=== PATIENT | male | born 1955 | race Caucasian/White ===

== ENCOUNTER 2021-01-29 09:34 | Inpatient (IN) ==
--- NOTE | 2021-01-29 09:51 | Emergency Department Note ---
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 The patient went for his usual visit when he was noted to have third-degree heart block. He does have a history of heart block in the past. He does not have a pacemaker. The patient states he has had no weakness. He denies having any changes in his medications but does take a very large dose of beta-blockers daily. He states has been compliant with his usual medications. He denies having any fever or cough. He has had no recent traveling. He has not had any recent tick bites. He denies having any dizziness upon standing or weakness. The patient states that he has not recently been seen by his primary care physic sundar. ROS: See above HPI for pertinent positives & negatives. A total of 10 systems reviewed and were otherwise negative. PAST MEDICAL HISTORY: See Below PAST SURGICAL HISTORY: See Below FAMILY HISTORY: See Below SOCIAL HISTORY: See Below HOME MEDICATIONS: See Below ALLERGIES: See Below VITALS: See Below PHYSICAL EXAMINATION: GENERAL: Patient is awake alert in no acute distress patient is resting comfortably and showing no signs of anxiety EYES: The conjunctivae are clear. The pupils are round and reactive. EARS, NOSE, MOUTH AND THROAT: The nose is without any evidence of any deformity. Mucous membranes are moist. Tongue is midline. NECK: The neck is nontender and supple. RESPIRATORY: Normal respiratory effort is noted there is no evidence of wheezing rhonchi or rales CARDIOVASCULAR: Bradycardic and regular heart sounds were noted to auscultation. There is no definite murmur noted. GASTROINTESTINAL: The abdomen is soft. Abdomen is nontender. MUSCULOSKELETAL/EXTREMITIES: There is no evidence of gross deformity full range of motion is noted in the hips and shoulders. SKIN: Skin is warm and dry. Trace pedal edema was noted bilaterally. NEUROLOGIC: Patient is awake alert and oriented x3. MEDICAL DECISION MAKING: The patient is a 65-year-old male who presented to the emergency department for an evaluation of abnormal EKG. The patient was found to have a third-degree heart block on EKG. the patient was evaluated by cardiology in the emergency department. It is felt the patient is on a rather large dose of beta-nanci. His blood pressure is not low in the emergency department. He is bradycardic. At this time we will hold the patient's beta-nanci. He will then be evaluated further but after discussion with cardiology it is felt the patient is likely going to be a candidate for pacemaker placement. The patient has a history of cardiomyopathy. He may be a candidate for a defibrillator as well. The patient was agreeable to this plan. I discussed his case with the on-call [facility] hospitalist. Triage Nursing notes reviewed. Prior medical records reviewed Vital Signs: reviewed and remarkable for bradycardia and hypertension. Differential diagnosis: Premature contractions, electrolyte abnormality, cardiac dysrhythmia, thyroid dysfunction, pulmonary embolism, infection, gastrointestinal, as well as other pathologies. ER treatment provided: See below Diagnostics interpreted by me: ECG: EKG was obtained in the emergency department. My interpretation is third-d egree heart block at 47 bpm. No PVCs were noted. Lateral ST depressions were noted. This was compared to a tracing from November 292017. There was a first-degree AV block noted previously but the third-degree heart block is new compared to the earlier tracing. Cardiac Monitoring: An order was placed for continuous cardiac monitoring. The monitor shows a rate of 48 bpm with third-degree heart block. Laboratory studies: As stated above and show below. Imaging studies: See below Consultation(s): I discussed this case with Dr. Betancur who is on-call for [facility] cardiology. He has evaluated the patient in the emergency department. I discussed this case with Rhiannon who is on-call for the [facility] hospitalist group. Past Med/Surg History Medical History Congestive heart failure Hypertension Osteoarthritis Type 2 diabetes mellitus Social History Smoking Status: Former smoker Preferred Language: Mauritanian Feels Safe at Home: Yes Allergies Allergies Allergy/AdvReac Type Severity Reaction Status Date / Time cefuroxime Allergy Unknown FEVER, Verified 01/29/21 11:00 DIARHEA CREOCODE Allergy Unknown RED, Uncoded 01/29/21 11:00 [facility] Home Medications Medication Instructions Recorded Confirmed aspirin 81 mg tablet,delayed 81 mg PO DAILY 01/29/21 01/29/21 release coQ10 (ubiquinol) 200 mg capsule 200 mg PO DAILY 01/29/21 01/29/21 dorzolamide 2 % eye drops (Trusopt) 1 drp OPR BID 01/29/21 01/29/21 eplerenone 25 mg tablet (Inspra) 12.5 mg PO QAM 01/29/21 01/29/21 furosemide 80 mg tablet (Lasix) 40 mg PO QAM 01/29/21 01/29/21 levothyroxine 75 mcg tablet 75 mcg PO DAILYBB 01/29/21 01/29/21 (Synthroid) lisinopril 40 mg tablet (Zestril) 40 mg PO QAM 01/29/21 01/29/21 metoprolol tartrate 100 mg tablet See Rx Instructions .ROUTE .COMPLEX 01/29/21 01/29/21 (Lopressor) Results & Data (ED) Vital Signs Vital Signs - 24 hr 01/29/21 09:36 01/29/21 10:04 01/29/21 10:05 Temperature 36.4 C L Temperature Source Temporal Artery Scan Pulse Rate 48 L 52 L Pulse Rate [Right Finger] 50 L Pulse Rhythm Regular Pulse Rhythm [Right Finger] Pulse Strength Normal Respiratory Rate 20 20 16 Respiratory Effort / Characteristics Non-Labored Spontaneous Respiratory Depth Normal Respiratory Pattern Regular Blood Pressure [Right Arm] 171/93 H Blood Pressure Mean [Right Arm] 119 Pulse Oximetry 95 98 97 Oxygen Delivery Method Room Air Room Air Room Air Sepsis Recent Fever Within 48 Hours No Sepsis New/Unexplained Change in Mental Status No Sepsis Action Taken by Nursing No Action Required 01/29/21 10:30 01/29/21 11:35 01/29/21 12:34 Temperature Temperature Source Pulse Rate Pulse Rate [Right Finger] 68 52 L 48 L Pulse Rhythm Pulse Rhythm [Right Finger] Regular Pulse Strength Respiratory Rate 16 14 14 Respiratory Effort / Characteristics Non-Labored Respiratory Depth Normal Normal Normal Respiratory Pattern Blood Pressure [Right Arm] 170/97 H 176/99 H 131/103 H Blood Pressure Mean [Right Arm] 121 124 112 Pulse Oximetry 97 94 95 Oxygen Delivery Method Room Air Room Air Room Air Sepsis Recent Fever Within 48 Hours Sepsis New/Unexplained Change in Mental Status Sepsis Action Taken by Group Home Medications Current Medication List: was personally reviewed by me Laboratory Data Attestation: I reviewed the patient's lab results. Result diagrams: 01/29/21 09:53 01/29/21 09:53 Lab Results 01/29/21 01/29/21 01/29/21 Range/Units 09:53 09:53 09:53 WBC 9.63 (4.8-10.8) K/uL RBC 4.39 L (4.7-6.1) M/uL Hgb 13.7 L (14.0-18.0) g/dL Hct 41.2 L (42-52) % MCV 93.8 (80-100) fL MCH 31.2 (25-34) pg MCHC 33.3 (32-36) g/dL RDW Std Deviation 43.6 (36.4-46.3) fL RDW Coeff of Mariam 12.7 (11.5-14.5) % Plt Count 192 (130-400) K/uL MPV 11.7 H (7.4-10.4) fL Immature Gran % (Auto) 0.1 % Neut % (Auto) 69.4 % Lymph % (Auto) 17.5 % Morrow % (Auto) 10.0 % Eos % (Auto) 2.7 % Baso % (Auto) 0.3 % Neut # (Auto) 6.68 H (1.4-6.5) K/uL Lymph # (Auto) 1.69 (1.2-3.4) K/uL Morrow # (Auto) 0.96 H (0.11-0.59) K/uL Eos # (Auto) 0.26 (0-0.5) K/uL Baso # (Auto) 0.03 (0-0.2) K/uL Immature Gran # (Auto) 0.01 (0.00-0.02) K/uL PT 10.4 (9.0-12.0) Seconds INR 1.0 (0.9-1.1) APTT 28.8 (21.0-31.0) Seconds PTT Ratio 1.1 Sodium 139 (136-145) mmol/L Potassium 3.1 L (3.5-5.1) mmol/L Chloride 100 (98-107) mmol/L Carbon Dioxide 30 (21-32) mmol/L Anion Gap 9.0 (3-11) BUN 9 (7-18) mg/dl Creatinine 1.05 (0.6-1.4) mg/dl Est Cr Clr Drug Dosing 94.7 ml/min Est GFR ( Amer) 87.1 ml/min Est GFR (Non-Af Amer) 75.2 ml/min BUN/Creatinine Ratio 9.0 L (10-20) Glucose 184 H (70-99) mg/dl Calcium 10.0 (8.5-10.1) mg/dl Magnesium 2.1 (1.8-2.4) mg/dl Total Bilirubin 0.5 (0.2-1) mg/dl AST 13 L (15-37) U/L ALT 22 (12-78) U/L Alkaline Phosphatase 71 (45-117) U/L Troponin I 0.528 H* (0-0.045) ng/ml Total Protein 8.3 H (6.4-8.2) gm/dl Albumin 3.8 (3.4-5.0) gm/dl Globulin 4.5 H (2.5-4.0) gm/dl Albumin/Globulin Ratio 0.8 L (0.9-2) TSH 6.630 H (0.300-4.500) uIu/ml Free T4 1.15 (0.8-1.6) ng/dl COVID-19 Eval Order SARS-CoV-2 (PCR) (Negative) 01/29/21 01/29/21 Range/Units 10:54 10:54 WBC (4.8-10.8) K/uL RBC (4.7-6.1) M/uL Hgb (14.0-18.0) g/dL Hct (42-52) % MCV (80-100) fL MCH (25-34) pg MCHC (32-36) g/dL RDW Std Deviation (36.4-46.3) fL RDW Coeff of Mariam (11.5-14.5) % Plt Count (130-400) K/uL MPV (7.4-10.4) fL Immature Gran % (Auto) % Neut % (Auto) % Lymph % (Auto) % Morrow % (Auto) % Eos % (Auto) % Baso % (Auto) % Neut # (Auto) (1.4-6.5) K/uL Lymph # (Auto) (1.2-3.4) K/uL Morrow # (Auto) (0.11-0.59) K/uL Eos # (Auto) (0-0.5) K/uL Baso # (Auto) (0-0.2) K/uL Immature Gran # (Auto) (0.00-0.02) K/uL PT (9.0-12.0) Seconds INR (0.9-1.1) APTT (21.0-31.0) Seconds PTT Ratio Sodium (136-145) mmol/L Potassium (3.5-5.1) mmol/L Chloride (98-107) mmol/L Carbon Dioxide (21-32) mmol/L Anion Gap (3-11) BUN (7-18) mg/dl Creatinine (0.6-1.4) mg/dl Est Cr Clr Drug Dosing ml/min Est GFR ( Amer) ml/min Est GFR (Non-Af Amer) ml/min BUN/Creatinine Ratio (10-20) Glucose (70-99) mg/dl Calcium (8.5-10.1) mg/dl Magnesium (1.8-2.4) mg/dl Total Bilirubin (0.2-1) mg/dl AST (15-37) U/L ALT (12-78) U/L Alkaline Phosphatase (45-117) U/L Troponin I (0-0.045) ng/ml Total Protein (6.4-8.2) gm/dl Albumin (3.4-5.0) gm/dl Globulin (2.5-4.0) gm/dl Albumin/Globulin Ratio (0.9-2) TSH (0.300-4.500) uIu/ml Free T4 (0.8-1.6) ng/dl COVID-19 Eval Order Covid19 at [facility] SARS-CoV-2 (PCR) POSITIVE A* (Negative) Administered Medications Discontinued Medications Potassium Chloride (Potassium Chloride Crtab 20 Meq Tabcr) 40 meq PO NOW STA Stop: 01/29/21 11:37 Last Admin: 01/29/21 12:32 Dose: 40 meq Documented by: [id number] Imaging Data Radiologist's Impression: Chest X-Ray 01/29/21 09:45 XR chest 1V portable CLINICAL HISTORY: weakness TECHNIQUE: Single frontal radiograph of the chest was obtained. Comparison: Comparison is made to chest one view 03/05/2015 FINDINGS: No lines and tubes are seen. Cardiomegaly is noted. Lungs are underinflated but clear. No evidence of pleural effusion or pneumothorax. IMPRESSION: No acute chest disease. ACT 112: Negative or not required by law. Electronically signed by: Ramesh Schwartz M.D. 01/29/2021 10:25 AM Discharge Plan Visit Data Chief Complaint: Cardiac Assessment Stated Complaint: ABNORMAL EKG ED Provider: Tyrel Vega Discharge Problem: Third degree heart block, Ischemic cardiomyopathy, Hypertension, COVID-19 Patient Disposition: Being Evaluated by Hospitalist Forms Stand Alone Forms: [facility] Prescriptions Prescriptions: No Action aspirin [Aspir-81] 81 mg Tablet,Delayed Release (Dr/Ec) 81 mg PO DAILY RF: 0 dorzolamide [Trusopt] 2 % drops 1 drp OPR BID RF: 0 metoprolol tartrate [Lopressor] 100 mg tablet See Rx Instructions .ROUTE .COMPLEX RF: 0 levothyroxine [Synthroid] 75 mcg tablet 75 mcg PO DAILYBB RF: 0 furosemide [Lasix] 80 mg tablet 40 mg PO QAM RF: 0 lisinopril [Zestril] 40 mg tablet 40 mg PO QAM RF: 0 eplerenone [Inspra] 25 mg tablet 12.5 mg PO QAM RF: 0 coQ10 (ubiquinol) 200 mg Capsule 200 mg PO DAILY RF: 0 Referrals Referrals: PCP,NO [Physician] -
[2021-01-29 10:13] LABS: Basophils # (auto) 0.03 K/uL (0-0.2); Basophils % (auto) 0.3 %; Eosinophils # (auto) 0.26 K/uL (0-0.5); Eosinophils % (auto) 2.7 %; Hematocrit (blood only) 41.2 % (42-52); Hemoglobin 13.7 g/dL (14.0-18.0); Immature Granulocytes # (auto) 0.01 K/uL (0.00-0.02); Immature Granulocytes % (auto) 0.1 %; Lymphocytes # (auto) 1.69 K/uL (1.2-3.4); Lymphocytes % (auto) 17.5 %; Mean Corpuscular Hemoglobin 31.2 pg (25-34); Mean Corpuscular Hgb Conc 33.3 g/dL (32-36); Mean Corpuscular Volume 93.8 fL (80-100); Mean Platelet Volume 11.7 fL (7.4-10.4); Monocytes # (auto) 0.96 K/uL (0.11-0.59); Neutrophils # (auto) 6.68 K/uL (1.4-6.5); Neutrophils % (auto) 69.4 %; Platelet Count 192 K/uL (130-400); RDW Coefficient of Variation 12.7 % (11.5-14.5); RDW Standard Deviation 43.6 fL (36.4-46.3); Red Blood Count 4.39 M/uL (4.7-6.1); White Blood Count 9.63 K/uL (4.8-10.8)
--- NOTE | 2021-01-29 10:26 | XRay Report ---
XR chest 1V portable CLINICAL HISTORY: weakness TECHNIQUE: Single frontal radiograph of the chest was obtained. Comparison: Comparison is made to chest one view 03/05/2015 FINDINGS: No lines and tubes are seen. Cardiomegaly is noted. Lungs are underinflated but clear. No evidence of pleural effusion or pneumothorax. IMPRESSION: No acute chest disease. ACT 112: Negative or not required by law. Electronically signed by: Ramesh Schwartz M.D. 01/29/2021 10:25 AM
[2021-01-29 10:28] LABS: Partial Thromboplastin Ratio 1.1; Partial Thromboplastin Time 28.8 Seconds (21.0-31.0); Prothrombin Time 10.4 Seconds (9.0-12.0)
[2021-01-29 10:33] LABS: Albumin Level 3.8 gm/dl (3.4-5.0); Creatinine Clr Calc Pharmacy 94.7 ml/min; Est GFR (African American) 87.1 ml/min; Est GFR (Non-African American) 75.2 ml/min; Magnesium 2.1 mg/dl (1.8-2.4); Potassium 3.1 mmol/L (3.5-5.1)
[2021-01-29 10:46] LABS: Albumin Globulin Ratio 0.8 (0.9-2); Bilirubin,Total 0.5 mg/dl (0.2-1); Globulin 4.5 gm/dl (2.5-4.0); Thyroid Stimulating Hormone 6.63 uIu/ml (0.300-4.500); Total Protein 8.3 gm/dl (6.4-8.2); Troponin I 0.528 ng/ml (0-0.045)
[2021-01-29 10:59] LABS: T4 Free Thyroxine 1.15 ng/dl (0.8-1.6)
--- NOTE | 2021-01-29 11:20 | History & Physical Report ---
Date of Service January 29, 2021 Assessment & Plan (1) Third degree heart block: Plan: -Admit to PCU -Consult cardiology, discussed with Dr. Ventura -Check 2D echo, last echo was done in May 2020 showing EF preserved after ischemic cardiomyopathy where his EF was less than 20% prior to that timeframe -Hold beta-blockade, last dose was this morning per cardiology - keep NPO for possible placemaker placement, if no pacemaker then will allow diet -May continue Lasix 40 mg daily, lisinopril 40 mg daily, eplerenone 12.5 mg daily (2) Ischemic cardiomyopathy: Plan: - nonischemic cardiomyopathy with an LVEF now improved to 55-59% in May 2020 - Continue medications as above - Cardiology on board- appreciate (3) DM II (diabetes mellitus, type II), controlled: Plan: -Last A1c was 7.0 1 year ago, recheck with a.m. labs, patient is not on any oral medications or insulin, does not check his glucose regularly -Diet and exercise was encouraged at bedside (4) HLD (hyperlipidemia): Plan: - Not on statin therapy, check lipid panel with am labs, can continue coQ10 DVT ppx: - teds, ambulatory, heparin subq CODE: Full code Dispo: From home, likely to remain in the hospital x 1-2 days (5) Non-ischemic myocardial injury (non-traumatic): (6) COVID-19: History of Present Illness Chief Complaint: heart block Primary Care Provider: Real Mendoza MD This is a 65-year-old male with PMHx of nonischemic cardiomyopathy with an LVEF now improved to 55-59% in May 2020, HTN, moderate to severe aortic stenosis, DM type II, CHARBEL, GERD, and has had COVID-19 twice, who was seen in the etl application developer office by Dr. Betancur earlier this morning for routine follow-up for intermittent complete heart block found on cardio mobile. Patient was supposed to have a sleep study scheduled for 12/15 however patient no-show to the appointment due to scheduling error. In October the patient noted that he had a low heart rate in the mid 40s for 3 days. His metoprolol was reduced for short period of time and his heart rates improved to the mid 70s. His metoprolol dose currently is 150 daily, but does not take his medication consistently - ie. one morning will take 100 mg, in the afternoon takes 50 mg then the next day will take 75 in the morning and 75 in the evening. He is taking his Lasix 40 mg d aily as scheduled as well as lisinopril and eplerenone. He has been taking aspirin for the past 2 days however is fairly noncompliant with this in general. He also has variability in the vitamins that he takes at home, adjusting them on a daily basis. Patient denies any smoking or drinking, quit drinking whenever he developed issues with his heart. 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 Overall the patient feels generally himself, well, without acute complaints. He was referred to the ER for bradycardia with heart rates in the 40s. Cardiology has concerns for third-degree heart block and needs for pacemaker placement. Allergies Allergy/AdvReac Type Severity Reaction Status Date / Time cefuroxime Allergy Unknown FEVER, Verified 01/29/21 11:00 DIARHEA CREOCODE Allergy Unknown RED, Uncoded 01/29/21 11:00 [facility] Home Medications Medication Instructions Recorded Confirmed Type aspirin 81 mg tablet,delayed 81 mg PO DAILY 01/29/21 01/29/21 History release coQ10 (ubiquinol) 200 mg capsule 200 mg PO DAILY 01/29/21 01/29/21 History dorzolamide 2 % eye drops (Trusopt) 1 drp OPR BID 01/29/21 01/29/21 History eplerenone 25 mg tablet (Inspra) 12.5 mg PO QAM 01/29/21 01/29/21 History furosemide 80 mg tablet (Lasix) 40 mg PO QAM 01/29/21 01/29/21 History levothyroxine 75 mcg tablet 75 mcg PO DAILYBB 01/29/21 01/29/21 History (Synthroid) lisinopril 40 mg tablet (Zestril) 40 mg PO QAM 01/29/21 01/29/21 History metoprolol tartrate 100 mg tablet See Rx Instructions .ROUTE .COMPLEX 01/29/21 01/29/21 History (Lopressor) Past Med/Surg History Medical History Congestive heart failure Hypertension Osteoarthritis Type 2 diabetes mellitus Surgical History Eye disorder S/p posterior Sub-tenons Triesence, right Family History Father Prostate cancer Bladder cancer Mother Diabetes Heart disease Thyroid condition Sister Thyroid condition Social History Smoking Status: Former smoker Hx Alcohol Use: No Hx Substance Use: No Preferred Language: Icelandic Communication Ability: Effective Mental Health Case Manager Required: No Beliefs That Will Affect Care: None Current Living Situation: Family Current Living Situation Comment: lives with sister Other Information That Helps Us Care for You: No Feels Safe at Home: Yes Safety Concerns: Feels Safe At This Time Assistive Devices: Glasses Review of Systems Review of Systems: Constitutional: No fever, sweats or chills Eyes: No diplopia, no worsening or blurred vision ENT: normal hearing, no trouble swallowing Respiratory: No cough, sputum, dyspnea at rest or on exertion Cardiovascular: No chest pain, tightness or palpitations, no lightheadedness or dizziness Abdomen: No pain, nausea, vomiting, diarrhea or constipation Musculoskeletal: No joint pain, calf pain, swelling Neurologic: No weakness, numbness/tingling, or balance problems Psychiatric: No anxiety or depression Skin: No rash or itch Physical Exam Physical Exam: General: awake, alert, no apparent distress, obese with BMI of 36.8 Head: Normocephalic, atraumatic ENT: PERRL, EOMI, right eye amblyopia, no pharyngeal exudate, mucous membranes moist Chest: Clear to auscultation, on room air, no adventitious breath sounds Cardiac: Bradycardic with HR in low 50s at bedside, no murmur, no JVD, normal peripheral pulses, good capillary refill Abdominal: NABS x 4 quadrants, soft, nondistended, nontender to palpation, no rebound or guarding Extremities: Normal inspection, + chronic venous stasis changes, no peripheral edema or erythema, calfs nontender to palpation Psych: Normal mood and affect Neuro: AAO x 3, strength intact bilaterally and rated 5/5, no motor deficits, speech is clear, no peripheral sensory deficits Results & Data Results & Data ([facility]) Vital Signs (Past 12 Hours) Vital Signs Temp Pulse Pulse Resp BP Pulse Ox 01/29/21 10:30 68 16 170/97 H 97 01/29/21 10:05 50 L 16 171/93 H 97 01/29/21 10:04 52 L 20 98 01/29/21 09:36 36.4 C L 48 L 20 95 Diagnostic Findings Chest X-Ray 01/29/21 09:45 XR chest 1V portable CLINICAL HISTORY: weakness TECHNIQUE: Single frontal radiograph of the chest was obtained. Comparison: Comparison is made to chest one view 03/05/2015 FINDINGS: No lines and tubes are seen. Cardiomegaly is noted. Lungs are underinflated but clear. No evidence of pleural effusion or pneumothorax. IMPRESSION: No acute chest disease. ACT 112: Negative or not required by law. Electronically signed by: Ramesh Schwartz M.D. 01/29/2021 10:25 AM ECG Rhythm: sinus bradycardia Additional Comments: 29-JAN-2021 09:45:15 [facility]-EDSTAT ROUTINE RETRIEVAL Sinus rhythm with 2nd degree A-V block (Mobitz I) with 2:1 A-V conduction Left anterior fascicular block Cannot rule out Inferior infarct (masked by fascicular block?) , age undetermined Abnormal ECG When compared with ECG of 29-NOV-2017 22:44, Sinus rhythm is now with 2nd degree A-V block (Mobitz I) Vent. rate has decreased BY [address] now depressed in Lateral leads Nonspecific T wave abnormality now evident in Lateral leads 25mm/s 10mm/mV 150Hz 9.0.9 12SL 241 TANIA: 11 Referred by: SAGE FRAUSTO Unconfirmed Vent. rate 47 BPM [place] interval * ms QRS duration 106 ms QT/QTc 468/414 ms Code Status & VTE Plan Code Status Full code - discussed with the patient at bedside VTE Prophylaxis Plan VTE Prophylaxis will be ordered: Yes Supervising Physician Co-Signing Physician Notes I have seen and examined the patient and have discussed the case with the provider above. I agree with the assessment and plan as stated. 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 He presents today with concerns of heart block seen on EKG in the cardiology clinic, where he was sent from this morning. He looks and feels well clinically, and when he is resting on my evaluation his HR is in the 50s with sinus rhythm. He then sat up and his heart rate augmented into the low 80s without any symptoms. He denies chest pain, shortness of breath or fatigue that is unusual. He reports chronic joint pain in several joints which causes him insomnia. He takes occasional [place] or plain acetaminophen and avoids NSAIDs per his report. He started taking elderberry gummies within the past 3 months. Physical exam is unremarkable and as above with the exception of a 3/6 CRISTIN is present across precordium. He is euvolemic on exam. He is hypertensive with bilateral blood pressures as follows: R arm 162/87, L arm 164/115. SBP was in the 130s this morning on outpatient chart review. Cont to monitor blood pressure trend overnight. EKG reveals second degree heart block, Mobitz Type I. Trop slightly elevated in setting of covid infection. ACS less likely without symptoms. However, agree with trending troponin overnight. Cont to monitor on telemetry off beta nanci. Appreciate cardiology following. At this time patient doesn't qualify for any covid-19 related therapies. Narayan, DO
[2021-01-29] MEDS ORDERED: POTASSIUM CHLORIDE CRTAB 20 MEQ TABCR PO STA (11:36)
--- NOTE | 2021-01-29 12:15 | Cardiology Consultation ---
Date of Consultation January 29, 2021 Assessment & Plan (1) Third degree heart block: 1. Asymptomatic third-degree AV block 2. Longstanding history of AV jayshree nanci use due to history of tachycardia induced cardiomyopathy 3. Acute hypokalemia 4. SARS-CoV-2 positive with recent cough and rhinorrhea 5. Moderate to borderline severe aortic stenosis Comment: The patient's cardiac history dates back to 2014 when he presented for a preoperative EKG prior to eye surgery with findings of a narrow complex tachycardia in the 120s. Per review of those tracings, they were interpreted as being an accelerated junctional rhythm versus sinus tachycardia at that time. Ejection fraction was less than 20% with findings of severe aortic stenosis or pseudosevere aortic stenosis at that time. He was treated with medications, and had a nonischemic pharmacologic nuclear stress test as part of an ischemic work- up at that time. Per review of prior notes, in 2014 his medication regimen included metoprolol 100 mg twice daily, diltiazem 180 mg daily, and digoxin 125 mg daily. Over time his ejection fraction has been observed to of normalized. His AV jayshree blockers have been titrated down, with most recent regimen of metoprolol tartrate 100 mg in the morning and 50 mg in the evening. This morning he took 75 mg. He notes recent travel having returned to the area from a trip to [place] recently. He notes cough and rhinorrhea, and his SARS-CoV-2 screen here in the emergency room is positive. He is very limited in terms of his physical activity due to arthritis/orthopedic limitations. He however does not have any symptoms related to his bradycardia, with no lightheadedness, dizziness, and his blood pressure is actually been normal to hypertensive. Plan: Admit for telemetry monitoring. I am not certain what to think of the mild troponin elevation in the setting of a positive SARS-CoV-2 screen, though he has subtle ST depression on his EKG tracings today, and he has no symptoms suggestive angina, and is hemodynamically stable. There is no indication for temporary pacemaker support as he is normotensive. We will observe the patient off of AV jayshree blockers. It does appear that he has needed less medication over time. Potassium replacement has been ordered. I discussed his case with Dr. Waterman who had seen him in outpatient EP consult in August. At present, will observe him off of AV node blockers, with conside ration of implantation of permanent pacemaker depending upon his course. Transthoracic echocardiogram will be performed for reassessment of LV function and aortic valve stenosis. History of Present Illness History of Present Illness Yovani La is a 65 year old male seen in cardiology consultation in the ED ,room A12B, per the request of Dr Vega for the evaluation of bradycardia. The patient presented to the outpatient cardiology clinic at [facility] for routine follow-up with no acute concerns. He denies any gross change in his activity tolerance, denies lightheadedness, dizziness, syncope or near syncope. He does note that he perhaps has been feeling off for 3 weeks with having had a coughing illness, but no fevers or chills. An EKG was performed as an outpatient today 01/29/2021 at 905 which revealed findings of third-degree AV block, with AV disassociation, and ventricular rate of 43 bpm. The QRS is relatively narrow at 94 ms. Poor R wave progression is noted. Mild diffuse ST segment depression also on a tracing. The patient was referred to the emergency room for further evaluation, with findings that are relatively unchanged. The patient has no symptoms suggestive angina. Blood pressure recorded in the office had been 138/80, and his most recent blood pressure having been recorded here in the emergency room was 176/99. Cardiac Problem List: Longstanding history of conduction system disease, with history of nonischemic cardiomyopathy dating back to 2014, LVEF less than 20%, at that time felt to be tachycardia induced with subsequent normalization and is therefore an high dose metoprolol Nonischemic Lexiscan nuclear stress test 03/23/2015 Has a history of left anterior fascicular block and on a Cardionet monitor performed Jul, 2020 he was found to have an average heart rate of 77 bpm, with episodes of 2-1 AV block versus intermittent complete heart block noted. Transthoracic echocardiogram performed 06/23/2020 revealed moderate concentric left ventricular hypertrophy, normal LVEF 55 to 59%, moderate aortic valve calcification, moderate to borderline aortic valve stenosis, peak CW velocity 3.7 m/s, mean aortic valve gradient 32 mmHg. Nonischemic Lexiscan nuclear stress test 03/23/2015 Allergies Allergy/AdvReac Type Severity Reaction Status Date / Time cefuroxime Allergy Unknown FEVER, Verified 01/29/21 11:00 DIARHEA CREOCODE Allergy Unknown RED, Uncoded 01/29/21 11:00 RAISED WELTS Home Medications Medication Instructions Recorded Confirmed Type aspirin 81 mg tablet,delayed 81 mg PO DAILY 01/29/21 01/29/21 History release coQ10 (ubiquinol) 200 mg capsule 200 mg PO DAILY 01/29/21 01/29/21 History dorzolamide 2 % eye drops (Trusopt) 1 drp OPR BID 01/29/21 01/29/21 History eplerenone 25 mg tablet (Inspra) 12.5 mg PO QAM 01/29/21 01/29/21 History furosemide 80 mg tablet (Lasix) 40 mg PO QAM 01/29/21 01/29/21 History levothyroxine 75 mcg tablet 75 mcg PO DAILYBB 01/29/21 01/29/21 History (Synthroid) lisinopril 40 mg tablet (Zestril) 40 mg PO QAM 01/29/21 01/29/21 History metoprolol tartrate 100 mg tablet See Rx Instructions .ROUTE .COMPLEX 01/29/21 01/29/21 History (Lopressor) Patient History Medical History Congestive heart failure Hypertension Osteoarthritis Type 2 diabetes mellitus Social History Smoking Status: Former smoker Preferred Language: Fijian Feels Safe at Home: Yes Review of Systems Review of Systems: All systems reviewed & are unremarkable except as noted in HPI & below Physical Exam Constitutional: WD/WN, vitals as above Respiratory: normal respiratory effort, lungs clear to auscultation Cardiovascular: Rate/Rhythm: + bradycardic Heart Sounds: + murmur (2/6 SM ) Gastrointestinal (Abdomen): normal bowel sounds, soft, nontender, no hepatosplenomegaly Neurologic: PERRL, EOMI, accommodation nl, no face palsy, no dysarthria Results & Data ([facility]) Vital Signs (Past 12 Hours) Vital Signs Temp Pulse Pulse Resp BP Pulse Ox 01/29/21 11:35 52 L 14 176/99 H 94 01/29/21 10:30 68 16 170/97 H 97 01/29/21 10:05 50 L 16 171/93 H 97 01/29/21 10:04 52 L 20 98 01/29/21 09:36 36.4 C L 48 L 20 95 Laboratory Results Cardiac Enzymes 01/29/21 Range/Units 09:53 AST 13 L (15-37) U/L Troponin I 0.528 H* (0-0.045) ng/ml Coagulation 01/29/21 Range/Units 09:53 PT 10.4 (9.0-12.0) Seconds APTT 28.8 (21.0-31.0) Seconds CBC 01/29/21 Range/Units 09:53 WBC 9.63 (4.8-10.8) K/uL RBC 4.39 L (4.7-6.1) M/uL Hgb 13.7 L (14.0-18.0) g/dL Hct 41.2 L (42-52) % Plt Count 192 (130-400) K/uL Neut # (Auto) 6.68 H (1.4-6.5) K/uL Lymph # (Auto) 1.69 (1.2-3.4) K/uL [place] # (Auto) 0.96 H (0.11-0.59) K/uL Eos # (Auto) 0.26 (0-0.5) K/uL Baso # (Auto) 0.03 (0-0.2) K/uL Comprehensive Metabolic Panel 01/29/21 Range/Units 09:53 Sodium 139 (136-145) mmol/L Potassium 3.1 L (3.5-5.1) mmol/L Chloride 100 (98-107) mmol/L Carbon Dioxide 30 (21-32) mmol/L BUN 9 (7-18) mg/dl Creatinine 1.05 (0.6-1.4) mg/dl Glucose 184 H (70-99) mg/dl Calcium 10.0 (8.5-10.1) mg/dl AST 13 L (15-37) U/L ALT 22 (12-78) U/L Alkaline Phosphatase 71 (45-117) U/L Total Protein 8.3 H (6.4-8.2) gm/dl Albumin 3.8 (3.4-5.0) gm/dl Intake and Output 01/28/21 01/29/21 01/29/21 22:59 06:59 14:59 Other: Weight 119.6 kg Weight Measurement Method Chair Scale Patient Weight 01/30/21 06:59 Weight 119.6 kg Diagnostic Findings Potassium 3.1 Troponin I 0.528
[2021-01-29] MEDS: POTASSIUM CHLORIDE CRTAB 20 MEQ TABCR PO ONE ×2 (15:52→15:57)
[2021-01-29] MEDS ORDERED: POTASSIUM CHLORIDE 20 MEQ/15 ML UDC PO ONE ×2 (16:00→16:15)
[2021-01-29] MEDS ORDERED: ONDANSETRON INJ 2 MG/ML 2 ML VIAL IV PRN (17:32)
[2021-01-29] MEDS ORDERED: ACETAMINOPHEN 325 MG TAB PO PRN (17:32)
[2021-01-29] MEDS: HEPARIN SOD 5,000 UNIT/0.5 ML VIAL SQ SCH (19:40)
[2021-01-29] MEDS: DORZOLAMIDE HCL 2% OPH SOLN 10 ML BTL OPR SCH (20:02)
[2021-01-30] MEDS: LEVOTHYROXINE SODIUM 75 MCG TABLET PO SCH (06:06)
[2021-01-30 06:22] LABS: Hematocrit (blood only) 44.6 % (42-52); Mean Corpuscular Hemoglobin 31.1 pg (25-34); Mean Corpuscular Volume 92.5 fL (80-100); Platelet Count 203 K/uL (130-400); RDW Coefficient of Variation 12.9 % (11.5-14.5); RDW Standard Deviation 43.6 fL (36.4-46.3); Red Blood Count 4.82 M/uL (4.7-6.1)
[2021-01-30 06:25] LABS: Mean Corpuscular Hgb Conc 33.6 g/dL (32-36)
--- NOTE | 2021-01-30 06:40 | Electrocardiogram Report ---
Test Reason : Blood Pressure : / mmHG Vent. Rate : 047 BPM Atrial Rate : 078 BPM P-R Int : 000 ms QRS Dur : 106 ms QT Int : 468 ms P-R-T Axes : 035 -50 -87 degrees QTc Int : 414 ms Sinus rhythm with complete heart block Left anterior fascicular block Nonspecific ST and T wave abnormality Abnormal ECG When compared with ECG of 29-NOV-2017 22:44, Sinus rhythm is now with complete heart block Vent. rate has decreased BY [address] now depressed in Anterolateral leads Nonspecific T wave abnormality now evident in Anterolateral leads Confirmed by Rio King ([id number]) on 01/30/2021 6:40:41 AM Referred By: SAGE FRAUSTO Confirmed By:Rio King
[2021-01-30 07:14] LABS: Albumin Globulin Ratio 0.8 (0.9-2); Albumin Level 3.1 gm/dl (3.4-5.0); BUN Creatinine Ratio 12.7 (10-20); Bilirubin,Total 0.7 mg/dl (0.2-1); Calcium 8.9 mg/dl (8.5-10.1); Est GFR (Non-African American) 92.3 ml/min; Total Protein 7.1 gm/dl (6.4-8.2)
[2021-01-30 08:11] LABS: Estimated Average Glucose 171 mg/dl; Hemoglobin A1C 7.6 % (4.5-5.6)
[2021-01-30 08:22] LABS: Potassium 3.4 mmol/L (3.5-5.1)
[2021-01-30 08:27] LABS: Magnesium 2.2 mg/dl (1.8-2.4)
[2021-01-30] MEDS: FUROSEMIDE 40 MG TAB PO SCH (08:57)
[2021-01-30] MEDS: lisinopril 40 MG TAB PO SCH (08:58)
[2021-01-30] MEDS: HEPARIN SOD 5,000 UNIT/0.5 ML VIAL SQ SCH (08:59)
[2021-01-30] MEDS ORDERED: NON-FORMULARY MEDICATION (Coq10 (Ubiquinol) 200 mg Capsule) PO SCH (09:00)
[2021-01-30] MEDS: DORZOLAMIDE HCL 2% OPH SOLN 10 ML BTL OPR SCH ×2 (09:08→21:16)
[2021-01-30] MEDS: ASPIRIN 81 MG ECTAB PO SCH (09:10)
[2021-01-30] MEDS: EPLERENONE 25 MG PO SCH (09:22)
[2021-01-30] MEDS ORDERED: POTASSIUM CHLORIDE CRTAB 20 MEQ TABCR PO ONE (11:15)
[2021-01-30] MEDS ORDERED: Nursing to Pharmacy Communication SCH (12:00)
--- NOTE | 2021-01-30 12:02 | Cardiology Progress Note ---
Date of Service January 30, 2021 Assessment & Plan (1) Third degree heart block: (2) Paroxysmal atrial fibrillation: (3) Mobitz type 1 second degree AV block: (4) Aortic stenosis: Plan: Add IV heparin weight-based protocol due to paroxysmal atrial fibrillation. Continue to observe patient off all AV jayshree blocking agents. I will discuss case further with electrophysiology to consider timing of pacemaker implantation. Admission and Anticipated Discharge Date Admission Date: January 29, 2021 Subjective Patient seen and examined at bedside. Feeling well from a cardiovascular perspective. Denies palpitations or lightheadedness. No chest pain or unusual shortness of breath. No loss of taste or smell. Reports rhinorrhea and sneez ing. Overnight telemetry reveals paroxysmal atrial fibrillation with heart rate ranging from 70-80 bpm. No rapid ventricular response. Occasional episodes of sinus bradycardia as well as second-degree AV block Mobitz type I recorded. Blood pressure is stable. Review of Systems Review of Systems: All systems reviewed & are unremarkable except as noted in Subjective Physical Exam Constitutional: well nourished and + obese; no acute distress Respiratory: normal respiratory effort; no respiratory distress and no retractions Auscultation: no crackles, no rales, no rhonchi and no wheezes Cardiovascular: Rate/Rhythm: regular rate and regular rhythm Heart Sounds: normal S1, normal S2 and + murmur (2/6 systolic ejection murmur) Vessels: no JVD and no carotid bruit Gastrointestinal (Abdomen): Inspection/Auscultation: abdomen normal to inspection and normal bowel sounds; abdomen not distended Neurologic: CN's II-XI intact bilaterally and moves all extremities; no focal motor deficits Motor/Sensory: no tremor Psychiatric: A+Ox3, euthymic affect Results & Data ([facility]) Vital Signs (Past 12 Hours) Vital Signs Temp Pulse Pulse Resp BP BP Pulse Ox 01/30/21 11:46 36.8 C 85 18 138/90 92 01/30/21 10:54 62 98 01/30/21 10:23 53 L 95 01/30/21 08:00 36.7 C 72 18 140/90 01/30/21 04:16 43 L 01/30/21 03:00 36.9 C 51 L 14 140/96 140/96 93 Pulse Ox 01/30/21 11:46 01/30/21 10:54 01/30/21 10:23 01/30/21 08:00 95 01/30/21 04:16 01/30/21 03:00
[2021-01-30] MEDS ORDERED: POTASSIUM CHLORIDE 20 MEQ/15 ML UDC PO ONE (12:15)
[2021-01-30] MEDS ORDERED: Heparin IV Adult Wt-Based Standard WITH Bolus Protocol IV SCH (14:10)
[2021-01-30] MEDS ORDERED: HEPARIN SOD (PORCINE) 1000 UNIT/ML IV ONE (14:18)
[2021-01-30] MEDS ORDERED: HEPARIN IV BOLUS 7,000 UNITS in SYRINGE 0 ML IV ONE (14:30)
[2021-01-30] MEDS: HEPARIN SODIUM/DEXTROSE 25,000 UNITS/500 ML BAG IV SCH (15:01)
[2021-01-30] MEDS ORDERED: GLUCOSE 40% GEL 15 GM TUBE PO PRN (15:57)
[2021-01-30] MEDS ORDERED: CARBOHYDRATES FOR HYPOGLYCEMIA PO PRN (15:57)
[2021-01-30] MEDS ORDERED: GLUCOSE 10 TABS/TUBE PO PRN (15:57)
[2021-01-30] MEDS ORDERED: GLUCAGON FOR INJ 1 MG VIAL SQ PRN (15:57)
[2021-01-30] MEDS ORDERED: DEXTROSE 50% 50 ML SYRINGE IV PRN (15:57)
--- NOTE | 2021-01-30 16:03 | Hospitalist Progress Note ---
Date of Service January 30, 2021 Assessment & Plan (1) Third degree heart block: Plan: Third-degree heart block Paroxysmal atrial fibrillation H/O arctic stenosis ECHO: EF 65 to 70%. Mild concentric LVH. Aortic valve is trileaflet. Borderline severe aortic valve stenosis. Mild TR. Started on IV heparin Avoid AV jayshree blocking agents Appreciate cardiology input Plan for possible pacemaker implantation (2) Ischemic cardiomyopathy: Plan: Echo as above Continue home diuretics Monitor volume status (3) DM II (diabetes mellitus, type II), controlled: Plan: -Last A1c was 7.6 Patient is not on any oral medications or insulin, does not check his glucose regularly Insulin sliding scale while hospitalized (4) HLD (hyperlipidemia): Plan: continue coQ10 COVID 19 Infection H/O Covid twice before this hospitalization in late winter and earlier this year as per patient. Unvaccinated. CXR:No acute chest disease. Saturating well on room air DVT Px: IV heparin CODE STATUS: Full code (5) Non-ischemic myocardial injury (non-traumatic): (6) COVID-19: Admission and Anticipated Discharge Date Admission Date: January 29, 2021 Subjective Patient is seen and examined at bedside States feeling well today Denies any chest pain, dyspnea, palpitations, dizziness Reports rhinorrhea Bradycardic on monitor Saturating well on room air Review of Systems Review of Systems: All systems reviewed & are unremarkable except as noted in Subjective Physical Exam Physical Exam: Physical Exam: Vitals signs as noted above General Appearance:Obese, no apparent distress Head: normocephalic, Atraumatic Eyes: normal inspection, EOMI Neck: supple, Trachea midline Respiratory/Chest: Normal breath sounds, CTA Cardiovascular: S1, S2, + murmur, +Bradycardia Abdomen/GI:Soft, Non tender, Bowel sounds present Extremities/Musculoskeletal:normal inspection, no edema Neurologic/Psych:AAOX3, grossly no focal neurological deficits Skin: normal color, warm Results & Data Results & Data ([facility]) Vital Signs (Past 12 Hours) Vital Signs Temp Pulse Pulse Resp BP BP Pulse Ox 01/30/21 13:51 53 L 92 01/30/21 11:46 36.8 C 85 18 138/90 92 01/30/21 10:54 62 98 01/30/21 10:23 53 L 95 01/30/21 08:00 36.7 C 72 18 140/90 01/30/21 04:16 43 L Pulse Ox 01/30/21 13:51 01/30/21 11:46 01/30/21 10:54 01/30/21 10:23 01/30/21 08:00 95 01/30/21 04:16 Laboratory Results Short CBC 01/30/21 Range/Units 05:16 WBC 9.10 (4.8-10.8) K/uL Hgb 15.0 (14.0-18.0) g/dL Hct 44.6 (42-52) % Plt Count 203 (130-400) K/uL BMP 01/30/21 01/30/21 05:16 07:40 Sodium 139 Potassium 3.4 L Chloride 102 Carbon Dioxide 30 BUN 11 Creatinine 0.86 Glucose 135 H Calcium 8.9 Cardiac Enzymes 01/29/21 01/29/21 Range/Units 17:59 23:04 Troponin I 0.508 H* 0.420 H* (0-0.045) ng/ml Liver Function 01/30/21 01/30/21 Range/Units 05:16 07:40 Total Bilirubin 0.7 (0.2-1) mg/dl AST 15 (15-37) U/L ALT 21 (12-78) U/L Alkaline Phosphatase 58 (45-117) U/L Albumin 3.1 L (3.4-5.0) gm/dl
[2021-01-30] MEDS: INSULIN ASPART 100 UNITS/ML 3 ML PEN SC SCH ×2 (17:54→21:08)
[2021-01-30 21:22] LABS: Partial Thromboplastin Time 79.1 Seconds (21.0-31.0)
[2021-01-31 02:55] LABS: Hematocrit (blood only) 45.1 % (42-52); Hemoglobin 14.9 g/dL (14.0-18.0); Mean Corpuscular Hemoglobin 31.1 pg (25-34); Mean Corpuscular Volume 94.2 fL (80-100); Mean Platelet Volume 11.8 fL (7.4-10.4); Platelet Count 190 K/uL (130-400); RDW Coefficient of Variation 12.8 % (11.5-14.5); RDW Standard Deviation 44.3 fL (36.4-46.3); Red Blood Count 4.79 M/uL (4.7-6.1); White Blood Count 9.12 K/uL (4.8-10.8)
[2021-01-31 03:15] LABS: BUN Creatinine Ratio 13.7 (10-20); Calcium 9.1 mg/dl (8.5-10.1); Creatinine Clr Calc Pharmacy 113.4 ml/min; Est GFR (Non-African American) 91.4 ml/min; Magnesium 2.3 mg/dl (1.8-2.4); Potassium 3.5 mmol/L (3.5-5.1)
[2021-01-31 03:18] LABS: Partial Thromboplastin Ratio 2.6
[2021-01-31 03:25] LABS: Partial Thromboplastin Time 65.2 Seconds (21.0-31.0)
[2021-01-31 03:26] LABS: Thyroid Stimulating Hormone 3.73 uIu/ml (0.300-4.500)
[2021-01-31] MEDS: HEPARIN SODIUM/DEXTROSE 25,000 UNITS/500 ML BAG IV SCH ×2 (04:17→18:54)
[2021-01-31] MEDS: LEVOTHYROXINE SODIUM 75 MCG TABLET PO SCH (05:46)
[2021-01-31] MEDS ORDERED: POTASSIUM CHLORIDE 20 MEQ/15 ML UDC PO ONE (08:15)
[2021-01-31] MEDS: ASPIRIN 81 MG ECTAB PO SCH (08:47)
[2021-01-31] MEDS: EPLERENONE 25 MG PO SCH (08:48)
[2021-01-31] MEDS: DORZOLAMIDE HCL 2% OPH SOLN 10 ML BTL OPR SCH ×2 (08:48→20:24)
[2021-01-31] MEDS: FUROSEMIDE 40 MG TAB PO SCH (08:49)
[2021-01-31] MEDS: lisinopril 40 MG TAB PO SCH (08:50)
[2021-01-31] MEDS: INSULIN ASPART 100 UNITS/ML 3 ML PEN SC SCH ×4 (08:51→20:24)
--- NOTE | 2021-01-31 11:25 | Electrocardiogram Report ---
Test Reason : Blood Pressure : / mmHG Vent. Rate : 078 BPM Atrial Rate : 096 BPM P-R Int : 000 ms QRS Dur : 104 ms QT Int : 452 ms P-R-T Axes : 059 -56 064 degrees QTc Int : 515 ms Sinus rhythm with 2nd degree A-V block (Mobitz I) Left anterior fascicular block Prolonged QT Abnormal ECG When compared with ECG of 30-JAN-2021 12:09, No significant change Confirmed by Tyrel Griffiths ([id number]) on 01/31/2021 11:25:35 AM Referred By: Bridger Mars Confirmed By:Tyrel Griffiths
--- NOTE | 2021-01-31 11:45 | Cardiology Progress Note ---
Date of Service January 31, 2021 Assessment & Plan (1) Third degree heart block: (2) Paroxysmal atrial fibrillation: (3) Mobitz type 1 second degree AV block: (4) Mobitz type 2 second degree atrioventricular block: (5) Aortic stenosis: Plan: I had a long discussion with patient regarding atrial fibrillation and intermittent third-degree AV block. Indication for pacemaker implantation discussed. He remains asymptomatic. Blood pressure is adequate. AV jayshree blocking agents remain on hold. Case discussed with electrophysiology. Pacemaker implantation during current hospitalization versus discharge with procedure in approximately 7-10 days to be determined as clinical course progresses. Continue to observe telemetry overnight. Will discuss final plans for pacemaker implantation with patient and wallpaperer helper in a.m., 02/02/2021. Admission and Anticipated Discharge Date Admission Date: January 29, 2021 Subjective Patient seen and examined the bedside. Feeling well from a cardiovascular perspective. Denies chest discomfort, lightheadedness, or dizziness. No palpitations, focal weakness, slurred speech, or paresthesias. Tolerating diet and medications. No signs/symptoms of GI/ blood loss. Voices concern regarding blood thinners and history of hemorrhoidal bleeding. Offers no other concerns/complaints at this time. Review of Systems Review of Systems: All systems reviewed & are unremarkable except as noted in Subjective Physical Exam Constitutional: well nourished and + obese; no acute distress Respiratory: normal respiratory effort; no respiratory distress and no retractions Auscultation: no crackles, no rales, no rhonchi and no wheezes Cardiovascular: Rate/Rhythm: regular rate and regular rhythm Heart Sounds: normal S1, normal S2 and + murmur (2/6 systolic ejection murmur) Vessels: no JVD and no carotid bruit Gastrointestinal (Abdomen): Inspection/Auscultation: abdomen normal to inspection and normal bowel sounds; abdomen not distended Neurologic: CN's II-XI intact bilaterally and moves all extremities; no focal motor deficits Motor/Sensory: no tremor Psychiatric: A+Ox3, euthymic affect Results & Data ([facility]) Vital Signs (Past 12 Hours) Vital Signs Temp Pulse Pulse Resp BP Pulse Ox 01/31/21 11:06 36.9 C 58 L 18 131/86 95 01/31/21 10:07 45 L 01/31/21 07:39 36.9 C 35 L 16 162/84 H 95 01/31/21 04:12 36.8 C 49 L 14 130/82 92 01/31/21 01:16 EST 77
--- NOTE | 2021-01-31 16:20 | Hospitalist Progress Note ---
Date of Service January 31, 2021 Assessment & Plan (1) Third degree heart block: Plan: Third-degree heart block Paroxysmal atrial fibrillation H/O arctic stenosis ECHO: EF 65 to 70%. Mild concentric LVH. Aortic valve is trileaflet. Borderline severe aortic valve stenosis. Mild TR. Avoid AV jayshree blocking agents Appreciate cardiology input Plan for pacemaker implantation as outpatient Continue IV heparin Plan to transition to [facility] tomorrow Follow-up with cardiology upon discharge (2) Ischemic cardiomyopathy: Plan: Echo as above Continue home diuretics Monitor volume status (3) DM II (diabetes mellitus, type II), controlled: Plan: -Last A1c was 7.6 Patient is not on any oral medications or insulin, does not check his glucose regularly Insulin sliding scale while hospitalized (4) HLD (hyperlipidemia): Plan: continue coQ10 COVID 19 Infection H/O Covid twice before this hospitalization in late winter and earlier this year as per patient. Unvaccinated. CXR:No acute chest disease. Saturating well on room air DVT Px: IV heparin CODE STATUS: Full code (5) Non-ischemic myocardial injury (non-traumatic): (6) COVID-19: Admission and Anticipated Discharge Date Admission Date: January 29, 2021 Subjective Patient is seen and examined at bedside No complaints today Denies any chest pain, dyspnea, palpitations, dizziness Saturating well on room air Review of Systems Review of Systems: All systems reviewed & are unremarkable except as noted in Subjective Physical Exam Physical Exam: Physical Exam: Vitals signs as noted above General Appearance:Obese, no apparent distress Head: normocephalic, Atraumatic Eyes: normal inspection, EOMI Neck: supple, Trachea midline Respiratory/Chest: Normal breath sounds, CTA Cardiovascular: S1, S2, + murmur, +Bradycardia Abdomen/GI:Soft, Non tender, Bowel sounds present Extremities/Musculoskeletal:normal inspection, no edema Neurologic/Psych:AAOX3, grossly no focal neurological deficits Skin: normal color, warm Results & Data Results & Data ([facility]) Vital Signs (Past 12 Hours) Vital Signs Temp Pulse Pulse Resp BP Pulse Ox 01/31/21 14:52 36.9 C 55 L 18 137/81 93 01/31/21 11:06 36.9 C 58 L 18 131/86 95 01/31/21 10:07 45 L 01/31/21 07:39 36.9 C 35 L 16 162/84 H 95 Laboratory Results Short CBC 01/31/21 Range/Units 02:36 WBC 9.12 (4.8-10.8) K/uL Hgb 14.9 (14.0-18.0) g/dL Hct 45.1 (42-52) % Plt Count 190 (130-400) K/uL BMP 01/31/21 02:36 Sodium 139 Potassium 3.5 Chloride 103 Carbon Dioxide 31 BUN 12 Creatinine 0.88 Glucose 148 H Calcium 9.1
[2021-02-01] MEDS: LEVOTHYROXINE SODIUM 75 MCG TABLET PO SCH (06:13)
[2021-02-01 07:04] LABS: Hematocrit (blood only) 45.3 % (42-52); Hemoglobin 15.3 g/dL (14.0-18.0); Mean Corpuscular Hgb Conc 33.8 g/dL (32-36); Mean Corpuscular Volume 91.9 fL (80-100); Mean Platelet Volume 11.8 fL (7.4-10.4); Platelet Count 200 K/uL (130-400); Red Blood Count 4.93 M/uL (4.7-6.1); White Blood Count 7.81 K/uL (4.8-10.8)
[2021-02-01 07:27] LABS: Partial Thromboplastin Ratio 2.2; Partial Thromboplastin Time 58.6 Seconds (21.0-31.0)
[2021-02-01 07:39] LABS: BUN Creatinine Ratio 14.4 (10-20); Calcium 9.4 mg/dl (8.5-10.1); Creatinine Clr Calc Pharmacy 103.8 ml/min; Est GFR (African American) 97.1 ml/min; Est GFR (Non-African American) 83.8 ml/min; Magnesium 2.4 mg/dl (1.8-2.4); Potassium 3.5 mmol/L (3.5-5.1)
[2021-02-01] MEDS: INSULIN ASPART 100 UNITS/ML 3 ML PEN SC SCH ×4 (09:10→22:39)
[2021-02-01] MEDS: ASPIRIN 81 MG ECTAB PO SCH (09:10)
[2021-02-01] MEDS: EPLERENONE 25 MG PO SCH (09:11)
[2021-02-01] MEDS: FUROSEMIDE 40 MG TAB PO SCH (09:11)
[2021-02-01] MEDS: DORZOLAMIDE HCL 2% OPH SOLN 10 ML BTL OPR SCH ×2 (09:13→19:32)
[2021-02-01] MEDS: lisinopril 40 MG TAB PO SCH (10:44)
[2021-02-01] MEDS: HEPARIN SODIUM/DEXTROSE 25,000 UNITS/500 ML BAG IV SCH (10:55)
--- NOTE | 2021-02-01 11:49 | Cardiology Progress Note ---
Date of Service February 01, 2021 Assessment & Plan (1) Third degree heart block: (2) Paroxysmal atrial fibrillation: (3) Mobitz type 1 second degree AV block: (4) Mobitz type 2 second degree atrioventricular block: (5) Aortic stenosis: Plan: Indication for pacemaker implantation discussed. Reviewed options with patient, including discharge today with pacemaker implantation in the next 7-14 days versus remaining hospitalized for pacemaker implantation on 02/03/2021. After a long discussion, patient prefers to stay in hospital for pacemaker implantation. Case discussed with electrophysiology. Procedure scheduled for 02/03/2021. Continue intravenous heparin with plans to discontinue 3 hours prior to implant. Transition to Eliquis post pacemaker implantation. Admission and Anticipated Discharge Date Admission Date: January 29, 2021 Subjective Patient seen and examined the bedside. Feeling well from a cardiovascular perspective. No fever or chills overnight. Denies chest pain, lightheadedness, dizziness, or palpitations. Telemetry reveals periods of second-degree AV block Mobitz type II, complete heart block, as well as brief salvos of paroxysmal atrial fibrillation with controlled ventricular response. Review of Systems Review of Systems: All systems reviewed & are unremarkable except as noted in Subjective Physical Exam Constitutional: well nourished and + obese; no acute distress Respiratory: normal respiratory effort; no respiratory distress and no retractions Auscultation: no crackles, no rales, no rhonchi and no wheezes Cardiovascular: Rate/Rhythm: regular rate and regular rhythm Heart Sounds: normal S1, normal S2 and + murmur (2/6 systolic ejection murmur) Vessels: no JVD and no carotid bruit Gastrointestinal (Abdomen): Inspection/Auscultation: abdomen normal to inspection and normal bowel sounds; abdomen not distended Neurologic: CN's II-XI intact bilaterally and moves all extremities; no focal motor deficits Motor/Sensory: no tremor Psychiatric: A+Ox3, euthymic affect Results & Data ([facility]) Vital Signs (Past 12 Hours) Vital Signs Temp Pulse Pulse Resp BP BP Pulse Ox 02/01/21 07:39 36.6 C 55 L 18 151/83 H 98 02/01/21 02:46 36.6 C 60 18 125/70 95 01/31/21 23:56 43 L
--- NOTE | 2021-02-01 16:05 | Hospitalist Progress Note ---
Date of Service February 01, 2021 Assessment & Plan (1) Third degree heart block: Plan: Third-degree heart block Paroxysmal atrial fibrillation H/O arctic stenosis ECHO: EF 65 to 70%. Mild concentric LVH. Aortic valve is trileaflet. Borderline severe aortic valve stenosis. Mild TR. Avoid AV jayshree blocking agents Appreciate cardiology input Plan for pacemaker implantation on Monday On IV heparin Plan to transition to Eliquis upon pacemaker Implantation (2) Ischemic cardiomyopathy: Plan: Echo as above Continue home diuretics Monitor volume status (3) DM II (diabetes mellitus, type II), controlled: Plan: -Last A1c was 7.6 Patient is not on any oral medications or insulin, does not check his glucose regularly Insulin sliding scale while hospitalized (4) HLD (hyperlipidemia): Plan: continue coQ10 COVID 19 Infection H/O Covid twice before this hospitalization in late winter and earlier this year as per patient. Unvaccinated. CXR:No acute chest disease. Saturating well on room air DVT Px: Teds IV heparin CODE STATUS: Full code (5) Non-ischemic myocardial injury (non-traumatic): (6) COVID-19: Admission and Anticipated Discharge Date Admission Date: January 29, 2021 Subjective Patient is seen and examined at bedside States feeling well No bleeding issues while on IV heparin Denies any chest pain, dyspnea, palpitations, dizziness Review of Systems Review of Systems: All systems reviewed & are unremarkable except as noted in Subjective Physical Exam Physical Exam: Physical Exam: Vitals signs as noted above General Appearance:Obese, no apparent distress Head: normocephalic, Atraumatic Eyes: normal inspection, EOMI Neck: supple, Trachea midline Respiratory/Chest: Normal breath sounds, CTA Cardiovascular: S1, S2, + murmur Abdomen/GI:Soft, Non tender, Bowel sounds present Extremities/Musculoskeletal:normal inspection, no edema Neurologic/Psych:AAOX3, grossly no focal neurological deficits Skin: normal color, warm Results & Data Results & Data ([facility]) Vital Signs (Past 12 Hours) Vital Signs Temp Pulse Resp BP Pulse Ox 02/01/21 15:25 36.9 C 62 18 122/73 96 02/01/21 11:00 36.9 C 53 L 20 139/79 96 02/01/21 07:39 36.6 C 55 L 18 151/83 H 98 Laboratory Results Short CBC 11/08/21 Range/Units 06:26 WBC 7.81 (4.8-10.8) K/uL Hgb 15.3 (14.0-18.0) g/dL Hct 45.3 (42-52) % Plt Count 200 (130-400) K/uL [place] 02/01/21 06:26 Sodium 138 Potassium 3.5 Chloride 102 Carbon Dioxide 28 BUN 14 Creatinine 0.96 Glucose 142 H Calcium 9.4
[2021-02-02] MEDS: HEPARIN SODIUM/DEXTROSE 25,000 UNITS/500 ML BAG IV SCH ×2 (04:24→20:37)
[2021-02-02] MEDS: LEVOTHYROXINE SODIUM 75 MCG TABLET PO SCH (05:58)
[2021-02-02 08:28] LABS: Partial Thromboplastin Ratio 2.1
[2021-02-02 08:30] LABS: Partial Thromboplastin Time 55.4 Seconds (21.0-31.0)
[2021-02-02 08:34] LABS: BUN Creatinine Ratio 16.1 (10-20); Calcium 9.9 mg/dl (8.5-10.1); Creatinine Clr Calc Pharmacy 110.8 ml/min; Est GFR (Non-African American) 90.6 ml/min; Potassium 3.5 mmol/L (3.5-5.1)
[2021-02-02] MEDS: FUROSEMIDE 40 MG TAB PO SCH (08:36)
[2021-02-02] MEDS: ASPIRIN 81 MG ECTAB PO SCH (08:36)
[2021-02-02] MEDS: DORZOLAMIDE HCL 2% OPH SOLN 10 ML BTL OPR SCH ×2 (08:36→20:58)
[2021-02-02] MEDS: lisinopril 40 MG TAB PO SCH (08:36)
[2021-02-02] MEDS: EPLERENONE 25 MG PO SCH (08:37)
[2021-02-02] MEDS: INSULIN ASPART 100 UNITS/ML 3 ML PEN SC SCH ×4 (09:33→21:57)
[2021-02-02] MEDS ORDERED: FAMOTIDINE 10 MG TABLET PO PRN (10:30)
[2021-02-02] MEDS: FAMOTIDINE 20 MG TAB PO SCH (12:24)
--- NOTE | 2021-02-02 13:17 | Cardiology Progress Note ---
Date of Service February 02, 2021 Assessment & Plan (1) Third degree heart block: (2) Paroxysmal atrial fibrillation: (3) Mobitz type 1 second degree AV block: (4) Mobitz type 2 second degree atrioventricular block: (5) Aortic stenosis: Plan: Pacemaker implantation scheduled tomorrow 02/03/2021. Intravenous heparin will be discontinued at midnight per direction of electrophysiology. Nothing by mouth except medications after midnight ordered. Risk versus benefit of procedure discussed. Patient agreeable to proceed. Initiate oral anticoagulation with Eliquis post pacemaker implantation. Admission and Anticipated Discharge Date Admission Date: January 29, 2021 Subjective Patient seen and examined the bedside. Feeling well. No fever or chills. Denies chest pain or shortness of breath. No lightheadedness, dizziness, syncope, or near syncope. Telemetry reveals short salvos of paroxysmal atrial fibrillation, third-degree AV block with heart rate in the upper 30s as well as second-degree AV block Mobitz type II. Review of Systems Review of Systems: All systems reviewed & are unremarkable except as noted in Subjective Physical Exam Constitutional: well nourished and + obese; no acute distress Respiratory: normal respiratory effort; no respiratory distress and no retractions Auscultation: no crackles, no rales, no rhonchi and no wheezes Cardiovascular: Rate/Rhythm: regular rate and regular rhythm Heart Sounds: normal S1, normal S2 and + murmur (2/6 systolic ejection murmur) Vessels: no JVD and no carotid bruit Gastrointestinal (Abdomen): Inspection/Auscultation: abdomen normal to inspection and normal bowel sounds; abdomen not distended Neurologic: CN's II-XI intact bilaterally and moves all extremities; no focal motor deficits Motor/Sensory: no tremor Psychiatric: A+Ox3, euthymic affect Results & Data ([facility]) Vital Signs (Past 12 Hours) Vital Signs Temp Pulse Pulse Resp BP Pulse Ox Pulse Ox 02/02/21 11:57 36.8 C 42 L 18 131/68 98 02/02/21 08:34 37.2 C 49 L 18 164/80 H 97 02/02/21 08:00 56 L 93 02/02/21 03:44 36.5 C 40 L 16 138/76 98 02/02/21 02:10 98
--- NOTE | 2021-02-02 15:13 | Hospitalist Progress Note ---
Date of Service February 02, 2021 Assessment & Plan (1) Third degree heart block: Plan: Third-degree heart block Paroxysmal atrial fibrillation H/O arctic stenosis ECHO: EF 65 to 70%. Mild concentric LVH. Aortic valve is trileaflet. Borderline severe aortic valve stenosis. Mild TR. Avoid AV jayshree blocking agents Appreciate cardiology input On IV heparin Plan to transition to Eliquis upon pacemaker Implantation Plan for pacemaker implantation tomorrow NPO after midnight (2) Ischemic cardiomyopathy: Plan: Echo as above Continue home diuretics Monitor volume status (3) DM II (diabetes mellitus, type II), controlled: Plan: -Last A1c was 7.6 Patient is not on any oral medications or insulin, does not check his glucose regularly Insulin sliding scale while hospitalized (4) HLD (hyperlipidemia): Plan: continue coQ10 COVID 19 Infection H/O Covid twice before this hospitalization in late winter and earlier this year as per patient. Unvaccinated. CXR:No acute chest disease. Saturating well on room air DVT Px: Teds IV heparin CODE STATUS: Full code (5) Non-ischemic myocardial injury (non-traumatic): (6) COVID-19: Admission and Anticipated Discharge Date Admission Date: January 29, 2021 Subjective Patient is seen and examined at bedside States having heartburn earlier today Otherwise feels well Denies any chest pain, dyspnea, palpitations, dizziness On IV heparin Plan for pacemaker placement tomorrow Review of Systems Review of Systems: All systems reviewed & are unremarkable except as noted in Subjective Physical Exam Physical Exam: Physical Exam: Vitals signs as noted above General Appearance:Obese, no apparent distress Head: normocephalic, Atraumatic Eyes: normal inspection, EOMI Neck: supple, Trachea midline Respiratory/Chest: Normal breath sounds, CTA Cardiovascular: S1, S2, + murmur Abdomen/GI:Soft, Non tender, Bowel sounds present Extremities/Musculoskeletal:normal inspection, no edema Neurologic/Psych:AAOX3, grossly no focal neurological deficits Skin: normal color, warm Results & Data Results & Data ([facility]) Vital Signs (Past 12 Hours) Vital Signs Temp Pulse Pulse Resp BP Pulse Ox Pulse Ox 02/02/21 11:57 36.8 C 42 L 18 131/68 98 02/02/21 08:34 37.2 C 49 L 18 164/80 H 97 02/02/21 08:00 56 L 93 02/02/21 03:44 36.5 C 40 L 16 138/76 98 Laboratory Results [facility] 02/02/21 06:56 Sodium 136 Potassium 3.5 Chloride 102 Carbon Dioxide 25 BUN 15 Creatinine 0.90 Glucose 139 H Calcium 9.9
[2021-02-02] MEDS ORDERED: HOLD ORDER SCH (23:59)
[2021-02-03] MEDS: LEVOTHYROXINE SODIUM 75 MCG TABLET PO SCH (05:48)
[2021-02-03 06:26] LABS: Hematocrit (blood only) 45.7 % (42-52); Hemoglobin 15.5 g/dL (14.0-18.0); Mean Corpuscular Hemoglobin 31.6 pg (25-34); Mean Corpuscular Hgb Conc 33.9 g/dL (32-36); Mean Corpuscular Volume 93.1 fL (80-100); Mean Platelet Volume 11.7 fL (7.4-10.4); Platelet Count 190 K/uL (130-400); RDW Coefficient of Variation 13.2 % (11.5-14.5); RDW Standard Deviation 44.7 fL (36.4-46.3); Red Blood Count 4.91 M/uL (4.7-6.1); White Blood Count 7.77 K/uL (4.8-10.8)
[2021-02-03 06:34] LABS: Partial Thromboplastin Time 26.4 Seconds (21.0-31.0)
[2021-02-03] MEDS: INSULIN ASPART 100 UNITS/ML 3 ML PEN SC SCH ×4 (08:29→19:57)
[2021-02-03] MEDS: EPLERENONE 25 MG PO SCH (08:52)
[2021-02-03] MEDS: DORZOLAMIDE HCL 2% OPH SOLN 10 ML BTL OPR SCH ×2 (08:52→20:45)
[2021-02-03] MEDS: lisinopril 40 MG TAB PO SCH (08:53)
[2021-02-03] MEDS: FUROSEMIDE 40 MG TAB PO SCH (08:53)
[2021-02-03] MEDS: FAMOTIDINE 20 MG TAB PO SCH (10:17)
[2021-02-03] MEDS ORDERED: BUPIVACAINE 0.25% 30 ML VIAL ONE (14:10)
[2021-02-03] MEDS ORDERED: VANCOMYCIN HCL 1000MG/20ML VIAL ONE (14:10)
[2021-02-03] MEDS ORDERED: WATER, STERILE FOR INJ 10 ML VIAL ONE (14:10)
[2021-02-03] MEDS ORDERED: LIDOCAINE 1% LOCAL 20 ML VIAL ONE (14:10)
--- NOTE | 2021-02-03 14:46 | History & Physical Bridge Note ---
Date of Service February 03, 2021 History & Physical Bridge Note I have examined the patient, reviewed the History & Physical and in the interval since the performance of the History & Physical I have noted the following changes of clinical significance: Pt has intermittent CHB and now pAF; despite being asymptomatic and COVID positive it was recommended he have a pacemaker prior to discharge. Discussed the procedure and potential risk and consents signed; pt expressed an understanding.
--- NOTE | 2021-02-03 14:47 | Pre Anesthesia Assessment ---
Date of Service February 03, 2021 Pre Sedation Assessment Vital Signs Temp Pulse Pulse Resp BP BP Pulse Ox 02/03/21 11:14 36.9 C 47 L 18 154/74 H 94 02/03/21 08:00 02/03/21 07:50 36.8 C 61 20 145/80 H 100 02/03/21 03:37 36.6 C 38 L 18 119/72 95 02/03/21 00:00 02/02/21 22:53 36.8 C 40 L 18 138/72 95 02/02/21 22:19 41 L 02/02/21 19:09 36.8 C 40 L 18 124/76 97 02/02/21 16:05 37.0 C 64 19 150/85 H 99 02/02/21 16:00 56 L Pulse Ox 02/03/21 11:14 02/03/21 08:00 96 02/03/21 07:50 02/03/21 03:37 02/03/21 00:00 96 02/02/21 22:53 02/02/21 22:19 02/02/21 19:09 02/02/21 16:05 02/02/21 16:00 95 Cardiovascular + bradycardic Respiratory normal respiratory effort, lungs clear to auscultation Pre-Sedation Airway Assessment Smoking Status: Former smoker ASA: ASA3 NPO Status Date of Last Intake of Fluids: 02/02/21 Date of Last Intake of Solid Food: 02/02/21 Procedure Planning Contraindications for Sedation: none Current Medications Reviewed: Yes Notes The planned sedation has been discussed with the patient. Informed Consent was obtained. I have identified the patient, determined the appropriateness of sedation and have assessed the patient immediately prior to the procedure. All medicine(s) and interventions are by my order.
[2021-02-03] MEDS ORDERED: ONDANSETRON INJ 2 MG/ML 2 ML VIAL ONE (14:59)
[2021-02-03] MEDS ORDERED: fentaNYL citrate 100 MCG/2 ML VIAL ONE ×2 (15:00→15:32)
[2021-02-03] MEDS ORDERED: MIDAZOLAM HCL 5 MG/ML 1 ML VIAL ONE (15:00)
[2021-02-03] MEDS ORDERED: CLINDAMYCIN PHOS 300 MG/2 ML VIAL ONE (15:03)
--- NOTE | 2021-02-03 15:12 | Cardiology Progress Note ---
Date of Service February 03, 2021 Assessment & Plan (1) Third degree heart block: (2) Paroxysmal atrial fibrillation: (3) Mobitz type 1 second degree AV block: (4) Mobitz type 2 second degree atrioventricular block: (5) Aortic stenosis: Plan: Pacemaker implantation today. Briefly discuss post procedural activity restrictions. Intravenous heparin on hold. Initiate oral anticoagulation with Eliquis post operatively per discretion of devulcanizer charger. Add low-dose beta-nanci in a.m. Admission and Anticipated Discharge Date Admission Date: January 29, 2021 Subjective Patient seen and examined the bedside. Feeling well from a cardiovascular perspective. Telemetry reveals second-degree AV block Mobitz type II and brief episodes of paroxysmal atrial fibrillation. He remains asymptomatic. IV heparin on hold. Has questions regarding post procedural activity restrictions. Review of Systems Review of Systems: All systems reviewed & are unremarkable except as noted in Subjective Physical Exam Constitutional: well nourished and + obese; no acute distress Respiratory: normal respiratory effort; no respiratory distress and no retractions Auscultation: no crackles, no rales, no rhonchi and no wheezes Cardiovascular: Rate/Rhythm: regular rate and regular rhythm Heart Sounds: normal S1, normal S2 and + murmur (2/6 systolic ejection murmur) Vessels: no JVD and no carotid bruit Gastrointestinal (Abdomen): Inspection/Auscultation: abdomen normal to inspection and normal bowel sounds; abdomen not distended Neurologic: CN's II-XI intact bilaterally and moves all extremities; no focal motor deficits Motor/Sensory: no tremor Psychiatric: A+Ox3, euthymic affect Results & Data ([facility]) Vital Signs (Past 12 Hours) Vital Signs Temp Pulse Resp BP BP Pulse Ox Pulse Ox 02/03/21 11:14 36.9 C 47 L 18 154/74 H 94 02/03/21 08:00 96 02/03/21 07:50 36.8 C 61 20 145/80 H 100 02/03/21 03:37 36.6 C 38 L 18 119/72 95
--- NOTE | 2021-02-03 16:31 | Post Anesthesia Assessment ---
Date of Service February 03, 2021 Post Sedation Assessment Vital Signs Temp Pulse Pulse Resp BP BP Pulse Ox 02/03/21 16:00 02/03/21 15:24 45 L 02/03/21 11:14 36.9 C 47 L 18 154/74 H 94 02/03/21 08:00 02/03/21 07:50 36.8 C 61 20 145/80 H 100 02/03/21 03:37 36.6 C 38 L 18 119/72 95 02/03/21 00:00 02/02/21 22:53 36.8 C 40 L 18 138/72 95 02/02/21 22:19 41 L 02/02/21 19:09 36.8 C 40 L 18 124/76 97 Pulse Ox 02/03/21 16:00 96 02/03/21 15:24 02/03/21 11:14 02/03/21 08:00 96 02/03/21 07:50 02/03/21 03:37 02/03/21 00:00 96 02/02/21 22:53 02/02/21 22:19 02/02/21 19:09 Recovery Score Activity: Moves 4 extremities Respiration: Deep Breath/Cough Circulation: +/-20% PreAnes Value Consciousness: Fully Awake Oxygen Saturation: > 92% On Room Air Discharge Sedation Level of Care: Fast Track Phase II Post Sedation Plan On clinical assessment, the patient appears to have tolerated the sedation without complications. Patient is recovering as anticipated. Patient will continue to be monitored by nursing and may be discharged when sedation discharge criteria are met per below protocol. Upon Completions of procedure up to 15 minutes continue every 5 minute vital signs and the P.A.R. score; then discharge to a Phase I or Fast Track to Phase II per the following guidelines: * Discharge Patient to appropriate Phase II area if PAR is 8 or greater or return to pre- procedure baseline. The post - procedure orders will be as directed. * If PAR score is less than 8 or not return to pre-procedure baseline then patient will follow Phase I monitoring till PAR is reached for Phase II. The Phase I may be done in procedure room or may call to secure a Phase I area. * If naloxone or flumazenil are used for reversal, hold in Phase I for continued monitoring from when last reversal dose was given for a minimum of 60 minutes or longer pending the nurse and/or physician discretion of patient condition before discharge to Phase II. Please call the Sedation Physician to re-evaluate and complete post-note for discharge to Phase II area. Do NOT discharge from procedure sedation or Phase 1 until post- sedation evaluation note is complete by procedure /sedation MD Sedation Discharge Instructions to be given to the patient at discharge to home.
--- NOTE | 2021-02-03 16:31 | Operative Report ---
Post Operative Report Pre & Post Diagnosis CHB Operation Date: 02/03/21 13:30 <No data on this case meets the specified criteria> I identified the patient and participated in the time-out.: Yes Procedure Operation Date: 02/03/21 13:30 Actual Procedures p Pacer with A/V Leads (Dual) - Taisha Waterman DO Surgeon Taisha Waterman, DO Supervisor Tan Room none Estimated Blood Loss 25 Findings Consistent with Post-Op Diagnosis none Specimens none Description of Procedure see official report I attest to the content of the Intraoperative Record and any orders documented therein. Any exceptions are noted below.
[2021-02-03] MEDS: ASPIRIN 81 MG ECTAB PO SCH (17:08)
--- NOTE | 2021-02-03 19:23 | XRay Report ---
XR chest 1V portable CLINICAL HISTORY: s/p ppm COMPARISON STUDY: Chest radiograph January 29, 2021. FINDINGS: Patient is rotated. There is no pneumothorax following placement of a left subclavian pacer . Lead position is suboptimally assessed given the lack of lateral projection. Cardiomegaly is noted. There is no evidence for pulmonary edema. Elevation of the right hemidiaphragm is unchanged. IMPRESSION: No pneumothorax following placement of a left subclavian pacer. ACT 112: Negative or not required by law. Electronically signed by: Nils Pate M.D. 02/03/2021 7:21 PM
[2021-02-03] MEDS: HEPARIN SODIUM/DEXTROSE 25,000 UNITS/500 ML BAG IV SCH ×3 (19:52→19:54)
--- NOTE | 2021-02-03 20:09 | Hospitalist Progress Note ---
Date of Service February 03, 2021 Assessment & Plan (1) Third degree heart block: Plan: Third-degree heart block Paroxysmal atrial fibrillation H/O arctic stenosis ECHO: EF 65 to 70%. Mild concentric LVH. Aortic valve is trileaflet. Borderline severe aortic valve stenosis. Mild TR. Avoid AV jayshree blocking agents Appreciate cardiology input On IV heparin Plan to transition to Eliquis upon pacemaker Implantation Pacemaker placed this evening, no post-op PTX on CXR. Doing well. Pain meds as needed. Beta nanci per cardiology. (2) Ischemic cardiomyopathy: Plan: Echo as above Continue home diuretics Monitor volume status-currently euvolemic. (3) DM II (diabetes mellitus, type II), controlled: Plan: -Last A1c was 7.6 Patient is not on any oral medications or insulin, does not check his glucose regularly Insulin sliding scale while hospitalized --current glucose is at goal (4) COVID-19: Plan: COVID 19 Infection H/O Covid twice before this hospitalization in late winter and earlier this year as per patient. Unvaccinated. CXR:No acute chest disease. Saturating well on room air Not qualifying for any treatments currently (5) DVT prophylaxis: Plan: Heparin drip on hold [place]-procedurally, restart DVT proph tomorrow if not being discharged to home Full Code Dispo-discharge to home in am after clearance by cardiology Apryl Busch DO [facility] Hospitalist Admission and Anticipated Discharge Date Admission Date: January 29, 2021 Subjective 65 yo M presented with 3rd degree heart block. He was taken off his beta bloker and waited through the weekend until today when he could undergo pacemaker placement. He is reports some soreness to his L anterior chest wall but otherwise denies any issues with breathing, chest pain, abdominal pain, etc. He was able to eat dinner post-operatively without issue. When he stands up or exerts himself he has tachycardia with a heart rate into the 120s. Cardiology is to restart betablockade soon. Review of Systems Review of Systems: All systems were reviewed and negative except as indicated in subjective above. Physical Exam Physical Exam: CONSTITUTIONAL: WNWD, vitals as above, generally well- appearing, NAD EYES: normal conjunctivae, no scleral icterus ENT: external ear and nose normal, MMM NECK: trachea midline RESPIRATORY: clear to auscultation bilaterally, no crackles, rales or wheezes, normal respiratory effort CARDIOVASCULAR: regular rate and rhythm, S1 and 2 heard without murmurs, gallops or rubs, no JVD, no peripheral edema CHEST: inspection of chest revealed dressing ABDOMEN: normal bowel sounds, soft, nontender, no hepatomegaly, no guarding MUSCULOSKELETAL: strength 5/5 throughout, head is normocephalic and atraumatic SKIN: warm and dry NEUROLOGIC: CN 2-12 grossly intact, no sensory deficit, normal cognition, normal speech, no tremor PSYCHIATRIC: alert cooperative and oriented to person, place and time. Results & Data Results & Data ([facility]) Vital Signs (Past 12 Hours) Vital Signs Temp Pulse Pulse Resp BP BP Pulse Ox 02/03/21 19:10 36.9 C 93 H 18 107/82 96 02/03/21 17:07 89 17 125/98 95 02/03/21 16:47 36.5 C 93 H 17 146/88 H 93 02/03/21 16:00 02/03/21 15:24 45 L 02/03/21 11:14 36.9 C 47 L 18 154/74 H 94 Pulse Ox 02/03/21 19:10 02/03/21 17:07 02/03/21 16:47 02/03/21 16:00 96 02/03/21 15:24 02/03/21 11:14 Laboratory Results Short CBC 02/03/21 Range/Units 06:12 WBC 7.77 (4.8-10.8) K/uL Hgb 15.5 (14.0-18.0) g/dL Hct 45.7 (42-52) % Plt Count 190 (130-400) K/uL Diagnostic Findings Chest X-Ray 02/03/21 18:00 XR chest 1V portable CLINICAL HISTORY: s/p ppm COMPARISON STUDY: Chest radiograph January 29, 2021. FINDINGS: Patient is rotated. There is no pneumothorax following placement of a left subclavian pacer. Lead position is suboptimally assessed given the lack of lateral projection. Cardiomegaly is noted. There is no evidence for pulmonary edema. Elevation of the right hemidiaphragm is unchanged. IMPRESSION: No pneumothorax following placement of a left subclavian pacer. ACT 112: Negative or not required by law. Electronically signed by: Nils Pate M.D. 02/03/2021 7:21 PM Medications Administered Current Inpatient Medications Acetaminophen (Acetaminophen 325 Mg Tab) 650 mg PO Q4H PRN PRN Reason: Moderate Pain Stop: 02/28/21 17:31 Aspirin (Aspirin 81 Mg Ectab) 81 mg PO DAILY [facility] Stop: 03/01/21 08:59 Last Admin: 02/03/21 17:08 Dose: 81 mg Documented by: Dextrose (Dextrose 50% 50 Ml Syringe) 25 - 50 ml IV UD PRN; Protocol PRN Reason: Hypoglycemia Protocol Stop: 03/01/21 15:56 Dorzolamide HCl (Dorzolamide Hcl 2% Oph Soln 10 Ml Btl) 1 drops OPR BID [facility] Stop: 02/28/21 20:59 Last Admin: 02/03/21 08:52 Dose: 1 drops Documented by: Eplerenone (Eplerenone 25 Mg) 0.5 ea PO DAILY [facility] Stop: 03/01/21 08:59 Last Admin: 02/03/21 08:52 Dose: 0.5 ea Documented by: Famotidine (Famotidine 20 Mg Tab) 20 mg PO QAM [facility] Stop: 03/05/21 08:59 Last Admin: 02/03/21 10:17 Dose: 20 mg Documented by: Famotidine (Famotidine 10 Mg Tablet) 10 mg PO BID PRN PRN Reason: Heartburn Stop: 03/04/21 10:29 Furosemide (Furosemide 40 Mg Tab) 40 mg PO QAM [facility] Stop: 03/01/21 08:59 Last Admin: 02/03/21 08:53 Dose: 40 mg Documented by: Glucagon (Glucagon For Inj 1 Mg Vial) 1 mg SQ UD PRN; Protocol PRN Reason: Hypoglycemia Protocol Stop: 03/01/21 15:56 Glucose (Glucose 10 Tabs/Tube) 4 - 8 tabs PO UD PRN; Protocol PRN Reason: Hypoglycemia Protocol Stop: 03/01/21 15:56 Glucose (Glucose 40% Gel 15 Gm Tube) 15 - 30 gm PO UD PRN; Protocol PRN Reason: Hypoglycemia Protocol Stop: 03/01/21 15:56 Heparin Sodium/Dextrose (Heparin Sodium/Dextrose) 25,000 units in 500 mls @ 0 mls/hr IV .Q0M CHANG; Protocol Stop: 03/01/21 14:29 Last Admin: 02/03/21 19:54 Dose: Not Given Documented by: Insulin Aspart (Insulin Aspart 100 Units/Ml 3 Ml Pen) 0 units SC ACHS [facility] Stop: 03/01/21 16:29 Last Admin: 02/03/21 19:57 Dose: Not Given Documented by: Levothyroxine Sodium (Levothyroxine Sodium 75 Mcg Tablet) 75 mcg PO DAILYBB [facility] Stop: 03/01/21 06:29 Last Admin: 02/03/21 05:48 Dose: 75 mcg Documented by: Lisinopril ([facility] 40 Mg Tab) [facility] Stop: 03/01/21 08:59 Last Admin: 02/03/21 08:53 Dose: 40 mg Documented by: Miscellaneous (Carbohydrates For Hypoglycemia ) 15 - 30 gm PO UD PRN PRN Reason: Hypoglycemia Protocol Stop: 03/01/21 15:56 Ondansetron HCl (Ondansetron Inj 2 Mg/Ml 2 Ml Vial) 4 mg IV Q4H PRN PRN Reason: Nausea And Vomiting Stop: 02/28/21 17:31 Oxycodone HCl (Oxycodone Hcl Ir 5 Mg Tab (Immediate Release)) 5 mg PO Q6H PRN PRN Reason: Pain Stop: 02/17/21 20:01
[2021-02-03] MEDS: oxyCODONE HCL IR 5 MG TAB (IMMEDIATE RELEASE) PO PRN (20:44)
[2021-02-03] MEDS ORDERED: POTASSIUM CHLORIDE 20 MEQ/15 ML UDC PO STA (22:33)
[2021-02-04 06:02] LABS: Hematocrit (blood only) 46.4 % (42-52); Hemoglobin 15.9 g/dL (14.0-18.0); Mean Corpuscular Hemoglobin 32.3 pg (25-34); Mean Corpuscular Hgb Conc 34.3 g/dL (32-36); Mean Corpuscular Volume 94.1 fL (80-100); Mean Platelet Volume 11.6 fL (7.4-10.4); Platelet Count 172 K/uL (130-400); RDW Coefficient of Variation 13.4 % (11.5-14.5); Red Blood Count 4.93 M/uL (4.7-6.1); White Blood Count 9.29 K/uL (4.8-10.8)
[2021-02-04] MEDS: oxyCODONE HCL IR 5 MG TAB (IMMEDIATE RELEASE) PO PRN (06:06)
[2021-02-04] MEDS: LEVOTHYROXINE SODIUM 75 MCG TABLET PO SCH (06:07)
[2021-02-04 06:36] LABS: Calcium 9.3 mg/dl (8.5-10.1); Creatinine Clr Calc Pharmacy 78.2 ml/min; Est GFR (African American) 69.2 ml/min; Est GFR (Non-African American) 59.7 ml/min; Magnesium 2.4 mg/dl (1.8-2.4); Potassium 3.9 mmol/L (3.5-5.1)
[2021-02-04] MEDS: INSULIN ASPART 100 UNITS/ML 3 ML PEN SC SCH ×2 (08:34→12:16)
[2021-02-04] MEDS: ASPIRIN 81 MG ECTAB PO SCH (08:38)
[2021-02-04] MEDS: DORZOLAMIDE HCL 2% OPH SOLN 10 ML BTL OPR SCH (08:39)
[2021-02-04] MEDS: FUROSEMIDE 40 MG TAB PO SCH (08:40)
[2021-02-04] MEDS: EPLERENONE 25 MG PO SCH (08:40)
[2021-02-04] MEDS: lisinopril 40 MG TAB PO SCH (08:40)
[2021-02-04] MEDS: FAMOTIDINE 20 MG TAB PO SCH (08:43)
[2021-02-04] MEDS ORDERED: METOPROLOL SUCC 25MG EXT REL TAB PO SCH (12:00)
[2021-02-04] MEDS ORDERED: APIXABAN 5 MG TABLET PO SCH (12:30)
--- NOTE | 2021-02-04 12:37 | Cardiology Progress Note ---
Date of Service February 04, 2021 Assessment & Plan (1) Third degree heart block: (2) Mobitz type 2 second degree atrioventricular block: (3) Paroxysmal atrial fibrillation: (4) Pacemaker: (5) Aortic stenosis: Plan: Pacemaker implanted 02/04/2021 without complication. Add low-dose beta-nanci and initiate oral anticoagulation with Eliquis today. Activity restrictions reviewed. Outpatient cardiology follow-up with wound check in 1 week. Patient may be discharged from a cardiovascular perspective. Outpatient cardiology follow-up scheduled 03/09/2021. Admission and Anticipated Discharge Date Admission Date: January 29, 2021 Subjective 65-year-old patient seen and examined at the bedside. Pacemaker implanted 02/03/2021 without complication. Feeling well today. Telemetry reveals sinus rhythm with a ventricular paced rhythm in the left bundle pattern. Review of Systems Review of Systems: All systems reviewed & are unremarkable except as noted in Subjective Physical Exam Constitutional: well nourished and + obese; no acute distress Respiratory: normal respiratory effort; no respiratory distress and no retractions Auscultation: no crackles, no rales, no rhonchi and no wheezes Cardiovascular: Rate/Rhythm: regular rate and regular rhythm Heart Sounds: normal S1, normal S2 and + murmur (2/6 systolic ejection murmur) Vessels: no JVD and no carotid bruit Gastrointestinal (Abdomen): Inspection/Auscultation: abdomen normal to inspection and normal bowel sounds; abdomen not distended Neurologic: CN's II-XI intact bilaterally and moves all extremities; no focal motor deficits Motor/Sensory: no tremor Psychiatric: A+Ox3, euthymic affect Results & Data ([facility]) Vital Signs (Past 12 Hours) Vital Signs Temp Pulse Resp BP Pulse Ox Pulse Ox 02/04/21 11:20 36.8 C 67 18 143/90 H 97 02/04/21 08:00 96 02/04/21 07:04 36.3 C L 67 18 131/85 95 02/04/21 03:13 36.5 C 80 18 141/87 H 96
--- NOTE | 2021-02-04 12:54 | Discharge Summary ---
Date of Service February 04, 2021 Admission HPI Per Admitting Provider This is a 65-year-old male with PMHx of nonischemic cardiomyopathy with an LVEF now improved to 55-59% in May 2020, HTN, moderate to severe aortic stenosis, DM type II, CHARBEL, GERD, and has had COVID-19 twice, who was seen in the chemical research engineer office by Dr. Betancur earlier this morning for routine follow-up for intermittent complete heart block found on cardio mobile. Patient was supposed to have a sleep study scheduled for 12/15 however patient no-show to the appointment due to scheduling error. In October the patient noted that he had a low heart rate in the mid 40s for 3 days. His metoprolol was reduced for short period of time and his heart rates improved to the mid 70s. His metoprolol dose currently is 150 daily, but does not take his medication consistently - ie. one morning will take 100 mg, in the afternoon takes 50 mg then the next day will take 75 in the morning and 75 in the evening. He is taking his Lasix 40 mg daily as scheduled as well as lisinopril and eplerenone. He has been taking aspirin for the past 2 days however is fairly noncompliant with this in general. He also has variability in the vitamins that he takes at home, adjusting them on a daily basis. Patient denies any smoking or drinking, quit drinking whenever he developed issues with his heart. 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 Overall the patient feels generally himself, well, without acute complaints. He was referred to the ER for bradycardia with heart rates in the 40s. Cardiology has concerns for third-degree heart block and needs for pacemaker placement. Admission Exam Per Admitting Provider General: awake, alert, no apparent distress, obese with BMI of 36.8 Head: Normocephalic, atraumatic ENT: PERRL, EOMI, right eye amblyopia, no pharyngeal exudate, mucous membranes moist Chest: Clear to auscultation, on room air, no adventitious breath sounds Cardiac: Bradycardic with HR in low 50s at bedside, no murmur, no JVD, normal peripheral pulses, good capillary refill Abdominal: NABS x 4 quadrants, soft, nondistended, nontender to palpation, no rebound or guarding Extremities: Normal inspection, + chronic venous stasis changes, no peripheral edema or erythema, calfs nontender to palpation Psych: Normal mood and affect Neuro: AAO x 3, strength intact bilaterally and rated 5/5, no motor deficits, speech is clear, no peripheral sensory deficits Principal Diagnosis Third degree heart block PAF Ischemic cardiomyopathy COVID-19 Discharge Exam CONSTITUTIONAL: WNWD, vitals as above, generally well-appearing, NAD EYES: normal conjunctivae, no scleral icterus ENT: external ear and nose normal, MMM NECK: trachea midline RESPIRATORY: clear to auscultation bilaterally, no crackles, rales or wheezes, normal respiratory effort CARDIOVASCULAR: regular rate and rhythm, S1 and 2 heard without murmurs, gallops or rubs, no JVD, no peripheral edema CHEST: inspection of chest revealed dressing ABDOMEN: normal bowel sounds, soft, nontender, no hepatomegaly, no guarding MUSCULOSKELETAL: strength 5/5 throughout, head is normocephalic and atraumatic SKIN: warm and dry NEUROLOGIC: CN 2-12 grossly intact, no sensory deficit, normal cognition, normal speech, no tremor PSYCHIATRIC: alert cooperative and oriented to person, place and time. Discharge Data Allergies Allergy/AdvReac Type Severity Reaction Status Date / Time cefuroxime Allergy Intermediate FEVER, Verified 01/30/21 14:19 DIARHEA cider vinegar Allergy Verified 02/02/21 16:27 ketchup Allergy Verified 02/02/21 16:27 mayonnaise Allergy Verified 02/02/21 16:27 mustard Allergy Verified 02/02/21 16:27 Consultations 01/29/21 10:16 Consult Cardiology Stat 01/29/21 10:36 ED Decision to Admit Stat 01/29/21 17:32 Consult Cardiology Routine Procedures Performed Operation Date: 02/03/21 13:30 Actual Procedures p Pacer with A/V Leads (Dual) - Taisha Waterman DO Ordered Studies Laboratory Results WBC 9.29 K/uL (4.8-10.8) 02/04/21 05:39 RBC 4.93 M/uL (4.7-6.1) 02/04/21 05:39 Hgb 15.9 g/dL (14.0-18.0) 02/04/21 05:39 Hct 46.4 % (42-52) 02/04/21 05:39 MCV 94.1 fL (80-100) 02/04/21 05:39 MCH 32.3 pg (25-34) 02/04/21 05:39 MCHC 34.3 g/dL (32-36) 02/04/21 05:39 RDW Std Deviation 46.0 fL (36.4-46.3) 02/04/21 05:39 RDW Coeff of Mariam 13.4 % (11.5-14.5) 02/04/21 05:39 Plt Count 172 K/uL (130-400) 02/04/21 05:39 MPV 11.6 fL (7.4-10.4) H 02/04/21 05:39 Immature Gran % (Auto) 0.1 % 01/29/21 09:53 Neut % (Auto) 69.4 % 01/29/21 09:53 Lymph % (Auto) 17.5 % 01/29/21 09:53 [place] % (Auto) 10.0 % 01/29/21 09:53 Eos % (Auto) 2.7 % 01/29/21 09:53 Baso % (Auto) 0.3 % 01/29/21 09:53 Neut # (Auto) 6.68 K/uL (1.4-6.5) H 01/29/21 09:53 Lymph # (Auto) 1.69 K/uL (1.2-3.4) 01/29/21 09:53 [place] # (Auto) 0.96 K/uL (0.11-0.59) H 01/29/21 09:53 Eos # (Auto) 0.26 K/uL (0-0.5) 01/29/21 09:53 Baso # (Auto) 0.03 K/uL (0-0.2) 01/29/21 09:53 Immature Gran # (Auto) 0.01 K/uL (0.00-0.02) 01/29/21 09:53 PT 10.4 Seconds (9.0-12.0) 01/29/21 09:53 INR 1.0 (0.9-1.1) 01/29/21 09:53 APTT 26.4 Seconds (21.0-31.0) 02/03/21 06:12 PTT Ratio 1.0 02/03/21 06:12 Sodium 136 mmol/L (136-145) 02/04/21 05:39 Potassium 3.9 mmol/L (3.5-5.1) D 02/04/21 05:39 Chloride 102 mmol/L (98-107) 02/04/21 05:39 Carbon Dioxide 28 mmol/L (21-32) 02/04/21 05:39 Anion Gap 6.0 (3-11) 02/04/21 05:39 BUN 20 mg/dl (7-18) H 02/04/21 05:39 Creatinine 1.27 mg/dl (0.6-1.4) D 02/04/21 05:39 Est Cr Clr Drug Dosing 78.2 ml/min 02/04/21 05:39 Est GFR ( Amer) 69.2 ml/min 02/04/21 05:39 Est GFR (Non-Af Amer) 59.7 ml/min 02/04/21 05:39 BUN/Creatinine Ratio 16.0 (10-20) 02/04/21 05:39 Glucose 136 mg/dl (70-99) H 02/04/21 05:39 POC Glucose 136 mg/dl (70-99) H 02/04/21 11:54 Estimat Average Glucose 171 mg/dl 01/30/21 05:16 Hemoglobin A1c 7.6 % (4.5-5.6) H 01/30/21 05:16 Calcium 9.3 mg/dl (8.5-10.1) 02/04/21 05:39 Magnesium 2.4 mg/dl (1.8-2.4) 02/04/21 05:39 Total Bilirubin 0.7 mg/dl (0.2-1) 01/30/21 05:16 AST 15 U/L (15-37) 01/30/21 07:40 ALT 21 U/L (12-78) 01/30/21 05:16 Alkaline Phosphatase 58 U/L (45-117) 01/30/21 05:16 Troponin I 0.420 ng/ml (0-0.045) H* 01/29/21 23:04 Total Protein 7.1 gm/dl (6.4-8.2) 01/30/21 05:16 Albumin 3.1 gm/dl (3.4-5.0) L 01/30/21 05:16 Globulin 4.0 gm/dl (2.5-4.0) 01/30/21 05:16 Albumin/Globulin Ratio 0.8 (0.9-2) L 01/30/21 05:16 Triglycerides 172 mg/dl (0-150) H 01/30/21 05:16 Cholesterol 149 mg/dl (0-200) 01/30/21 05:16 LDL Cholesterol, Calc 78 mg/dl 01/30/21 05:16 VLDL Cholesterol, Calc 34 mg/dl 01/30/21 05:16 HDL Cholesterol 37 mg/dl 01/30/21 05:16 Cholesterol/HDL Ratio 4 01/30/21 05:16 TSH 3.730 uIu/ml (0.300-4.500) 01/31/21 02:36 Free T4 1.15 ng/dl (0.8-1.6) 01/29/21 09:53 COVID-19 Eval Order Covid19 at [facility] 01/29/21 10:54 SARS-CoV-2 (PCR) POSITIVE (Negative) A* 01/29/21 10:54 Impressions Chest X-Ray 02/03/21 18:00 XR chest 1V portable CLINICAL HISTORY: s/p ppm COMPARISON STUDY: Chest radiograph January 29, 2021. FINDINGS: Patient is rotated. There is no pneumothorax following placement of a left subclavian pacer. Lead position is suboptimally assessed given the lack of lateral projection. Cardiomegaly is noted. There is no evidence for pulmonary edema. Elevation of the right hemidiaphragm is unchanged. IMPRESSION: No pneumothorax following placement of a left subclavian pacer. ACT 112: Negative or not required by law. Electronically signed by: Nils Pate M.D. 02/03/2021 7:21 PM Hospital Course (1) Third degree heart block: Third-degree heart block Paroxysmal atrial fibrillation H/O aortic stenosis ECHO: EF 65 to 70%. Mild concentric LVH. Aortic valve is trileaflet. Borderline severe aortic valve stenosis. Mild TR. Pacemaker placed 02/03, no post-op PTX on CXR. Doing well. Pain meds as needed. Beta nanci restarted. Eliquis started. (2) Paroxysmal atrial fibrillation: PAF rhythm noted on telemetry dfuring his stay. IV heparin was initiated and he was transitioned to Eliquis at discharge. (3) Ischemic cardiomyopathy: Remained euvolemic throughout his stay (4) DM II (diabetes mellitus, type II), controlled: -Last A1c was 7.6 Patient is not on any oral medications or insulin, does not check his glucose regularly Insulin sliding scale while hospitalized --current glucose is at goal Follow-up with PCP to discuss a regimen. (5) COVID-19: COVID 19 Infection H/O Covid twice before this hospitalization in late winter and earlier this year as per patient. Unvaccinated. CXR:No acute chest disease. Saturating well on room air Not qualifying for any treatments currently At time of discharge he was mentating and ambulating at baseline and tolerating PO. He was sent home in stable condition with close PCP followup recommended. Total Time Total Time Spent Total Time Spent (In Minutes): 60 Discharge Plan Discharge Items Patient Disposition: Home - Self-Care Reason For Visit: 3RD DEGREE HEART BLOCK Discharge Diagnosis: Third degree heart block PAF Ischemic cardiomyopathy COVID-19 Condition on Discharge: Good Activity: As commented below Activity Comment: do not lift the left elbow over the left shoulder for 1 month Lifting: No more than 10 pounds Lifting Comment: do not lift more than 10 pounds with the left arm for 2 weeks Bathing: Keep incision dry Bathing Comment: keep dressing on & dry until wound check; no shower Sexual Activity: After two weeks Non-emergency contact: Primary Care Provider and Nanosystems Engineer Call non-emergency contact if: you have any medication questions, your symptoms worsen, your pain is not controlled, your pain is worsening, your pain is unusual for you, your pain is concerning for you, you have a fever and your temperature is above 101 Follow-up/Referrals: Real Mendoza MD [Primary Care Provider] - 02/11/21 9:40 am (Date & Time 02/11/2021 9:40 AM Provider Bridger Cavanaugh MD [facility] ) Diet: Carb Consistent or DM2 and Heart Healthy Addtl Attending Provider Instructions: Please take all medications as instructed on discharge list below. A close follow-up in one week with your PCP is recommended to ensure you are feeling well after discharge. Your creatinine level was slightly elevated from your baseline of 0.9-1 at time of discharge. It was 1.27 on the discharge morning blood work. Please follow- up with your primary care physician regarding rechecking this within one week. Please continue to observe home isolation while re-infected with COVID-19 until you are 10 days post symptom onset, or if without symptoms, 10 days after you tested positive (01/29). It was a pleasure taking care of you! Please call if you have any questions or problems. You can reach a [facility] hospitalist on duty at [facility] 24 hours a day by calling [phone]. Take care of yourself. Apryl Busch, DO [facility] Hospital[facility] Addtl Cardroom Drawing Runner Provider Instructions: Device and wound check 1 week at [facility] cardiology no shower sponge bath only until then keeping the dressing dry Pending Studies at Discharge: No Stand-Alone Forms: My [facility] Medications and DC Order Prescriptions: New Eliquis 5 mg Tablet 5 mg PO BID Qty: 60 RF: 0 metoprolol tartrate 25 mg tablet 12.5 mg PO BID Qty: 30 RF: 1 Continued aspirin 81 mg Tablet,Delayed Release (Dr/Ec) 81 mg PO DAILY RF: 0 dorzolamide [Trusopt] 2 % drops 1 drp OPR BID RF: 0 levothyroxine [Synthroid] 75 mcg tablet 75 mcg PO DAILYBB RF: 0 furosemide [Lasix] 80 mg tablet 40 mg PO QAM RF: 0 lisinopril [Zestril] 40 mg tablet 40 mg PO QAM RF: 0 eplerenone [Inspra] 25 mg tablet 12.5 mg PO QAM RF: 0 coQ10 (ubiquinol) 200 mg Capsule 200 mg PO DAILY RF: 0 Discontinued metoprolol tartrate [Lopressor] 100 mg tablet See Rx Instructions .ROUTE .COMPLEX RF: 0 Discharge Orders: Discharge Order (Routine); Ordered 02/04/21 Ordered By: Apryl Huggins/Other Patient Handouts: A1C, Managing Type 2 Diabetes, Understanding Third-Degree Heart Block Admission Data Admit Date/Time: 01/29/21 11:14 Attending Provider: Apryl Busch Admit Provider: Apryl Busch Primary Care Provider: Real Mendoza Other Providers: Edis Betancur ; Jaskaran Zambrano Other Interventions: Discharge Summary Assessment (RN) Last Done: 02/04/21 14:52
--- NOTE | 2021-02-04 19:45 | Electrocardiogram Report ---
Test Reason : Blood Pressure : / mmHG Vent. Rate : 089 BPM Atrial Rate : 089 BPM P-R Int : 202 ms QRS Dur : 162 ms QT Int : 440 ms P-R-T Axes : 042 -66 012 degrees QTc Int : 535 ms Atrial-sensed ventricular-paced rhythm Abnormal ECG When compared with ECG of 31-JAN-2021 10:30, Ventricular pacing is now present Confirmed by Rio King ([id number]) on 02/04/2021 7:45:18 PM Referred By: Bridger Mars Confirmed By:Rio King
--- NOTE | 2021-02-04 23:16 | Electrocardiogram Report ---
Test Reason : Blood Pressure : / mmHG Vent. Rate : 067 BPM Atrial Rate : 067 BPM P-R Int : 206 ms QRS Dur : 156 ms QT Int : 472 ms P-R-T Axes : 044 117 -23 degrees QTc Int : 498 ms Atrial-sensed ventricular-paced rhythm with occasional AV pacing Abnormal ECG When compared with ECG of 03-FEB-2021 20:06, Vent. rate has decreased BY 22 BPM Confirmed by Rio King ([id number]) on 02/04/2021 11:16:15 PM Referred By: Bridger Mars Confirmed By:Rio King
--- NOTE | 2021-02-09 18:08 | Operative Report (OR) ---
DATE OF PROCEDURE: 02/03/2021 PREOPERATIVE DIAGNOSIS: Complete heart block. POSTOPERATIVE DIAGNOSIS: Complete heart block. PROCEDURE: Dual-chamber rate responsive permanent pacemaker under fluoroscopic guidance along with p eripheral venogram. SURGEON: Taisha Waterman DO. WAITER/WAITRESS COUNTER: None. ANESTHESIA: Monitored conscious sedation administered under my supervision by Margarita Griffin. Start ti me 1515, end time 1630. Total of 5 mg of Versed and 175 mcg of fentanyl. INTRAVENOUS FLUIDS: 100 mL. ANTIBIOTICS: 600 mg of clindamycin. CONTRAST: 30 mL. BLOOD LOSS: 20 mL. URINE OUTPUT: Not applicable. SPECIMENS: None. FINDINGS: See below. DRAINS: None. INDICATIONS: This is a 65-year-old gentleman with past medical history for vvaiipsd-pn-mwyhvr aortic stenosis, nonischemic cardiomyopathy, 20% was his EF back in 02/2015, thought to be due to tachycard ia-induced, it did improve in 05/2020 to 55%, labile hypertension, obstructive sleep apnea, gastroeso phageal reflux disease, left anterior fascicular block, type 1 Mobitz AV block, hypothyroidism, histo ry of C. diff, osteoarthritis, diabetes. He was sent in directly from the office to the hospital sec ondary to being in complete heart block. He did have a history of intermittent complete heart block, was not very symptomatic, so a pacemaker was delayed. However, he was admitted for complete heart b lock, although not terribly symptomatic, but then was also found to be COVID positive, although not t erribly symptomatic. However, during also his hospital stay, he had episodes of paroxysmal atrial fi brillation and flutter, so he was started on anticoagulation. He was recommended a pacemaker prior t o hospital discharge given the complete heart block along with paroxysmal atrial flutter. CONSENT: Consent was obtained prior to the patient going into electrophysiology lab. The patient wa s informed of the risks, benefits, and alternatives to the procedure. Risks include, but not limited to, sudden cardiac , cardiac arrhythmias, cerebrovascular accident, myocardial infarction, inju ry to the blood vessels, chamber of the heart, lungs, bleeding and infection. The patient understood these risks and agreed to proceed with the procedure as planned. Informed consent was obtained. DESCRIPTION OF PROCEDURE: The patient was brought into electrophysiology lab in a fasting state. He was connected to continuous cardiac monitoring. A time-out was performed to ensure patient identity and procedure correctly. He was prepped and draped over the left infraclavicular space in normal de santiago rgical standard fashion. Monitored conscious sedation was given throughout the procedure for patient 's comfort level. [place] precautions were maintained throughout the procedure. 10 mL of 1% lidocaine-bupivacaine mixture were given in the left deltopectoral groove. An incision w as made in the left deltopectoral groove. Blunt dissection was performed down to the pectoralis musc le. Then, a pacemaker pocket was created using blunt dissection over the pectoralis muscle within th e pectoralis fascia, then a peripheral venogram was performed to identify the axillary vein. Venous axillary access was obtained through a needlestick without any problems. A 7-Uzbek sheath was inser chito over the guidewire without any resistance. The dilator was removed and a second guidewire was i nserted through the sheath to allow for retained venous access. Sheath was removed, flushed, reinser chito over the dilator, then reinserted one of the guidewires. The guidewire and dilator removed. Then, the right atrial lead was temporarily placed in the right ventricular apex to have backup pacin g while we were positioning the left bundle lead. This was placed under fluoroscopic guidance. Then , a second 7-Uzbek sheath was inserted over the retained guidewire, the guidewire and dilator remove d. Then, the His C315 sheath was advanced over a Glidewire into the right ventricle. The Glidewire and dilator removed. Then, the left bundle pacing lead was advanced through the sheath and intracard iac electrogram His bundle recordings was attempted. The patient was in complete heart block, so I n ever found a great His; however, I kind of had an idea where the His was based on my R, A to V ratios . I then put the camera in MARIANO 30 and kind of marked where this area was and came down about 2 cm f rom that in a line that would extend out to the apex to kind of start figuring out where the best pos ition of my left bundle lead could be. I came on pacing and looked to see how my pacing pattern in V1 looked, looking for the W pattern. A f ew times, I had something decent, then I went in to AFGHAN 30 to start giving clockwise screws to screw the lead into the septum, a few times the lead was just not advancing, so I had to reposition it a fe w times. Ultimately, I found a spot that was still decent with a pacing complex morphology and the l ead was advancing nicely. I gave contrast through the sheath to see how I was well into the septum a nd the pacing complex looked decent with somewhat of an R prime in V1. I then slit the sheath under fluoroscopic guidance. I then kept the 7-Uzbek sheath around the left bundle while I repositioned t he right atrial lead that was back up pacing the right ventricle into the right atrium. The right atrial lead that was for backup pacing the right ventricle screw was retracted and then the lead was positioned in the right atrial appendage under fluoroscopic guidance. There was adequate p acing and sensing thresholds and no diaphragmatic stimulation with high output pacing. The 7-Uzbek sheath around the right atrial lead was peeled away and the lead was fixated to pectoralis muscle usi ng 0 silk suture. The second 7-Uzbek sheath around the left bundle lead was peeled away and the lead was fixated to pe ctoralis muscle using 0 silk suture. Then, the pocket was flushed with copious amounts of vancomycin and saline wash and inspected for hemostasis. The pulse generator was attached to the leads making sure the pins were in appropriate position, passed set screws, and set screws were all tightened. Pu lse generator was then placed in the antibiotic pouch followed then by being placed in the pocket, ma mansoor sure the leads were lying flat beneath the device. The incision was closed in a 3-layer fashion with 2-0 Vicryl interrupted suture followed by 3-0 Vicryl interrupted suture, followed by 4-0 Monocr yl running stitch and Dermabond was applied followed by Telfa and Tegaderm dressing. EQUIPMENT: 1. The pulse generator is a [employer] [place] XT DR ANNALISA Solitario [id number], serial number [id number]. 2. TYRX pouch, reference [id number], lot number [id number]. 3. Right atrial lead, Medtronic 5076-52 cm, serial number [id number]. 4. Left bundle lead, Medtronic 3830-69 cm, serial number [id number]. INTRAOPERATIVE TESTIN. Right atrial lead, P waves 2 millivolts, impedance 788 ohms, threshold 0.5 volts at 0.4 milliseco nds. 2. Left bundle lead, R waves 5.2 millivolts, impedance 913 ohms, threshold 1.1 volt at 0.4 milliseco nds. FINAL MEASUREMENTS THROUGH THE DEVICE. 1. Right atrial lead, P waves 1.6 millivolts, impedance 665 ohms, threshold 0.75 volts at 0.4 millis econds. 2. Left bundle lead, R waves 6.1 millivolts, impedance 817 ohms, threshold 0.75 volts at 0.4 millise conds. FINAL PARAMETERS: MVP-R 60/130, right atrial amplitude 3.5 volts, pulse width 0.4 milliseconds, sens itivity 0.3 millivolts. Left bundle lead amplitude 3 volts, pulse width 0.4 milliseconds, sensitivit y 1.2 millivolts. IMPRESSION: Successful dual chamber rate responsive permanent pacemaker under fluoroscopic guidance along with peripheral venogram secondary to complete heart block. PLAN: Monitor the patient post-procedure. A 12-lead ECG, chest x-ray and you can restart his Eliqui s as well as any AV jayshree blockers. He is not to lift the left elbow or left shoulder for 1 month. He cannot lift more than 10 pounds with the left arm for 2 weeks. He is to keep the dressing on and dry until his wound check next week. Job ID: [id number]
== END 2021-02-04 15:36 | disposition home or self-care (01) | DRG 242 ==
LOC: ED 09:34 → SUATTDRO 11:14 → EDINP 11:14 → 2E 16:09
DX: I50.9 Heart failure, unspecified; I25.5 Ischemic cardiomyopathy; Z80.0 Family history of malignant neoplasm of digestive organs; E11.9 Type 2 diabetes mellitus without complications; Z87.891 Personal history of nicotine dependence; M19.90 Unspecified osteoarthritis, unspecified site; Z83.3 Family history of diabetes mellitus; Z80.52 Family history of malignant neoplasm of bladder; U07.1 COVID-19; Z79.82 Long term (current) use of aspirin; E78.5 Hyperlipidemia, unspecified; K21.9 Gastro-esophageal reflux disease without esophagitis; I44.2 Atrioventricular block, complete; Z88.8 Allergy status to other drugs, medicaments and biological substances; Z88.1 Allergy status to other antibiotic agents; I11.0 Hypertensive heart disease with heart failure; I48.0 Paroxysmal atrial fibrillation; E87.6 Hypokalemia; F10.20 Alcohol dependence, uncomplicated; I35.0 Nonrheumatic aortic (valve) stenosis; G47.33 Obstructive sleep apnea (adult) (pediatric)

== ENCOUNTER 2022-04-28 18:08 | Inpatient (IN) ==
--- NOTE | 2022-04-28 18:24 | ED Triage Note ---
Date of Service April 28, 2022 History of Present Illness This patient was briefly evaluated while in triage. An abbreviated physical exam was performed. This patient is a 66-year-old Male with RUQ abd pain. It started 5 hours ago. . Physical Exam GENERAL: 66 year old male. In no acute distress. SKIN: No lesions or rashes. HEART: Regular rate and rhythm. LUNGS: Clear to auscultation. ABDOMEN: Bowel sounds normoactive. No guarding or rigidity. RUQ abd ttp noted. NEURO: Alert and oriented. No deficits. MUSCULOSKELETAL: No deformities to inspection of the extremities. PSYCH: Patient is pleasant and answers all questions appropriately. Initial orders for labs and / or imaging were placed and patient was placed in the waiting area until a bed is available. Please see further documentation for the full ED course.
[2022-04-28 18:56] LABS: Basophils # (auto) 0.04 K/uL (0-0.2); Basophils % (auto) 0.3 %; Eosinophils # (auto) 0.11 K/uL (0-0.50); Eosinophils % (auto) 0.9 %; Hematocrit (blood only) 47.8 % (42.0-52.0); Hemoglobin 16.2 g/dl (14.0-18.0); Immature Granulocytes # (auto) 0.04 K/uL (0.01-0.20); Immature Granulocytes % (auto) 0.3 %; Lymphocytes # (auto) 1.41 K/uL (1.2-3.4); Lymphocytes % (auto) 11.2 %; Mean Corpuscular Hemoglobin 32.1 pg (25.0-34.0); Mean Corpuscular Hgb Conc 33.9 g/dL (32.0-36.0); Mean Corpuscular Volume 94.8 fL (80.0-100.0); Mean Platelet Volume 11.2 fL (9.4-12.4); Monocytes # (auto) 0.77 K/uL (0.11-0.59); Monocytes % (auto) 6.1 %; Neutrophils # (auto) 10.18 K/uL (1.40-6.50); Neutrophils % (auto) 81.2 %; Platelet Count 223 K/uL (130-400); RDW Coefficient of Variation 12.2 % (11.5-14.5); RDW Standard Deviation 42.1 fL (36.4-46.3); Red Blood Count 5.04 M/uL (4.70-6.10); White Blood Count 12.55 K/ul (4.8-10.8)
[2022-04-28 19:06] LABS: Partial Thromboplastin Ratio 1.1; Partial Thromboplastin Time 30.5 Seconds (21.0-31.0); Prothrombin Time 10.8 Seconds (9.0-12.0)
[2022-04-28 19:23] LABS: Albumin Globulin Ratio 1.2 (0.9-2); Albumin Level 4.6 gm/dl (3.4-5.0); BUN Creatinine Ratio 14.2 (10-20); Bilirubin,Total 0.8 mg/dl (0.2-1.0); Calcium 10.2 mg/dl (8.5-10.1); Creatinine Clr Calc Pharmacy 80.1 ml/min; Est GFR (African American) 79.2 ml/min; Est GFR (Non-African American) 68.3 ml/min; Globulin 3.7 gm/dl (2.5-4.0); Potassium 3.6 mmol/L (3.5-5.1); Total Protein 8.3 gm/dl (6.0-8.3)
[2022-04-28 19:27] LABS: Appearance Urine Clear (Clear); Bacteria Urine Automated Negative (Negative); Bilirubin Urine Negative (Negative); Blood Urine Negative (Negative); Color Urine Dark Yellow; Glucose Urine UA Negative (Negative); Ketones Urine Trace (Negative); Leukocyte Esterase Urine Negative (Negative); Nitrite Urine Negative (Negative); Protein Urine 1+ (Negative); RBC Urine Automated 0-4 /hpf (0-4); Specific Gravity Urine 1.022 (1.000-1.030); Urobilinogen Urine Negative (Negative)
[2022-04-28 19:28] LABS: Troponin I High Sensitivity 22.5 pg/ml (0-20)
[2022-04-28] MEDS ORDERED: ONDANSETRON INJ 2 MG/ML 2 ML VIAL IV STA (19:54)
--- NOTE | 2022-04-28 19:59 | Emergency Department Note ---
Impression & Plan Abdominal wall pain in right upper quadrant, Gallstones ED Provider Note NAME: SANTOS ZAMUDIO AGE: 66 SEX: M : 1955 ARRIVES VIA: Walk-In INFORMANT: Patient, ED PROVIDER(S): Tyrel Vega DO CHIEF COMPLAINT: Abdominal pain HPI: The patient is a 66-year-old male who presented to the emergency department for an evaluation of abdominal pain. The patient describes right upper quadrant abdominal pain. He states his symptoms began early this morning. The symptoms of been constant. They are waxing and waning and sometimes. He notices nausea but no vomiting. The patient himself has a history of gallbladder pathology but because he has such a bad heart they are doing no intervention or surgical procedure on his gallbladder at this time. He is noticed no vomiting. He denies having any black or bloody bowel moods. He is not seen his family doctor for the symptoms. He has been compliant with his other outpatient medications otherwise. He denies having any chest pain but notices burning across the upper abdomen. ROS: See above HPI for pertinent positives & negatives. A total of 10 systems reviewed and were otherwise negative. PAST MEDICAL HISTORY: See Below PAST SURGICAL HISTORY: See Below FAMILY HISTORY: See Below SOCIAL HISTORY: See Below HOME MEDICATIONS: See Below ALLERGIES: See Below VITALS: See Below PHYSICAL EXAMINATION: GENERAL: Patient is awake alert in no acute distress patient is resting comfortably and showing no signs of anxiety EYES: The conjunctivae are clear. The pupils are round and reactive. EARS, NOSE, MOUTH AND THROAT: The nose is without any evidence of any deformity. Mucous membranes are moist. Tongue is midline. NECK: The neck is nontender and supple. RESPIRATORY: Normal respiratory effort is noted there is no evidence of wheezing rhonchi or rales CARDIOVASCULAR: Regular rate and rhythm noted there no murmurs rubs or gallops normal S1 normal S2. GASTROINTESTINAL: Abdomen was distended. There is right upper quadrant tenderness to palpation which is moderate. MUSCULOSKELETAL/EXTREMITIES: There is no evidence of gross deformity full range of motion is noted in the hips and shoulders. SKIN: Skin was warm and dry. Pedal edema was noted bilaterally. NEUROLOGIC: Patient is awake alert and oriented x3 MEDICAL DECISION MAKING: The patient is a 66-year-old male who presented to the emergency department for an evaluation of abdominal pain. The patient was complaining of right upper quadrant abdominal pain. He has a history of gallstones. He is also had inflammation of his gallbladder secondary to gallstones. He is not a good surgical candidate because of his underlying medical history. For this reason he has not been scheduled for surgery. The patient was treated with IV fluids and IV pain medication. He was reevaluated multiple times. He was also treated with IV antibiotics for presumed gallbladder pathology. I discussed the patient's condition with him. [facility] also [facility] have agreed to evaluate the patient in the emergen cy department for further management and disposition. Given the patient's LFTs as well as his elevated white blood cell count I do feel he may end up requiring some sort of surgical evaluation. If his condition improves I do feel that conservative treatment of this would be beneficial given the patient's comorbidities. Triage Nursing notes reviewed. Prior medical records reviewed Vital Signs: reviewed and remarkable for elevated blood pressure. Differential diagnosis: Etiologies such as appendicitis, diverticulitis, obstruction, inflammatory bowel disease, renal colic, PUD, biliary pathology, pancreatitis, mesenteric ischemia, aortic pathology, infections, genitourinary, UTI, perforated viscus, as well as others were entertained. ER treatment provided: See below Diagnostics interpreted by me: ECG: EKG was obtained in the emergency department. My interpretation is atrial sensed pacemaker at 81 bpm. Some [place] beats were noted. Left bundle branch block pattern was favored. This was compared to a tracing from February 04, 2021. No changes were noted Cardiac Monitoring: An order was placed for continuous cardiac monitoring. The monitor shows a rate of 69 bpm with pacemaker rhythm. Laboratory studies: As stated above and show below. Imaging studies: See below. Radiographic imaging was reviewed by myself Consultation(s): I discussed this case with Dr. Tolentino who [facility]. Past Med/Surg History Medical History Congestive heart failure COVID-19 Hypertension Ischemic cardiomyopathy Osteoarthritis Third degree heart block Type 2 diabetes mellitus Surgical History Eye disorder S/p posterior Sub-tenons Triesence, right Family History Father Prostate cancer Bladder cancer Mother Diabetes Heart disease Thyroid condition Sister Thyroid condition Social History Smoking Status: Never smoker Hx Alcohol Use: No Hx Substance Use: No Preferred Language: Cymro Communication Ability: Effective Acoustic Engineer Required: No Beliefs That Will Affect Care: None marital status: Single Current Living Situation: Family Current Living Situation Comment: lives with sister Feels Safe at Home: Yes Assistive Devices: None Allergies Allergies Allergy/AdvReac Type Severity Reaction Status Date / Time cefuroxime Allergy Intermediate FEVER, Verified 01/30/21 14:19 DIARHEA cider vinegar Allergy Verified 02/02/21 16:27 ketchup Allergy Verified 02/02/21 16:27 mayonnaise Allergy Verified 02/02/21 16:27 mustard Allergy Verified 02/02/21 16:27 Home Meds Home Medications Medication Instructions Recorded Confirmed dorzolamide 2 % eye drops (Trusopt) 1 drp OPR BID 01/29/21 04/28/22 eplerenone 25 mg tablet (Inspra) 12.5 mg PO QAM 01/29/21 04/28/22 furosemide 80 mg tablet (Lasix) 40 mg PO QAM 01/29/21 04/28/22 lisinopril 40 mg tablet (Zestril) 40 mg PO QAM 01/29/21 04/28/22 levothyroxine 88 mcg tablet 88 mcg PO DAILYBB 04/28/22 04/28/22 magnesium 250 mg tablet 250 mg PO QAM 04/28/22 04/28/22 metoprolol tartrate 50 mg tablet 50 mg PO AMHS 04/28/22 04/28/22 pediatric multivitamin no.49 1 tab PO QAM 04/28/22 04/28/22 (Flintstones Gummies chewable tablet) vitamin B complex 1 cap PO DAILY 04/28/22 04/28/22 Previous Rx's Medication Instructions Recorded apixaban 5 mg tablet (Eliquis) 5 mg PO BID #60 tabs 02/04/21 Results & Data (ED) Vital Signs Vital Signs - 24 hr 04/28/22 18:21 04/28/22 19:50 04/28/22 19:56 Pulse Rate 81 71 Pulse Rate [Apical] 81 Pulse Rate from SpO2 Sensor 70 Pulse Rhythm Regular Pulse Rhythm [Apical] Regular Pulse Strength Normal Pulse Strength [Apical] Normal Respiratory Rate 20 20 18 Respiratory Effort / Characteristics Non-Labored Spontaneous Non-Labored Spontaneous Respiratory Depth Normal Normal Respiratory Pattern Regular Blood Pressure 169/98 H Blood Pressure [Right Arm] 180/123 H Blood Pressure Mean 121 Blood Pressure Mean [Right Arm] 142 Blood Pressure Position Sitting Pulse Oximetry 96 94 96 Oxygen Delivery Method Room Air Room Air Sepsis Recent Fever Within 48 Hours No Sepsis New/Unexplained Change in Mental Status No Sepsis Action Taken by Nursing No Action Required 04/28/22 20:00 04/28/22 20:00 04/28/22 20:30 Pulse Rate 70 67 Pulse Rate [Apical] Pulse Rate from SpO2 Sensor 70 65 Pulse Rhythm Pulse Rhythm [Apical] Pulse Strength Pulse Strength [Apical] Respiratory Rate 18 17 Respiratory Effort / Characteristics Respiratory Depth Respiratory Pattern Blood Pressure 183/118 H Blood Pressure [Right Arm] Blood Pressure Mean 139 Blood Pressure Mean [Right Arm] Blood Pressure Position Pulse Oximetry 95 94 Oxygen Delivery Method Sepsis Recent Fever Within 48 Hours Sepsis New/Unexplained Change in Mental Status Sepsis Action Taken by Nursing 04/28/22 20:31 04/28/22 20:31 04/28/22 23:00 Pulse Rate 72 69 Pulse Rate [Apical] Pulse Rate from SpO2 Sensor 65 69 Pulse Rhythm Pulse Rhythm [Apical] Pulse Strength Pulse Strength [Apical] Respiratory Rate 12 13 Respiratory Effort / Characteristics Respiratory Depth Respiratory Pattern Blood Pressure 161/110 H 141/88 H Blood Pressure [Right Arm] Blood Pressure Mean 127 105 Blood Pressure Mean [Right Arm] Blood Pressure Position Pulse Oximetry 95 95 Oxygen Delivery Method Room Air Sepsis Recent Fever Within 48 Hours Sepsis New/Unexplained Change in Mental Status Sepsis Action Taken by [facility] Medications Current Medication List: was personally reviewed by me Laboratory Data Attestation: I reviewed the patient's lab results. 04/28/22 18:44 04/28/22 18:44 Lab Results 04/28/22 04/28/22 04/28/22 Range/Units 18:44 18:44 18:44 WBC 12.55 H (4.8-10.8) K/ul RBC 5.04 (4.70-6.10) M/uL Hgb 16.2 (14.0-18.0) g/dl Hct 47.8 (42.0-52.0) % MCV 94.8 (80.0-100.0) fL MCH 32.1 (25.0-34.0) pg MCHC 33.9 (32.0-36.0) g/dL RDW Std Deviation 42.1 (36.4-46.3) fL RDW Coeff of Mariam 12.2 (11.5-14.5) % Plt Count 223 (130-400) K/uL MPV 11.2 (9.4-12.4) fL Immature Gran % (Auto) 0.3 % Neut % (Auto) 81.2 % Lymph % (Auto) 11.2 % [place] % (Auto) 6.1 % Eos % (Auto) 0.9 % Baso % (Auto) 0.3 % Neut # (Auto) 10.18 H (1.40-6.50) K/uL Lymph # (Auto) 1.41 (1.2-3.4) K/uL [place] # (Auto) 0.77 H (0.11-0.59) K/uL Eos # (Auto) 0.11 (0-0.50) K/uL Baso # (Auto) 0.04 (0-0.2) K/uL Immature Gran # (Auto) 0.04 (0.01-0.20) K/uL PT 10.8 (9.0-12.0) Seconds INR 1.0 (0.9-1.1) APTT 30.5 (21.0-31.0) Seconds PTT Ratio 1.1 Sodium 137 (136-145) mmol/L Potassium 3.6 (3.5-5.1) mmol/L Chloride 101 (98-107) mmol/L Carbon Dioxide 29 (21-32) mmol/L Anion Gap 7 (3-11) BUN 16 (6-23) mg/dl Creatinine 1.13 (0.6-1.4) mg/dl Est Cr Clr Drug Dosing 80.1 ml/min Est GFR ( Amer) 79.2 ml/min Est GFR (Non-Af Amer) 68.3 ml/min BUN/Creatinine Ratio 14.2 (10-20) Glucose 213 H (70-99(Fasting)) mg/dl Calcium 10.2 H (8.5-10.1) mg/dl Magnesium 2.0 (1.7-2.4) mg/dl Total Bilirubin 0.8 (0.2-1.0) mg/dl AST 83 H (13-39) U/L ALT 110 H (7-52) U/L Alkaline Phosphatase 108 H (34-104) U/L Troponin I High Sens 22.5 H (0-20) pg/ml Total Protein 8.3 (6.0-8.3) gm/dl Albumin 4.6 (3.4-5.0) gm/dl Globulin 3.7 (2.5-4.0) gm/dl Albumin/Globulin Ratio 1.2 (0.9-2) Lipase 27 (11-82) U/L Urine Color Urine Appearance (Clear) Urine pH (4.5-7.5) Ur Specific [place] (1.000-1.030) Urine Protein (Negative) Urine Glucose (UA) (Negative) Urine Ketones (Negative) Urine Blood (Negative) Urine Nitrite (Negative) Urine Bilirubin (Negative) Urine Urobilinogen (Negative) Ur Leukocyte Esterase (Negative) Urine WBC (Auto) (0-5) /hpf Urine RBC (Auto) (0-4) /hpf U Hyaline Cast (Auto) (0-5) /lpf U Epithel Cells (Auto) (0-5) /lpf Urine Bacteria (Auto) (Negative) 04/28/22 Range/Units Unknown WBC (4.8-10.8) K/ul RBC (4.70-6.10) M/uL Hgb (14.0-18.0) g/dl Hct (42.0-52.0) % MCV (80.0-100.0) fL MCH (25.0-34.0) pg MCHC (32.0-36.0) g/dL RDW Std Deviation (36.4-46.3) fL RDW Coeff of Mariam (11.5-14.5) % Plt Count (130-400) K/uL MPV (9.4-12.4) fL Immature Gran % (Auto) % Neut % (Auto) % Lymph % (Auto) % [place] % (Auto) % Eos % (Auto) % Baso % (Auto) % Neut # (Auto) (1.40-6.50) K/uL Lymph # (Auto) (1.2-3.4) K/uL [place] # (Auto) (0.11-0.59) K/uL Eos # (Auto) (0-0.50) K/uL Baso # (Auto) (0-0.2) K/uL Immature Gran # (Auto) (0.01-0.20) K/uL PT (9.0-12.0) Seconds INR (0.9-1.1) APTT (21.0-31.0) Seconds PTT Ratio Sodium (136-145) mmol/L Potassium (3.5-5.1) mmol/L Chloride (98-107) mmol/L Carbon Dioxide (21-32) mmol/L Anion Gap (3-11) BUN (6-23) mg/dl Creatinine (0.6-1.4) mg/dl Est Cr Clr Drug Dosing ml/min Est GFR ( Amer) ml/min Est GFR (Non-Af Amer) ml/min BUN/Creatinine Ratio (10-20) Glucose (70-99(Fasting)) mg/dl Calcium (8.5-10.1) mg/dl Magnesium (1.7-2.4) mg/dl Total Bilirubin (0.2-1.0) mg/dl AST (13-39) U/L ALT (7-52) U/L Alkaline Phosphatase (34-104) U/L Troponin I High Sens (0-20) pg/ml Total Protein (6.0-8.3) gm/dl Albumin (3.4-5.0) gm/dl Globulin (2.5-4.0) gm/dl Albumin/Globulin Ratio (0.9-2) Lipase (11-82) U/L Urine Color Dark Yellow Urine Appearance Clear (Clear) Urine pH 5.0 (4.5-7.5) Ur Specific [place] 1.022 (1.000-1.030) Urine Protein 1+ H (Negative) Urine Glucose (UA) Negative (Negative) Urine Ketones Trace H (Negative) Urine Blood Negative (Negative) Urine Nitrite Negative (Negative) Urine Bilirubin Negative (Negative) Urine Urobilinogen Negative (Negative) Ur Leukocyte Esterase Negative (Negative) Urine WBC (Auto) 1-5 (0-5) /hpf Urine RBC (Auto) 0-4 (0-4) /hpf U Hyaline Cast (Auto) 1-5 (0-5) /lpf U Epithel Cells (Auto) 5-10 H (0-5) /lpf Urine Bacteria (Auto) Negative (Negative) Administered Medications Hydromorphone HCl (Hydromorphone Inj 0.5 Mg/0.5 Ml Syr) 0.5 mg IV Q15M PRN PRN Reason: Pain Stop: 05/12/22 19:53 Last Admin: 04/28/22 23:14 Dose: 0.5 mg Documented By: Admin: 04/28/22 20:53 Dose: 0.5 mg Documented By: Admin: 04/28/22 20:01 Dose: 0.5 mg Documented By: RDD Discontinued Medications Piperacillin Sod/Tazobactam Sod (Zosyn) 4.5 gm in 120 mls @ 240 mls/hr IV NOW ONE Stop: 04/28/22 21:15 Last Infusion: 04/28/22 21:40 Dose: 0 mls/hr Documented By: Admin: 04/28/22 20:53 Dose: 240 mls/hr Documented By: KOKOD Ondansetron HCl (Ondansetron Inj 2 Mg/Ml 2 Ml Vial) 4 mg IV NOW STA Stop: 04/28/22 19:55 Last Admin: 04/28/22 20:02 Dose: 4 mg Documented By: KOKOD Imaging Data Radiologist's Impression: Chest X-Ray 04/28/22 18:25 XR chest 1V portable HISTORY: 66 years-old Male RUQ abd ttp noted. Acute chest pain COMPARISON: Chest radiograph 02/03/2021 TECHNIQUE: AP view the chest FINDINGS: Left subclavian pacer. Megaly. No pneumothorax, pleural effusion, airspace consolidation or overt pulmonary edema. Mild right hemidiaphragmatic elevation. Degenerative changes of the shoulders and spine. Suggested hiatal hernia. IMPRESSION: No acute process. ACT 112: Negative or not required by law. The above report was generated using voice recognition software. It may contain grammatical, syntax or spelling errors. Electronically signed by: Jaxon Bill M.D. 04/28/2022 8:30 PM Patient: SANTOS ZAMUDIO (Male) : 59 Status: ER Date: 04/28/22 22:06 Room #: History: Abd pain, nausea Slices: 55 Priors: Tech: Madison Barber @ [id number] Exams: US GALLBLADDER Contrast: Accession Numbers: [id number] Referring Physician: REFERRED SELF Preliminary Findings Only See Final Report For Complete Findings US GALLBLADDER: Cholelithiasis without evidence of acute cholecystitis. No gallbladder wall thickening. No pericholecystic fluid. Sonographic Soares sign cannot be evaluated on this exam as the patient was given pain medications prior to the study. Mild intrahepatic biliary ductal dilatation Portal vein is normal in appearance with normal directionality of flow. Radiologist: Ronald Sanders MD Study ready at 22:11 and initial results transmitted at 22:25 Discharge Plan Visit Data Chief Complaint: GI Assessment Stated Complaint: GALL BLADDER ATTACK,COLD CALMY, ED Provider: Tyrel Vega Discharge Problem: Abdominal wall pain in right upper quadrant, Gallstones Patient Disposition: Being Evaluated by Hospitalist Forms Stand Alone Forms: [facility] Prescriptions Prescriptions: No Action dorzolamide [Trusopt] 2 % drops 1 drp OPR BID furosemide [Lasix] 80 mg tablet 40 mg PO QAM lisinopril [Zestril] 40 mg tablet 40 mg PO QAM eplerenone [Inspra] 25 mg tablet 12.5 mg PO QAM Eliquis 5 mg Tablet 5 mg PO BID Qty: 60 0RF levothyroxine 88 mcg Tablet 88 mcg PO DAILYBB metoprolol tartrate 50 mg Tablet 50 mg PO AMHS magnesium 250 mg Tablet 250 mg PO QAM vitamin B complex [B Complex] Capsule 1 cap PO DAILY Flintstones Gummies Tablet,Chewable 1 tab PO QAM Referrals Referrals: Real Mendoza MD [Primary Care Provider] -
[2022-04-28] MEDS: HYDROmorphone INJ 0.5 MG/0.5 ML SYR IV PRN ×3 (20:01→23:14)
--- NOTE | 2022-04-28 20:31 | XRay Report ---
XR chest 1V portable HISTORY: 66 years-old Male RUQ abd ttp noted. Acute chest pain COMPARISON: Chest radiograph 02/03/2021 TECHNIQUE: AP view the chest FINDINGS: Left subclavian pacer. Megaly. No pneumothorax, pleural effusion, airspace consolidation or overt pul monary edema. Mild right hemidiaphragmatic elevation. Degenerative changes of the shoulders and spine . Suggested hiatal hernia. IMPRESSION: No acute process. ACT 112: Negative or not required by law. The above report was generated using voice recognition software. It may contain grammatical, syntax o r spelling errors. Electronically signed by: Jaxon Bill M.D. 04/28/2022 8:30 PM
[2022-04-28] MEDS ORDERED: PIPERACILLIN/TAZOBACTAM 4.5 GM/120 ML BAG IV ONE (20:46)
[2022-04-28] MEDS ORDERED: METOPROLOL TARTRATE 50 MG TAB PO STA (23:59)
[2022-04-29] MEDS: HYDROmorphone INJ 0.5 MG/0.5 ML SYR IV PRN ×4 (01:03→21:34)
[2022-04-29] MEDS ORDERED: ACETAMINOPHEN 325 MG TAB PO PRN (02:11)
[2022-04-29] MEDS ORDERED: CARBOHYDRATES FOR HYPOGLYCEMIA PO PRN (02:11)
[2022-04-29] MEDS ORDERED: GLUCOSE 40% GEL 15 GM TUBE PO PRN (02:11)
[2022-04-29] MEDS ORDERED: GLUCAGON FOR INJ 1 MG VIAL SQ PRN (02:11)
[2022-04-29] MEDS ORDERED: DEXTROSE 50% 50 ML SYRINGE IV PRN (02:11)
[2022-04-29] MEDS ORDERED: ONDANSETRON INJ 2 MG/ML 2 ML VIAL IV PRN (02:11)
[2022-04-29] MEDS ORDERED: NITROGLYCERIN SL 0.4 MG/TAB TAB SL PRN (02:11)
[2022-04-29] MEDS ORDERED: GLUCOSE 10 TAB/TUBE PO PRN (02:11)
[2022-04-29] MEDS: SODIUM CHLORIDE 0.9% 1000ML 1,000 ML IV SCH ×2 (03:34→21:13)
[2022-04-29] MEDS: INSULIN ASPART PER UNIT SC SCH ×4 (03:35→18:51)
[2022-04-29] MEDS: PIPERACILLIN/TAZOBACTAM 3.375 GM in DEXTROSE 5% 100 ML IV SCH ×3 (04:24→21:31)
[2022-04-29 06:10] LABS: Basophils # (auto) 0.04 K/uL (0-0.2); Basophils % (auto) 0.3 %; Eosinophils # (auto) 0.03 K/uL (0-0.50); Eosinophils % (auto) 0.2 %; Hemoglobin 15.8 g/dl (14.0-18.0); Immature Granulocytes # (auto) 0.05 K/uL (0.01-0.20); Immature Granulocytes % (auto) 0.4 %; Lymphocytes # (auto) 1.12 K/uL (1.2-3.4); Lymphocytes % (auto) 8.2 %; Mean Corpuscular Hemoglobin 32.4 pg (25.0-34.0); Mean Corpuscular Hgb Conc 34.3 g/dL (32.0-36.0); Mean Corpuscular Volume 94.3 fL (80.0-100.0); Mean Platelet Volume 11.4 fL (9.4-12.4); Monocytes # (auto) 1.32 K/uL (0.11-0.59); Monocytes % (auto) 9.6 %; Neutrophils # (auto) 11.16 K/uL (1.40-6.50); Neutrophils % (auto) 81.3 %; Platelet Count 201 K/uL (130-400); RDW Coefficient of Variation 12.2 % (11.5-14.5); RDW Standard Deviation 42.7 fL (36.4-46.3); Red Blood Count 4.88 M/uL (4.70-6.10); White Blood Count 13.72 K/ul (4.8-10.8)
[2022-04-29 06:22] LABS: BUN Creatinine Ratio 12.8 (10-20); Bilirubin Direct 0.5 mg/dl (0-0.2); Bilirubin,Total 1.4 mg/dl (0.2-1.0); Calcium 9.3 mg/dl (8.5-10.1); Creatinine Clr Calc Pharmacy 96.2 ml/min; Est GFR (African American) 98.9 ml/min; Est GFR (Non-African American) 85.3 ml/min; Total Protein 7.2 gm/dl (6.0-8.3)
[2022-04-29] MEDS ORDERED: LEVOTHYROXINE SODIUM 88 MCG TABLET PO SCH (06:30)
--- NOTE | 2022-04-29 07:47 | Ultrasound Report ---
ABDOMINAL ULTRASOUND, RIGHT UPPER QUADRANT HISTORY: RUQ PAIN. COMPARISON: Abdomen and pelvis CT 11/29/2017. Abdominal ultrasound 11/30/2017. FINDINGS: Pancreas: The visualized pancreas demonstrates a normal echotexture. Liver: The liver is echogenic consistent with fatty change. Gallbladder: The gallbladder remains distended and contains a few small stones and sludge. No gallbla dder wall thickening or pericholecystic fluid identified. The patient's pain medication inhibits eval uation for a Saores's sign. CBD: Upper limits of normal measuring 6.6 mm. Right kidney: No hydronephrosis. IMPRESSION: 1. The gallbladder remains distended and contains a few small stones and sludge. No definite gallblad mark wall thickening. This is not significantly changed compared to the 2018 examination. 2. Hepatic steatosis. ACT 112: Negative or not required by law. Electronically signed by: Angel Bates M.D. 04/29/2022 7:45 AM
--- NOTE | 2022-04-29 07:52 | History and Physical Report ---
DATE OF ADMISSION: 04/28/2022. CHIEF COMPLAINT: Abdominal pain. HISTORY OF PRESENT ILLNESS: This is a 66-year-old male with past medical history significant for type 2 diabetes, currently not on medications, history of hypothyroidism, history of complete atrioventricular block, status post pacemaker, history of paroxysmal atrial fibrillation, hypertension, severe aortic valve stenosis, history of cardiomyopathy with EF of less than 20%, suspected tachycardia induced, currently resolved. Echocardiogram done in February 2022 EF 55-59%, history of COVID twice, history of sleep apnea, GERD, presents with abdominal pain. The patient states pain started after eating his lunch, and right sided abdominal pain. No radiation 6-8/10 in severity, associated with dry heaving. Denies any fever or chills. Because of dry heaving, has some chest soreness that is resolved with pain medication in the ER. Denies any shortness of breath, no cough, no headache, no blurred visions, no earache, currently no sore throat. Normal bowel and bladder movements. Currently, resting comfortably, hemodynamically stable. Still has some abdominal pain. Says he can ambulate 100 yards.Says he has cut back on cheese slices from 40 per week to 20per week. ALLERGIES: TO CEFTIN, CIDER VINEGAR, KETCHUP, [place]ISE, MUSTARD. PAST MEDICAL HISTORY: As mentioned above. PAST SURGICAL HISTORY: Injection of eye drug, status post pacemaker. MEDICATIONS: Patient is on Eliquis 5 mg p.o. b.i.d., Trusopt one drop ophthalmic b.i.d., eplerenone 12.5 mg p.o. a.m., Lasix 40 mg p.o. a.m., levothyroxine 88 mcg p.o. daily, lisinopril 40 mg p.o. daily, magnesium oxide 250 mg p.o. a.m., metoprolol tartrate 50 mg p.o. b.i.d., multivitamin 1 tablet daily, B complex 1 capsule p.o. daily. FAMILY HISTORY: Significant for father had bladder and pancreatic cancer, hypertension; mother has diabetes, eye problems, heart disorder, history of thyroid disorder. SOCIAL HISTORY: Single, former smoker. No alcohol use. No drug use. REVIEW OF SYSTEMS: As per HPI. Rest of the review of systems is negative. PHYSICAL EXAMINATION: GENERAL: The patient is obese, not in acute distress. VITAL SIGNS: Temperature afebrile, pulse 86, respiratory rate 25, blood pressure 170/99, oxygen 96% on room air. HEENT: Pupils equal, round and reactive to light. Oral mucosa moist. NECK: No JVD or neck masses. CARDIOVASCULAR: S1 and S2 heard. Regular rate and rhythm. No murmur, no gallop. RESPIRATORY SYSTEM: Normal AP diameter. No accessory muscle use. No wheezing, no crackles. ABDOMEN: Soft, bowel sounds present. Mild tenderness in right upper quadrant. No guarding, no rigidity, no distention. CENTRAL NERVOUS SYSTEM: Cranial nerves II-XII grossly intact, nonfocal. EXTREMITIES: No edema, no erythema. LABORATORY DATA: WBC 12.5, hemoglobin 16.2, hematocrit 47.8, platelets 223. PT 10.8, INR 1, APTT 30.5. Sodium 137, potassium 3.6, chloride 101, bicarb 29, BUN 16, creatinine 1.1, serum glucose 213, calcium 10.2, magnesium 2, total bilirubin 0.8, AST 83, ALT 110, alkaline phosphatase 108. Troponin I high sensitivity 22.5, platelets 27. Urinalysis negative. Gallbladder ultrasound shows gallstones, no acute cholecystitis on the preliminary report. IMAGING DATA: Chest x-ray, no acute process. EKG: Atrioventricular paced rhythm at a rate of 81. ASSESSMENT AND PLAN: This 66-year-old male presents with abdominal pain. 1. Abdominal pain ,gallbladder disease, with gallstones. Mild elevation of LFTs. We will keep him n.p.o., gentle fluids. IV Zosyn, Follow the repeat labs, consult GI in the a.m. for further recommendations. 2. Mild elevation of troponin, mostly demand ischemia. We will follow the serial enzymes. If any concern, consult Cardiology. 3. History of idiopathic cardiomyopathy, with ejection fraction less than 20%, but currently resolved. 4. Diastolic congestive heart failure with severe aortic stenosis. Currently, continue his home medication of eplerenone, Lasix, lisinopril, metoprolol. The patient is getting gentle fluids, monitor for any volume overload. 5. Type 2 diabetes, not on any medications. We will follow the blood sugars, follow HbA1c levels. Currently n.p.o.ISS. 6. Hypertension. Continue his metoprolol, lisinopril, eplerenone and Lasix. Monitor the blood pressure. 7. History of paroxysmal atrial fibrillation, rate controlled with metoprolol, patient is on Eliquis. We will continue Eliquis for now, if there is an plan for procedure we will hold Eliquis. 8. Hypothyroidism, on Synthyroid. 9. Hx of intermittent complete heart block s/p pace maker 10. Deep venous thrombosis prophylaxis. The patient is on Eliquis. DISPOSITION: Closely monitor in the med tele. PT/OT prior to discharge. Social service to help with discharge planning. Job ID: [id number]
[2022-04-29] MEDS: DORZOLAMIDE HCL 2% OPH SOLN 10 ML BTL OPR SCH ×2 (08:10→21:34)
[2022-04-29] MEDS: APIXABAN 5 MG TABLET PO SCH ×2 (08:11→21:33)
[2022-04-29] MEDS: METOPROLOL TARTRATE 50 MG TAB PO SCH ×2 (08:11→21:33)
[2022-04-29 08:30] LABS: Estimated Average Glucose 163 mg/dl; Hemoglobin A1C 7.3 % (4.5-5.6)
--- NOTE | 2022-04-29 08:58 | Hospitalist Progress Note ---
Date of Service April 29, 2022 Assessment & Plan (1) Choledocholithiasis: (2) Abdominal wall pain in right upper quadrant: (3) Gallstones: (4) Pacemaker: Plan This 66-year-old male presents with abdominal pain, RUQ, elevated LFTs 1. Abdominal pain - gallbladder disease, with gallstones. elevated LFTs -> further elevation this AM US gallbladder 1. The gallbladder remains distended and contains a few small stones and sludge. No definite gallbladder wall thickening. This is not significantly changed compared to the 2018 examination. 2. Hepatic steatosis. Pt was started on gentle IVF and IV antibiotics - zosyn NPO GI consulted GI ordered CT abdomen to further evaluate CT abdomen w/ contrast 1. Mild biliary ductal dilatation due to a 9 mm density within the distal common bile duct. A common bile duct calculus is favored. A mass could appear similar although is considered less likely. This could be correlated with ERCP. 2. Gallstones within the gallbladder. Mild gallbladder distention with trace adjacent stranding. If indicated, a hepatobiliary scan could be obtained to evaluate for acute cholecystitis. 3. No CT evidence for acute pancreatitis. 4. Extensive aortic valvular calcification. As there is a stone in distal common bile duct w/ cbd dilation, elev. LFTs, elev. WBC, pain in RUQ, concern for cholangitis, and need for ERCP. GI recommends transfer to tertiary center given pt's cardiac history. [facility] in [place] contacted, patient accepted to their care. 2. Mild elevation of troponin, mostly demand ischemia. We will follow the serial enzymes. If any concern, consult Cardiology. 3. History of idiopathic cardiomyopathy, with ejection fraction less than 20%, but currently resolved. 4. Diastolic congestive heart failure with severe aortic stenosis. Currently, continue his home medication of eplerenone, Lasix, lisinopril, metoprolol. The patient is getting gentle fluids, monitor for any volume overload. 5. Type 2 diabetes, not on any medications. We will follow the blood sugars, current HbA1c levels 7.3% Currently n.p.o.ISS. 6. Hypertension. Continued w/ his metoprolol, lisinopril, eplerenone and Lasix. Now BP on lower side - would hold lasix, lisinopril, cont. w/ beta nanci 7. History of paroxysmal atrial fibrillation, rate controlled with metoprolol, patient is on Eliquis. Continued Eliquis on admission, hold prior to any planne d procedure. 8. Hypothyroidism, on Synthyroid. 9. Hx of intermittent complete heart block s/p pace maker DVT prophylaxis. The patient is on Eliquis, plan to hold for planned procedure. DISPOSITION: Closely monitor in the med tele.Plan to transfer to tertiary care center - [facility]. Admission and Anticipated Discharge Date Admission Date: April 28, 2022 Subjective Pt seen in follow up of RUQ pain, elevated LFTs, hx of , [employer] Laying in bed, in NAD Reports pain is better controlled now No chest pain, palpitations, or shortness of breath No fever, chills Seen by GI and CT abdomen w/ contrast obtained Review of Systems Review of Systems: All systems reviewed & are unremarkable except as noted in Subjective Physical Exam Physical Exam: GENERAL:obese M, not in acute distress. HEENT: NC/AT. EOMI. Pupils equal, round and reactive to light. Oral mucosa moist. NECK: No JVD or neck masses. CARDIOVASCULAR: S1 and S2 heard. Regular rate and rhythm. No murmur, no gallop. RESPIRATORY: Normal AP diameter. No accessory muscle use. No wheezing, no crackles. ABDOMEN: Soft, bowel sounds present. Mild tenderness in right upper quadrant. No guarding, no rigidity, no distention. NEURO:awake , alert, oriented, answering questions appropriately. Moves extremities. EXTREMITIES: No edema, no erythema. Results & Data Results & Data ([facility]) Vital Signs (Past 12 Hours) Vital Signs Pulse Resp BP Pulse Ox Pulse Ox O2 Del Method O2 Del Method 04/29/22 08:00 72 18 120/70 94 Room Air 04/29/22 04:36 86 17 120/73 96 04/29/22 04:00 68 19 129/81 92 04/29/22 03:30 73 18 142/95 H 92 04/29/22 03:00 73 6 L 133/93 93 04/29/22 02:30 86 10 L 132/90 92 04/29/22 02:00 81 11 L 114/55 L 93 04/29/22 01:30 66 13 117/68 90 04/29/22 02:11 92 Room Air 04/29/22 01:00 77 15 143/86 H 95 04/29/22 00:30 61 13 119/67 90 02/03/23 00:30 119/67 04/29/22 00:09 88 26 H 119/77 92 04/28/22 23:30 86 25 H 170/99 H 96 04/28/22 23:00 69 13 141/88 H 95 Room Air Laboratory Results 04/29/22 04/29/22 04/29/22 Range/Units Unknown 08:23 05:29 WBC (4.8-10.8) K/ul RBC (4.70-6.10) M/uL Hgb (14.0-18.0) g/dl Hct (42.0-52.0) % MCV (80.0-100.0) fL MCH (25.0-34.0) pg MCHC (32.0-36.0) g/dL RDW Std Deviation (36.4-46.3) fL RDW Coeff of Mariam (11.5-14.5) % Plt Count (130-400) K/uL MPV (9.4-12.4) fL Immature Gran % (Auto) % Neut % (Auto) % Lymph % (Auto) % Metcalfe % (Auto) % Eos % (Auto) % Baso % (Auto) % Neut # (Auto) (1.40-6.50) K/uL Lymph # (Auto) (1.2-3.4) K/uL Metcalfe # (Auto) (0.11-0.59) K/uL Eos # (Auto) (0-0.50) K/uL Baso # (Auto) (0-0.2) K/uL Immature Gran # (Auto) (0.01-0.20) K/uL PT (9.0-12.0) Seconds INR (0.9-1.1) APTT (21.0-31.0) Seconds PTT Ratio Sodium (136-145) mmol/L Potassium (3.5-5.1) mmol/L Chloride (98-107) mmol/L Carbon Dioxide (21-32) mmol/L Anion Gap (3-11) BUN (6-23) mg/dl Creatinine (0.6-1.4) mg/dl Est Cr Clr Drug Dosing ml/min Est GFR ( Amer) ml/min Est GFR (Non-Af Amer) ml/min BUN/Creatinine Ratio (10-20) Glucose (70-99(Fasting)) mg/dl POC Glucose 138 H (70-99) mg/dl Estimat Average Glucose 163 mg/dl Hemoglobin A1c 7.3 H (4.5-5.6) % Calcium (8.5-10.1) mg/dl Magnesium (1.7-2.4) mg/dl Total Bilirubin (0.2-1.0) mg/dl Direct Bilirubin (0-0.2) mg/dl AST (13-39) U/L ALT (7-52) U/L Alkaline Phosphatase (34-104) U/L Troponin I High Sens (0-20) pg/ml Total Protein (6.0-8.3) gm/dl Albumin (3.4-5.0) gm/dl Globulin (2.5-4.0) gm/dl Albumin/Globulin Ratio (0.9-2) Lipase (11-82) U/L Urine Color Urine Appearance (Clear) Urine pH (4.5-7.5) Ur Specific Isle (1.000-1.030) Urine Protein (Negative) Urine Glucose (UA) (Negative) Urine Ketones (Negative) Urine Blood (Negative) Urine Nitrite (Negative) Urine Bilirubin (Negative) Urine Urobilinogen (Negative) Ur Leukocyte Esterase (Negative) Urine WBC (Auto) (0-5) /hpf Urine RBC (Auto) (0-4) /hpf U Hyaline Cast (Auto) (0-5) /lpf U Epithel Cells (Auto) (0-5) /lpf Urine Bacteria (Auto) (Negative) SARS-CoV-2, RNA, NAAT NEGATIVE (NEGATIVE) 04/29/22 04/29/22 04/29/22 Range/Units 05:29 05:29 03:30 WBC 13.72 H (4.8-10.8) K/ul RBC 4.88 (4.70-6.10) M/uL Hgb 15.8 (14.0-18.0) g/dl Hct 46.0 (42.0-52.0) % MCV 94.3 (80.0-100.0) fL MCH 32.4 (25.0-34.0) pg MCHC 34.3 (32.0-36.0) g/dL RDW Std Deviation 42.7 (36.4-46.3) fL RDW Coeff of Mariam 12.2 (11.5-14.5) % Plt Count 201 (130-400) K/uL MPV 11.4 (9.4-12.4) fL Immature Gran % (Auto) 0.4 % Neut % (Auto) 81.3 % Lymph % (Auto) 8.2 % Metcalfe % (Auto) 9.6 % Eos % (Auto) 0.2 % Baso % (Auto) 0.3 % Neut # (Auto) 11.16 H (1.40-6.50) K/uL Lymph # (Auto) 1.12 L (1.2-3.4) K/uL Metcalfe # (Auto) 1.32 H (0.11-0.59) K/uL Eos # (Auto) 0.03 (0-0.50) K/uL Baso # (Auto) 0.04 (0-0.2) K/uL Immature Gran # (Auto) 0.05 (0.01-0.20) K/uL PT (9.0-12.0) Seconds INR (0.9-1.1) APTT (21.0-31.0) Seconds PTT Ratio Sodium 137 (136-145) mmol/L Potassium 4.0 (3.5-5.1) mmol/L Chloride 103 (98-107) mmol/L Carbon Dioxide 28 (21-32) mmol/L Anion Gap 6 (3-11) BUN 12 (6-23) mg/dl Creatinine 0.94 (0.6-1.4) mg/dl Est Cr Clr Drug Dosing 96.2 ml/min Est GFR ( Amer) 98.9 ml/min Est GFR (Non-Af Amer) 85.3 ml/min BUN/Creatinine Ratio 12.8 (10-20) Glucose 161 H (70-99(Fasting)) mg/dl POC Glucose 118 H (70-99) mg/dl Estimat Average Glucose mg/dl Hemoglobin A1c (4.5-5.6) % Calcium 9.3 (8.5-10.1) mg/dl Magnesium 2.0 (1.7-2.4) mg/dl Total Bilirubin 1.4 H D (0.2-1.0) mg/dl Direct Bilirubin 0.5 H (0-0.2) mg/dl AST 151 H (13-39) U/L ALT 154 H (7-52) U/L Alkaline Phosphatase 101 (34-104) U/L Troponin I High Sens (0-20) pg/ml Total Protein 7.2 (6.0-8.3) gm/dl Albumin 4.0 (3.4-5.0) gm/dl Globulin (2.5-4.0) gm/dl Albumin/Globulin Ratio (0.9-2) Lipase (11-82) U/L Urine Color Urine Appearance (Clear) Urine pH (4.5-7.5) Ur Specific Isle (1.000-1.030) Urine Protein (Negative) Urine Glucose (UA) (Negative) Urine Ketones (Negative) Urine Blood (Negative) Urine Nitrite (Negative) Urine Bilirubin (Negative) Urine Urobilinogen (Negative) Ur Leukocyte Esterase (Negative) Urine WBC (Auto) (0-5) /hpf Urine RBC (Auto) (0-4) /hpf U Hyaline Cast (Auto) (0-5) /lpf U Epithel Cells (Auto) (0-5) /lpf Urine Bacteria (Auto) (Negative) SARS-CoV-2, RNA, NAAT (NEGATIVE) 04/28/22 04/28/22 04/28/22 Range/Units Unknown 18:44 18:44 WBC (4.8-10.8) K/ul RBC (4.70-6.10) M/uL Hgb (14.0-18.0) g/dl Hct (42.0-52.0) % MCV (80.0-100.0) fL MCH (25.0-34.0) pg MCHC (32.0-36.0) g/dL RDW Std Deviation (36.4-46.3) fL RDW Coeff of Mariam (11.5-14.5) % Plt Count (130-400) K/uL MPV (9.4-12.4) fL Immature Gran % (Auto) % Neut % (Auto) % Lymph % (Auto) % Metcalfe % (Auto) % Eos % (Auto) % Baso % (Auto) % Neut # (Auto) (1.40-6.50) K/uL Lymph # (Auto) (1.2-3.4) K/uL Metcalfe # (Auto) (0.11-0.59) K/uL Eos # (Auto) (0-0.50) K/uL Baso # (Auto) (0-0.2) K/uL Immature Gran # (Auto) (0.01-0.20) K/uL PT 10.8 (9.0-12.0) Seconds INR 1.0 (0.9-1.1) APTT 30.5 (21.0-31.0) Seconds PTT Ratio 1.1 Sodium 137 (136-145) mmol/L Potassium 3.6 (3.5-5.1) mmol/L Chloride 101 (98-107) mmol/L Carbon Dioxide 29 (21-32) mmol/L Anion Gap 7 (3-11) BUN 16 (6-23) mg/dl Creatinine 1.13 (0.6-1.4) mg/dl Est Cr Clr Drug Dosing 80.1 ml/min Est GFR ( Amer) 79.2 ml/min Est GFR (Non-Af Amer) 68.3 ml/min BUN/Creatinine Ratio 14.2 (10-20) Glucose 213 H (70-99(Fasting)) mg/dl POC Glucose (70-99) mg/dl Estimat Average Glucose mg/dl Hemoglobin A1c (4.5-5.6) % Calcium 10.2 H (8.5-10.1) mg/dl Magnesium 2.0 (1.7-2.4) mg/dl Total Bilirubin 0.8 (0.2-1.0) mg/dl Direct Bilirubin (0-0.2) mg/dl AST 83 H (13-39) U/L ALT 110 H (7-52) U/L Alkaline Phosphatase 108 H (34-104) U/L Troponin I High Sens 22.5 H (0-20) pg/ml Total Protein 8.3 (6.0-8.3) gm/dl Albumin 4.6 (3.4-5.0) gm/dl Globulin 3.7 (2.5-4.0) gm/dl Albumin/Globulin Ratio 1.2 (0.9-2) Lipase 27 (11-82) U/L Urine Color Dark Yellow Urine Appearance Clear (Clear) Urine pH 5.0 (4.5-7.5) Ur Specific Isle 1.022 (1.000-1.030) Urine Protein 1+ H (Negative) Urine Glucose (UA) Negative (Negative) Urine Ketones Trace H (Negative) Urine Blood Negative (Negative) Urine Nitrite Negative (Negative) Urine Bilirubin Negative (Negative) Urine Urobilinogen Negative (Negative) Ur Leukocyte Esterase Negative (Negative) Urine WBC (Auto) 1-5 (0-5) /hpf Urine RBC (Auto) 0-4 (0-4) /hpf U Hyaline Cast (Auto) 1-5 (0-5) /lpf U Epithel Cells (Auto) 5-10 H (0-5) /lpf Urine Bacteria (Auto) Negative (Negative) SARS-CoV-2, RNA, NAAT (NEGATIVE) 04/28/22 Range/Units 18:44 WBC 12.55 H (4.8-10.8) K/ul RBC 5.04 (4.70-6.10) M/uL Hgb 16.2 (14.0-18.0) g/dl Hct 47.8 (42.0-52.0) % MCV 94.8 (80.0-100.0) fL MCH 32.1 (25.0-34.0) pg MCHC 33.9 (32.0-36.0) g/dL RDW Std Deviation 42.1 (36.4-46.3) fL RDW Coeff of Mariam 12.2 (11.5-14.5) % Plt Count 223 (130-400) K/uL MPV 11.2 (9.4-12.4) fL Immature Gran % (Auto) 0.3 % Neut % (Auto) 81.2 % Lymph % (Auto) 11.2 % Metcalfe % (Auto) 6.1 % Eos % (Auto) 0.9 % Baso % (Auto) 0.3 % Neut # (Auto) 10.18 H (1.40-6.50) K/uL Lymph # (Auto) 1.41 (1.2-3.4) K/uL Metcalfe # (Auto) 0.77 H (0.11-0.59) K/uL Eos # (Auto) 0.11 (0-0.50) K/uL Baso # (Auto) 0.04 (0-0.2) K/uL Immature Gran # (Auto) 0.04 (0.01-0.20) K/uL PT (9.0-12.0) Seconds INR (0.9-1.1) APTT (21.0-31.0) Seconds PTT Ratio Sodium (136-145) mmol/L Potassium (3.5-5.1) mmol/L Chloride (98-107) mmol/L Carbon Dioxide (21-32) mmol/L Anion Gap (3-11) BUN (6-23) mg/dl Creatinine (0.6-1.4) mg/dl Est Cr Clr Drug Dosing ml/min Est GFR ( Amer) ml/min Est GFR (Non-Af Amer) ml/min BUN/Creatinine Ratio (10-20) Glucose (70-99(Fasting)) mg/dl POC Glucose (70-99) mg/dl Estimat Average Glucose mg/dl Hemoglobin A1c (4.5-5.6) % Calcium (8.5-10.1) mg/dl Magnesium (1.7-2.4) mg/dl Total Bilirubin (0.2-1.0) mg/dl Direct Bilirubin (0-0.2) mg/dl AST (13-39) U/L ALT (7-52) U/L Alkaline Phosphatase (34-104) U/L Troponin I High Sens (0-20) pg/ml Total Protein (6.0-8.3) gm/dl Albumin (3.4-5.0) gm/dl Globulin (2.5-4.0) gm/dl Albumin/Globulin Ratio (0.9-2) Lipase (11-82) U/L Urine Color Urine Appearance (Clear) Urine pH (4.5-7.5) Ur Specific Isle (1.000-1.030) Urine Protein (Negative) Urine Glucose (UA) (Negative) Urine Ketones (Negative) Urine Blood (Negative) Urine Nitrite (Negative) Urine Bilirubin (Negative) Urine Urobilinogen (Negative) Ur Leukocyte Esterase (Negative) Urine WBC (Auto) (0-5) /hpf Urine RBC (Auto) (0-4) /hpf U Hyaline Cast (Auto) (0-5) /lpf U Epithel Cells (Auto) (0-5) /lpf Urine Bacteria (Auto) (Negative) SARS-CoV-2, RNA, NAAT (NEGATIVE) Medications Administered Current Inpatient Medications Acetaminophen (Acetaminophen 325 Mg Tab) 650 mg PO Q4H PRN PRN Reason: Pain or Fever Stop: 05/29/22 02:10 Apixaban (Apixaban 5 Mg Tablet) 5 mg PO BID CHANG Stop: 05/29/22 08:59 Last Admin: 04/29/22 08:11 Dose: 5 mg Dextrose (Dextrose 50% 50 Ml Syringe) 25 - 50 ml IV UD PRN; Protocol PRN Reason: Hypoglycemia Protocol Stop: 05/29/22 02:10 Dorzolamide HCl (Dorzolamide Hcl 2% Oph Soln 10 Ml Btl) 1 drops OPR BID CHANG Stop: 05/29/22 08:59 Last Admin: 04/29/22 08:10 Dose: 1 drops Furosemide (Furosemide 40 Mg Tab) 40 mg PO QAM CHANG Stop: 05/29/22 08:59 Last Admin: 04/29/22 08:11 Dose: 40 mg Glucagon (Glucagon For Inj 1 Mg Vial) 1 mg SQ UD PRN; Protocol PRN Reason: Hypoglycemia Protocol Stop: 05/29/22 02:10 Glucose (Glucose 40% Gel 15 Gm Tube) 15 - 30 gm PO UD PRN; Protocol PRN Reason: Hypoglycemia Protocol Stop: 05/29/22 02:10 Glucose (Glucose 10 Tab/Tube) 4 - 8 tab PO UD PRN; Protocol PRN Reason: Hypoglycemia Treatment Stop: 05/29/22 02:10 Hydromorphone HCl (Hydromorphone Inj 0.5 Mg/0.5 Ml Syr) 0.5 mg IV Q3H PRN PRN Reason: Pain Stop: 05/13/22 02:10 Last Admin: 04/29/22 08:25 Dose: 0.5 mg Sodium Chloride (Nss 1000ml) 1,000 mls @ 75 mls/hr IV .[id number] [facility] Stop: 05/29/22 02:10 Last Admin: 04/29/22 03:34 Dose: 75 mls/hr Piperacillin Sod/Tazobactam (Sod 3.375 gm/ Dextrose) 115 mls @ 28.75 mls/hr IV Q8H CHANG; Protocol Stop: 05/09/22 03:59 Last Infusion: 04/29/22 08:15 Dose: Infused Insulin Aspart (Insulin Aspart Per Unit) 0 units SC Q6 [facility] Stop: 05/29/22 03:14 Last Admin: 04/29/22 06:39 Dose: Not Given Levothyroxine Sodium (Levothyroxine Sodium 88 Mcg Tablet) 88 mcg PO DAILYBB [facility] Stop: 05/29/22 06:29 Last Admin: 04/29/22 06:37 Dose: 88 mcg Lisinopril (Lisinopril 40 Mg Tab) 40 mg PO QAM [facility] Stop: 05/29/22 08:59 Last Admin: 04/29/22 08:11 Dose: 40 mg Magnesium Oxide (Magnesium Oxide 400 Mg Tab) 400 mg PO QAM [facility] Stop: 05/29/22 08:59 Last Admin: 04/29/22 08:11 Dose: 400 mg Metoprolol Tartrate (Metoprolol Tartrate 50 Mg Tab) 50 mg PO AMHS [facility] Stop: 05/29/22 08:59 Last Admin: 04/29/22 08:11 Dose: 50 mg Miscellaneous (Eplerenone [Inspra] 25 Mg - Order Awaiting Action) 1 each N/A QS [facility] Stop: 05/29/22 07:59 Miscellaneous (Carbohydrates For Hypoglycemia ) 15 - 30 gm PO UD PRN PRN Reason: Hypoglycemia Protocol Stop: 05/29/22 02:10 Multivitamins/Folic Acid/Vitamin C (Multivitamin Chewable Tab) 1 [facility] [place] Stop: 05/29/22 08:59 Last Admin: 04/29/22 08:11 Dose: 1 tab Nitroglycerin (Nitroglycerin Sl 0.4 Mg/Tab Tab) 0.4 mg SL UD PRN PRN Reason: Chest Pain Stop: 05/29/22 02:10 Ondansetron HCl (Ondansetron Inj 2 Mg/Ml 2 Ml Vial) 4 mg IV Q6H PRN PRN Reason: Nausea Stop: 05/29/22 02:10 Vitamin B Complex (Vitamin B Complex Tab) 1 tab PO DAILY [facility] Stop: 05/29/22 08:59 Last Admin: 04/29/22 08:11 Dose: 1 tab
[2022-04-29] MEDS ORDERED: MAGNESIUM OXIDE 400 MG TAB PO SCH (09:00)
[2022-04-29] MEDS ORDERED: VITAMIN B COMPLEX TAB PO SCH (09:00)
[2022-04-29] MEDS ORDERED: lisinopril 40 MG TAB PO SCH (09:00)
[2022-04-29] MEDS ORDERED: FUROSEMIDE 40 MG TAB PO SCH (09:00)
[2022-04-29] MEDS ORDERED: MULTIVITAMIN CHEWABLE TAB PO SCH (09:00)
--- NOTE | 2022-04-29 09:21 | Gastrointestinal Consultation ---
Date of Consultation April 29, 2022 Assessment & Plan (1) Gallstones: Stones/sludge, dilated GB, biliary colic and elevated LFTs suggest that he has choledocholithiasis (though not seen on US) or has recently passed stones/sludge. Plan 1. CTAP to further image the bile ducts. MRCP would be more helpful, but precluded by cardiac pacer. 2. Consider surgical referral. 3. Of note, pt is very reluctant to undergo any procedures of surgeries. 4. Diet/further recommendations dependent on CT results. Supervising Physician Co-Signing Physician Notes Patient with chronic abd pain, significant heart history including chf and pacer, admitted with slight worsening of her abdominal pain. PE- abd soft, nt nd Wbc elevated, tb 1.4, ast/alt elevation Slightly dilated cbd 6.6 mm Can't get an mrcp due to pacer, ct a/p pending. At the current time he is stating he has chronic abd pain and it's improved and doesn't want much done. On abx with improving pain, if ct a/p showing cbd dilation and if he agrees to a procedure, he stated he may want it done at a tertiary center given his heart history. History of Present Illness Reason for Consultation: abdominal pain, gallstones Requesting Physician: Dr. Tolentino Attending Physician: Gilmer Hancock MD History of Present Illness Mr. La is a 66 yr old male pt of Dr. Mendoza w a hx of A-fib on Eliquis, CHF (on diuretics), A-V block (ICD in place), Severe , Idiopathic Cardiomyopathy (prior EF 15%, most recent echo in Feb 2022 w 55% EF). He presented to the ED yesterday for post prandial RUQ pain. On arrival, LFTs were elevated w further elevation this morning: T Bili 0.8- >1.4, AST 83->151, ALT 101->154, Alk Phos 110->154. Lipase was normal. LFTs were normal in the OP setting in February. Also, on arrival, RUQ US w a few small stones and sludge, fatty liver. On US, the CBD is at the upper limits of normal at 6.6mm. The pt tells me that his first gallbladder episode was in 2017 at that time US here w similar findings. He has had several mild episodes since then. Yesterday, after eating lunch, he had more severe pain in the RUQ and his sisters insisted that he come to the ED for eval. He denies any yellow eyes, yellow skin, dark urine, fever or chills. The pain medicine that he received here has nearly resolved his RUQ pain. He is awake, alert, oriented. He tells me that because of his heart issues, he would prefer to avoid all surgeries and procedures unless absolutely necessary. Allergies Allergy/AdvReac Type Severity Reaction Status Date / Time cefuroxime Allergy Intermediate FEVER, Verified 01/30/21 14:19 DIARHEA cider vinegar Allergy Verified 02/02/21 16:27 ketchup Allergy Verified 02/02/21 16:27 mayonnaise Allergy Verified 02/02/21 16:27 mustard Allergy Verified 02/02/21 16:27 Home Medications Medication Instructions Recorded Confirmed Type dorzolamide 2 % eye drops (Trusopt) 1 drp OPR BID 01/29/21 04/28/22 History eplerenone 25 mg tablet (Inspra) 12.5 mg PO QAM 01/29/21 04/28/22 History furosemide 80 mg tablet (Lasix) 40 mg PO QAM 01/29/21 04/28/22 History lisinopril 40 mg tablet (Zestril) 40 mg PO QAM 01/29/21 04/28/22 History apixaban 5 mg tablet (Eliquis) 5 mg PO BID #60 tabs 02/04/21 04/28/22 Rx levothyroxine 88 mcg tablet 88 mcg PO DAILYBB 04/28/22 04/28/22 History magnesium 250 mg tablet 250 mg PO QAM 04/28/22 04/28/22 History metoprolol tartrate 50 mg tablet 50 mg PO AMHS 04/28/22 04/28/22 History pediatric multivitamin no.49 1 tab PO QAM 04/28/22 04/28/22 History (Flintstones Gummies chewable tablet) vitamin B complex 1 cap PO DAILY 04/28/22 04/28/22 History Patient History Medical History Congestive heart failure COVID-19 Hypertension Ischemic cardiomyopathy Osteoarthritis Third degree heart block Type 2 diabetes mellitus Surgical History Eye disorder S/p posterior Sub-tenons Triesence, right Family History Father Prostate cancer Bladder cancer Mother Diabetes Heart disease Thyroid condition Sister Thyroid condition Social History Smoking Status: Never smoker Second Hand Exposure: No; Do You Dip or Chew Tobacco: No; Tobacco Cessation Education Requested by Patient: No Hx Alcohol Use: Yes Hx Substance Use: No Preferred Language: Faroese Communication Ability: Effective Drupal Architect Required: No Beliefs That Will Affect Care: None marital status: Single Current Living Situation: Family Current Living Situation Comment: lives with sister Other Information That Helps Us Care for You: No Feels Safe at Home: Yes Safety Concerns: Feels Safe At This Time Assistive Devices: None Review of Systems Review of Systems: ROS: Gen: Denies weakness, fevers, weight loss Eyes: No eye redness, or pain, no recent vision changes Resp: No SOB, no cough Cardio: No palpitations/irregular beats, no chest pain GI: As per HPI, otherwise (-). : Denies pain on urination Skin: No jaundice, itching. + chronic mild darkening of the skin of both lower legs. Ext: no edema. M/S: + chronic arthritis joint pain, mostly knees but no new/worsening joint pain and no red/swollen joints. Physical Exam Constitutional: WD/WN, vitals as above Eyes: PERRL, conjunctivae normal, anicteric sclerae ENMT: external ear and nose normal, oropharynx normal Neck: trachea midline, no thyromegaly Respiratory: normal respiratory effort, lungs clear to auscultation Cardiovascular: Rate/Rhythm: regular rate and regular rhythm Heart Sounds: + murmur (3/6 systolic murmur) Gastrointestinal (Abdomen): Inspection/Auscultation: abdomen normal to inspection and normal bowel sounds; abdomen not distended Percussion/Palpation: + abdomen tender (minimal RUQ tenderness on deep palpation) and abdomen soft Skin: no rashes, warm and dry Neurologic: PERRL, EOMI, accommodation nl, no face palsy, no dysarthria Psychiatric: A+Ox3, euthymic affect Lymphatic: no cervical or axillary lymphadenopathy Results & Data ([facility]) Vital Signs (Past 12 Hours) Vital Signs Pulse Resp BP Pulse Ox Pulse Ox O2 Del Method O2 Del Method 04/29/22 08:00 72 18 120/70 94 Room Air 04/29/22 04:36 86 17 120/73 96 04/29/22 04:00 68 19 129/81 92 04/29/22 03:30 73 18 142/95 H 92 04/29/22 03:00 73 6 L 133/93 93 04/29/22 02:30 86 10 L 132/90 92 04/29/22 02:00 81 11 L 114/55 L 93 04/29/22 01:30 66 13 117/68 90 04/29/22 02:11 92 Room Air 04/29/22 01:00 77 15 143/86 H 95 04/29/22 00:30 61 13 119/67 90 04/29/22 00:30 119/67 04/29/22 00:09 88 26 H 119/77 92 04/28/22 23:30 86 25 H 170/99 H 96 04/28/22 23:00 69 13 141/88 H 95 Room Air Laboratory Results WBC 13, Hb 15, Hct 46, Plts 201, Na 137, K 4.0, Cl 103, CO2 28, BUN 12, Cr 0.94, GLUCOSE 138 Diagnostic Findings US 05/26/22 1. The gallbladder remains distended and contains a few small stones and sludge. No definite gallbladder wall thickening. This is not significantly changed compared to the 2018 examination. 2. Hepatic steatosis.
[2022-04-29] MEDS ORDERED: OPTIRAY 350 100ml IV ONE (09:36)
--- NOTE | 2022-04-29 11:28 | Electrocardiogram Report ---
Test Reason : Blood Pressure : / mmHG Vent. Rate : 081 BPM Atrial Rate : 081 BPM P-R Int : 198 ms QRS Dur : 160 ms QT Int : 466 ms P-R-T Axes : 027 -52 051 degrees QTc Int : 541 ms Atrial-sensed ventricular-paced rhythm with occasional , and consecutive Premature ventricular comple xes Abnormal ECG When compared with ECG of 04-FEB-2021 06:01, Premature ventricular complexes are now Present Vent. rate has increased BY 14 BPM Confirmed by Tyrel Griffiths ([id number]) on 04/29/2022 11:28:17 AM Referred By: REFERRED SELF Confirmed By:Tyrel Griffiths
--- NOTE | 2022-04-29 13:38 | CT Scan Report ---
CT OF THE ABDOMEN WITH CONTRAST CLINICAL HISTORY: dilated bile ducts, unable to undergo MRI/MRCP COMPARISON STUDY: CT of the abdomen November 29, 2017 and right upper quadrant ultrasound April. TECHNIQUE: Following IV administration of 77 mL of Optiray, axial images of the abdomen and pelvis we re obtained from the lung bases to the proximal femurs. Images were reviewed in the axial, sagittal, and coronal planes. IV contrast was administered without complication. Automated exposure control wa s utilized for the study. A dose lowering technique was utilized adhering to the principles of ALARA . Oral contrast was administered. CT DOSE: 811.50 mGy.cm FINDINGS: Elevation of the right hemidiaphragm is incidentally noted. Pacer leads are noted. There is extensive aortic valvular calcification. No pneumatosis, free air or portal venous gas within the ab domen is present. There are no hepatic lesions. Liver morphology is normal. Mild intra and extra hepa tic biliary ductal dilatation is present. There is a 9 mm density within the distal common bile duct and axial image 215 of 316. Small similar appearing densities within the gallbladder noted. The gallb ladder is mildly distended. There is minimal stranding adjacent to the gallbladder and within the por ta hepatis. Enhancement of the gallbladder wall is slightly prominent. There is no evidence for acute pancreatitis. No pancreatic ductal dilatation is present. Parenchymal calcifications within the panc reas are present. Spleen, adrenal glands are unremarkable. Multiple low-attenuation bilateral renal l esions are noted. These are too small to characterize but probably reflect cysts. A 3 mm right renal calculus is present. Major vasculature of the abdomen is patent. The caliber and wall thickness of vi sualized small and large bowel are normal. The appendix is normal. IMPRESSION: 1. Mild biliary ductal dilatation due to a 9 mm density within the distal common bile duct. A common bile duct calculus is favored. A mass could appear similar although is considered less likely. This c ould be correlated with ERCP. 2. Gallstones within the gallbladder. Mild gallbladder distention with trace adjacent stranding. If i ndicated, a hepatobiliary scan could be obtained to evaluate for acute cholecystitis. 3. No CT evidence for acute pancreatitis. 4. Extensive aortic valvular calcification. ACT 112: Negative or not required by law. Electronically signed by: Nisl Pate M.D. 04/29/2022 1:36 PM
--- NOTE | 2022-04-29 13:50 | Surgery Consultation ---
Date of Consultation April 29, 2022 Assessment & Plan (1) Choledocholithiasis: This is a 66yM with a PMH of CHF, pacemaker status, on eliquis, severe aortic stenosis, who presented to the [facility] ED on 04/28/22 with complaints of right upper quadrant abdominal pain starting yesterday. In the ER a RUQ US was obtained that revealed a distended gallbladder with stones and sludge, without wall thickening, with unchanged findings from [address] a/p was obtained thereafter revealing mild biliary ductal dilation with a 9mm density in the CBD concerning for choledocholithiasis. Along with cholelithiasis with mild gallbladder distention. Today labs show WBC 13, Tb: 1.4, AST 151, ALT: 154. On exam abdomen is soft, non distended, with mild discomfort elicited in the RUQ. Agree with GI input given concern for choledocholithiasis who recommended transfer to tertiary center given cardiac history. We agree with this plan and they can decide on cholecystectomy after ERCP at that time. Will likely need to hold eliquis if okay with medicine given anticipated upcoming procedures. (2) Gallstones: Supervising Physician Co-Signing Physician Notes I personally saw and evaluated the patient with Madison Ahn PA-C and agree with the assessment and plan. 66-year-old male with severe aortic stenosis, cholelithiasis, choledocholithiasis on Eliquis His CT and ultrasound images were personally reviewed by myself, he does have a common bile duct stone elevated LFTs consistent with choledocholithiasis GI was already consulted on the patient is recommended an ERCP, however there is no one here at [facility] this weekend that can perform this Due to this would recommend transferring the patient somewhere where ERCP can be performed History of Present Illness Attending Physician: Gilmer Hancock MD History of Present Illness This is a 66yM with a PMH of CHF, pacemaker status, on eliquis, severe aortic stenosis, who presented to the [facility] ED on 04/28/22 with complaints of abdominal pain. Patient states his pain is located in the RUQ and started up around noon time yesterday, rating his pain a 7-8/10 at its worst. He did eat a waffle breakfast sandwich with velasquez/egg/cheese that morning for breakfast. Pain was associated with nausea and dry heaves and has been persistent. Due to symptoms he presented to the ER for further evaluation. A RUQ US was obtained that revealed a distended gallbladder with stones and sludge, without wall thickening, with unchanged findings from [address] a/p was obtained revealing mild biliary ductal dilation with a 9mm density in the CBD concerning for choledocholithiasis, along with cholelithiasis with mild gallbladder distention. Patient reports feeling cold and hot, but no true fevers. No prior abdominal surgical history. Follows with [facility] cardiology closely and likely will need valve replacement in the future. Last took eliquis this AM. Pain is currently much better now than it was yesterday. He had a similar episode to this in 2018 and has had some more milder flare ups that did not require coming to the hospital. Otherwise no issues with eating fatty/greasy foods of recent. Allergies Allergy/AdvReac Type Severity Reaction Status Date / Time cefuroxime Allergy Intermediate FEVER, Verified 01/30/21 14:19 DIARHEA cider vinegar Allergy Verified 02/02/21 16:27 ketchup Allergy Verified 02/02/21 16:27 mayonnaise Allergy Verified 02/02/21 16:27 mustard Allergy Verified 02/02/21 16:27 Home Medications Medication Instructions Recorded Confirmed Type dorzolamide 2 % eye drops (Trusopt) 1 drp OPR BID 01/29/21 04/28/22 History eplerenone 25 mg tablet (Inspra) 12.5 mg PO QAM 01/29/21 04/28/22 History furosemide 80 mg tablet (Lasix) 40 mg PO QAM 01/29/21 04/28/22 History lisinopril 40 mg tablet (Zestril) 40 mg PO QAM 01/29/21 04/28/22 History apixaban 5 mg tablet (Eliquis) 5 mg PO BID #60 tabs 02/04/21 04/28/22 Rx levothyroxine 88 mcg tablet 88 mcg PO DAILYBB 04/28/22 04/28/22 History magnesium 250 mg tablet 250 mg PO QAM 04/28/22 04/28/22 History metoprolol tartrate 50 mg tablet 50 mg PO AMHS 04/28/22 04/28/22 History pediatric multivitamin no.49 1 tab PO QAM 04/28/22 04/28/22 History (Flintstones Gummies chewable tablet) vitamin B complex 1 cap PO DAILY 04/28/22 04/28/22 History Patient History Medical History Congestive heart failure COVID-19 Hypertension Ischemic cardiomyopathy Osteoarthritis Third degree heart block Type 2 diabetes mellitus Surgical History Eye disorder S/p posterior Sub-tenons Triesence, right Family History Father Prostate cancer Bladder cancer Mother Diabetes Heart disease Thyroid condition Sister Thyroid condition Social History Smoking Status: Never smoker Second Hand Exposure: No; Do You Dip or Chew Tobacco: No; Tobacco Cessation Education Requested by Patient: No Hx Alcohol Use: Yes Hx Substance Use: No Preferred Language: Iranian Communication Ability: Effective Tool Builder Required: No Beliefs That Will Affect Care: None marital status: Single Current Living Situation: Family Current Living Situation Comment: lives with sister Other Information That Helps Us Care for You: No Feels Safe at Home: Yes Safety Concerns: Feels Safe At This Time Assistive Devices: None Review of Systems Constitutional: no fever and no chills Respiratory: no dyspnea Cardiovascular: no chest pain Gastrointestinal: + abdominal pain (RUQ) and + nausea; no vomiting Physical Exam Physical Exam: awake/alert, no distress Respiratory: normal respiratory effort Cardiovascular: Rate/Rhythm: regular rate Gastrointestinal (Abdomen): Inspection/Auscultation: abdomen not distended Percussion/Palpation: + abdomen tender (mild discomfort in the RUQ) and abdomen soft Results & Data ([facility]) Vital Signs (Past 12 Hours) Vital Signs Pulse Resp BP Pulse Ox Pulse Ox O2 Del Method O2 Del Method 04/29/22 12:30 79 18 108/68 92 04/29/22 08:00 72 18 120/70 94 Room Air 04/29/22 04:36 86 17 120/73 96 04/29/22 04:00 68 19 129/81 92 04/29/22 03:30 73 18 142/95 H 92 04/29/22 03:00 73 6 L 133/93 93 04/29/22 02:30 86 10 L 132/90 92 04/29/22 02:00 81 11 L 114/55 L 93 04/29/22 02:11 92 Room Air Diagnostic Findings ABDOMINAL ULTRASOUND, RIGHT UPPER QUADRANT HISTORY: RUQ PAIN. COMPARISON: Abdomen and pelvis CT 11/29/2017. Abdominal ultrasound 11/30/2017. FINDINGS: Pancreas: The visualized pancreas demonstrates a normal echotexture. Liver: The liver is echogenic consistent with fatty change. Gallbladder: The gallbladder remains distended and contains a few small stones and sludge. No gallbladder wall thickening or pericholecystic fluid identified. The patient's pain medication inhibits evaluation for a Soares's sign. CBD: Upper limits of normal measuring 6.6 mm. Right kidney: No hydronephrosis. IMPRESSION: 1. The gallbladder remains distended and contains a few small stones and sludge. No definite gallbladder wall thickening. This is not significantly changed compared to the 2018 examination. 2. Hepatic steatosis. ACT 112: Negative or not required by law. Electronically signed by: Angel Bates M.D. 04/29/2022 7:[address] OF THE ABDOMEN WITH CONTRAST CLINICAL HISTORY: dilated bile ducts, unable to undergo MRI/MRCP COMPARISON STUDY: CT of the abdomen November 29, 2017 and right upper quadrant ultrasound April 28, 2022. TECHNIQUE: Following IV administration of 77 mL of Optiray, axial images of the abdomen and pelvis were obtained from the lung bases to the proximal femurs. Images were reviewed in the axial, sagittal, and coronal planes. IV contrast was administered without complication. Automated exposure control was utilized for the study. A dose lowering technique was utilized adhering to the principles of ALARA. Oral contrast was administered. CT DOSE: 811.50 mGy.cm FINDINGS: Elevation of the right hemidiaphragm is incidentally noted. Pacer leads are noted. There is extensive aortic valvular calcification. No pneumatosis, free air or portal venous gas within the abdomen is present. There are no hepatic lesions. Liver morphology is normal. Mild intra and extra hepatic biliary ductal dilatation is present. There is a 9 mm density within the distal common bile duct and axial image 215 of 316. Small similar appearing densities within the gallbladder noted. The gallbladder is mildly distended. There is minimal stranding adjacent to the gallbladder and within the vladimir hepatis. Enhancement of the gallbladder wall is slightly prominent. There is no evidence for acute pancreatitis. No pancreatic ductal dilatation is present. Parenchymal calcifications within the pancreas are present. Spleen, adrenal glands are unremarkable. Multiple low-attenuation bilateral renal lesions are noted. These are too small to characterize but probably reflect cysts. A 3 mm right renal calculus is present. Major vasculature of the abdomen is patent. The caliber and wall thickness of visualized small and large bowel are normal. The appendix is normal. IMPRESSION: 1. Mild biliary ductal dilatation due to a 9 mm density within the distal common bile duct. A common bile duct calculus is favored. A mass could appear similar although is considered less likely. This could be correlated with ERCP. 2. Gallstones within the gallbladder. Mild gallbladder distention with trace adjacent stranding. If indicated, a hepatobiliary scan could be obtained to evaluate for acute cholecystitis. 3. No CT evidence for acute pancreatitis. 4. Extensive aortic valvular calcification. ACT 112: Negative or not required by law. Electronically signed by: Nils Pate M.D. 04/29/2022 1:36 PM PG Care Time/CCT Total # of Minutes Spent Total Time Spent with Patient: Total time spent is greater than 50% in coordination of care (as documented) at patient's floor/unit and/or counseling patient: Coding Level of Care Code INP/OBS CONSULT LVL 3, 45 MIN Diagnoses Choledocholithiasis K80.50 Gallstones K80.20
[2022-04-30] MEDS: INSULIN ASPART PER UNIT SC SCH (00:18)
--- NOTE | 2022-04-30 09:11 | Discharge Summary ---
Date of Service April 30, 2022 Admission HPI Per Admitting Provider This is a 66-year-old male with past medical history significant for type 2 diabetes, currently not on medications, history of hypothyroidism, history of complete atrioventricular block, status post pacemaker, history of paroxysmal atrial fibrillation, hypertension, severe aortic valve stenosis, history of cardiomyopathy with EF of less than 20%, suspected tachycardia induced, currently resolved. Echocardiogram done in February 2022 EF 55-59%, history of COVID twice, history of sleep apnea, GERD, presents with abdominal pain. The patient states pain started after eating his lunch, and right sided abdominal pain. No radiation 6-8/10 in severity, associated with dry heaving. Denies any fever or chills. Because of dry heaving, has some chest soreness that is resolved with pain medication in the ER. Denies any shortness of breath, no cough, no headache, no blurred visions, no earache, currently no sore throat. Normal bowel and bladder movements. Currently, resting comfortably, hemodynamically stable. Still has some abdominal pain. Says he can ambulate 100 yards.Says he has cut back on cheese slices from 40 per week to 20per week. Admission Exam Per Admitting Provider GENERAL: The patient is obese, not in acute distress. VITAL SIGNS: Temperature afebrile, pulse 86, respiratory rate 25, blood pressure 170/99, oxygen 96% on room air. HEENT: Pupils equal, round and reactive to light. Oral mucosa moist. NECK: No JVD or neck masses. CARDIOVASCULAR: S1 and S2 heard. Regular rate and rhythm. No murmur, no gallop. RESPIRATORY SYSTEM: Normal AP diameter. No accessory muscle use. No wheezing, no crackles. ABDOMEN: Soft, bowel sounds present. Mild tenderness in right upper quadrant. No guarding, no rigidity, no distention. CENTRAL NERVOUS SYSTEM: Cranial nerves II-XII grossly intact, nonfocal. EXTREMITIES: No edema, no erythema. Principal Diagnosis Choledocholithiasis, possible cholangitis Right upper quadrant pain History of severe aortic stenosis, cardiomyopathy, complete block status post pacemaker Discharge Exam GENERAL:obese M, not in acute distress. HEENT: NC/AT. EOMI. Pupils equal, round and reactive to light. Oral mucosa moist. NECK: No JVD or neck masses. CARDIOVASCULAR: S1 and S2 heard. Regular rate and rhythm. No murmur, no gallop. RESPIRATORY: Normal AP diameter. No accessory muscle use. No wheezing, no crackles. ABDOMEN: Soft, bowel sounds present. Mild tenderness in right upper quadrant. No guarding, no rigidity, no distention. NEURO:awake , alert, oriented, answering questions appropriately. Moves extremities. EXTREMITIES: No edema, no erythema. Discharge Data Allergies Allergy/AdvReac Type Severity Reaction Status Date / Time cefuroxime Allergy Intermediate FEVER, Verified 01/30/21 14:19 DIARHEA cider vinegar Allergy Verified 02/02/21 16:27 ketchup Allergy Verified 02/02/21 16:27 mayonnaise Allergy Verified 02/02/21 16:27 mustard Allergy Verified 02/02/21 16:27 Consultations 04/28/22 22:43 ED Decision to Admit Stat 04/29/22 05:00 Consult Gastroenterology Routine 04/29/22 11:58 Consult General Surgery Routine Ordered Studies 04/28/22 18:25 US gallbladder Urgent FINDINGS: Pancreas: The visualized pancreas demonstrates a normal echotexture. Liver: The liver is echogenic consistent with fatty change. Gallbladder: The gallbladder remains distended and contains a few small stones and sludge. No gallbladder wall thickening or pericholecystic fluid identified. The patient's pain medication inhibits evaluation for a Soares's sign. CBD: Upper limits of normal measuring 6.6 mm. Right kidney: No hydronephrosis. IMPRESSION: 1. The gallbladder remains distended and contains a few small stones and sludge. No definite gallbladder wall thickening. This is not significantly changed compared to the 2018 examination. 2. Hepatic steatosis. 04/29/22 08:35 CT abdomen oral and IV con Routine FINDINGS: Elevation of the right hemidiaphragm is incidentally noted. Pacer leads are noted. There is extensive aortic valvular calcification. No pneumatosis, free air or portal venous gas within the abdomen is present. There are no hepatic lesions. Liver morphology is normal. Mild intra and extra hepatic biliary ductal dilatation is present. There is a 9 mm density within the distal common bile duct and axial image 215 of 316. Small similar appearing densities within the gallbladder noted. The gallbladder is mildly distended. There is minimal stranding adjacent to the gallbladder and within the vladimir hepatis. Enhancement of the gallbladder wall is slightly prominent. There is no evidence for acute pancreatitis. No pancreatic ductal dilatation is present. Parenchymal calcifications within the pancreas are present. Spleen, adrenal glands are unremarkable. Multiple low-attenuation bilateral renal lesions are noted. These are too small to characterize but probably reflect cysts. A 3 mm right renal calculus is present. Major vasculature of the abdomen is patent. The caliber and wall thickness of visualized small and large bowel are normal. The appendix is normal. IMPRESSION: 1. Mild biliary ductal dilatation due to a 9 mm density within the distal common bile duct. A common bile duct calculus is favored. A mass could appear similar although is considered less likely. This could be correlated with ERCP. 2. Gallstones within the gallbladder. Mild gallbladder distention with trace adjacent stranding. If indicated, a hepatobiliary scan could be obtained to evaluate for acute cholecystitis. 3. No CT evidence for acute pancreatitis. 4. Extensive aortic valvular calcification. Hospital Course (1) Choledocholithiasis: (2) Abdominal wall pain in right upper quadrant: (3) Gallstones: (4) Pacemaker: Plan This is a 66-year-old male presents with abdominal pain, RUQ, elevated LFTs 1. Abdominal pain - gallbladder disease, with gallstones. elevated LFTs -> further elevation this AM US gallbladder 1. The gallbladder remains distended and contains a few small stones and sludge. No definite gallbladder wall thickening. This is not significantly changed compared to the 2018 examination. 2. Hepatic steatosis. Pt was started on gentle IVF and IV antibiotics - zosyn NPO GI consulted GI ordered CT abdomen to further evaluate CT abdomen w/ contrast 1. Mild biliary ductal dilatation due to a 9 mm density within the distal common bile duct. A common bile duct calculus is favored. A mass could appear similar although is considered less likely. This could be correlated with ERCP. 2. Gallstones within the gallbladder. Mild gallbladder distention with trace adjacent stranding. If indicated, a hepatobiliary scan could be obtained to evaluate for acute cholecystitis. 3. No CT evidence for acute pancreatitis. 4. Extensive aortic valvular calcification. As there is a stone in distal common bile duct w/ cbd dilation, elev. LFTs, elev. WBC, pain in RUQ, concern for cholangitis, and need for ERCP. GI recommends transfer to tertiary center given pt's cardiac history. [facility] in [place] contacted, patient accepted to their care. 2. Mild elevation of troponin, mostly demand ischemia. We will follow the serial enzymes. If any concern, consult Cardiology. 3. History of idiopathic cardiomyopathy, with ejection fraction less than 20%, but currently resolved. 4. Diastolic congestive heart failure with severe aortic stenosis. Currently, continue his home medication of eplerenone, Lasix, lisinopril, metoprolol. The patient is getting gentle fluids, monitor for any volume overload. 5. Type 2 diabetes, not on any medications. We will follow the blood sugars, current HbA1c levels 7.3% Currently n.p.o.ISS. 6. Hypertension. Continued w/ his metoprolol, lisinopril, eplerenone and Lasix. Now BP on lower side - would hold lasix, lisinopril, cont. w/ beta nanci 7. History of paroxysmal atrial fibrillation, rate controlled with metoprolol, patient is on Eliquis. Continued Eliquis on admission, hold prior to any planned procedure. 8. Hypothyroidism, on Synthyroid. 9. Hx of intermittent complete heart block s/p pace maker DISPOSITION: Closely monitor in the med tele.Plan to transfer to tertiary care center - [facility]. Total Time Total Time Spent Total Time Spent (In Minutes): 40 Discharge Plan Discharge Items Patient Disposition: Transfer Acute Care Hospital Reason For Visit: ABDOMINAL PAIN Discharge Diagnosis: Choledocholithiasis, possible cholangitis Right upper quadrant pain History of severe aortic stenosis, cardiomyopathy, complete block status post pacemaker Activity: Per Instructions section Non-emergency contact: Hospitalist and Business Services Sales Agent Call non-emergency contact if: you have any medication questions and your symptoms worsen Follow-up/Referrals: Real Mendoza MD [Primary Care Provider] - Diet: Nothing by Mouth and Other - See Diet Comment Diet Comment: Okay to take medications, have sips of water Addtl Attending Provider Instructions: Patient presented with right upper quadrant abdominal pain, elevated LFTs, elevated white blood cell count. Ultrasound found gallstones. CT abdomen with contrast showed stone in distal common bile duct, and cbd dilation. Gastroenterology was consulted and given choledocholithiasis, possible chol angitis, recommend ERCP, and transfer to tertiary center given patient's complex cardiac history. [facility] in [place] contacted, and patient accepted there for further evaluation and care. Pending Studies at Discharge: Yes Studies:: blood cultures Stand-Alone Forms: My [facility] Skilled Items Patient informed of condition?: Yes DNR: No Discharge Level of Care: Other Communicable Disease: No Discharge Prognosis: Other Lines: Peripheral IV Urinary Catheter: No Medications and DC Order Prescriptions: No Action dorzolamide [Trusopt] 2 % drops 1 drp OPR BID furosemide [Lasix] 80 mg tablet 40 mg PO QAM lisinopril [Zestril] 40 mg tablet 40 mg PO QAM eplerenone [Inspra] 25 mg tablet 12.5 mg PO QAM Eliquis 5 mg Tablet 5 mg PO BID Qty: 60 0RF levothyroxine 88 mcg Tablet 88 mcg PO DAILYBB metoprolol tartrate 50 mg Tablet 50 mg PO AMHS magnesium 250 mg Tablet 250 mg PO QAM vitamin B complex [B Complex] Capsule 1 cap PO DAILY Flintstones Gummies Tablet,Chewable 1 tab PO QAM Krames/Other Patient Handouts: Managing Type 2 Diabetes Admission Data Admit Date/Time: 04/28/22 23:51 Attending Provider: Gilmer Hancock Admit Provider: Hernando Tolentino Primary Care Provider: Real Mendoza Other Providers: Hernando Tolentino ; Loren Sanches ; Tomasz Guzman ; Anupama Kan ; Ewelina Olea ; Meena Perkins ; Belinda Graff ; Danelle Brookssim ; Harvey Wen ; Devyn Porter ; Mook Gupta ; Hola Malloy ; Linda Bocanegra ; Lidia Nguyen ; Cassandra Santana ; Esetla Ram ; Ana Barry ; Melchor Rojas ; Benjy Schuster ; Janette Bullock ; Marleni Barnhart Jr ; Isa Henley
== END 2022-04-29 19:30 | disposition short-term general hospital (02) | DRG 445 ==
LOC: ED 18:08 → EDINP 23:51 → UNDODISIN 04-29 17:30 → EDINP 04-30 02:12

== ENCOUNTER 2022-05-16 00:57 | Inpatient (IN) ==
[2022-05-16] MEDS ORDERED: PIPERACILLIN/TAZOBACTAM 4.5 GM/120 ML BAG IV ONE (01:18)
--- NOTE | 2022-05-16 01:23 | Emergency Department Note ---
History of Present Illness General Chief complaint: Abdominal Pain Stated complaint: GALLBLADDER PAIN,VOMITING-S/P SURGERY Time Seen by Provider: 05/16/22 01:14 History of Present Illness This 66-year-old male presents to the ER with for evaluation of nausea, vomiting, chills, low blood pressure diaphoresis today who had a biliary stent and stone removal last week at [facility]. Patient states he feels weak. Blood pressure is low at triage. He is mildly tacky. Temperature will not read. Patient denies chest pain, jaundice, numbness, tingling, localized weakness. Nurse was asked to do a rectal temperature. Home Medications Medication Instructions Recorded Confirmed Type dorzolamide 2 % eye drops (Trusopt) 1 drp OPR BID 01/29/21 04/28/22 History eplerenone 25 mg tablet (Inspra) 12.5 mg PO QAM 01/29/21 04/28/22 History furosemide 80 mg tablet (Lasix) 40 mg PO QAM 01/29/21 04/28/22 History lisinopril 40 mg tablet (Zestril) 40 mg PO QAM 01/29/21 04/28/22 History apixaban 5 mg tablet (Eliquis) 5 mg PO BID #60 tabs 02/04/21 04/28/22 Rx levothyroxine 88 mcg tablet 88 mcg PO DAILYBB 04/28/22 04/28/22 History magnesium 250 mg tablet 250 mg PO QAM 04/28/22 04/28/22 History metoprolol tartrate 50 mg tablet 50 mg PO AMHS 04/28/22 04/28/22 History pediatric multivitamin no.49 1 tab PO QAM 04/28/22 04/28/22 History (Flintstones Gummies chewable tablet) vitamin B complex 1 cap PO DAILY 04/28/22 04/28/22 History Allergies Allergy/AdvReac Type Severity Reaction Status Date / Time cefuroxime Allergy Intermediate FEVER, Verified 01/30/21 14:19 DIARHEA cider vinegar Allergy Verified 02/02/21 16:27 ketchup Allergy Verified 02/02/21 16:27 mayonnaise Allergy Verified 02/02/21 16:27 mustard Allergy Verified 02/02/21 16:27 Past Med/Surg History Medical History Congestive heart failure COVID-19 Hypertension Ischemic cardiomyopathy Osteoarthritis Third degree heart block Type 2 diabetes mellitus Surgical History Eye disorder S/p posterior Sub-tenons Triesence, right Family History Father Prostate cancer Bladder cancer Mother Diabetes Heart disease Thyroid condition Sister Thyroid condition Social History Smoking Status: Never smoker Second Hand Exposure: No; Hx Alcohol Use: Yes Hx Substance Use: No Preferred Language: Malay 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 Beliefs That Will Affect Care: None marital status: Single Current Living Situation: Family Current Living Situation Comment: lives with sister Feels Safe at Home: Yes Assistive Devices: None Review of Systems A total of 10 systems reviewed and were otherwise negative Physical Exam Vital Signs Vital Signs - 24 hr 05/16/22 01:06 05/16/22 01:21 05/16/22 01:33 Temperature 37.3 C Temperature Source Rectal Pulse Rate 97 H 82 Pulse Rate [Left Finger] Respiratory Rate 20 Respiratory Effort / Characteristics Non-Labored Respiratory Depth Normal Blood Pressure 90/65 L Blood Pressure [Left Arm] Blood Pressure Mean 73 Blood Pressure Mean [Left Arm] Blood Pressure Position [Left Arm] Pulse Oximetry 98 Oxygen Delivery Method Room Air Sepsis Recent Fever Within 48 Hours No Sepsis New/Unexplained Change in Mental Status No Sepsis Action Taken by Nursing No Action Required 05/16/22 04:44 05/16/22 05:30 Temperature 37.3 C Temperature Source Oral Pulse Rate 81 Pulse Rate [Left Finger] 85 Respiratory Rate 22 Respiratory Effort / Characteristics Respiratory Depth Blood Pressure Blood Pressure [Left Arm] 110/76 Blood Pressure Mean Blood Pressure Mean [Left Arm] 87 Blood Pressure Position [Left Arm] Lying Pulse Oximetry 98 Oxygen Delivery Method Room Air Sepsis Recent Fever Within 48 Hours Sepsis New/Unexplained Change in Mental Status Sepsis Action Taken by Nursing VITALS: Vitals are noted on the nurse's note and reviewed by myself. Vital signs hypotensive. GENERAL: White male pale diaphoretic, SKIN: The skin was without rashes, erythema, edema, or bruising. There is no tenting of the skin. Capillary reflex less than 2 seconds. HEAD: Normocephalic atraumatic. EARS: External auditory canals clear, EYES: Pupils equal round and reactive to light and accommodation. Conjunctivae without injection, sclerae without icterus. Extraocular movements intact. NOSE: Patent, turbinates without inflammation or discharge. MOUTH: Mucous membranes moist. Pharynx without erythema or exudate. Uvula midline. Airway patent. Tongue does not deviate. NECK: Supple without nuchal rigidity. No lymphadenopathy. No thyromegaly. Cervical spine is nontender. No JVD. HEART: Regular rate and rhythm LUNGS: Clear to auscultation bilaterally without wheezes, rales or rhonchi. No retractions or accessory muscle use. ABDOMEN: Positive bowel sounds x 4. Normal tympanic percussion. Soft, tender right upper quadrant, without masses or organomegaly. No guarding or rebound tenderness. No CVA tenderness MUSCULOSKELETAL: No muscle atrophy, erythema, or edema noted. NEURO: Patient was alert and oriented to person place and time. Normal sensation to light and sharp touch. No focal neurological deficits. Course Administered Medications Discontinued Medications Piperacillin Sod/Tazobactam Sod (Zosyn) 4.5 gm in 120 mls @ 240 mls/hr IV NOW ONE Stop: 05/16/22 01:47 Last Infusion: 05/16/22 04:50 Dose: 0 mls/hr Documented By: Admin: 05/16/22 04:18 Dose: 240 mls/hr Documented By: ROSEANNE Sodium Chloride (Nss 1000ml) 1,000 mls @ 999 mls/hr IV .Q1H1M CHANG Stop: 05/16/22 02:30 Last Infusion: 05/16/22 05:43 Dose: 0 mls/hr Documented By: Admin: 05/16/22 04:17 Dose: 999 mls/hr Documented By: Medical Decision Making Medical Records Attestation: I reviewed the patient's medical records. Home Medications Current Medication List: was personally reviewed by me Laboratory Data Attestation: I reviewed the patient's lab results. 05/16/22 01:40 05/16/22 01:40 Lab Results 05/16/22 05/16/22 05/16/22 Range/Units 01:32 01:40 01:40 WBC 26.32 H (4.8-10.8) K/ul RBC 3.52 L (4.70-6.10) M/uL Hgb 11.2 L (14.0-18.0) g/dl POC Hgb (14.0-18.0) g/dl Hct 33.5 L (42.0-52.0) % POC Hct (42-52) % MCV 95.2 (80.0-100.0) fL MCH 31.8 (25.0-34.0) pg MCHC 33.4 (32.0-36.0) g/dL RDW Std Deviation 42.2 (36.4-46.3) fL RDW Coeff of Mariam 12.2 (11.5-14.5) % Plt Count 382 (130-400) K/uL MPV 11.3 (9.4-12.4) fL Immature Gran % (Auto) 0.7 % Neut % (Auto) 86.1 % Lymph % (Auto) 8.1 % [place] % (Auto) 4.2 % Eos % (Auto) 0.5 % Baso % (Auto) 0.4 % Neut # (Auto) 22.67 H (1.40-6.50) K/uL Lymph # (Auto) 2.13 (1.2-3.4) K/uL [place] # (Auto) 1.10 H (0.11-0.59) K/uL Eos # (Auto) 0.14 (0-0.50) K/uL Baso # (Auto) 0.10 (0-0.2) K/uL Immature Gran # (Auto) 0.18 (0.01-0.20) K/uL POC Sodium (135-144) mmol/L Sodium 136 (136-145) mmol/L POC Potassium (3.3-5.0) mmol/L Potassium 3.8 (3.5-5.1) mmol/L POC Chloride (101-112) mmol/L Chloride 102 (98-107) mmol/L Carbon Dioxide 25 (21-32) mmol/L POC Total CO2 (24-31) mmol/L Anion Gap 9 (3-11) POC Anion Gap (16-25) mmol/L POC BUN (7-18) mg/dl BUN 26 H (6-23) mg/dl Creatinine 1.50 H (0.6-1.4) mg/dl POC Creatinine (0.6-1.3) mg/dl Est Cr Clr Drug Dosing 53.0 ml/min Est GFR ( Amer) 56.2 ml/min Est GFR (Non-Af Amer) 48.5 ml/min BUN/Creatinine Ratio 17.3 (10-20) Glucose 218 H (70-99(Fasting)) mg/dl POC Glucose (other) (70-99) mg/dl Lactate (0.4-2.0) mmol/L Calcium 9.0 (8.5-10.1) mg/dl POC Ioniz Calcium Kaitlyn (1.12-1.32) mmol/l Magnesium 2.2 (1.7-2.4) mg/dl Total Bilirubin 0.9 (0.2-1.0) mg/dl Direct Bilirubin 0.5 H (0-0.2) mg/dl AST 47 H (13-39) U/L ALT 24 (7-52) U/L Alkaline Phosphatase 155 H (34-104) U/L Troponin I High Sens 18.9 (0-20) pg/ml Total Protein 7.3 (6.0-8.3) gm/dl Albumin 3.5 (3.4-5.0) gm/dl Procalcitonin (0-0.5) ng/ml SARS-CoV-2 (PCR) NEGATIVE (Negative) Influenza Type A (PCR) Negative (Neg) Influenza Type B (PCR) Negative (Neg) RSV (RT-PCR) Negative (Neg) 05/16/22 05/16/22 05/16/22 Range/Units 01:40 01:40 01:44 WBC (4.8-10.8) K/ul RBC (4.70-6.10) M/uL Hgb (14.0-18.0) g/dl POC Hgb 11.6 L (14.0-18.0) g/dl Hct (42.0-52.0) % POC Hct 34 L (42-52) % MCV (80.0-100.0) fL MCH (25.0-34.0) pg MCHC (32.0-36.0) g/dL RDW Std Deviation (36.4-46.3) fL RDW Coeff of Mariam (11.5-14.5) % Plt Count (130-400) K/uL MPV (9.4-12.4) fL Immature Gran % (Auto) % Neut % (Auto) % Lymph % (Auto) % [place] % (Auto) % Eos % (Auto) % Baso % (Auto) % Neut # (Auto) (1.40-6.50) K/uL Lymph # (Auto) (1.2-3.4) K/uL [place] # (Auto) (0.11-0.59) K/uL Eos # (Auto) (0-0.50) K/uL Baso # (Auto) (0-0.2) K/uL Immature Gran # (Auto) (0.01-0.20) K/uL POC Sodium 138 (135-144) mmol/L Sodium (136-145) mmol/L POC Potassium 3.8 (3.3-5.0) mmol/L Potassium (3.5-5.1) mmol/L POC Chloride 101 (101-112) mmol/L Chloride (98-107) mmol/L Carbon Dioxide (21-32) mmol/L POC Total CO2 27 (24-31) mmol/L Anion Gap (3-11) POC Anion Gap 15.0 L (16-25) mmol/L POC BUN 24 H (7-18) mg/dl BUN (6-23) mg/dl Creatinine (0.6-1.4) mg/dl POC Creatinine 1.5 H (0.6-1.3) mg/dl Est Cr Clr Drug Dosing ml/min Est GFR ( Amer) ml/min Est GFR (Non-Af Amer) ml/min BUN/Creatinine Ratio (10-20) Glucose (70-99(Fasting)) mg/dl POC Glucose (other) 219 H (70-99) mg/dl Lactate 2.1 H* (0.4-2.0) mmol/L Calcium (8.5-10.1) mg/dl POC Ioniz Calcium Kaitlyn 1.14 (1.12-1.32) mmol/l Magnesium (1.7-2.4) mg/dl Total Bilirubin (0.2-1.0) mg/dl Direct Bilirubin (0-0.2) mg/dl AST (13-39) U/L ALT (7-52) U/L Alkaline Phosphatase (34-104) U/L Troponin I High Sens (0-20) pg/ml Total Protein (6.0-8.3) gm/dl Albumin (3.4-5.0) gm/dl Procalcitonin 1.17 H (0-0.5) ng/ml SARS-CoV-2 (PCR) (Negative) Influenza Type A (PCR) (Neg) Influenza Type B (PCR) (Neg) RSV (RT-PCR) (Neg) 05/16/22 Range/Units 04:35 WBC (4.8-10.8) K/ul RBC (4.70-6.10) M/uL Hgb (14.0-18.0) g/dl POC Hgb (14.0-18.0) g/dl Hct (42.0-52.0) % POC Hct (42-52) % MCV (80.0-100.0) fL MCH (25.0-34.0) pg MCHC (32.0-36.0) g/dL RDW Std Deviation (36.4-46.3) fL RDW Coeff of Mariam (11.5-14.5) % Plt Count (130-400) K/uL MPV (9.4-12.4) fL Immature Gran % (Auto) % Neut % (Auto) % Lymph % (Auto) % [place] % (Auto) % Eos % (Auto) % Baso % (Auto) % Neut # (Auto) (1.40-6.50) K/uL Lymph # (Auto) (1.2-3.4) K/uL [place] # (Auto) (0.11-0.59) K/uL Eos # (Auto) (0-0.50) K/uL Baso # (Auto) (0-0.2) K/uL Immature Gran # (Auto) (0.01-0.20) K/uL POC Sodium (135-144) mmol/L Sodium (136-145) mmol/L POC Potassium (3.3-5.0) mmol/L Potassium (3.5-5.1) mmol/L POC Chloride (101-112) mmol/L Chloride (98-107) mmol/L Carbon Dioxide (21-32) mmol/L POC Total CO2 (24-31) mmol/L Anion Gap (3-11) POC Anion Gap (16-25) mmol/L POC BUN (7-18) mg/dl BUN (6-23) mg/dl Creatinine (0.6-1.4) mg/dl POC Creatinine (0.6-1.3) mg/dl Est Cr Clr Drug Dosing ml/min Est GFR ( Amer) ml/min Est GFR (Non-Af Amer) ml/min BUN/Creatinine Ratio (10-20) Glucose (70-99(Fasting)) mg/dl POC Glucose (other) (70-99) mg/dl Lactate 1.6 (0.4-2.0) mmol/L Calcium (8.5-10.1) mg/dl POC Ioniz Calcium Kaitlyn (1.12-1.32) mmol/l Magnesium (1.7-2.4) mg/dl Total Bilirubin (0.2-1.0) mg/dl Direct Bilirubin (0-0.2) mg/dl AST (13-39) U/L ALT (7-52) U/L Alkaline Phosphatase (34-104) U/L Troponin I High Sens (0-20) pg/ml Total Protein (6.0-8.3) gm/dl Albumin (3.4-5.0) gm/dl Procalcitonin (0-0.5) ng/ml SARS-CoV-2 (PCR) (Negative) Influenza Type A (PCR) (Neg) Influenza Type B (PCR) (Neg) RSV (RT-PCR) (Neg) Imaging Data Attestation: I personally reviewed and interpreted this imaging study as follows: MDM Narrative Prior records/ancillary studies reviewed and summarized above. Nursing notes reviewed. Additional history obtained from family. The patient's history was concerning for nausea, vomiting, chills, diaphoresis after recent stent placement for biliary stone obstruction. Differential diagnosis: Etiologies such as postsurgical complication, metabolic, infection, hypo/hyperglycemia, electrolyte abnormalities, cardiac sources, intracerebral event, toxicologic, neurologic, as well as others were entertained. Physical examination: As above. ER treatment provided: IV Lock An order was placed for continuous cardiac monitoring. The monitor shows a rate of 60-1 50 with a sinus rhythm per my interpretation. IV fluids, Zosyn, Zofran I asked senior case manager to pull her records from [facility] to review patient's record I reviewed the patient's records from [facility]. On reassessment the patient felt better. Diagnostics interpretation by me: EKG ordered for upper abdominal pain ECG: Paced rhythm with no Sgarbossa. Rate of 88. Impression paced rhythm interpreted by myself The labs Independently Interpreted by myself revealed leukocytosis, elevated procalcitonin and lactic Blood cultures ordered Diagnostics: Chest x-ray with no acute consolidation, pneumothorax or free air per my independent interpretation CT ABDOMEN & PELVIS with Contrast INDICATION: PAIN IN ABD, RECENT BILIARY STENTS PLACED TECHNIQUE: CT acquisition of the abdomen and pelvis. Axial, sagittal and coronal reformatted images are available. Contrast: 85 mL Optiray 350 intravenous contrast. Total DLP: 890.38 mGy-cm. COMPARISON: CT abdomen, 04/29/2022. FINDINGS: Conductive leads in the right heart. Overall heart size is within normal limits. No pericardial effusion. Lung bases have no consolidation or pleural effusion. Symmetric bilateral gynecomastia. No focal hepatic mass. Pneumobilia. Gallbladder is present. There is air and sludge/hemorrhage within the gallbladder lumen. There is a stent within the gallbladder itself, new from comparison. There is a stent in the common bile duct, new from comparison. Spleen is normal. Pancreas is normal. Adrenal glands are normal. Multiple round renal hypodensities, unchanged from comparison. No hydronephrosis or renal stone. Bladder is partially distended without focal wall thickening. Pelvic phleboliths. No free fluid in the pelvis. Appendix is normal. Remainder of the hollow viscera are within normal limits. No abdominal or pelvic lymphadenopathy. No abdominal wall defect. No free intraperitoneal air. Aorta has normal course and caliber. Scattered areas of calcific atherosclerosis. No acute osseous abnormality. Degenerative changes of the spine and hips. IMPRESSION: Interval placement of stent within the gallbladder and common bile duct. Associated pneumobilia. Radiologist: Issa Olsen MD Study ready at 04:02 and initial results transmitted at 05:37 Consultation: A consultation was placed with the hospitalist. The case was discussed and diagnostics were reviewed. The patient was evaluated in the ER for further treatment. Exam and history seem consistent with nausea and vomiting and abdominal discomfort who recently had a biliary stent placed. Patient was hypotensive. Labs and diagnostics were independently interpreted by myself. He had a leukocytosis that was improving from [facility]. Infection markers were slightly elevated. Radiology read the CAT scan. Patient was started on antibiotics and medicated as above. Medicine is consulted. He will be admitted. By the evaluation outlined above emergent etiologies such as electrolyte abnormalities, cardiac sources, intracerebral event, toxologic, neurologic, abnormalities blood glucose, metabolic, as well as others were deemed relatively unlikely. The pt informed about the findings as listed above. All questions were answered and pleased with the treatment. The chart was completed utilizing Lin[employer] Speech voice recognition software. Grammatical errors, random word insertions, pronoun errors, and incomplete sentences are an occassional consequence of this system due to software limitations, ambient noise, and hardware issues. Any formal questions or concerns about the content, text, or information contained within the body of this dictation should be directly addressed to the physician undertaker assistant for clarification. Impression & Plan Nausea & vomiting, Abdominal pain, acute, Leukocytosis, Acute hypotension Discharge Plan Visit Data Chief Complaint: Abdominal Pain Stated Complaint: GALLBLADDER PAIN,VOMITING-S/P SURGERY ED Provider: Dave Alexandra ED Midlevel Provider: Leny Doyle Discharge Problem: Nausea & vomiting, Abdominal pain, acute, Leukocytosis, Acute hypotension Patient Disposition: Admitted As Inpatient Condition: Good Forms Stand Alone Forms: My vChatter Prescriptions Prescriptions: No Action dorzolamide [Trusopt] 2 % drops 1 drp OPR BID furosemide [Lasix] 80 mg tablet 40 mg PO QAM lisinopril [Zestril] 40 mg tablet 40 mg PO QAM eplerenone [Inspra] 25 mg tablet 12.5 mg PO QAM Eliquis 5 mg Tablet 5 mg PO BID Qty: 60 0RF levothyroxine 88 mcg Tablet 88 mcg PO DAILYBB metoprolol tartrate 50 mg Tablet 50 mg PO AMHS magnesium 250 mg Tablet 250 mg PO QAM vitamin B complex [B Complex] Capsule 1 cap PO DAILY Flintstones Gummies Tablet,Chewable 1 tab PO QAM Referrals Referrals: Real Mendoza MD [Primary Care Provider] - Nausea & vomiting Qualifiers: Vomiting type: unspecified Qualified Code(s): R11.2 - Nausea with vomiting, unspecified
[2022-05-16] MEDS ORDERED: SODIUM CHLORIDE 0.9% 1000ML 1,000 ML IV SCH (01:30)
[2022-05-16 01:56] LABS: iSTAT Creatinine 1.5 mg/dl (0.6-1.3); iSTAT Hemoglobin 11.6 g/dl (14.0-18.0); iSTAT Ionized Calcium 1.14 mmol/l (1.12-1.32); iSTAT Potassium 3.8 mmol/L (3.3-5.0)
[2022-05-16 03:34] LABS: Influenza A virus by PCR Negative (Neg); Influenza B virus by PCR Negative (Neg); RSV by PCR Negative (Neg); SARS CoV2 RNA(COVID-19) Ceph NEGATIVE (Negative)
[2022-05-16 03:34] LABS: Basophils % (auto) 0.4 %; Eosinophils # (auto) 0.14 K/uL (0-0.50); Eosinophils % (auto) 0.5 %; Hematocrit (blood only) 33.5 % (42.0-52.0); Hemoglobin 11.2 g/dl (14.0-18.0); Immature Granulocytes # (auto) 0.18 K/uL (0.01-0.20); Immature Granulocytes % (auto) 0.7 %; Lymphocytes # (auto) 2.13 K/uL (1.2-3.4); Lymphocytes % (auto) 8.1 %; Mean Corpuscular Hemoglobin 31.8 pg (25.0-34.0); Mean Corpuscular Hgb Conc 33.4 g/dL (32.0-36.0); Mean Corpuscular Volume 95.2 fL (80.0-100.0); Mean Platelet Volume 11.3 fL (9.4-12.4); Monocytes % (auto) 4.2 %; Neutrophils # (auto) 22.67 K/uL (1.40-6.50); Neutrophils % (auto) 86.1 %; Platelet Count 382 K/uL (130-400); RDW Coefficient of Variation 12.2 % (11.5-14.5); RDW Standard Deviation 42.2 fL (36.4-46.3); Red Blood Count 3.52 M/uL (4.70-6.10); White Blood Count 26.32 K/ul (4.8-10.8)
[2022-05-16 03:35] LABS: Albumin Level 3.5 gm/dl (3.4-5.0); BUN Creatinine Ratio 17.3 (10-20); Bilirubin Direct 0.5 mg/dl (0-0.2); Bilirubin,Total 0.9 mg/dl (0.2-1.0); Est GFR (African American) 56.2 ml/min; Est GFR (Non-African American) 48.5 ml/min; Magnesium 2.2 mg/dl (1.7-2.4); Potassium 3.8 mmol/L (3.5-5.1); Total Protein 7.3 gm/dl (6.0-8.3); Troponin I High Sensitivity 18.9 pg/ml (0-20)
[2022-05-16 06:48] LABS: Appearance Urine Clear (Clear); Bacteria Urine Automated Negative (Negative); Bilirubin Urine Negative (Negative); Blood Urine Negative (Negative); Color Urine Yellow; Glucose Urine UA Negative (Negative); Ketones Urine Negative (Negative); Leukocyte Esterase Urine Negative (Negative); Nitrite Urine Negative (Negative); Protein Urine Trace (Negative); RBC Urine Automated 0-4 /hpf (0-4); Specific Gravity Urine > 1.045 (1.000-1.030); Urobilinogen Urine Negative (Negative)
--- NOTE | 2022-05-16 07:55 | History and Physical Report ---
DATE OF ADMISSION: 05/16/2022 CHIEF COMPLAINT: Nausea, vomiting, and abdominal pain. HISTORY OF PRESENT ILLNESS: This is a 66-year-old male with past medical history significant for type 2 diabetes, seems to be currently on Jardiance; history of hypothyroidism, history of complete atrioventricular block, status post pacemaker; history of paroxysmal atrial fibrillation, hypertension, history of severe aortic valve stenosis, history of cardiomyopathy with EF of less than 20%, suspect tachycardia induced, currently resolved, echo done in February of 2022 showed EF of 55% to 59%; history of COVID twice, history of sleep apnea, and GERD, presents with abdominal pain. The patient also has a history of C. diff colitis. The patient presents with abdominal pain, nausea, and vomiting. The patient was recently in the hospital on 04/29/2022, admitted with abdominal pain, and found to have choledocholithiasis. Because of his complex history, he was transferred to [facility] where he underwent ERCP twice, bile stone was removed, and metal stent was placed. per surgery recommendations Second ERCP was done again and AXIOS stent was placed and was discharged on 05/04/2022 with Augmentin. The patient says second of discharge he had a lot of nausea, vomiting, and a temperature spike. After a few hours , the temperature spike resolved and ididnot had temperature spike again. Since then, he says eating only liquid diet, and he was told that he developed fever, nausea, or vomiting, to go to the ER. Last night, he again had severe abdominal pain and had nausea and was vomiting and that is the reason he came here. Currently, pain is resolved and nausea has improved. BP was soft when he came in but improved now.In the ER, he said he had some liquid stool, which was red in color, but he states he was eating popsicles, so he is not sure whether it is blood or from the popsicle. His hemoglobin is 11.2.Hemodynamically stable, and currently afebrile. Denies any headache. No dizziness. No blurred visions. No earache. No runny nose. No sore throat. No cough. Appetite is okay. No chest pain. No shortness of breath. Normal bladder movements. Resting comfortably and hemodynamically stable. No swelling in the legs. ALLERGIES: CEFUROXIME, VINEGAR CIDER, KETCHUP, [place], AND [facility]. PAST MEDICAL HISTORY: As mentioned above. PAST SURGICAL HISTORY: EGD with endoscopic ultrasound, ERCP with CBD stone removal and metal stent placed and ERCP again with access stent placement, and injection of the eye drug. MEDICATIONS: Currently, the patient is on Jardiance 10 mg p.o. daily, Eliquis 5 mg p.o. b.i.d., Trusopt 1 drop ophthalmic b.i.d., eplerenone 12.5 mg p.o. a.m., Lasix 40 mg p.o. a.m., levothyroxine 88 mcg p.o. daily, lisinopril 40 mg p.o. a.m., magnesium 250 mg p.o. daily, metoprolol tartrate 25 mg p.o. b.i.d., B complex 1 capsule daily, Meeker gummies 1 tablet p.o. a.m. FAMILY HISTORY: Significant for father had bladder and pancreatic cancer and hypertension. Mother has diabetes, eye problems, heart disorder, and history of thyroid disorders. SOCIAL HISTORY: Former smoker. No alcohol use. Currently, no drug use. REVIEW OF SYSTEMS: As per HPI. Rest of review of systems is negative. PHYSICAL EXAMINATION: GENERAL: The patient is of moderate build, not in acute distress. VITAL SIGNS: Temperature 37.3, pulse 88, respiratory rate 18, blood pressure 120/86, and oxygen saturation 98% on room air. HEENT: Pupils equal, round, and reactive to light. Oral mucosa moist. NECK: No JVD. No neck masses. CARDIOVASCULAR: S1 and S2 heard, regular. Ejection systolic murmur heard. Regular rate and rhythm. RESPIRATORY SYSTEM: Normal AP diameter. No accessory muscle use. No wheezing. No crackles. ABDOMEN: Soft. Bowel sounds present. Nontender. No distention. CENTRAL NERVOUS SYSTEM: Alert and oriented. Speech is clear. No facial droop. Obeys simple commands. EXTREMITIES: No edema. No erythema. LABORATORY DATA: WBC 26, hemoglobin 11.2, hematocrit 33.5, and platelets 382. Sodium 136, potassium 3.8, chloride 102, CO2 of 25, BUN 26, creatinine 1.5, serum glucose 218, lactate was 2.1 when he came in and repeat is 201.6; calcium 9, and magnesium 2.2. Total bilirubin 0.9, direct bilirubin 0.5, AST 47, ALT 424, and alkaline phosphatase 155. Troponin I high sensitivity 18.9. Procalcitonin 1.17. Urinalysis negative. SARS-CoV-2 PCR negative. Influenza A and B PCR negative. RSV PCR negative. IMAGING DATA: Chest x-ray: No acute findings. CT abdomen and pelvis preliminary report shows biliary stent in place . EKG: Atrial sensed ventricular paced rhythm at a rate of 88. ASSESSMENT AND PLAN: This 66-year-old male presents with nausea, vomiting, and abdominal pain. 1. Nausea, vomiting, and abdominal pain. The patient recently had choledocholithiasis and was transferred to [facility], status post ERCP and stone removal and metal stent placed and as per surgery recommendations repeat ERCP with AXIOS stent presensts with nausea, vomiting, and abdominal pain, which improved now. When he came, his blood pressure was on the lower side, currently blood pressure improved. His white count is elevated and also procalcitonin is elevated. We will follow the final report of CAT scan. We will empirically place him on IV Zosyn, n.p.o., gentle fluids, pain control, and consult GI.Will also do c diff studies. 2. History of idiopathic cardiomyopathy with ejection fraction of less than 20%, but currently resolved. 3. History of chronic diastolic congestive heart failure with severe aortic stenosis. Holding eplerenone, Lasix, lisinopril, for Silvano. On metoprolol, which we will continued with holding parameters. Getting gentle fluids. Monitor for volume overload. 4. History of diabetes, we will place on insulin sliding scale and follow the blood sugars. 5. Hypertension. Continue his medications of metoprolol with hold parameters. Holding lisinopril, and diuretics for silvano and hypotensions. We will monitor the blood pressure. 6. History of paroxysmal atrial fibrillation, rate controlled with metoprolol. The patient is on Eliquis, which we will hold for a questionable gastrointestinal bleed and also for possible procedures. 7. Questionable gastrointestinal bleed. Follow stool for Hemoccult. We will follow hemoglobin and hematocrit.Blood consent obtained. Eliquis held. 8. SILVANO Cr 1.5. Holding lisinopril and diuretics. On gentle fluids. Will follow labs. 9. History of complete heart block, status post pacemaker. 10 History of hypothyroidism, on Synthroid. 11. Deep venous thrombosis prophylaxis, placed on sequential compression devices for now. DISPOSITION: Closely monitor in the med tele. PT/OT prior to discharge. Social service to help with discharge planning. Level 1 full code. Job ID: [id number] [facility]
--- NOTE | 2022-05-16 08:45 | CT Scan Report ---
CT abd pelvis IV con only CLINICAL HISTORY: n/v, pain, recent biliary stent for stone TECHNIQUE: Helical axial images of the abdomen and pelvis were obtained and displayed. Automated dose lowering techniques and/or adjustment according to patient size were utilized for this exam. This e xam was performed with intravenous contrast. CT DOSE: 890.38 mGy.cm COMPARISON: Comparison is made to CT abdomen pelvis 04/29/2022 FINDINGS: Lower chest: Aortic valvular calcifications and gynecomastia are seen. Liver: Unremarkable. No focal lesions are seen. Gallbladder and biliary tree: There is interval placement of a gallbladder drain into the duodenum. T he gallbladder wall is thickened with heterogeneous contents including some air noted. Pericholecysti c stranding is seen. A biliary stent is seen, new from prior exam, with pneumobilia. Pancreas: Unremarkable, no focal lesions. Spleen: Unremarkable. Adrenals: Unremarkable. Kidneys and ureters: Bilateral renal cysts are seen. Additional hypodensities are seen compatible wit h cysts. Bladder: Diffuse homogeneous wall thickening is seen. Reproductive organs: Unremarkable. Bowel: The appendix is normal. A small hiatal hernia is seen. Lymph nodes Retroperitoneal: Subcentimeter lymph nodes are noted. Pelvic: Unremarkable. Mesenteric: Unremarkable. Peritoneum: Normal. Vessels: Atherosclerotic calcifications are seen. Abdominal wall: Unremarkable. Bones: Degenerative changes in the visualized spine. IMPRESSION: Interval gallbladder stent placement. The gallbladder wall is thickened and heterogeneous. A common b ile duct stent is seen with expected pneumobilia. ACT 112: Negative or not required by law. Electronically signed by: Ramesh Schwartz M.D. 05/16/2022 8:44 AM
--- NOTE | 2022-05-16 10:20 | XRay Report ---
XR chest 1V portable CLINICAL HISTORY: Sepsis TECHNIQUE: Single frontal radiograph of the chest was obtained. Comparison: Comparison is made to chest radiograph April 28, 2022 FINDINGS: Dual lead pacemaker is seen. The cardiomediastinal silhouette is normal. The lungs are clear. No evid ence of pleural effusion or pneumothorax. IMPRESSION: No acute chest disease. ACT 112: Negative or not required by law. Electronically signed by: Ramesh Schwartz M.D. 05/16/2022 10:18 AM
[2022-05-16] MEDS ORDERED: ACETAMINOPHEN 325 MG TAB PO PRN (10:34)
[2022-05-16] MEDS ORDERED: ONDANSETRON INJ 2 MG/ML 2 ML VIAL IV PRN (10:34)
[2022-05-16] MEDS ORDERED: GLUCAGON FOR INJ 1 MG VIAL SQ PRN (10:34)
[2022-05-16] MEDS ORDERED: DEXTROSE 50% 50 ML SYRINGE IV PRN (10:34)
[2022-05-16] MEDS ORDERED: GLUCOSE 40% GEL 15 GM TUBE PO PRN (10:34)
[2022-05-16] MEDS ORDERED: NITROGLYCERIN SL 0.4 MG/TAB TAB SL PRN (10:34)
[2022-05-16] MEDS ORDERED: CARBOHYDRATES FOR HYPOGLYCEMIA PO PRN (10:34)
[2022-05-16] MEDS ORDERED: GLUCOSE 10 TAB/TUBE PO PRN (10:34)
--- NOTE | 2022-05-16 11:07 | Gastrointestinal Consultation ---
Date of Consultation May 16, 2022 Assessment & Plan (1) Abdominal pain, acute: (2) Nausea & vomiting: Pt is a 66 yo male seen for abd pain, n/v, subjective fever, one episode of rectal bleeding.He has hx of cholelithiasis, choledocholithiasis s/p ERCP w biliary stent placement and Axios stent for gallbladder drainage done at [facility] [place] on 05/01 and 05/03/22. He's not a good surgical candidate due to his cardiac comorbidities. Was just discharged from [facility] [place] last . + leukocytosis but improved from 3 days prior. LFTs not significantly elevated. CT abd/pelvis showed biliary stent and Axios drain in place, patent. - Obtain blood cx - Will extend antibx course (only had Augmentin x 3 days after his biliary procedures) - Monitor LFTs - Monitor for further gross GI bleeding symptoms Supervising Physician Co-Signing Physician Notes Attending attestation I have seen, examined this patient, and agree with the findings and above by our mid-level provider RYLEY Miranda, with the following additions: - N/V with concern of infectious etiology - One episode of BRBR similar to patient when had hemorrhoidal bleeding - Just had upper scopes, no signs of acute ongoing bleeding - BID IV PPI given severe esophagitis on recent EGD last week - Supportive care - Check C-diff as had history - Will follow History of Present Illness Reason for Consultation: Abd pain, n/v. Requesting Physician: Dr. Hernando Tolentino Attending Physician: Dr. Harvey Wen History of Present Illness Pt is a 66 yo male w PMHx as noted below who presented with ED w c/o abd pain, n/v. He has hx of cholelithiasis, choledocholithiasis s/p ERCP w biliary stent placement and Axios stent for gallbladder drainage done at [facility] [place] on 05/01 and 05/03/22. He's not a good surgical candidate due to his cardiac comorbidities. Was just discharged from [facility] [place] last . He reports second day of DC, he was having fever, and n/v symptoms. Then yesterday he had RUQ abd pain and n/v x 1 episode after trying to eat small piece of chicken. He also had one episode of red liquid stool but unsure if it's hemorrhoidal vs. red colored stool from eating red popcicle. Of note, he had 2 days of Augment after his DC and had completed these. On evaluation, he's afebrile and hemodynamically stable. WBC 26, compared to 30, 3 days prior. H/H (normal Hgb) prior. Cr up to 1.5. LFTs: 0.9, AST 47, ALT 24, Alk phos 155. He's seen laying in bed, AAOx3, reports he's had no recurrence of abd pain, n/v, nor any more BMs since he came to ED. Allergies Allergy/AdvReac Type Severity Reaction Status Date / Time cefuroxime Allergy Intermediate FEVER, Verified 01/30/21 14:19 DIARHEA cider vinegar Allergy Verified 02/02/21 16:27 ketchup Allergy Verified 02/02/21 16:27 mayonnaise Allergy Verified 02/02/21 16:27 mustard Allergy Verified 02/02/21 16:27 Home Medications Medication Instructions Recorded Confirmed Type dorzolamide 2 % eye drops (Trusopt) 1 drp OPR BID 01/29/21 04/28/22 History eplerenone 25 mg tablet (Inspra) 12.5 mg PO QAM 01/29/21 04/28/22 History furosemide 80 mg tablet (Lasix) 40 mg PO QAM 01/29/21 04/28/22 History lisinopril 40 mg tablet (Zestril) 40 mg PO QAM 01/29/21 04/28/22 History apixaban 5 mg tablet (Eliquis) 5 mg PO BID #60 tabs 02/04/21 04/28/22 Rx levothyroxine 88 mcg tablet 88 mcg PO DAILYBB 04/28/22 04/28/22 History magnesium 250 mg tablet 250 mg PO QAM 04/28/22 04/28/22 History metoprolol tartrate 50 mg tablet 50 mg PO AMHS 04/28/22 04/28/22 History pediatric multivitamin no.49 1 tab PO QAM 04/28/22 04/28/22 History (Flintstones Gummies chewable tablet) vitamin B complex 1 cap PO DAILY 04/28/22 04/28/22 History empagliflozin 10 mg tablet 10 mg PO DAILY 05/16/22 05/16/22 History (Jardiance) Patient History Medical History Congestive heart failure COVID-19 Hypertension Ischemic cardiomyopathy Osteoarthritis Third degree heart block Type 2 diabetes mellitus Surgical History Eye disorder S/p posterior Sub-tenons Triesence, right Family History Father Prostate cancer Bladder cancer Mother Diabetes Heart disease Thyroid condition Sister Thyroid condition Social History Smoking Status: Never smoker Second Hand Exposure: No; Hx Alcohol Use: Yes Hx Substance Use: No Preferred Language: Welsh Communication Ability: Effective 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 Beliefs That Will Affect Care: None marital status: Single Current Living Situation: Family Current Living Situation Comment: lives with sister Feels Safe at Home: Yes Assistive Devices: None Review of Systems Review of Systems: All systems reviewed & are unremarkable except as noted in HPI & below Physical Exam Constitutional: WD/WN, vitals as above well groomed, cooperative and comfortable Eyes: PERRL, conjunctivae normal, anicteric sclerae ENMT: external ear and nose normal, oropharynx normal Respiratory: normal respiratory effort, lungs clear to auscultation Cardiovascular: RRR, no murmur, no edema Gastrointestinal (Abdomen): normal bowel sounds, soft, nontender, no hepat osplenomegaly Skin: no rashes, warm and dry no jaundice Psychiatric: A+Ox3, euthymic affect Lymphatic: no lymphedema Results & Data ([facility]) Vital Signs (Past 12 Hours) Vital Signs Temp Pulse Pulse Resp BP BP Pulse Ox 05/16/22 09:30 78 16 134/72 97 05/16/22 08:32 76 05/16/22 07:30 81 21 95 05/16/22 07:30 138/92 05/16/22 07:00 86 19 96 05/16/22 07:43 97 05/16/22 06:37 88 18 120/86 98 05/16/22 05:30 81 05/16/22 04:44 37.3 C 85 22 110/76 98 05/16/22 01:33 82 05/16/22 01:21 37.3 C 05/16/22 01:06 97 H 20 90/65 L 98 O2 Del Method 05/16/22 09:30 05/16/22 08:32 05/16/22 07:30 05/16/22 07:30 05/16/22 07:00 05/16/22 07:43 Room Air 05/16/22 06:37 Room Air 05/16/22 05:30 05/16/22 04:44 Room Air 05/16/22 01:33 05/16/22 01:21 05/16/22 01:06 Room Air (2) Nausea & vomiting Vomiting type: unspecified Qualified Code(s): R11.2 - Nausea with vomiting, unspecified
--- NOTE | 2022-05-16 11:21 | Electrocardiogram Report ---
Test Reason : Blood Pressure : / mmHG Vent. Rate : 088 BPM Atrial Rate : 088 BPM P-R Int : 202 ms QRS Dur : 158 ms QT Int : 434 ms P-R-T Axes : 013 -83 020 degrees QTc Int : 525 ms Atrial-sensed ventricular-paced rhythm Abnormal ECG When compared with ECG of 28-APR-2022 18:41, Premature ventricular complexes are no longer Present Vent. rate has increased BY 7 BPM Confirmed by Issa Mullen ([id number]) on 05/16/2022 11:21:32 AM Referred By: REFERRED SELF Confirmed By:Aren Mullen
[2022-05-16 11:23] LABS: Hematocrit (blood only) 29.7 % (42.0-52.0); Hemoglobin 10.1 g/dl (14.0-18.0)
[2022-05-16] MEDS: SODIUM CHLORIDE 0.9% 1000ML 1,000 ML IV SCH (11:26)
[2022-05-16] MEDS: PIPERACILLIN/TAZOBACTAM 3.375 GM in DEXTROSE 5% 100 ML IV SCH ×2 (11:27→18:18)
[2022-05-16] MEDS: DORZOLAMIDE HCL 2% OPH SOLN 10 ML BTL OPR SCH ×2 (11:29→20:17)
[2022-05-16] MEDS: VITAMIN B COMPLEX TAB PO SCH (11:30)
[2022-05-16] MEDS: METOPROLOL TARTRATE 50 MG TAB PO SCH ×2 (11:30→20:18)
[2022-05-16] MEDS: MULTIVITAMIN CHEWABLE TAB PO SCH (11:30)
[2022-05-16] MEDS: MAGNESIUM OXIDE 400 MG TAB PO SCH (11:30)
[2022-05-16] MEDS ORDERED: PANTOprazole 40 MG in SYRINGE 0 ML IV SCH (12:15)
[2022-05-16] MEDS: INSULIN ASPART PER UNIT SC SCH ×3 (13:12→20:16)
[2022-05-16] MEDS: PANTOprazole 40 MG TAB PO SCH (13:12)
[2022-05-16 15:51] LABS: Cdiff Toxin B Gene (2yr or >) Positive Cdiff Gene (Neg)
[2022-05-16] MEDS: PANTOprazole 40 MG in SYRINGE 0 ML IV SCH ×2 (16:04→20:28)
[2022-05-16 16:17] LABS: Adenovirus F 40/41 PCR Not Detected (NotDetected); Astrovirus PCR Not Detected (NotDetected); Campylobacter PCR Not Detected (NotDetected); Cryptosporidium PCR Not Detected (NotDetected); Cyclospora cayetanensis PCR Not Detected (NotDetected); Entamoeba histolytica PCR Not Detected (NotDetected); Enteroaggregative E.coli(EAEC) Not Detected (NotDetected); Enteropathogenic E.coli (EPEC) Not Detected (NotDetected); Enterotoxigenic E.coli (ETEC) Not Detected (NotDetected); Giardia lamblia PCR Not Detected (NotDetected); Norovirus GI/GII PCR Not Detected (NotDetected); Plesiomonas shigelloides PCR Not Detected (NotDetected); Rotavirus A PCR Not Detected (NotDetected); Salmonella PCR Not Detected (NotDetected); Sapovirus PCR Not Detected (NotDetected); Shiga-like Toxin E.coli (STEC) Not Detected (NotDetected); Shigella/Enteroinvasive E.coli Not Detected (NotDetected); Vibrio cholerae PCR Not Detected (NotDetected); Vibrio species PCR Not Detected (NotDetected); Yersinia enterocolitica PCR Not Detected (NotDetected)
[2022-05-16 16:35] LABS: Hematocrit (blood only) 28.7 % (42.0-52.0); Hemoglobin 9.7 g/dl (14.0-18.0)
[2022-05-16 16:42] LABS: Cdiff Antigen Positive; Cdiff Toxin A+B Positive Cdiff Toxin (Negative)
[2022-05-16] MEDS ORDERED: oxyCODONE HCL IR 5 MG TAB (IMMEDIATE RELEASE) PO PRN (17:17)
[2022-05-16] MEDS: RASPBERRY SYRUP 5 ML UDP PO SCH (18:17)
[2022-05-16] MEDS: VANCOMYCIN HCL 250 MG/5 ML SOLN PO SCH (18:17)
[2022-05-16] MEDS ORDERED: MoRPHine SULFATE 4 MG/ML 1 ML CARP\\VIAL IV PRN (19:47)
[2022-05-16 22:59] LABS: Hemoglobin 9.8 g/dl (14.0-18.0)
[2022-05-17] MEDS: VANCOMYCIN HCL 250 MG/5 ML SOLN PO SCH ×4 (00:12→18:12)
[2022-05-17] MEDS: RASPBERRY SYRUP 5 ML UDP PO SCH ×4 (00:13→18:12)
[2022-05-17] MEDS: PIPERACILLIN/TAZOBACTAM 3.375 GM in DEXTROSE 5% 100 ML IV SCH ×2 (03:37→12:38)
[2022-05-17 06:11] LABS: Basophils # (auto) 0.05 K/uL (0-0.2); Basophils % (auto) 0.3 %; Eosinophils # (auto) 0.03 K/uL (0-0.50); Eosinophils % (auto) 0.2 %; Hematocrit (blood only) 26.2 % (42.0-52.0); Hemoglobin 8.7 g/dl (14.0-18.0); Immature Granulocytes # (auto) 0.07 K/uL (0.01-0.20); Immature Granulocytes % (auto) 0.5 %; Lymphocytes # (auto) 1.46 K/uL (1.2-3.4); Lymphocytes % (auto) 9.7 %; Mean Corpuscular Hgb Conc 33.2 g/dL (32.0-36.0); Mean Corpuscular Volume 96.3 fL (80.0-100.0); Mean Platelet Volume 11.9 fL (9.4-12.4); Monocytes # (auto) 1.22 K/uL (0.11-0.59); Monocytes % (auto) 8.1 %; Neutrophils % (auto) 81.2 %; Platelet Count 292 K/uL (130-400); RDW Coefficient of Variation 12.4 % (11.5-14.5); RDW Standard Deviation 42.9 fL (36.4-46.3); Red Blood Count 2.72 M/uL (4.70-6.10); White Blood Count 15.03 K/ul (4.8-10.8)
[2022-05-17] MEDS: LEVOTHYROXINE SODIUM 88 MCG TABLET PO SCH (06:23)
[2022-05-17 06:53] LABS: BUN Creatinine Ratio 16.8 (10-20); Calcium 8.4 mg/dl (8.5-10.1); Creatinine Clr Calc Pharmacy 77.9 ml/min; Est GFR (African American) 74.4 ml/min; Est GFR (Non-African American) 64.2 ml/min; Magnesium 2.2 mg/dl (1.7-2.4); Phosphorus 3.1 mg/dl (2.5-4.9); Potassium 4.9 mmol/L (3.5-5.1)
[2022-05-17 07:28] LABS: Estimated Average Glucose 157 mg/dl; Hemoglobin A1C 7.1 % (4.5-5.6)
[2022-05-17] MEDS: DORZOLAMIDE HCL 2% OPH SOLN 10 ML BTL OPR SCH ×2 (08:17→20:48)
[2022-05-17] MEDS: MULTIVITAMIN CHEWABLE TAB PO SCH (08:18)
[2022-05-17] MEDS: VITAMIN B COMPLEX TAB PO SCH (08:18)
[2022-05-17] MEDS: MAGNESIUM OXIDE 400 MG TAB PO SCH (08:18)
[2022-05-17] MEDS: PANTOprazole 40 MG in SYRINGE 0 ML IV SCH ×2 (08:18→20:48)
[2022-05-17] MEDS: METOPROLOL TARTRATE 50 MG TAB PO SCH ×2 (08:18→20:49)
--- NOTE | 2022-05-17 09:15 | Hospitalist Progress Note ---
Date of Service May 17, 2022 Assessment & Plan (1) Abdominal pain, acute: (2) Nausea & vomiting: (3) Leukocytosis: Plan: This 66 yo male presents with nausea, vomiting, and abdominal pain. 1. Nausea, vomiting, and abdominal pain. The patient recently had choledocholithiasis and was transferred to [place], status post ERCP and stone removal and metal stent placed and as per surgery recommendations repeat ERCP with AXIOS stent presensts with nausea, vomiting, and abdominal pain In ER blood pressure was on the lower side, currently blood pressure improved. His WBC 26 L is elevated and also procalcitonin is elevated (1.17) CT abd. pelvis FINDINGS: Gallbladder and biliary tree: There is interval placement of a gallbladder drain into the duodenum. The gallbladder wall is thickened with heterogeneous contents including some air noted. Pericholecystic stranding is seen. A biliary stent is seen, new from prior exam, with pneumobilia. Bowel: The appendix is normal. A small hiatal hernia is seen. IMPRESSION: Interval gallbladder stent placement. The gallbladder wall is thickened and heterogeneous. A common bile duct stent is seen with expected pneumobilia. Empirically started pt on IV Zosyn, gentle fluids, pain control Blood cultx - pending GI consulted Stool studies - positive for c. diff, PO vanco started per GI - ok to DC zosyn and continue w/ PO vanco monotherapy Pt is having some blood in the stool c/w c. diff colitis Monitor H&H 2. 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 3. chronic diastolic congestive heart failure with severe aortic stenosis. Holding eplerenone, Lasix, lisinopril, for Dee. On metoprolol, which we will continued with holding parameters. Getting gentle fluids. Monitor for volume overload. 4. diabetes, insulin sliding scale and follow the blood sugars. 5. Hypertension. Continue his medications of metoprolol with hold parameters. Holding lisinopril, and diuretics for dee and hypotensions. We will monitor the blood pressure. 6. Paroxysmal atrial fibrillation, rate controlled with metoprolol. The patient is on Eliquis, which we will hold for gastrointestinal bleed and also for possible procedures. 7. Gastrointestinal bleed. As above, secondary to c. diff colitis We will follow hemoglobin and hematocrit. Blood consent obtained. Eliquis held. 8. DEE Cr 1.19. Holding lisinopril and diuretics. On gentle fluids. Will follow labs. 9. History of complete heart block, status post pacemaker. 10 Hypothyroidism, on Synthroid. DVT prophylaxis: SCDs for now DISPOSITION:med tele. PT/OT prior to discharge. CODE: full code. Admission and Anticipated Discharge Date Admission Date: May 16, 2022 Subjective Patient seen in follow-up of abdominal pain, nausea vomiting Patient was recently transferred to [facility] for choledocholithiasis, underwent ERCP and stent placement Has hx of c. diff and now stool studies positive for c. diff This morning lying in bed, in no acute distress, reports feeling better Abdominal pain much improved today, however there was some blood in the stool noted Denies fevers chills chest pain shortness of breath GI consulted as well and following Review of Systems Review of Systems: All systems reviewed & are unremarkable except as noted in Subjective Physical Exam Physical Exam: GENERAL: The patient is of moderate build, not in acute distress. HEENT: NC/AT. EOMI. Pupils equal, round, and reactive to light. Oral mucosa moist. NECK: No JVD. No neck masses. CARDIOVASCULAR: S1 and S2 heard, regular. Ejection systolic murmur heard. Regular rate and rhythm. RESPIRATORY:: Normal AP diameter. No accessory muscle use. No wheezing. No crackles. ABDOMEN: Soft. Bowel sounds present. Nontender to palpation (improved from previous exam). No distention. NEURO: Alert and oriented. Speech is clear. No facial droop. Obeys simple commands. EXTREMITIES: No edema. No erythema. Results & Data Results & Data ([facility]) Vital Signs (Past 12 Hours) Vital Signs Temp Pulse Pulse Resp BP Pulse Ox O2 Del Method 05/17/22 07:03 37.2 C 88 18 118/78 98 Nasal Cannula 05/17/22 02:46 37.1 C 83 18 101/69 97 Nasal Cannula 05/17/22 01:09 109 H 05/17/22 00:40 Room Air, Nasal Cannula 05/16/22 22:42 37.4 C 95 H 20 127/81 98 Nasal Cannula O2 Flow Rate 05/17/22 07:03 2 05/17/22 02:46 2 05/17/22 01:09 05/17/22 00:40 2 05/16/22 22:42 2 Laboratory Results 05/17/22 05/17/22 05/17/22 Range/Units 07:27 05:35 05:35 WBC (4.8-10.8) K/ul RBC (4.70-6.10) M/uL Hgb (14.0-18.0) g/dl Hct (42.0-52.0) % MCV (80.0-100.0) fL MCH (25.0-34.0) pg MCHC (32.0-36.0) g/dL RDW Std Deviation (36.4-46.3) fL RDW Coeff of Mariam (11.5-14.5) % Plt Count (130-400) K/uL MPV (9.4-12.4) fL Immature Gran % (Auto) % Neut % (Auto) % Lymph % (Auto) % [place] % (Auto) % Eos % (Auto) % Baso % (Auto) % Neut # (Auto) (1.40-6.50) K/uL Lymph # (Auto) (1.2-3.4) K/uL [place] # (Auto) (0.11-0.59) K/uL Eos # (Auto) (0-0.50) K/uL Baso # (Auto) (0-0.2) K/uL Immature Gran # (Auto) (0.01-0.20) K/uL Sodium 138 (136-145) mmol/L Potassium 4.9 D (3.5-5.1) mmol/L Chloride 108 H (98-107) mmol/L Carbon Dioxide 28 (21-32) mmol/L Anion Gap 2 L (3-11) BUN 20 (6-23) mg/dl Creatinine 1.19 D (0.6-1.4) mg/dl Est Cr Clr Drug Dosing 77.9 ml/min Est GFR ( Amer) 74.4 ml/min Est GFR (Non-Af Amer) 64.2 ml/min BUN/Creatinine Ratio 16.8 (10-20) Glucose 157 H (70-99(Fasting)) mg/dl POC Glucose 169 H (70-99) mg/dl Estimat Average Glucose 157 mg/dl Hemoglobin A1c 7.1 H (4.5-5.6) % Calcium 8.4 L (8.5-10.1) mg/dl Phosphorus 3.1 (2.5-4.9) mg/dl Magnesium 2.2 (1.7-2.4) mg/dl Stl C. cayetanensis PCR (NotDetected) Stool Rotavirus A PCR (NotDetected) Stl Adenov F PCR (NotDetected) Stool Astrovirus (PCR) (NotDetected) Stool Campylobacter PCR (NotDetected) Stl C. diff Tox B Gene (Neg) Stl C.difficile Tox A&B (Negative) Stool Cryptosporidium PCR (NotDetected) Stl E.coli Shiga Tox PCR (NotDetected) Stl Enterotoxigenic E PCR (NotDetected) Stool EPEC (PCR) (NotDetected) Stool EAEC (PCR) (NotDetected) Stl E. histolytica PCR (NotDetected) Stool Giardia Lamblia PCR (NotDetected) Stool Salmonella PCR (NotDetected) Stool Sapovirus (PCR) (NotDetected) Stl P. shigelloides PCR (NotDetected) Stl Shigella/EIEC PCR (NotDetected) St Y.enterocolitica PCR (NotDetected) Stool Vibrio (PCR) (NotDetected) Stl Vibrio cholerae PCR (NotDetected) Stl Norovirus GI/GII PCR (NotDetected) 05/17/22 05/16/22 05/16/22 Range/Units 05:35 22:40 20:05 WBC 15.03 H (4.8-10.8) K/ul RBC 2.72 L (4.70-6.10) M/uL Hgb 8.7 L 9.8 L (14.0-18.0) g/dl Hct 26.2 L 30.0 L (42.0-52.0) % MCV 96.3 (80.0-100.0) fL MCH 32.0 (25.0-34.0) pg MCHC 33.2 (32.0-36.0) g/dL RDW Std Deviation 42.9 (36.4-46.3) fL RDW Coeff of Mariam 12.4 (11.5-14.5) % Plt Count 292 (130-400) K/uL MPV 11.9 (9.4-12.4) fL Immature Gran % (Auto) 0.5 % Neut % (Auto) 81.2 % Lymph % (Auto) 9.7 % [place] % (Auto) 8.1 % Eos % (Auto) 0.2 % Baso % (Auto) 0.3 % Neut # (Auto) 12.20 H (1.40-6.50) K/uL Lymph # (Auto) 1.46 (1.2-3.4) K/uL [place] # (Auto) 1.22 H (0.11-0.59) K/uL Eos # (Auto) 0.03 (0-0.50) K/uL Baso # (Auto) 0.05 (0-0.2) K/uL Immature Gran # (Auto) 0.07 (0.01-0.20) K/uL Sodium (136-145) mmol/L Potassium (3.5-5.1) mmol/L Chloride (98-107) mmol/L Carbon Dioxide (21-32) mmol/L Anion Gap (3-11) BUN (6-23) mg/dl Creatinine (0.6-1.4) mg/dl Est Cr Clr Drug Dosing ml/min Est GFR ( Amer) ml/min Est GFR (Non-Af Amer) ml/min BUN/Creatinine Ratio (10-20) Glucose (70-99(Fasting)) mg/dl POC Glucose 159 H (70-99) mg/dl Estimat Average Glucose mg/dl Hemoglobin A1c (4.5-5.6) % Calcium (8.5-10.1) mg/dl Phosphorus (2.5-4.9) mg/dl Magnesium (1.7-2.4) mg/dl Stl C. cayetanensis PCR (NotDetected) Stool Rotavirus A PCR (NotDetected) Stl Adenov F 40/41 PCR (NotDetected) Stool Astrovirus (PCR) (NotDetected) Stool Campylobacter PCR (NotDetected) Stl C. diff Tox B Gene (Neg) Stl C.difficile Tox A&B (Negative) Stool Cryptosporidium PCR (NotDetected) Stl E.coli Shiga Tox PCR (NotDetected) Stl Enterotoxigenic E PCR (NotDetected) Stool EPEC (PCR) (NotDetected) Stool EAEC (PCR) (NotDetected) Stl E. histolytica PCR (NotDetected) Stool Giardia Lamblia PCR (NotDetected) Stool Salmonella PCR (NotDetected) Stool Sapovirus (PCR) (NotDetected) Stl P. shigelloides PCR (NotDetected) Stl Shigella/EIEC PCR (NotDetected) St Y.enterocolitica PCR (NotDetected) Stool Vibrio (PCR) (NotDetected) Stl Vibrio cholerae PCR (NotDetected) Stl Norovirus GI/GII PCR (NotDetected) 05/16/22 05/16/22 05/16/22 Range/Units 16:41 16:08 14:30 WBC (4.8-10.8) K/ul RBC (4.70-6.10) M/uL Hgb 9.7 L (14.0-18.0) g/dl Hct 28.7 L (42.0-52.0) % MCV (80.0-100.0) fL MCH (25.0-34.0) pg MCHC (32.0-36.0) g/dL RDW Std Deviation (36.4-46.3) fL RDW Coeff of Mariam (11.5-14.5) % Plt Count (130-400) K/uL MPV (9.4-12.4) fL Immature Gran % (Auto) % Neut % (Auto) % Lymph % (Auto) % [place] % (Auto) % Eos % (Auto) % Baso % (Auto) % Neut # (Auto) (1.40-6.50) K/uL Lymph # (Auto) (1.2-3.4) K/uL [place] # (Auto) (0.11-0.59) K/uL Eos # (Auto) (0-0.50) K/uL Baso # (Auto) (0-0.2) K/uL Immature Gran # (Auto) (0.01-0.20) K/uL Sodium (136-145) mmol/L Potassium (3.5-5.1) mmol/L Chloride (98-107) mmol/L Carbon Dioxide (21-32) mmol/L Anion Gap (3-11) BUN (6-23) mg/dl Creatinine (0.6-1.4) mg/dl Est Cr Clr Drug Dosing ml/min Est GFR ( Amer) ml/min Est GFR (Non-Af Amer) ml/min BUN/Creatinine Ratio (10-20) Glucose (70-99(Fasting)) mg/dl POC Glucose 138 H (70-99) mg/dl Estimat Average Glucose mg/dl Hemoglobin A1c (4.5-5.6) % Calcium (8.5-10.1) mg/dl Phosphorus (2.5-4.9) mg/dl Magnesium (1.7-2.4) mg/dl Stl C. cayetanensis PCR Not Detected (NotDetected) Stool Rotavirus A PCR Not Detected (NotDetected) Stl Adenov F 40/41 PCR Not Detected (NotDetected) Stool Astrovirus (PCR) Not Detected (NotDetected) Stool Campylobacter PCR Not Detected (NotDetected) Stl C. diff Tox B Gene (Neg) Stl C.difficile Tox A&B (Negative) Stool Cryptosporidium PCR Not Detected (NotDetected) Stl E.coli Shiga Tox PCR Not Detected (NotDetected) Stl Enterotoxigenic E PCR Not Detected (NotDetected) Stool EPEC (PCR) Not Detected (NotDetected) Stool EAEC (PCR) Not Detected (NotDetected) Stl E. histolytica PCR Not Detected (NotDetected) Stool Giardia Lamblia PCR Not Detected (NotDetected) Stool Salmonella PCR Not Detected (NotDetected) Stool Sapovirus (PCR) Not Detected (NotDetected) Stl P. shigelloides PCR Not Detected (NotDetected) Stl Shigella/EIEC PCR Not Detected (NotDetected) St Y.enterocolitica PCR Not Detected (NotDetected) Stool Vibrio (PCR) Not Detected (NotDetected) Stl Vibrio cholerae PCR Not Detected (NotDetected) Stl Norovirus GI/GII PCR Not Detected (NotDetected) 05/16/22 05/16/22 Range/Units 14:30 10:45 WBC (4.8-10.8) K/ul RBC (4.70-6.10) M/uL Hgb 10.1 L (14.0-18.0) g/dl Hct 29.7 L (42.0-52.0) % MCV (80.0-100.0) fL MCH (25.0-34.0) pg MCHC (32.0-36.0) g/dL RDW Std Deviation (36.4-46.3) fL RDW Coeff of Amriam (11.5-14.5) % Plt Count (130-400) K/uL MPV (9.4-12.4) fL Immature Gran % (Auto) % Neut % (Auto) % Lymph % (Auto) % [place] % (Auto) % Eos % (Auto) % Baso % (Auto) % Neut # (Auto) (1.40-6.50) K/uL Lymph # (Auto) (1.2-3.4) K/uL [place] # (Auto) (0.11-0.59) K/uL Eos # (Auto) (0-0.50) K/uL Baso # (Auto) (0-0.2) K/uL Immature Gran # (Auto) (0.01-0.20) K/uL Sodium (136-145) mmol/L Potassium (3.5-5.1) mmol/L Chloride (98-107) mmol/L Carbon Dioxide (21-32) mmol/L Anion Gap (3-11) BUN (6-23) mg/dl Creatinine (0.6-1.4) mg/dl Est Cr Clr Drug Dosing ml/min Est GFR ( Amer) ml/min Est GFR (Non-Af Amer) ml/min BUN/Creatinine Ratio (10-20) Glucose (70-99(Fasting)) mg/dl POC Glucose (70-99) mg/dl Estimat Average Glucose mg/dl Hemoglobin A1c (4.5-5.6) % Calcium (8.5-10.1) mg/dl Phosphorus (2.5-4.9) mg/dl Magnesium (1.7-2.4) mg/dl Stl C. cayetanensis PCR (NotDetected) Stool Rotavirus A PCR (NotDetected) Stl Adenov F 40/41 PCR (NotDetected) Stool Astrovirus (PCR) (NotDetected) Stool Campylobacter PCR (NotDetected) Stl C. diff Tox B Gene Positive Cdiff Gene H (Neg) Stl C.difficile Tox A&B Positive Cdiff Toxin A* (Negative) Stool Cryptosporidium PCR (NotDetected) Stl E.coli Shiga Tox PCR (NotDetected) Stl Enterotoxigenic E PCR (NotDetected) Stool EPEC (PCR) (NotDetected) Stool EAEC (PCR) (NotDetected) Stl E. histolytica PCR (NotDetected) Stool Giardia Lamblia PCR (NotDetected) Stool Salmonella PCR (NotDetected) Stool Sapovirus (PCR) (NotDetected) Stl P. shigelloides PCR (NotDetected) Stl Shigella/EIEC PCR (NotDetected) St Y.enterocolitica PCR (NotDetected) Stool Vibrio (PCR) (NotDetected) Stl Vibrio cholerae PCR (NotDetected) Stl Norovirus GI/GII PCR (NotDetected) Medications Administered Current Inpatient Medications Acetaminophen (Acetaminophen 325 Mg Tab) 650 mg PO Q4H PRN PRN Reason: Pain or Fever Stop: 06/15/22 10:33 Dextrose (Dextrose 50% 50 Ml Syringe) 25 - 50 ml IV UD PRN; Protocol PRN Reason: Hypoglycemia Protocol Stop: 06/15/22 10:33 Dorzolamide HCl (Dorzolamide Hcl 2% Oph Soln 10 Ml Btl) 1 drops OPR BID CHANG Stop: 06/15/22 10:33 Last Admin: 05/17/22 08:17 Dose: 1 drops Glucagon (Glucagon For Inj 1 Mg Vial) 1 mg SQ UD PRN; Protocol PRN Reason: Hypoglycemia Protocol Stop: 06/15/22 10:33 Glucose (Glucose 10 Tab/Tube) 4 - 8 tab PO UD PRN; Protocol PRN Reason: Hypoglycemia Treatment Stop: 06/15/22 10:33 Glucose (Glucose 40% Gel 15 Gm Tube) 15 - 30 gm PO UD PRN; Protocol PRN Reason: Hypoglycemia Protocol Stop: 06/15/22 10:33 Sodium Chloride (Nss 1000ml) 1,000 mls @ 50 mls/hr IV .Q20H [facility]ANG Stop: 06/15/22 10:33 Last Infusion: 05/17/22 08:51 Dose: Infused Piperacillin Sod/Tazobactam (Sod 3.375 gm/ Dextrose) 115 mls @ 28.75 mls/hr IV Q8H [facility]; Protocol Stop: 05/26/22 10:59 Last Admin: 05/17/22 03:37 Dose: 28.8 mls/hr Pantoprazole Sodium 40 mg/ (Syringe) 10 mls @ 5 mls/min IV BID [facility] Stop: 06/15/22 15:29 Last Admin: 05/17/22 08:18 Dose: 5 mls/min Insulin Aspart (Insulin Aspart Per Unit) 0 units SC ACHS [facility] Stop: 06/15/22 20:59 Last Admin: 05/16/22 20:16 Dose: 1 units Levothyroxine Sodium (Levothyroxine Sodium 88 Mcg Tablet) 88 mcg PO DAILYBB [facility] Stop: 06/16/22 06:29 Last Admin: 05/17/22 06:23 Dose: 88 mcg Magnesium Oxide (Magnesium Oxide 400 Mg Tab) 400 mg PO QAM [facility] Stop: 06/15/22 10:59 Last Admin: 05/17/22 08:18 Dose: 400 mg Metoprolol Tartrate (Metoprolol Tartrate 50 Mg Tab) 50 mg PO AMHS [facility] Stop: 06/15/22 10:33 Last Admin: 05/17/22 08:18 Dose: 50 mg Miscellaneous (Carbohydrates For Hypoglycemia ) 15 - 30 gm PO UD PRN PRN Reason: Hypoglycemia Protocol Stop: 06/15/22 10:33 Morphine Sulfate (Morphine Sulfate 4 Mg/Ml 1 Ml Carp\Vial) 3 mg IV Q4H PRN PRN Reason: Pain Stop: 05/30/22 19:46 Last Admin: 05/16/22 20:16 Dose: 3 mg Multivitamins/Folic Acid/Vitamin C (Multivitamin Chewable Tab) 1 tab PO QAM [facility] Stop: 06/15/22 10:33 Last Admin: 05/17/22 08:18 Dose: 1 tab Nitroglycerin (Nitroglycerin Sl 0.4 Mg/Tab Tab) 0.4 mg SL UD PRN PRN Reason: Chest Pain Stop: 06/15/22 10:33 Ondansetron HCl (Ondansetron Inj 2 Mg/Ml 2 Ml Vial) 4 mg IV Q6H PRN PRN Reason: Nausea Stop: 06/15/22 10:33 Last Admin: 05/16/22 18:21 Dose: 4 mg Oxycodone HCl (Oxycodone Hcl Ir 5 Mg Tab (Immediate Release)) 5 mg PO Q6H PRN PRN Reason: Severe Pain Stop: 05/30/22 17:16 Last Admin: 05/16/22 17:52 Dose: 5 mg Pantoprazole Sodium (Pantoprazole 40 Mg Tab) 40 mg PO BID [facility] Stop: 06/15/22 11:44 Last Admin: 05/16/22 13:12 Dose: Not Given Raspberry (Raspberry Syrup 5 Ml Udp) 5 ml PO Q6 [facility] Stop: 05/26/22 17:59 Last Admin: 05/17/22 06:23 Dose: 5 ml Vancomycin HCl (Vancomycin Hcl 250 Mg/5 Ml Soln) 250 mg PO Q6 [facility] Stop: 05/26/22 17:59 Last Admin: 05/17/22 06:23 Dose: 250 mg Vitamin B Complex (Vitamin B Complex Tab) 1 tab PO DAILY [facility] Stop: 06/15/22 10:33 Last Admin: 05/17/22 08:18 Dose: 1 tab (2) Nausea & vomiting Vomiting type: unspecified Qualified Code(s): R11.2 - Nausea with vomiting, unspecified
[2022-05-17] MEDS: INSULIN ASPART PER UNIT SC SCH ×4 (09:39→20:49)
[2022-05-17] MEDS: SODIUM CHLORIDE 0.9% 1000ML 1,000 ML IV SCH (10:00)
--- NOTE | 2022-05-17 10:17 | Gastroenterology Progress Note ---
Date of Service May 17, 2022 Assessment & Plan (1) Abdominal pain, acute: (2) Nausea & vomiting: Plan: Pt is a 66 yo male seen for abd pain, n/v, subjective fever, one episode of rectal bleeding.He has hx of cholelithiasis, choledocholithiasis s/p ERCP w biliary stent placement and Axios stent for gallbladder drainage done at [facility] on 05/01 and 05/03/22. He's not a good surgical candidate due to his cardiac comorbidities. Was just discharged from [facility] last . + leukocytosis but improved from 3 days prior. LFTs not significantly elevated. CT abd/pelvis showed biliary stent and Axios drain in place, patent. He was found to have C. difficile infection. Did have 1 bout of bloody bowel movements between yesterday and this morning. Had drop in blood ct Hgb from 11- >8. Otherwise abd exam benign wo tenderness, guarding and he denies n/v. Afe brile since admission, hemodynamically stable. - Obtain blood cx -> negative. - Zosyn IV for biliary coverage - Vancomycin PO for Cdiff infection; contact precautions - Monitor LFTs - Deferring endoscopy intervention at this time for rectal bleeding tho will continue to monitor blood ct and for any further s/s of GI bleeding Admission and Anticipated Discharge Date Admission Date: May 16, 2022 Supervising Physician Co-Signing Physician Notes Attending attestation I have seen, examined this patient, and agree with the findings and above by our mid-level provider RYLEY Miranda, with the following additions: Found to have C-diff with expected brbpr BP stable BID PPI Supportive care Would support d/c of zosyn and monotherapy with po vanco Call with questions Subjective Patient reports that he is feeling much better, no longer having any nausea or vomiting, abd pain. Tolerated CL diet this AM Cdiff +, he reported 3 BMs between yesterday and this morning. First 2 BM not bloody, but last one this AM had dark red blood. Hgb 11->8. Blood cx negative. Review of Systems Review of Systems: All systems reviewed & are unremarkable except as noted in HPI & below Physical Exam Constitutional: WD/WN, vitals as above well groomed, cooperative and comfortable Eyes: PERRL, conjunctivae normal, anicteric sclerae ENMT: external ear and nose normal, oropharynx normal Respiratory: normal respiratory effort, lungs clear to auscultation Cardiovascular: RRR, + grade 3/6 murmurs, no gallops Gastrointestinal (Abdomen): normal bowel sounds, soft, nontender, no hepatosplenomegaly Skin: no rashes, warm and dry no jaundice Psychiatric: A+Ox3, euthymic affect Lymphatic: no lymphedema Results & Data ([facility]) Vital Signs (Past 12 Hours) Vital Signs Temp Pulse Pulse Resp BP Pulse Ox O2 Del Method 05/17/22 07:03 37.2 C 88 18 118/78 98 Nasal Cannula 05/17/22 02:46 37.1 C 83 18 101/69 97 Nasal Cannula 05/17/22 01:09 109 H 05/17/22 00:40 Room Air, Nasal Cannula 05/16/22 22:42 37.4 C 95 H 20 127/81 98 Nasal Cannula O2 Flow Rate 05/17/22 07:03 2 05/17/22 02:46 2 05/17/22 01:09 05/17/22 00:40 2 05/16/22 22:42 2 (2) Nausea & vomiting Vomiting type: unspecified Qualified Code(s): R11.2 - Nausea with vomiting, unspecified
[2022-05-17 11:45] LABS: Bilirubin Direct 2.1 mg/dl (0-0.2); Total Protein 6.1 gm/dl (6.0-8.3)
[2022-05-17 18:34] LABS: Hematocrit (blood only) 24.9 % (42.0-52.0); Hemoglobin 8.4 g/dl (14.0-18.0)
[2022-05-18] MEDS: RASPBERRY SYRUP 5 ML UDP PO SCH ×4 (00:08→17:09)
[2022-05-18] MEDS: VANCOMYCIN HCL 250 MG/5 ML SOLN PO SCH ×4 (00:09→17:09)
[2022-05-18] MEDS: LEVOTHYROXINE SODIUM 88 MCG TABLET PO SCH (05:45)
[2022-05-18] MEDS: SODIUM CHLORIDE 0.9% 1000ML 1,000 ML IV SCH (05:46)
[2022-05-18 07:50] LABS: Hematocrit (blood only) 23.6 % (42.0-52.0); Hemoglobin 7.6 g/dl (14.0-18.0); Mean Corpuscular Hemoglobin 31.5 pg (25.0-34.0); Mean Corpuscular Hgb Conc 32.2 g/dL (32.0-36.0); Mean Corpuscular Volume 97.9 fL (80.0-100.0); Mean Platelet Volume 11.8 fL (9.4-12.4); Platelet Count 245 K/uL (130-400); RDW Coefficient of Variation 12.6 % (11.5-14.5); RDW Standard Deviation 45.3 fL (36.4-46.3); Red Blood Count 2.41 M/uL (4.70-6.10); White Blood Count 6.58 K/ul (4.8-10.8)
[2022-05-18 08:03] LABS: Albumin Level 2.9 gm/dl (3.4-5.0); Bilirubin,Total 1.9 mg/dl (0.2-1.0); Calcium 8.4 mg/dl (8.5-10.1); Creatinine Clr Calc Pharmacy 92.7 ml/min; Est GFR (African American) 91.8 ml/min; Est GFR (Non-African American) 79.2 ml/min; Globulin 2.9 gm/dl (2.5-4.0); Magnesium 2.2 mg/dl (1.7-2.4); Potassium 4.3 mmol/L (3.5-5.1); Total Protein 5.8 gm/dl (6.0-8.3)
[2022-05-18] MEDS: MAGNESIUM OXIDE 400 MG TAB PO SCH (08:42)
[2022-05-18] MEDS: DORZOLAMIDE HCL 2% OPH SOLN 10 ML BTL OPR SCH ×2 (08:42→21:26)
[2022-05-18] MEDS: MULTIVITAMIN CHEWABLE TAB PO SCH (08:42)
[2022-05-18] MEDS: VITAMIN B COMPLEX TAB PO SCH (08:42)
[2022-05-18] MEDS: METOPROLOL TARTRATE 50 MG TAB PO SCH ×2 (08:42→21:27)
[2022-05-18] MEDS: INSULIN ASPART PER UNIT SC SCH ×4 (08:43→21:24)
[2022-05-18] MEDS: PANTOprazole 40 MG in SYRINGE 0 ML IV SCH ×2 (08:47→21:32)
[2022-05-18] MEDS ORDERED: SODIUM CHLORIDE 0.9% 250 ML IV PRN (09:00)
--- NOTE | 2022-05-18 09:06 | Gastroenterology Progress Note ---
Date of Service May 18, 2022 Assessment & Plan (1) Abdominal pain, acute: (2) Nausea & vomiting: Plan: Pt is a 66 yo male w hx of cholelithiasis, choledocholithiasis s/p ERCP w biliary stent placement and Axios stent for gallbladder drainage done at [facility] on 05/01 and 05/03/22, admitted for subjective fever, n/v, rectal bleeding. He's not a good surgical candidate due to his cardiac comorbidities. LFTs normal at admission w CT evidence of patent biliary stent and Axios drain. LFTs increased yesterday and we made him NPO after midnight in anticipation for possible stent clean out if LFTs continue to rise. LFTs trending down this AM. He remains afeb rile and hemodynamically stable. Leukocytosis also resolved now. He was found to have Cdiff infection, 2 loose BMs yesterday wo gross GI bleeding per his report but noted blood ct is trending down. - Obtain blood cx -> negative. - WBC normalized, LFTs trending down, will give him trial off Zosyn - Vancomycin PO for Cdiff infection; contact precautions - Monitor LFTs - Monitor blood ct closely; contacted primary hospitalist today for possible PRBC transfusion - Restarted CL diet Admission and Anticipated Discharge Date Admission Date: May 16, 2022 Supervising Physician Co-Signing Physician Notes Attending attestation I have seen, examined this patient, and agree with the findings and above by our mid-level provider RYLEY Miranda, with the following additions: - One BM green in nature - Looks well, consider d/cing systemic abx - Vanco treatment for c-diff - Advance diet - Follow LFT's and WBC count, if continue to decline would expect DC soon Subjective Pt had 2 loose BMs yesterday. Did not notice blood, stools are dark in color per his report. He denies fever, chills, CP, SOB, abd pain, n/v. Hemodynamically stable, noted Hgb down to 7.6 this AM. LFTs improving. Review of Systems Review of Systems: All systems reviewed & are unremarkable except as noted in HPI & below Physical Exam Constitutional: WD/WN, vitals as above well groomed, cooperative and comfortable Eyes: PERRL, conjunctivae normal, anicteric sclerae ENMT: external ear and nose normal, oropharynx normal Respiratory: normal respiratory effort, lungs clear to auscultation Cardiovascular: + grade 3/6 murmur, no gallops, HRR Gastrointestinal (Abdomen): normal bowel sounds, soft, nontender, no hepatosplenomegaly Skin: no rashes, warm and dry no jaundice Psychiatric: A+Ox3, euthymic affect Lymphatic: no lymphedema Results & Data ([facility]) Vital Signs (Past 12 Hours) Vital Signs Temp Pulse Pulse Resp BP Pulse Ox O2 Del Method 05/18/22 08:00 37.0 C 96 H 18 105/71 95 Nasal Cannula 05/18/22 07:41 63 05/18/22 02:44 36.5 C 82 18 108/73 100 Nasal Cannula 05/17/22 22:00 37 C 82 16 117/81 98 Nasal Cannula 05/17/22 22:21 77 O2 Flow Rate 05/18/22 08:00 2 05/18/22 07:41 05/18/22 02:44 2 05/17/22 22:00 2 05/17/22 22:21 (2) Nausea & vomiting Vomiting type: unspecified Qualified Code(s): R11.2 - Nausea with vomiting, unspecified
--- NOTE | 2022-05-18 09:17 | Hospitalist Progress Note ---
Date of Service May 18, 2022 Assessment & Plan (1) Abdominal pain, acute: (2) Nausea & vomiting: (3) Leukocytosis: Plan: This 66 yo male presents with nausea, vomiting, and abdominal pain. 1. Nausea, vomiting, and abdominal pain. The patient recently had choledocholithiasis and was transferred to [place], status post ERCP and stone removal and metal stent placed and as per surgery recommendations repeat ERCP with AXIOS stent presensts with nausea, vomiting, and abdominal pain In ER blood pressure was on the lower side, currently blood pressure improved. His WBC 26 L is elevated and also procalcitonin elevated (1.17) on admission WBC now normalized CT abd. pelvis FINDINGS: Gallbladder and biliary tree: There is interval placement of a gallbladder drain into the duodenum. The gallbladder wall is thickened with heterogeneous contents including some air noted. Pericholecystic stranding is seen. A biliary stent is seen, new from prior exam, with pneumobilia. Bowel: The appendix is normal. A small hiatal hernia is seen. IMPRESSION: Interval gallbladder stent placement. The gallbladder wall is thickened and heterogeneous. A common bile duct stent is seen with expected pneumobilia. Empirically started pt on IV Zosyn, gentle fluids, pain control Blood cultx - pending GI consulted Stool studies - positive for c. diff, PO vanco started per GI - ok to DC zosyn and continue w/ PO vanco monotherapy Pt is having some blood in the stool c/w c. diff colitis Monitor H&H 2. idiopathic cardiomyopathy with ejection fraction of less than 20%, but cur rently resolved. 3. chronic diastolic congestive heart failure with severe aortic stenosis. Holding eplerenone, Lasix, lisinopril, for Dee. On metoprolol, which we will continued with holding parameters. Getting gentle fluids. Monitor for volume overload. 4. diabetes, insulin sliding scale and follow the blood sugars. 5. Hypertension. Continue his medications of metoprolol with hold parameters. Holding lisinopril, and diuretics for dee and hypotensions. We will monitor the blood pressure. 6. Paroxysmal atrial fibrillation, rate controlled with metoprolol. The patient is on Eliquis, which we will hold for gastrointestinal bleed and also for possible procedures. 7. Gastrointestinal bleed. As above, secondary to c. diff colitis We will follow hemoglobin and hematocrit. Blood consent obtained. Eliquis held. hgb 7.6 - plan to transfuse 1 unit of pRBC, discussed with GI 8. DEE Cr 1.19. Holding lisinopril and diuretics. On gentle fluids. Will follow labs. 9. History of complete heart block, status post pacemaker. 10 Hypothyroidism, on Synthroid. DVT prophylaxis: SCDs for now DISPOSITION:med tele. PT/OT prior to discharge. CODE: full code. Admission and Anticipated Discharge Date Admission Date: May 16, 2022 Subjective Patient seen in follow-up of abdominal pain, nausea vomiting Patient was recently transferred to [facility] for choledocholithiasis, underwent ERCP and stent placement Has hx of c. diff and now stool studies positive for c. diff This morning lying in bed, in no acute distress, reports feeling better Abdominal pain much improved today, however there was some blood in the stool previously Discussed with GI - will transfuse 1 unit of pRBCs today Pt denies fevers chills chest pain shortness of breath GI consulted as well and following Review of Systems Review of Systems: All systems reviewed & are unremarkable except as noted in Subjective Physical Exam Physical Exam: GENERAL: obese M, not in acute distress. HEENT: NC/AT. EOMI. Pupils equal, round, and reactive to light. Oral mucosa moist. NECK: No JVD. No neck masses. CARDIOVASCULAR: S1 and S2 heard, regular. Ejection systolic murmur heard. Regular rate and rhythm. RESPIRATORY:: Normal AP diameter. No accessory muscle use. No wheezing. No crackles. ABDOMEN: Soft. Bowel sounds present. Nontender to palpation (improved from previous exam). No distention. NEURO: Alert and oriented. Speech is clear. No facial droop. Obeys simple commands. EXTREMITIES: No edema. No erythema. Results & Data Results & Data ([facility]) Vital Signs (Past 12 Hours) Vital Signs Temp Pulse Pulse Resp BP Pulse Ox O2 Del Method 05/18/22 08:00 37.0 C 96 H 18 105/71 95 Nasal Cannula 05/18/22 07:41 63 05/18/22 02:44 36.5 C 82 18 108/73 100 Nasal Cannula 05/17/22 22:00 37 C 82 16 117/81 98 Nasal Cannula 05/17/22 22:21 77 O2 Flow Rate 05/18/22 08:00 2 05/18/22 07:41 05/18/22 02:44 2 05/17/22 22:00 2 05/17/22 22:21 Laboratory Results 05/18/22 05/18/22 05/18/22 Range/Units 06:59 06:59 05:43 WBC 6.58 (4.8-10.8) K/ul RBC 2.41 L (4.70-6.10) M/uL Hgb 7.6 L (14.0-18.0) g/dl Hct 23.6 L (42.0-52.0) % MCV 97.9 (80.0-100.0) fL MCH 31.5 (25.0-34.0) pg MCHC 32.2 (32.0-36.0) g/dL RDW Std Deviation 45.3 (36.4-46.3) fL RDW Coeff of Mariam 12.6 (11.5-14.5) % Plt Count 245 (130-400) K/uL MPV 11.8 (9.4-12.4) fL Sodium 140 (136-145) mmol/L Potassium 4.3 (3.5-5.1) mmol/L Chloride 111 H (98-107) mmol/L Carbon Dioxide 28 (21-32) mmol/L Anion Gap 1 L (3-11) BUN 11 (6-23) mg/dl Creatinine 1.00 (0.6-1.4) mg/dl Est Cr Clr Drug Dosing 92.7 ml/min Est GFR ( Amer) 91.8 ml/min Est GFR (Non-Af Amer) 79.2 ml/min BUN/Creatinine Ratio 11.0 (10-20) Glucose 120 H (70-99(Fasting)) mg/dl POC Glucose 111 H (70-99) mg/dl Calcium 8.4 L (8.5-10.1) mg/dl Phosphorus 3.0 (2.5-4.9) mg/dl Magnesium 2.2 (1.7-2.4) mg/dl Total Bilirubin 1.9 H (0.2-1.0) mg/dl Direct Bilirubin (0-0.2) mg/dl AST 91 H (13-39) U/L ALT 102 H (7-52) U/L Alkaline Phosphatase 163 H (34-104) U/L Total Protein 5.8 L (6.0-8.3) gm/dl Albumin 2.9 L (3.4-5.0) gm/dl Globulin 2.9 (2.5-4.0) gm/dl Albumin/Globulin Ratio 1.0 (0.9-2) 05/17/22 05/17/22 05/17/22 Range/Units 20:42 18:13 16:44 WBC (4.8-10.8) K/ul RBC (4.70-6.10) M/uL Hgb 8.4 L (14.0-18.0) g/dl Hct 24.9 L (42.0-52.0) % MCV (80.0-100.0) fL MCH (25.0-34.0) pg MCHC (32.0-36.0) g/dL RDW Std Deviation (36.4-46.3) fL RDW Coeff of Mariam (11.5-14.5) % Plt Count (130-400) K/uL MPV (9.4-12.4) fL Sodium (136-145) mmol/L Potassium (3.5-5.1) mmol/L Chloride (98-107) mmol/L Carbon Dioxide (21-32) mmol/L Anion Gap (3-11) BUN (6-23) mg/dl Creatinine (0.6-1.4) mg/dl Est Cr Clr Drug Dosing ml/min Est GFR ( Amer) ml/min Est GFR (Non-Af Amer) ml/min BUN/Creatinine Ratio (10-20) Glucose (70-99(Fasting)) mg/dl POC Glucose 131 H 128 H (70-99) mg/dl Calcium (8.5-10.1) mg/dl Phosphorus (2.5-4.9) mg/dl Magnesium (1.7-2.4) mg/dl Total Bilirubin (0.2-1.0) mg/dl Direct Bilirubin (0-0.2) mg/dl AST (13-39) U/L ALT (7-52) U/L Alkaline Phosphatase (34-104) U/L Total Protein (6.0-8.3) gm/dl Albumin (3.4-5.0) gm/dl Globulin (2.5-4.0) gm/dl Albumin/Globulin Ratio (0.9-2) 05/17/22 05/17/22 05/17/22 Range/Units 11:21 05:35 05:35 WBC (4.8-10.8) K/ul RBC (4.70-6.10) M/uL Hgb (14.0-18.0) g/dl Hct (42.0-52.0) % MCV (80.0-100.0) fL MCH (25.0-34.0) pg MCHC (32.0-36.0) g/dL RDW Std Deviation (36.4-46.3) fL RDW Coeff of Mariam (11.5-14.5) % Plt Count (130-400) K/uL MPV (9.4-12.4) fL Sodium 138 (136-145) mmol/L Potassium 4.9 D (3.5-5.1) mmol/L Chloride 108 H (98-107) mmol/L Carbon Dioxide 28 (21-32) mmol/L Anion Gap 2 L (3-11) BUN 20 (6-23) mg/dl Creatinine 1.19 D (0.6-1.4) mg/dl Est Cr Clr Drug Dosing 77.9 ml/min Est GFR ( Amer) 74.4 ml/min Est GFR (Non-Af Amer) 64.2 ml/min BUN/Creatinine Ratio 16.8 (10-20) Glucose 157 H (70-99(Fasting)) mg/dl POC Glucose 121 H (70-99) mg/dl Calcium 8.4 L (8.5-10.1) mg/dl Phosphorus 3.1 (2.5-4.9) mg/dl Magnesium 2.2 (1.7-2.4) mg/dl Total Bilirubin Cancelled 3.0 H D (0.2-1.0) mg/dl Direct Bilirubin Cancelled 2.1 H (0-0.2) mg/dl AST Cancelled 126 H (13-39) U/L ALT Cancelled 105 H (7-52) U/L Alkaline Phosphatase Cancelled 208 H (34-104) U/L Total Protein Cancelled 6.1 (6.0-8.3) gm/dl Albumin Cancelled 3.0 L (3.4-5.0) gm/dl Globulin (2.5-4.0) gm/dl Albumin/Globulin Ratio (0.9-2) Medications Administered Current Inpatient Medications Acetaminophen (Acetaminophen 325 Mg Tab) 650 mg PO Q4H PRN PRN Reason: Pain or Fever Stop: 06/15/22 10:33 Dextrose (Dextrose 50% 50 Ml Syringe) 25 - 50 ml IV UD PRN; Protocol PRN Reason: Hypoglycemia Protocol Stop: 06/15/22 10:33 Dorzolamide HCl (Dorzolamide Hcl 2% Oph Soln 10 Ml Btl) 1 drops OPR BID CHANG Stop: 06/15/22 10:33 Last Admin: 05/18/22 08:42 Dose: 1 drops Glucagon (Glucagon For Inj 1 Mg Vial) 1 mg SQ UD PRN; Protocol PRN Reason: Hypoglycemia Protocol Stop: 06/15/22 10:33 Glucose (Glucose 10 Tab/Tube) 4 - 8 tab PO UD PRN; Protocol PRN Reason: Hypoglycemia Treatment Stop: 06/15/22 10:33 Glucose (Glucose 40% Gel 15 Gm Tube) 15 - 30 gm PO UD PRN; Protocol PRN Reason: Hypoglycemia Protocol Stop: 06/15/22 10:33 Sodium Chloride (Nss 1000ml) 1,000 mls @ 50 mls/hr IV .Q20H CHANG Stop: 06/15/22 10:33 Last Admin: 05/18/22 05:46 Dose: 50 mls/hr Piperacillin Sod/Tazobactam (Sod 3.375 gm/ Dextrose) 115 mls @ 28.75 mls/hr IV Q8H CHANG; Protocol Stop: 05/26/22 10:59 Last Infusion: 05/17/22 17:32 Dose: Infused Pantoprazole Sodium 40 mg/ (Syringe) 10 mls @ 5 mls/min IV BID CHANG Stop: 06/15/22 15:29 Last Admin: 05/18/22 08:47 Dose: 5 mls/min Sodium Chloride (Nss) 250 mls @ 15 mls/hr IV .[id number] PRN PRN Reason: For Transfusion Duration Stop: 05/18/22 19:01 Insulin Aspart (Insulin Aspart Per Unit) 0 units SC ACHS CHANG Stop: 06/15/22 20:59 Last Admin: 05/18/22 08:43 Dose: Not Given Levothyroxine Sodium (Levothyroxine Sodium 88 Mcg Tablet) 88 mcg PO DAILYBB [facility] Stop: 06/16/22 06:29 Last Admin: 05/18/22 05:45 Dose: 88 mcg Magnesium Oxide (Magnesium Oxide 400 Mg Tab) 400 mg PO QAM [facility] Stop: 06/15/22 10:59 Last Admin: 05/18/22 08:42 Dose: 400 mg Metoprolol Tartrate (Metoprolol Tartrate 50 Mg Tab) 50 mg PO AMHS [facility] Stop: 06/15/22 10:33 Last Admin: 05/18/22 08:42 Dose: 50 mg Miscellaneous (Carbohydrates For Hypoglycemia ) 15 - 30 gm PO UD PRN PRN Reason: Hypoglycemia Protocol Stop: 06/15/22 10:33 Morphine Sulfate (Morphine Sulfate 4 Mg/Ml 1 Ml Carp\Vial) 3 mg IV Q4H PRN PRN Reason: Pain Stop: 05/30/22 19:46 Last Admin: 05/16/22 20:16 Dose: 3 mg Multivitamins/Folic Acid/Vitamin C (Multivitamin Chewable Tab) 1 [facility] Stop: 06/15/22 10:33 Last Admin: 05/18/22 08:42 Dose: 1 tab Nitroglycerin (Nitroglycerin Sl 0.4 Mg/Tab Tab) 0.4 mg SL UD PRN PRN Reason: Chest Pain Stop: 06/15/22 10:33 Ondansetron HCl (Ondansetron Inj 2 Mg/Ml 2 Ml Vial) 4 mg IV Q6H PRN PRN Reason: Nausea Stop: 06/15/22 10:33 Last Admin: 05/16/22 18:21 Dose: 4 mg Oxycodone HCl (Oxycodone Hcl Ir 5 Mg Tab (Immediate Release)) 5 mg PO Q6H PRN PRN Reason: Severe Pain Stop: 05/30/22 17:16 Last Admin: 05/16/22 17:52 Dose: 5 mg Pantoprazole Sodium (Pantoprazole 40 Mg Tab) 40 mg PO BID [facility] Stop: 06/15/22 11:44 Last Admin: 05/16/22 13:12 Dose: Not Given Raspberry (Raspberry Syrup 5 Ml Udp) 5 ml PO Q6 [facility] Stop: 05/26/22 17:59 Last Admin: 05/18/22 05:45 Dose: 5 ml Vancomycin HCl (Vancomycin Hcl 250 Mg/5 Ml Soln) 250 mg PO Q6 [facility] Stop: 05/26/22 17:59 Last Admin: 05/18/22 05:44 Dose: 250 mg Vitamin B Complex (Vitamin B Complex Tab) 1 tab PO DAILY [facility] Stop: 06/15/22 10:33 Last Admin: 05/18/22 08:42 Dose: 1 tab (2) Nausea & vomiting Vomiting type: unspecified Qualified Code(s): R11.2 - Nausea with vomiting, unspecified
[2022-05-19] MEDS: RASPBERRY SYRUP 5 ML UDP PO SCH ×4 (00:10→17:03)
[2022-05-19] MEDS: VANCOMYCIN HCL 250 MG/5 ML SOLN PO SCH ×4 (00:11→17:03)
[2022-05-19] MEDS: LEVOTHYROXINE SODIUM 88 MCG TABLET PO SCH (06:13)
[2022-05-19] MEDS: SODIUM CHLORIDE 0.9% 1000ML 1,000 ML IV SCH (06:55)
[2022-05-19 07:59] LABS: Basophils # (auto) 0.06 K/uL (0-0.2); Eosinophils % (auto) 3.2 %; Hematocrit (blood only) 26.6 % (42.0-52.0); Hemoglobin 8.8 g/dl (14.0-18.0); Immature Granulocytes # (auto) 0.03 K/uL (0.01-0.20); Immature Granulocytes % (auto) 0.5 %; Lymphocytes # (auto) 1.61 K/uL (1.2-3.4); Lymphocytes % (auto) 25.7 %; Mean Corpuscular Hemoglobin 31.1 pg (25.0-34.0); Mean Corpuscular Hgb Conc 33.1 g/dL (32.0-36.0); Mean Platelet Volume 11.6 fL (9.4-12.4); Monocytes # (auto) 0.66 K/uL (0.11-0.59); Monocytes % (auto) 10.5 %; Neutrophils % (auto) 59.1 %; Platelet Count 281 K/uL (130-400); RDW Standard Deviation 47.5 fL (36.4-46.3); Red Blood Count 2.83 M/uL (4.70-6.10); White Blood Count 6.26 K/ul (4.8-10.8)
[2022-05-19] MEDS: INSULIN ASPART PER UNIT SC SCH ×4 (08:33→20:23)
[2022-05-19] MEDS: MULTIVITAMIN CHEWABLE TAB PO SCH (08:37)
[2022-05-19] MEDS: VITAMIN B COMPLEX TAB PO SCH (08:37)
[2022-05-19] MEDS: DORZOLAMIDE HCL 2% OPH SOLN 10 ML BTL OPR SCH ×2 (08:37→20:23)
[2022-05-19] MEDS: METOPROLOL TARTRATE 50 MG TAB PO SCH ×2 (08:37→20:25)
[2022-05-19] MEDS: MAGNESIUM OXIDE 400 MG TAB PO SCH (08:37)
[2022-05-19] MEDS: PANTOprazole 40 MG in SYRINGE 0 ML IV SCH (08:37)
[2022-05-19 08:48] LABS: Albumin Level 3.1 gm/dl (3.4-5.0); BUN Creatinine Ratio 8.4 (10-20); Calcium 8.7 mg/dl (8.5-10.1); Creatinine Clr Calc Pharmacy 97.3 ml/min; Est GFR (African American) 97.7 ml/min; Est GFR (Non-African American) 84.3 ml/min; Globulin 3.2 gm/dl (2.5-4.0); Phosphorus 2.8 mg/dl (2.5-4.9); Potassium 3.9 mmol/L (3.5-5.1); Total Protein 6.3 gm/dl (6.0-8.3)
[2022-05-19] MEDS: PANTOprazole 40 MG TAB PO SCH ×2 (09:00→20:25)
--- NOTE | 2022-05-19 09:44 | Gastroenterology Progress Note ---
Date of Service May 19, 2022 Assessment & Plan (1) Abdominal pain, acute: (2) Nausea & vomiting: Plan: Pt is a 66 yo male w hx of cholelithiasis, choledocholithiasis s/p ERCP w biliary stent placement and Axios stent for gallbladder drainage [place] [facility] [place] 05/03/22, admitted for subjective fever, n/v, rectal bleeding. He's not a good surgical candidate due to his cardiac comorbidities. LFTs normal at admission w CT evidence of patent biliary stent and Axios drain. LFTs increased yesterday and we made him NPO after midnight in anticipation for possible stent clean out if LFTs continue to rise. LFTs trending down. He remains afebrile and hemodynamically stable. Leukocytosis also resolved now. He was found to have Cdiff infection, 3 loose BMs yesterday wo gross bleeding. Hgb 7.6 -> 8.8 after 1U PRBC transfusion. - Obtain blood cx -> negative. - Vancomycin PO for Cdiff infection; contact precautions - Monitor LFTs - Monitor blood ct closely. - Advanced to low fat, diabetic and heart healthy diet - GI to sign off; pls recall prn Admission and Anticipated Discharge Date Admission Date: May 16, 2022 Supervising Physician Co-Signing Physician Notes Attending attestation I have seen, examined this patient, and agree with the findings and above by our mid-level provider RYLEY Miranda, with the following additions: Doing well Advancing diet Po vanco for 14 day course Recall with any questions Subjective Pt had 3 BMs w dark stools yesterday. Denies n/v, abd pain, fever, chills. WBC remains normal, LFTs decreasing Review of Systems Review of Systems: All systems reviewed & are unremarkable except as noted in HPI & below Physical Exam Constitutional: WD/WN, vitals as above well groomed, cooperative and comfortable Eyes: PERRL, conjunctivae normal, anicteric sclerae ENMT: external ear and nose normal, oropharynx normal Respiratory: normal respiratory effort, lungs clear to auscultation Cardiovascular: RRR, + grade 3/6 murmur, no gallops Gastrointestinal (Abdomen): normal bowel sounds, soft, nontender, no hepatosplenomegaly Skin: no rashes, warm and dry no jaundice Psychiatric: A+Ox3, euthymic affect Lymphatic: no lymphedema Results & Data ([facility]) Vital Signs (Past 12 Hours) Vital Signs Temp Pulse Pulse Resp BP Pulse Ox O2 Del Method 05/19/22 07:54 36.8 C 72 18 128/86 97 Room Air 05/19/22 07:30 66 05/19/22 03:08 36.6 C 73 20 114/81 98 Room Air 05/18/22 22:54 36.9 C 70 18 113/76 97 Room Air 05/18/22 23:00 65 (2) Nausea & vomiting Vomiting type: unspecified Qualified Code(s): R11.2 - Nausea with vomiting, unspecified
--- NOTE | 2022-05-19 10:23 | Hospitalist Progress Note ---
Date of Service May 19, 2022 Assessment & Plan (1) Abdominal pain, acute: (2) Nausea & vomiting: (3) Leukocytosis: Plan: This 66 yo male presents with nausea, vomiting, and abdominal pain. 1. Nausea, vomiting, and abdominal pain. The patient recently had choledocholithiasis and was transferred to [place], status post ERCP and stone removal and metal stent placed and as per surgery recommendations repeat ERCP with AXIOS stent presensts with nausea, vomiting, and abdominal pain In ER blood pressure was on the lower side, currently blood pressure improved. His WBC 26 L is elevated and also procalcitonin elevated (1.17) on admission WBC now normalized CT abd. pelvis FINDINGS: Gallbladder and biliary tree: There is interval placement of a gallbladder drain into the duodenum. The gallbladder wall is thickened with heterogeneous contents including some air noted. Pericholecystic stranding is seen. A biliary stent is seen, new from prior exam, with pneumobilia. Bowel: The appendix is normal. A small hiatal hernia is seen. IMPRESSION: Interval gallbladder stent placement. The gallbladder wall is thickened and heterogeneous. A common bile duct stent is seen with expected pneumobilia. Empirically started pt on IV Zosyn, gentle fluids, pain control Blood cultx - pending, no growth in 48 hrs GI consulted Stool studies - positive for c. diff, PO vanco started per GI - ok to DC zosyn and continue w/ PO vanco monotherapy Pt is having some blood in the stool c/w c. diff colitis Monitor H&H Gastrointestinal bleed. As above, secondary to c. diff colitis We will follow hemoglobin and hematocrit. Blood consent obtained. Luca held. hgb 7.6 ->transfused 1 unit of pRBC, discussed with GI current Hgb 8.8 cont to monitor H&H DEE Cr 1.19. Holding lisinopril and diuretics. Received gentle fluids. Cr 0.9 now 2. 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 3. chronic diastolic congestive heart failure with severe aortic stenosis. Holding eplerenone, Lasix, lisinopril, for Dee. On metoprolol, which we will continued with holding parameters. Received gentle fluids. Monitor for volume overload. 4. diabetes, insulin sliding scale and follow the blood sugars. 5. Hypertension. Continue his medications of metoprolol with hold parameters. Holding lisinopril, and diuretics for dee and hypotensions. We will monitor the blood pressure. 6. Paroxysmal atrial fibrillation, rate controlled with metoprolol. The patient is on Eliquis, which we will hold for gastrointestinal bleed and also for possible procedures. 7. History of complete heart block, status post pacemaker. 8. Hypothyroidism, on Synthroid. DVT prophylaxis: SCDs for now DISPOSITION:med tele. CODE: full code. Admission and Anticipated Discharge Date Admission Date: May 16, 2022 Subjective Patient seen in follow-up of abdominal pain, nausea vomiting Patient was recently transferred to [facility] for choledocholithiasis, underwent ERCP and stent placement Has hx of c. diff and now stool studies positive for c. diff Blood in the stool and pt anemic - transfused 1 unit of pRBCs yesterday Currently pt is lying in bed, in no acute distress, reports feeling much better overall Abdominal pain seems resolved Had multiple BMs since yesterday , dark stools Pt denies fevers chills chest pain shortness of breath GI consulted as well and following Review of Systems Review of Systems: All systems reviewed & are unremarkable except as noted in Subjective Physical Exam Physical Exam: GENERAL: obese M, not in acute distress. HEENT: NC/AT. EOMI. Pupils equal, round, and reactive to light. Oral mucosa moist. NECK: No JVD. No neck masses. CARDIOVASCULAR: S1 and S2 heard, regular. Ejection systolic murmur heard. Regular rate and rhythm. RESPIRATORY:: Normal AP diameter. No accessory muscle use. No wheezing. No crackles. ABDOMEN: Soft. Bowel sounds present. Nontender to palpation (improved from previous exam). No distention. NEURO: Alert and oriented. Speech is clear. No facial droop. Obeys simple commands. EXTREMITIES: No edema. No erythema. Results & Data Results & Data ([facility]) Vital Signs (Past 12 Hours) Vital Signs Temp Pulse Pulse Resp BP Pulse Ox O2 Del Method 05/19/22 07:54 36.8 C 72 18 128/86 97 Room Air 05/19/22 07:30 66 05/19/22 03:08 36.6 C 73 20 114/81 98 Room Air 05/18/22 22:54 36.9 C 70 18 113/76 97 Room Air 05/18/22 23:00 65 Laboratory Results 02/05/19/22 05/19/22 Range/Units 07:38 07:11 07:11 WBC 6.26 (4.8-10.8) K/ul RBC 2.83 L (4.70-6.10) M/uL Hgb 8.8 L (14.0-18.0) g/dl Hct 26.6 L (42.0-52.0) % MCV 94.0 (80.0-100.0) fL MCH 31.1 (25.0-34.0) pg MCHC 33.1 (32.0-36.0) g/dL RDW Std Deviation 47.5 H (36.4-46.3) fL RDW Coeff of Mariam 14.0 (11.5-14.5) % Plt Count 281 (130-400) K/uL MPV 11.6 (9.4-12.4) fL Immature Gran % (Auto) 0.5 % Neut % (Auto) 59.1 % Lymph % (Auto) 25.7 % Major % (Auto) 10.5 % Eos % (Auto) 3.2 % Baso % (Auto) 1.0 % Neut # (Auto) 3.70 (1.40-6.50) K/uL Lymph # (Auto) 1.61 (1.2-3.4) K/uL Major # (Auto) 0.66 H (0.11-0.59) K/uL Eos # (Auto) 0.20 (0-0.50) K/uL Baso # (Auto) 0.06 (0-0.2) K/uL Immature Gran # (Auto) 0.03 (0.01-0.20) K/uL Sodium 139 (136-145) mmol/L Potassium 3.9 (3.5-5.1) mmol/L Chloride 108 H (98-107) mmol/L Carbon Dioxide 27 (21-32) mmol/L Anion Gap 4 (3-11) BUN 8 (6-23) mg/dl Creatinine 0.95 (0.6-1.4) mg/dl Est Cr Clr Drug Dosing 97.3 ml/min Est GFR ( Amer) 97.7 ml/min Est GFR (Non-Af Amer) 84.3 ml/min BUN/Creatinine Ratio 8.4 L (10-20) Glucose 126 H (70-99(Fasting)) mg/dl POC Glucose 124 H (70-99) mg/dl Calcium 8.7 (8.5-10.1) mg/dl Phosphorus 2.8 (2.5-4.9) mg/dl Magnesium 2.0 (1.7-2.4) mg/dl Total Bilirubin 1.0 D (0.2-1.0) mg/dl AST 47 H (13-39) U/L ALT 82 H (7-52) U/L Alkaline Phosphatase 157 H (34-104) U/L Total Protein 6.3 (6.0-8.3) gm/dl Albumin 3.1 L (3.4-5.0) gm/dl Globulin 3.2 (2.5-4.0) gm/dl Albumin/Globulin Ratio 1.0 (0.9-2) Blood Type Blood Type Recheck Antibody Screen Crossmatch 05/18/22 05/18/22 05/18/22 Range/Units 20:15 16:30 11:46 WBC (4.8-10.8) K/ul RBC (4.70-6.10) M/uL Hgb (14.0-18.0) g/dl Hct (42.0-52.0) % MCV (80.0-100.0) fL MCH (25.0-34.0) pg MCHC (32.0-36.0) g/dL RDW Std Deviation (36.4-46.3) fL RDW Coeff of Mariam (11.5-14.5) % Plt Count (130-400) K/uL MPV (9.4-12.4) fL Immature Gran % (Auto) % Neut % (Auto) % Lymph % (Auto) % Major % (Auto) % Eos % (Auto) % Baso % (Auto) % Neut # (Auto) (1.40-6.50) K/uL Lymph # (Auto) (1.2-3.4) K/uL Major # (Auto) (0.11-0.59) K/uL Eos # (Auto) (0-0.50) K/uL Baso # (Auto) (0-0.2) K/uL Immature Gran # (Auto) (0.01-0.20) K/uL Sodium (136-145) mmol/L Potassium (3.5-5.1) mmol/L Chloride (98-107) mmol/L Carbon Dioxide (21-32) mmol/L Anion Gap (3-11) BUN (6-23) mg/dl Creatinine (0.6-1.4) mg/dl Est Cr Clr Drug Dosing ml/min Est GFR ( Amer) ml/min Est GFR (Non-Af Amer) ml/min BUN/Creatinine Ratio (10-20) Glucose (70-99(Fasting)) mg/dl POC Glucose 141 H 97 127 H (70-99) mg/dl Calcium (8.5-10.1) mg/dl Phosphorus (2.5-4.9) mg/dl Magnesium (1.7-2.4) mg/dl Total Bilirubin (0.2-1.0) mg/dl AST (13-39) U/L ALT (7-52) U/L Alkaline Phosphatase (34-104) U/L Total Protein (6.0-8.3) gm/dl Albumin (3.4-5.0) gm/dl Globulin (2.5-4.0) gm/dl Albumin/Globulin Ratio (0.9-2) Blood Type Blood Type Recheck Antibody Screen Crossmatch 05/18/22 05/18/22 Range/Units 09:21 06:59 WBC (4.8-10.8) K/ul RBC (4.70-6.10) M/uL Hgb (14.0-18.0) g/dl Hct (42.0-52.0) % MCV (80.0-100.0) fL MCH (25.0-34.0) pg MCHC (32.0-36.0) g/dL RDW Std Deviation (36.4-46.3) fL RDW Coeff of Mariam (11.5-14.5) % Plt Count (130-400) K/uL MPV (9.4-12.4) fL Immature Gran % (Auto) % Neut % (Auto) % Lymph % (Auto) % Major % (Auto) % Eos % (Auto) % Baso % (Auto) % Neut # (Auto) (1.40-6.50) K/uL Lymph # (Auto) (1.2-3.4) K/uL Major # (Auto) (0.11-0.59) K/uL Eos # (Auto) (0-0.50) K/uL Baso # (Auto) (0-0.2) K/uL Immature Gran # (Auto) (0.01-0.20) K/uL Sodium (136-145) mmol/L Potassium (3.5-5.1) mmol/L Chloride (98-107) mmol/L Carbon Dioxide (21-32) mmol/L Anion Gap (3-11) BUN (6-23) mg/dl Creatinine (0.6-1.4) mg/dl Est Cr Clr Drug Dosing ml/min Est GFR ( Amer) ml/min Est GFR (Non-Af Amer) ml/min BUN/Creatinine Ratio (10-20) Glucose (70-99(Fasting)) mg/dl POC Glucose (70-99) mg/dl Calcium (8.5-10.1) mg/dl Phosphorus (2.5-4.9) mg/dl Magnesium (1.7-2.4) mg/dl Total Bilirubin (0.2-1.0) mg/dl AST (13-39) U/L ALT (7-52) U/L Alkaline Phosphatase (34-104) U/L Total Protein (6.0-8.3) gm/dl Albumin (3.4-5.0) gm/dl Globulin (2.5-4.0) gm/dl Albumin/Globulin Ratio (0.9-2) Blood Type O Positive Blood Type Recheck O Positive Antibody Screen NEGATIVE Crossmatch See Detail Medications Administered Current Inpatient Medications Acetaminophen (Acetaminophen 325 Mg Tab) 650 mg PO Q4H PRN PRN Reason: Pain or Fever Stop: 06/15/22 10:33 Dextrose (Dextrose 50% 50 Ml Syringe) 25 - 50 ml IV UD PRN; Protocol PRN Reason: Hypoglycemia Protocol Stop: 06/15/22 10:33 Dorzolamide HCl (Dorzolamide Hcl 2% Oph Soln 10 Ml Btl) 1 drops OPR BID CHANG Stop: 06/15/22 10:33 Last Admin: 05/19/22 08:37 Dose: 1 drops Glucagon (Glucagon For Inj 1 Mg Vial) 1 mg SQ UD PRN; Protocol PRN Reason: Hypoglycemia Protocol Stop: 06/15/22 10:33 Glucose (Glucose 10 Tab/Tube) 4 - 8 tab PO UD PRN; Protocol PRN Reason: Hypoglycemia Treatment Stop: 06/15/22 10:33 Glucose (Glucose 40% Gel 15 Gm Tube) 15 - 30 gm PO UD PRN; Protocol PRN Reason: Hypoglycemia Protocol Stop: 06/15/22 10:33 Sodium Chloride (Nss 1000ml) 1,000 mls @ 50 mls/hr IV .Q20H CHANG Stop: 06/15/22 10:33 Last Admin: 05/19/22 06:55 Dose: 50 mls/hr Insulin Aspart (Insulin Aspart Per Unit) 0 units SC ACHS CHANG Stop: 06/15/22 20:59 Last Admin: 05/19/22 08:33 Dose: 1 units Levothyroxine Sodium (Levothyroxine Sodium 88 Mcg Tablet) 88 mcg PO DAILYBB CHANG Stop: 06/16/22 06:29 Last Admin: 05/19/22 06:13 Dose: 88 mcg Magnesium Oxide (Magnesium Oxide 400 Mg Tab) 400 mg PO [facility] Stop: 06/15/22 10:59 Last Admin: 05/19/22 08:37 Dose: 400 mg Metoprolol Tartrate (Metoprolol Tartrate 50 Mg Tab) 50 mg PO [facility] Stop: 06/15/22 10:33 Last Admin: 05/19/22 08:37 Dose: 50 mg Miscellaneous (Carbohydrates For Hypoglycemia ) 15 - 30 gm PO UD PRN PRN Reason: Hypoglycemia Protocol Stop: 06/15/22 10:33 Morphine Sulfate (Morphine Sulfate 4 Mg/Ml 1 Ml Carp\Vial) 3 mg IV Q4H PRN PRN Reason: Pain Stop: 05/30/22 19:46 Last Admin: 05/16/22 20:16 Dose: 3 mg Multivitamins/Folic Acid/Vitamin C (Multivitamin Chewable Tab) 1 tab PO QAM [facility] Stop: 06/15/22 10:33 Last Admin: 05/19/22 08:37 Dose: 1 tab Nitroglycerin (Nitroglycerin Sl 0.4 Mg/Tab Tab) 0.4 mg SL UD PRN PRN Reason: Chest Pain Stop: 06/15/22 10:33 Ondansetron HCl (Ondansetron Inj 2 Mg/Ml 2 Ml Vial) 4 mg IV Q6H PRN PRN Reason: Nausea Stop: 06/15/22 10:33 Last Admin: 05/16/22 18:21 Dose: 4 mg Oxycodone HCl (Oxycodone Hcl Ir 5 Mg Tab (Immediate Release)) 5 mg PO Q6H PRN PRN Reason: Severe Pain Stop: 05/30/22 17:16 Last Admin: 05/16/22 17:52 Dose: 5 mg Pantoprazole Sodium (Pantoprazole 40 Mg Tab) 40 mg PO BID CHANG Stop: 06/15/22 11:44 Last Admin: 05/19/22 09:00 Dose: Not Given Raspberry (Raspberry Syrup 5 Ml Udp) 5 ml PO Q6 CHANG Stop: 05/26/22 17:59 Last Admin: 05/19/22 06:13 Dose: 5 ml Vancomycin HCl (Vancomycin Hcl 250 Mg/5 Ml Soln) 250 mg PO Q6 CHANG Stop: 05/26/22 17:59 Last Admin: 05/19/22 06:13 Dose: 250 mg Vitamin B Complex (Vitamin B Complex Tab) 1 tab PO DAILY CHANG Stop: 06/15/22 10:33 Last Admin: 05/19/22 08:37 Dose: 1 tab (2) Nausea & vomiting Vomiting type: unspecified Qualified Code(s): R11.2 - Nausea with vomiting, unspecified
[2022-05-20] MEDS: VANCOMYCIN HCL 250 MG/5 ML SOLN PO SCH ×2 (00:25→06:19)
[2022-05-20] MEDS: RASPBERRY SYRUP 5 ML UDP PO SCH ×2 (00:25→06:19)
[2022-05-20] MEDS: LEVOTHYROXINE SODIUM 88 MCG TABLET PO SCH (06:19)
[2022-05-20 07:13] LABS: BUN Creatinine Ratio 7.7 (10-20); Calcium 8.6 mg/dl (8.5-10.1); Creatinine Clr Calc Pharmacy 101.6 ml/min; Est GFR (African American) 102.9 ml/min; Est GFR (Non-African American) 88.8 ml/min; Hematocrit (blood only) 26.2 % (42.0-52.0); Hemoglobin 8.6 g/dl (14.0-18.0); Mean Corpuscular Hemoglobin 30.8 pg (25.0-34.0); Mean Corpuscular Hgb Conc 32.8 g/dL (32.0-36.0); Mean Corpuscular Volume 93.9 fL (80.0-100.0); Mean Platelet Volume 11.6 fL (9.4-12.4); Phosphorus 3.4 mg/dl (2.5-4.9); Platelet Count 309 K/uL (130-400); Potassium 3.8 mmol/L (3.5-5.1); RDW Coefficient of Variation 13.6 % (11.5-14.5); Red Blood Count 2.79 M/uL (4.70-6.10); White Blood Count 7.01 K/ul (4.8-10.8)
[2022-05-20] MEDS: DORZOLAMIDE HCL 2% OPH SOLN 10 ML BTL OPR SCH (09:06)
[2022-05-20] MEDS: METOPROLOL TARTRATE 50 MG TAB PO SCH (09:06)
[2022-05-20] MEDS: VITAMIN B COMPLEX TAB PO SCH (09:07)
[2022-05-20] MEDS: MAGNESIUM OXIDE 400 MG TAB PO SCH (09:07)
[2022-05-20] MEDS: MULTIVITAMIN CHEWABLE TAB PO SCH (09:07)
[2022-05-20] MEDS: PANTOprazole 40 MG TAB PO SCH (09:07)
[2022-05-20] MEDS: INSULIN ASPART PER UNIT SC SCH (09:11)
--- NOTE | 2022-05-20 09:17 | Discharge Summary ---
Date of Service May 20, 2022 Admission HPI Per Admitting Provider his is a 66-year-old male with past medical history significant for type 2 diabetes, seems to be currently on Jardiance; history of hypothyroidism, history of complete atrioventricular block, status post pacemaker; history of paroxysmal atrial fibrillation, hypertension, history of severe aortic valve stenosis, history of cardiomyopathy with EF of less than 20%, suspect tachycardia induced, currently resolved, echo done in February of 2022 showed EF of 55% to 59%; history of COVID twice, history of sleep apnea, and GERD, presents with abdominal pain. The patient also has a history of C. diff colitis. The patient presents with abdominal pain, nausea, and vomiting. The patient was recently in the hospital on 04/29/2022, admitted with abdominal pain, and found to have choledocholithiasis. Because of his complex history, he was transferred to [place] where he underwent ERCP twice, bile stone was removed, and metal stent was placed. per surgery recommendations Second ERCP was done again and AXIOS stent was placed and was discharged on 05/04/2022 with Augmentin. The patient says second of discharge he had a lot of nausea, vomiting, and a temperature spike. After a few hours , the temperature spike resolved and ididnot had temperature spike again. Since then, he says eating only liquid diet, and he was told that he developed fever, nausea, or vomiting, to go to the ER. Last night, he again had severe abdominal pain and had nausea and was vomiting and that is the reason he came here. Currently, pain is resolved and nausea has improved. BP was soft when he came in but improved now.In the ER, he said he had some liquid stool, which was red in color, but he states he was eating popsicles, so he is not sure whether it is blood or from the popsicle. His hemoglobin is 11.2.Hemodynamically stable, and currently afebrile. Denies any headache. No dizziness. No blurred visions. No earache. No runny nose. No sore throat. No cough. Appetite is okay. No chest pain. No shortness of breath. Normal bladder movements. Resting comfortably and hemodynamically stable. No swelling in the legs. Admission Exam Per Admitting Provider GENERAL: The patient is of moderate build, not in acute distress. VITAL SIGNS: Temperature 37.3, pulse 88, respiratory rate 18, blood pressure 120/86, and oxygen saturation 98% on room air. HEENT: Pupils equal, round, and reactive to light. Oral mucosa moist. NECK: No JVD. No neck masses. CARDIOVASCULAR: S1 and S2 heard, regular. Ejection systolic murmur heard. Regular rate and rhythm. RESPIRATORY SYSTEM: Normal AP diameter. No accessory muscle use. No wheezing. No crackles. ABDOMEN: Soft. Bowel sounds present. Nontender. No distention. CENTRAL NERVOUS SYSTEM: Alert and oriented. Speech is clear. No facial droop. Obeys simple commands. EXTREMITIES: No edema. No erythema. Principal Diagnosis C. diff colitis GI bleed secondary to above Anemia secondary to above Discharge Exam GENERAL: obese M, not in acute distress. HEENT: NC/AT. EOMI. Pupils equal, round, and reactive to light. Oral mucosa moist. NECK: No JVD. No neck masses. CARDIOVASCULAR: S1 and S2 heard, regular. Ejection systolic murmur heard. Regular rate and rhythm. RESPIRATORY:: Normal AP diameter. No accessory muscle use. No wheezing. No crackles. ABDOMEN: Soft. Bowel sounds present. Nontender to palpation (improved from previous exam). No distention. NEURO: Alert and oriented. Speech is clear. No facial droop. Obeys simple commands. EXTREMITIES: No edema. No erythema. Discharge Data Allergies Allergy/AdvReac Type Severity Reaction Status Date / Time cefuroxime Allergy Intermediate FEVER, Verified 01/30/21 14:19 DIARHEA cider vinegar Allergy Verified 02/02/21 16:27 ketchup Allergy Verified 02/02/21 16:27 mayonnaise Allergy Verified 02/02/21 16:27 mustard Allergy Verified 02/02/21 16:27 Consultations 05/16/22 05:42 ED Decision to Admit Stat 05/16/22 10:34 Consult Gastroenterology Routine Ordered Studies 05/16/22 01:18 CT Abd and Pelvis [CT abd pelvis IV con only] Stat FINDINGS: Lower chest: Aortic valvular calcifications and gynecomastia are seen. Liver: Unremarkable. No focal lesions are seen. Gallbladder and biliary tree: There is interval placement of a gallbladder drain into the duodenum. The gallbladder wall is thickened with heterogeneous contents including some air noted. Pericholecystic stranding is seen. A biliary stent is seen, new from prior exam, with pneumobilia. Pancreas: Unremarkable, no focal lesions. Spleen: Unremarkable. Adrenals: Unremarkable. Kidneys and ureters: Bilateral renal cysts are seen. Additional hypodensities are seen compatible with cysts. Bladder: Diffuse homogeneous wall thickening is seen. Reproductive organs: Unremarkable. Bowel: The appendix is normal. A small hiatal hernia is seen. Lymph nodes Retroperitoneal: Subcentimeter lymph nodes are noted. Pelvic: Unremarkable. Mesenteric: Unremarkable. Peritoneum: Normal. Vessels: Atherosclerotic calcifications are seen. Abdominal wall: Unremarkable. Bones: Degenerative changes in the visualized spine. IMPRESSION: Interval gallbladder stent placement. The gallbladder wall is thickened and heterogeneous. A common bile duct stent is seen with expected pneumobilia. Hospital Course (1) Abdominal pain, acute: (2) Nausea & vomiting: (3) Leukocytosis: C. diff colitis This 66 yo male presents with nausea, vomiting, and abdominal pain. 1. Nausea, vomiting, and abdominal pain. The patient recently had choledocholithiasis and was transferred to [place], status post ERCP and stone removal and metal stent placed and as per surgery recommendations repeat ERCP with AXIOS stent presensts with nausea, vomiting, and abdominal pain In ER blood pressure was on the lower side, currently blood pressure improved. His WBC 26 K elevated and also procalcitonin elevated (1.17) on admission WBC now normalized CT abd. pelvis FINDINGS: Gallbladder and biliary tree: There is interval placement of a gallbladder drain into the duodenum. The gallbladder wall is thickened with heterogeneous contents including some air noted. Pericholecystic stranding is seen. A biliary stent is seen, new from prior exam, with pneumobilia. Bowel: The appendix is normal. A small hiatal hernia is seen. IMPRESSION: Interval gallbladder stent placement. The gallbladder wall is thickened and heterogeneous. A common bile duct stent is seen with expected pneumobilia. Empirically started pt on IV Zosyn, gentle fluids, pain control Blood cultx - pending, no growth in 48 hrs GI consulted Stool studies - positive for c. diff, PO vanco started per GI - ok to DC zosyn and continue w/ PO vanco monotherapy Pt is having some blood in the stool c/w c. diff colitis Monitor H&H Gastrointestinal bleed. As above, secondary to c. diff colitis We will follow hemoglobin and hematocrit. Blood consent obtained. Eliquis held. hgb 7.6 ->transfused 1 unit of pRBC, discussed with GI current Hgb 8.6 - stable from yesterday and no BM reported, BMs frequency down cont to monitor H&H DEE Cr 1.19. Holding lisinopril and diuretics. Received gentle fluids. Cr 0.9 now 2. 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 3. chronic diastolic congestive heart failure with severe aortic stenosis. Holding eplerenone, Lasix, lisinopril, for Dee. On metoprolol, which we will continued with holding parameters. Received gentle fluids. Monitor for volume overload. 4. diabetes, insulin sliding scale and follow the blood sugars. 5. Hypertension. Continue his medications of metoprolol with hold parameters. Holding lisinopril, and diuretics for dee and hypotension. Monitor BP. 6. Paroxysmal atrial fibrillation, rate controlled with metoprolol. The fazal desai is on Eliquis, which we was on hold for gastrointestinal bleed and also for possible procedures. 7. History of complete heart block, status post pacemaker. 8. Hypothyroidism, on Synthroid. Total Time Total Time Spent Total Time Spent (In Minutes): 40 Discharge Plan Discharge Items Patient Disposition: Home - Self-Care Reason For Visit: ABDOMINAL PAIN Discharge Diagnosis: C. diff colitis GI bleed secondary to above Anemia secondary to above Condition on Discharge: Good Activity: Per Instructions section Non-emergency contact: Primary Care Provider and Care Assistant Call non-emergency contact if: you have any medication questions and your symptoms worsen Follow-up/Referrals: Real Mendoza MD [Primary Care Provider] - (Date & Time 05/25/2022 8:00 AM Provider Yair Gregory MD [facility] ) Diet: Carb Consistent or DM2, Heart Healthy, Low Fiber and Low Fat Addtl Attending Provider Instructions: Follow-up with your primary care doctor, the appointment was scheduled for you for May 25. Finish antibiotic treatment, with p.o. vancomycin as prescribed. Do not take lisinopril, or furosemide for next 2 to 3 days. Discuss further with your primary care physician at your next appointment, if you can restart the medication. Pending Studies at Discharge: No Stand-Alone Forms: My [employer], Smoking Cessation Medications and DC Order Prescriptions: New vancomycin 50 mg/mL recon soln 125 mg PO Q6H 11 Days Qty: 110 0RF Continued dorzolamide [Trusopt] 2 % drops 1 drp OPR BID furosemide [Lasix] 80 mg tablet 40 mg PO QAM lisinopril [Zestril] 40 mg tablet 40 mg PO QAM eplerenone [Inspra] 25 mg tablet 12.5 mg PO QAM Eliquis 5 mg Tablet 5 mg PO BID Qty: 60 0RF Jardiance 10 mg Tablet 10 mg PO DAILY levothyroxine 88 mcg Tablet 88 mcg PO DAILYBB metoprolol tartrate 50 mg Tablet 50 mg PO [facility] magnesium 250 mg Tablet 250 mg PO QAM vitamin B complex [B Complex] Capsule 1 cap PO DAILY Flintstones Gummies Tablet,Chewable 1 tab PO QAM Discharge Orders: Discharge Order (Routine); Ordered 05/20/22 Ordered By: Gilmer Huggins/Other Patient Handouts: Managing Type 2 Diabetes Admission Data Admit Date/Time: 05/16/22 06:55 Attending Provider: Gilmer Hancock Admit Provider: Hernando Tolentino Primary Care Provider: Real Mendoza Other Providers: Hernando Tolentino ; Mook Gupta
== END 2022-05-20 11:12 | disposition home or self-care (01) | DRG 372 ==
LOC: ED 00:57 → EDINP 06:55 → 2W 13:11

== ENCOUNTER 2024-05-10 22:42 | Inpatient (IN) ==
[2024-05-10 23:23] LABS: Basophils # (auto) 0.09 K/uL (0.00-0.20); Basophils % (auto) 0.7 %; Eosinophils # (auto) 0.12 K/uL (0.00-0.50); Hematocrit (blood only) 50.2 % (42.0-52.0); Hemoglobin 17.2 g/dl (14.0-18.0); Immature Granulocytes # (auto) 0.03 K/uL (0.01-0.20); Immature Granulocytes % (auto) 0.2 %; Lymphocytes # (auto) 1.53 K/uL (1.20-3.40); Lymphocytes % (auto) 12.3 %; Mean Corpuscular Hemoglobin 31.3 pg (25.0-34.0); Mean Corpuscular Hgb Conc 34.3 g/dL (32.0-36.0); Mean Corpuscular Volume 91.3 fL (80.0-100.0); Mean Platelet Volume 11.8 fL (9.4-12.4); Monocytes # (auto) 1.15 K/uL (0.11-0.59); Monocytes % (auto) 9.2 %; Neutrophils # (auto) 9.54 K/uL (1.40-6.50); Neutrophils % (auto) 76.6 %; Platelet Count 180 K/uL (130-400); RDW Coefficient of Variation 12.6 % (11.5-14.5); RDW Standard Deviation 41.9 fL (36.4-46.3); White Blood Count 12.46 K/ul (4.8-10.8)
[2024-05-10 23:31] LABS: Alanine Aminotransferase 12 U/L (7-52); Albumin Globulin Ratio 1.4 (0.9-2); Albumin Level 4.5 gm/dl (3.4-5.0); Alkaline Phosphatase 54 U/L (34-104); Anion Gap 14 (3-11); Aspartate Aminotransferase 18 U/L (13-39); BUN Creatinine Ratio 14.1 (10-20); Bilirubin,Total 1.2 mg/dl (0.2-1.0); Blood Urea Nitrogen 22 mg/dl (6-23); Calcium 10.3 mg/dl (8.6-10.3); Carbon Dioxide 27 mmol/L (21-32); Chloride 98 mmol/L (98-107); Globulin 3.2 gm/dl (2.5-4.0); Glucose 136 mg/dl (70-99(Fasting)); Lipase 25 U/L (11-82); Potassium 3.5 mmol/L (3.5-5.1); Sodium 139 mmol/L (136-145); Total Protein 7.7 gm/dl (6.0-8.3)
[2024-05-10 23:54] LABS: Base Excess VBG 2.7 mEq/L; HCO3 VBG 28 mmol/L; Oxygen Saturation VBG 61.9 %; PCO2 VBG 44 mmHg (38-50); PO2 VBG 35 mmHg; pH VBG 7.41 (7.36-7.41)
--- NOTE | 2024-05-10 23:57 | Emergency Department Note ---
History of Present Illness General Chief complaint: Vomiting Stated complaint: VOMITING Time Seen by Provider: 05/10/24 23:23 History of Present Illness This is a 68-year-old male with past medical history significant for type 2 diabetes, seems to be currently on Jardiance; history of hypothyroidism, history of complete atrioventricular block, status post pacemaker; history of paroxysmal atrial fibrillation, hypertension, history of severe aortic valve stenosis, history of cardiomyopathy with EF of less than 20%, suspect tachycardia induced, currently resolved, echo done in February of 2022 showed EF of 55% to 59%; history of COVID twice, history of sleep apnea, and GERD, presents with abdominal pain with nausea and vomiting for the past week. Patient with the [facility] and had a labs and CAT scan with unclear etiology of symptoms. Home Medications Medication Instructions Recorded Confirmed Type eplerenone 25 mg tablet (Inspra) 12.5 mg PO QAM 01/29/21 05/10/24 History furosemide 80 mg tablet (Lasix) 40 mg PO UD 01/29/21 05/10/24 History metoprolol tartrate 50 mg tablet 75 mg PO AMHS 04/28/22 05/10/24 History pediatric multivitamin no.49 1 tab PO QAM 04/28/22 05/10/24 History (Flintstones Gummies chewable tablet) empagliflozin 10 mg tablet 10 mg PO QAM 05/16/22 05/10/24 History (Jardiance) apixaban 5 mg tablet (Eliquis) 5 mg PO UD 05/10/24 05/10/24 History famotidine 20 mg tablet 20 mg PO BID Indigestion 05/10/24 05/10/24 History levothyroxine 100 mcg tablet 100 mcg PO DAILYBB 05/10/24 05/10/24 History lisinopril 20 mg tablet 10 mg PO DAILY 05/10/24 05/10/24 History pantoprazole 40 mg tablet,delayed 40 mg PO DAILYBB 05/10/24 05/10/24 History release Allergies Allergy/AdvReac Type Severity Reaction Status Date / Time cefuroxime Allergy Intermediate FEVER, Verified 01/30/21 14:19 DIARHEA cider vinegar Allergy Verified 02/02/21 16:27 ketchup Allergy Verified 02/02/21 16:27 mayonnaise Allergy Verified 11/09/21 16:27 mustard Allergy Verified 02/02/21 16:27 Past Med/Surg History Problem List (Updated 05/11/24 @ 03:20 by Leny Doyle PA-C) Elevated troponin (Acute) Nausea & vomiting (Acute) Abdominal pain, acute (Acute) Nausea & vomiting (Acute) Abdominal pain, acute (Acute) Leukocytosis (Acute) Acute hypotension (Acute) Choledocholithiasis Abdominal wall pain in right upper quadrant (Acute) Gallstones (Acute) Pacemaker Eye disorder S/p posterior Sub-tenons Triesence, right Osteoarthritis CHF (congestive heart failure) (Chronic) Retinal tear (Chronic) Medical History Congestive heart failure COVID-19 Hypertension Ischemic cardiomyopathy Osteoarthritis Third degree heart block Type 2 diabetes mellitus Surgical History Eye disorder S/p posterior Sub-tenons Triesence, right Family History Father Prostate cancer Bladder cancer Mother Diabetes Heart disease Thyroid condition Sister Thyroid condition Social History Smoking Status: Former smoker Second Hand Exposure: No; Do You Dip or Chew Tobacco: No; Hx Alcohol Use: No Hx Substance Use: No Preferred Language: Macedonian Communication Ability: 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 Beliefs That Will Affect Care: None marital status: Single Current Living Situation: Family Current Living Situation Comment: lives with sister Feels Safe at Home: Yes Assistive Devices: Glasses and Oxygen - at Night Review of Systems A total of 10 systems reviewed and were otherwise negative Physical Exam Vital Signs Vital Signs - 24 hr 05/10/24 22:46 05/10/24 23:29 05/11/24 01:04 Temperature 36.2 C L Temperature Source Temporal Artery Scan Pulse Rate 86 67 Pulse Rate [Right Finger] 60 Respiratory Rate 18 18 Respiratory Effort / Characteristics Non-Labored Spontaneous Respiratory Depth Normal Blood Pressure 113/76 Blood Pressure [Right Arm] 121/71 Blood Pressure Mean 88 Blood Pressure Mean [Right Arm] 87 Blood Pressure Position [Right Arm] Lying Pulse Oximetry 94 97 Oxygen Delivery Method Room Air Room Air Sepsis Recent Fever Within 48 Hours No Sepsis New/Unexplained Change in Mental Status No Sepsis Action Taken by Nursing No Action Required 05/11/24 01:04 Temperature Temperature Source Pulse Rate Pulse Rate [Right Finger] Respiratory Rate 16 Respiratory Effort / Characteristics Respiratory Depth Blood Pressure Blood Pressure [Right Arm] Blood Pressure Mean Blood Pressure Mean [Right Arm] Blood Pressure Position [Right Arm] Pulse Oximetry 98 Oxygen Delivery Method Room Air Sepsis Recent Fever Within 48 Hours Sepsis New/Unexplained Change in Mental Status Sepsis Action Taken by Nursing VITALS: Vitals are noted on the nurse's note and reviewed by myself. Vital signs stable. GENERAL: Pleasant gentleman, in no acute distress, nondiaphoretic, well- developed well-nourished. SKIN: Capillary reflex less than 2 seconds. HEENT: Normocephalic. PERRLA. EOMI. Nares patent. Mucous membranes moist. Neck is supple without nuchal rigidity. HEART: Regular rate and rhythm LUNGS: Clear to auscultation bilaterally without wheezes, rales or rhonchi. No retractions or accessory muscle use. ABDOMEN: Positive bowel sounds x 4. Normal tympanic percussion. Soft, tender lower abdomen, without masses or organomegaly. Soares sign negative. No guarding or rebound tenderness. no CVA tenderness MUSCULOSKELETAL: No gross musculoskeletal defects. NEURO: Patient was alert and oriented to person place and time. No focal neurological deficits. Course Administered Medications Discontinued Medications Sodium Chloride (Nss) 500 mls @ 999 mls/hr IV .Q31M ONE Stop: 05/11/24 00:00 Last Infusion: 05/11/24 01:02 Dose: Infused Documented By: Admin: 05/11/24 00:13 Dose: 999 mls/hr Documented By: RICARDO Famotidine (Pepcid 20mg Iv Push) 20 mg in 5 mls @ 2.5 mls/min IV NOW STA Stop: 05/10/24 23:31 Last Admin: 05/11/24 00:52 Dose: Not Given Documented By: RICARDO Ioversol (Optiray 320 100ml) 94 ml IV ONCE ONE Stop: 05/11/24 00:42 Last Admin: 05/11/24 00:42 Dose: 94 ml Documented By: BETHANIE Ondansetron HCl (Ondansetron Inj 2 Mg/Ml 2 Ml Vial) 4 mg IV NOW STA Stop: 05/10/24 23:31 Last Admin: 05/11/24 00:13 Dose: 4 mg Documented By: RICARDO Medical Decision Making Medical Records Attestation: I reviewed the patient's medical records. Home Medications Current Medication List: was personally reviewed by me Laboratory Data Attestation: I reviewed the patient's lab results. 05/10/24 22:56 05/10/24 22:56 Lab Results 05/10/24 05/10/24 05/10/24 Range/Units 22:56 23:33 23:43 WBC 12.46 H (4.8-10.8) K/ul RBC 5.50 (4.70-6.10) M/uL Hgb 17.2 (14.0-18.0) g/dl Hct 50.2 (42.0-52.0) % MCV 91.3 (80.0-100.0) fL MCH 31.3 (25.0-34.0) pg MCHC 34.3 (32.0-36.0) g/dL RDW Std Deviation 41.9 (36.4-46.3) fL RDW Coeff of Mariam 12.6 (11.5-14.5) % Plt Count 180 (130-400) K/uL MPV 11.8 (9.4-12.4) fL Immature Gran % (Auto) 0.2 % Neut % (Auto) 76.6 % Lymph % (Auto) 12.3 % [place] % (Auto) 9.2 % Eos % (Auto) 1.0 % Baso % (Auto) 0.7 % Neut # (Auto) 9.54 H (1.40-6.50) K/uL Lymph # (Auto) 1.53 (1.20-3.40) K/uL [place] # (Auto) 1.15 H (0.11-0.59) K/uL Eos # (Auto) 0.12 (0.00-0.50) K/uL Baso # (Auto) 0.09 (0.00-0.20) K/uL Immature Gran # (Auto) 0.03 (0.01-0.20) K/uL VBG pH 7.41 (7.36-7.41) VBG pCO2 44 (38-50) mmHg VBG pO2 35 mmHg VBG HCO3 28 mmol/L VBG O2 Saturation 61.9 % VBG Base Excess 2.7 mEq/L Sodium 139 (136-145) mmol/L Potassium 3.5 (3.5-5.1) mmol/L Chloride 98 (98-107) mmol/L Carbon Dioxide 27 (21-32) mmol/L Anion Gap 14 H (3-11) BUN 22 (6-23) mg/dl Creatinine 1.56 H (0.6-1.4) mg/dl Est Cr Clr Drug Dosing Not Reportable eGFR 48.68 BUN/Creatinine Ratio 14.1 (10-20) Glucose 136 H (70-99(Fasting)) mg/dl Calcium 10.3 (8.6-10.3) mg/dl Magnesium 2.2 (1.7-2.4) mg/dl Total Bilirubin 1.2 H (0.2-1.0) mg/dl AST 18 (13-39) U/L ALT 12 (7-52) U/L Alkaline Phosphatase 54 (34-104) U/L Troponin I High Sens 24.3 H (0-20) pg/ml Total Protein 7.7 (6.0-8.3) gm/dl Albumin 4.5 (3.4-5.0) gm/dl Globulin 3.2 (2.5-4.0) gm/dl Albumin/Globulin Ratio 1.4 (0.9-2) Lipase 25 (11-82) U/L Adenovirus (PCR) Not Detected (NotDetected) B. pertussis DNA (PCR) Not Detected (NotDetected) B.parapertussis DNA PCR Not Detected (NotDetected) C. pneumoniae DNA (PCR) Not Detected (NotDetected) Coronavirus OC43 (PCR) Not Detected (NotDetected) Coronavirus HKU1 (PCR) Not Detected (NotDetected) Coronavirus 229E (PCR) Not Detected (NotDetected) SARS-CoV-2 (PCR) Not Detected (NotDetected) Coronavirus NL63 (PCR) Not Detected (NotDetected) Human Metapneumovir PCR Not Detected (NotDetected) Influenza Type A (PCR) Not Detected (NotDetected) Influenza Type B (PCR) Not Detected (NotDetected) M. pneumoniae (PCR) Not Detected (NotDetected) Parainfluenza 1 (PCR) Not Detected (NotDetected) Parainfluenza 2 (PCR) Not Detected (NotDetected) Parainfluenza 3 (PCR) Not Detected (NotDetected) Parainfluenza 4 (PCR) Not Detected (NotDetected) RSV (PCR) Not Detected (NotDetected) Entero/Rhino (PCR) Not Detected (NotDetected) Imaging Data Attestation: I personally reviewed and interpreted this imaging study as follows: Radiologist's Impression: Abdomen/Pelvis CT 05/10/24 23:31 EXAM: CT abd pelvis IV con only CLINICAL HISTORY: lower abd pain, V/D TECHNIQUE: Multiple contiguous axial images were obtained from the level of diaphragm to the pubis symphysis. This study was acquired after the IV administration of iodinated contrast material, given the patient's indications for the examination. If IV contrast material had not been administered, the likelihood of detecting abnormalities relevant to the patient's condition would have been substantially decreased. Coronal and sagittal reformatted images were generated and reviewed to improve anatomic localization and optimize lesion detection. CT scan was performed according to ALARA (as low as reasonably achievable). COMPARISON: none FINDINGS: The visualized lung bases are clear. ABDOMEN/PELVIS: The liver is normal in size and attenuation. No focal liver lesions are seen. . Hepatic vasculature is patent. Post cholecystectomy status. Dilated common bile duct (9.2mm) with mild bilobar intrahepatic biliary ductal dilatation. Subhepatic. perihepatic and right paracolic gutter fluid is seen. Fluid in pelvis. Duodenum stent in D1/D2 segment. Self expanding metallic stent across periampullary region in distal CBD and D3 segment of duodenum. The spleen, pancreas, and adrenal glands are unremarkable. The kidneys are normal in size and attenuation. There is no hydronephrosis or perinephric fat stranding. A 2mm calculus at lower pole of right kidney. Multiple simple cortical cysts in bilateral kidneys.. The ureters are normal in caliber and no ureteral calculi are seen. The bladder is normal in contour. No evidence of focal or diffuse bowel wall thickening or evidence of bowel obstruction is seen. Multiple small 2-3mm diverticuli in sigmoid colon. The appendix is visualized in the right lower quadrant and appears within normal limits. The aorta is normal in caliber. Prostate is enlarged in size, measures 36cc in volume. Degenerative changes in the visualized spine. Levoscoliosis of thoracolumbar spine. Left inguinal hernia with peritoneal fat and fluid as contents. 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 IMPRESSION: 1. Dilated common bile duct (9.2mm) with mild bilobar intrahepatic biliary ductal dilatation. Likely Post cholecystectomy changes. 2. Subhepatic, perihepatic ,right paracolic gutter and pelvic fluid is seen. 3. Duodenum stent in D1/D2 segment. 4. Self expanding metallic stent across periampullary region in distal common bile duct and D3 segment of duodenum. Possibility of inferior displacement of stent. 5. Non obstructing right nephrolithiasis. 6. Bilateral simple renal cortical cysts- BOSNIAK I. 7. Uncomplicated sigmoid colon diverticulosis. 8. Grade I prostatomegaly. 9. Levoscoliosis of thoracolumbar spine. 10. Left inguinal hernia with peritoneal fat and fluid as contents. 11. Mixed hiatus hernia Electronically signed by Soto Callahan 05-11-2024 01:59 AM MDM Narrative Prior records/ancillary studies reviewed. Triage Nursing notes reviewed. Additional history obtained from the family. The patient's history was concerning for nausea, vomiting, and abdominal pain. Differential diagnosis: Etiologies such as gastroenteritis, food borne illness, infections, appendicitis, diverticulitis, inflammatory bowel disease, obstruction, GI bleed, biliary pathology, as well as others were entertained. Physical examination findings: As above. Abdominal examination revealed tender. Vital signs reviewed and revealed stable. ER treatment provided: IV hydration NSS. Zofran and Pepcid ordered On reassessment the patient felt better. Patient was tolerating p.o. intake. Diagnostics interpretation by me: EKG ordered for weakness EKG: Paced rhythm with no acute ST-T wave changes, rate of 60. Impression paced rhythm independently interpreted by myself The labs Independently Interpreted by myself revealed mild leukocytosis, slightly elevated troponin and repeat was ordered. Imaging studies: Imaging was reviewed and read by radiology Consultation: A consultation was placed with the hospitalist. The case was discussed and diagnostics were reviewed. The patient was evaluated in the ER for further treatment. This appears to be consistent with persistent nausea and vomiting for the past week with a slightly elevated troponin. Patient's been seen at another hospital. Imaging was negative. Troponin was slightly elevated. EKG was paced. Second troponin was ordered. Medicine was consulted and case was discussed. He will be evaluated for possible admission.. By the evaluation outlined above emergent etiologies such as appendicitis, diverticulitis, obstruction, mesenteric ischemia, aortic pathology, inflammatory bowel disease, renal colic, PUD, biliary pathology, as well as others were deemed relatively unlikely. The pt informed about the findings as listed above. All questions were answered and pleased with the treatment. The chart was completed utilizing [employer] Speech voice recognition software. Grammatical errors, random word insertions, pronoun errors, and incomplete sentences are an occassional consequence of this system due to software limitations, ambient noise, and hardware issues. Any formal questions or concerns about the content, text, or information contained within the body of this dictation should be directly addressed to the physician catalog library assistant for clarification. Impression & Plan Abdominal pain, acute, Nausea & vomiting, Elevated troponin Discharge Plan Visit Data Chief Complaint: Vomiting Stated Complaint: VOMITING ED Provider: Yenni Mariee ED Midlevel Provider: Leny Doyle Discharge Problem: Abdominal pain, acute, Nausea & vomiting, Elevated troponin Patient Disposition: Being Evaluated by Hospitalist Condition: Good Forms Stand Alone Forms: My [facility] Prescriptions Prescriptions: No Action furosemide [Lasix] 80 mg tablet 40 mg PO UD Rx Instructions: 1/2 tablet dose in the morning CURRENLTY HOLDING DUE TO DEHYDRATION eplerenone [Inspra] 25 mg tablet 12.5 mg PO QAM Jardiance 10 mg Tablet 10 mg PO QAM metoprolol tartrate 50 mg Tablet 75 mg PO AMHS Flintstones Gummies Tablet,Chewable 1 tab PO QAM lisinopril 20 mg tablet 10 mg PO DAILY levothyroxine 100 mcg tablet 100 mcg PO DAILYBB famotidine 20 mg tablet 20 mg PO BID pantoprazole 40 mg tablet,delayed release (DR/EC) 40 mg PO DAILYBB Eliquis 5 mg tablet 5 mg PO UD Rx Instructions: currently on hold for surgery Referrals Referrals: Real Mendoza MD [Primary Care Provider] -
[2024-05-11] MEDS: SODIUM CHLORIDE 0.9% 500 ML IV ONE (00:13)
[2024-05-11] MEDS: ONDANSETRON INJ 2 MG/ML 2 ML VIAL IV STA (00:13)
[2024-05-11 00:15] LABS: Magnesium 2.2 mg/dl (1.7-2.4)
[2024-05-11 00:23] LABS: Troponin I High Sensitivity 24.3 pg/ml (0-20)
[2024-05-11] MEDS: OPTIRAY 320 100ml IV ONE (00:42)
[2024-05-11] MEDS: FAMOTIDINE 20MG IV PUSH 20 MG/5 ML SYR IV STA (00:52)
[2024-05-11 01:03] LABS: Adenovirus PCR Not Detected (NotDetected); Bordetella parapertussis PCR Not Detected (NotDetected); Bordetella pertussis PCR Not Detected (NotDetected); Chlamydia pneumoniae PCR Not Detected (NotDetected); Coronavirus 229E PCR Not Detected (NotDetected); Coronavirus CoV-2 (COVID19)PCR Not Detected (NotDetected); Coronavirus HKU1 PCR Not Detected (NotDetected); Coronavirus NL63 PCR Not Detected (NotDetected); Coronavirus OC43PCR Not Detected (NotDetected); Human Metapneumovirus PCR Not Detected (NotDetected); Influenza A PCR Not Detected (NotDetected); Influenza B PCR Not Detected (NotDetected); Mycoplasma pneumoniae PCR Not Detected (NotDetected); Parainfluenza Virus 1 PCR Not Detected (NotDetected); Parainfluenza Virus 2 PCR Not Detected (NotDetected); Parainfluenza Virus 3 PCR Not Detected (NotDetected); Parainfluenza Virus 4 PCR Not Detected (NotDetected); Respiratory Syncytial VirusPCR Not Detected (NotDetected); Rhinovirus/Enterovirus PCR Not Detected (NotDetected)
--- NOTE | 2024-05-11 02:00 | CT Scan Report ---
EXAM: CT abd pelvis IV con only CLINICAL HISTORY: lower abd pain, V/D TECHNIQUE: Multiple contiguous axial images were obtained from the level of diaphragm to the pubis symphysis. This study was acquired after the IV administration of iodinated contrast material, given the patient's indications for the examination. If IV contrast material had not been administered, the likelihood of detecting abnormalities relevant to the patient's condition would have been substantially decreased. Coronal and sagittal reformatted images were generated and reviewed to improve anatomic localization and optimize lesion detection. CT scan was performed according to ALARA (as low as reasonably achievable). COMPARISON: none FINDINGS: The visualized lung bases are clear. ABDOMEN/PELVIS: The liver is normal in size and attenuation. No focal liver lesions are seen. . Hepatic vasculature is patent. Post cholecystectomy status. Dilated common bile duct (9.2mm) with mild bilobar intrahepatic biliary ductal dilatation. Subhepatic. perihepatic and right paracolic gutter fluid is seen. Fluid in pelvis. Duodenum stent in D1/D2 segment. Self expanding metallic stent across periampullary region in distal CBD and D3 segment of duodenum. The spleen, pancreas, and adrenal glands are unremarkable. The kidneys are normal in size and attenuation. There is no hydronephrosis or perinephric fat stranding. A 2mm calculus at lower pole of right kidney. Multiple simple cortical cysts in bilateral kidneys.. The ureters are normal in caliber and no ureteral calculi are seen. The bladder is normal in contour. No evidence of focal or diffuse bowel wall thickening or evidence of bowel obstruction is seen. Multiple small 2-3mm diverticuli in sigmoid colon. The appendix is visualized in the right lower quadrant and appears within normal limits. The aorta is normal in caliber. Prostate is enlarged in size, measures 36cc in volume. Degenerative changes in the visualized spine. Levoscoliosis of thoracolumbar spine. Left inguinal hernia with peritoneal fat and fluid as contents. 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 IMPRESSION: 1. Dilated common bile duct (9.2mm) with mild bilobar intrahepatic biliary ductal dilatation. Likely Post cholecystectomy changes. 2. Subhepatic, perihepatic ,right paracolic gutter and pelvic fluid is seen. 3. Duodenum stent in D1/D2 segment. 4. Self expanding metallic stent across periampullary region in distal common bile duct and D3 segment of duodenum. Possibility of inferior displacement of stent. 5. Non obstructing right nephrolithiasis. 6. Bilateral simple renal cortical cysts- BOSNIAK I. 7. Uncomplicated sigmoid colon diverticulosis. 8. Grade I prostatomegaly. 9. Levoscoliosis of thoracolumbar spine. 10. Left inguinal hernia with peritoneal fat and fluid as contents. 11. Mixed hiatus hernia Electronically signed by Soto Callahan 05-11-2024 01:59 AM
--- NOTE | 2024-05-11 03:59 | History & Physical Report ---
Date of Service May 11, 2024 Assessment & Plan (1) Nausea & vomiting: Plan: 68-year-old male with past med history significant for type 2 diabetes, hypothyroidism, dyslipidemia, history of idiopathic cardiomyopathy, intermittent complete atrioventricular block status post pacemaker, paroxysmal atrial fibrillation, hypertension, aortic valve stenosis, status post TAVR, history of choledocholithiasis, history of GI bleed, osteoarthritis, restless leg syndrome, ocular migraine, history of C. difficile, history of social anxiety disorder, history of abnormal LFTs comes because of ongoing nausea vomiting since last 6 days. Because of persistent nausea/ vomiting is not able to eat anything and not unable to take his pills. As per recent PCP notes patient is having intermittent nausea/ vomiting going for last 3 weeks. Has history of common bile duct stent and was thought stent might be clogged or potential tumor vs inflammation and there is a plan for ERCP on 05/15/2024. But because of ongoing persistent symptoms he came to the ER today. Afebrile. Currently no chest pain. No shortness of breath. Mild abdominal discomfort. Did not moved his bowels in last 6 days because not eating much. He is not taking his Lasix because he is not eating or drinking. Currently no headache. He is blind in his right eye. No runny nose or sore throat. Resting comfortably and hemodynamics are okay. Nausea and vomiting Persistent for last 6 days History of biliary stent for choledocholithiasis Ther is a plan for ERCP on 05/15/2024 CT scan today shows self-expanding metallic stent across periampullary region and distal common bile duct and D3 segment of duodenum and possibility of inferior displacement of the stent. LFTs okay except total bili 1.2 Will keep him n.p.o. IV fluids IV antiemetics as needed Follow repeat labs GI consult in a.m. for further recommendations Mild elevation of troponin Asymptomatic EKG okay Mostly demand ischemia Will follow serial enzymes and echo Monitoring med/telemetry Chronic systolic CHF Echo done on 04/26/2024 shows EF of 40% As patient has nausea and vomiting holding Lasix and eplerenone Getting fluids Monitor for volume overload Diabetes Holding Jardiance Sliding scale Will monitor History of heart block status post pacemaker Paroxysmal atrial fibrillation Continue metoprolol tartrate with holding parameters Currently Eliquis on hold for upcoming procedure on 05/15/2024 Hypertension Holding eplerenone and Lasix and lisinopril Metoprolol with holding parameters Will monitor DEE Baseline creatinine 0.9-1 Plan the creatinine of 1.5 holding lisinopril and diuretics Getting fluids Will follow repeat labs History of GI bleed GERD Hold home p.o. meds IV Protonix Hypothyroidism On Synthyroid Nocturnal hypoxemia On 2 L oxygen while sleeping DVT prophylaxis SCDs for now Disposition Med/telemetry Full code History of Present Illness Chief Complaint: Nausea and vomiting Primary Care Provider: Real Mendoza MD 68-year-old male with past med history significant for type 2 diabetes, hypothyroidism, dyslipidemia, history of idiopathic cardiomyopathy, intermittent complete atrioventricular block status post pacemaker, paroxysmal atrial fibrillation, hypertension, aortic valve stenosis, status post TAVR, history of choledocholithiasis, history of GI bleed, osteoarthritis, restless leg syndrome, ocular migraine, history of C. difficile, history of social anxiety disorder, history of abnormal LFTs comes because of ongoing nausea vomiting since last 6 days. Because of persistent nausea/ vomiting is not able to eat anything and not unable to take his pills. As per recent PCP notes patient is having intermittent nausea/ vomiting going for last 3 weeks. Has history of common bile duct stent and was thought stent might be clogged or potential tumor vs inflammation and there is a plan for ERCP on 05/15/2024. But because of ongoing persistent symptoms he came to the ER today. Afebrile. Currently no chest pain. No shortness of breath. Mild abdominal discomfort. Did not moved his bowels in last 6 days because not eating much. He is not taking his Lasix because he is not eating or drinking. Currently no headache. He is blind in his right eye. No runny nose or sore throat. Resting comfortably and hemodynamics are okay. Past medical history. As mentioned above Past surgical history. Left heart catheterization. EGD with endoscopic ultrasound. ERCP with foreign body removal. Status post TAVR. Social history. Smoked 1 pack a day for 7 years. No alcohol use. Currently no drug use. Cocaine in high school. Family history. Father had bladder and pancreatic cancer. Hypertension. M other had diabetes. Glaucoma. Thyroid disorder. Maternal grandmother had stroke. Allergies Allergy/AdvReac Type Severity Reaction Status Date / Time cefuroxime Allergy Intermediate FEVER, Verified 01/30/21 14:19 DIARHEA cider vinegar Allergy Verified 02/02/21 16:27 ketchup Allergy Verified 02/02/21 16:27 mayonnaise Allergy Verified 02/02/21 16:27 mustard Allergy Verified 02/02/21 16:27 Home Medications Medication Instructions Recorded Confirmed Type eplerenone 25 mg tablet (Inspra) 12.5 mg PO QAM 01/29/21 05/10/24 History furosemide 80 mg tablet (Lasix) 40 mg PO UD 01/29/21 05/10/24 History metoprolol tartrate 50 mg tablet 75 mg PO AMHS 04/28/22 05/10/24 History pediatric multivitamin no.49 1 tab PO QAM 04/28/22 05/10/24 History (Flintstones Gummies chewable tablet) empagliflozin 10 mg tablet 10 mg PO QAM 05/16/22 05/10/24 History (Jardiance) apixaban 5 mg tablet (Eliquis) 5 mg PO UD 05/10/24 05/10/24 History famotidine 20 mg tablet 20 mg PO BID Indigestion 05/10/24 05/10/24 History levothyroxine 100 mcg tablet 100 mcg PO DAILYBB 05/10/24 05/10/24 History lisinopril 20 mg tablet 10 mg PO DAILY 05/10/24 05/10/24 History pantoprazole 40 mg tablet,delayed 40 mg PO DAILYBB 05/10/24 05/10/24 History release Past Med/Surg History Problem List (Updated 05/11/24 @ 03:20 by Leny Doyle PA-C) Elevated troponin (Acute) Nausea & vomiting (Acute) Abdominal pain, acute (Acute) Nausea & vomiting (Acute) Abdominal pain, acute (Acute) Leukocytosis (Acute) Acute hypotension (Acute) Choledocholithiasis Abdominal wall pain in right upper quadrant (Acute) Gallstones (Acute) Pacemaker Eye disorder S/p posterior Sub-tenons Triesence, right Osteoarthritis CHF (congestive heart failure) (Chronic) Retinal tear (Chronic) Medical History Congestive heart failure COVID-19 Hypertension Ischemic cardiomyopathy Osteoarthritis Third degree heart block Type 2 diabetes mellitus Surgical History Eye disorder S/p posterior Sub-tenons Triesence, right Family History Father Prostate cancer Bladder cancer Mother Diabetes Heart disease Thyroid condition Sister Thyroid condition Social History Smoking Status: Former smoker Second Hand Exposure: No; Do You Dip or Chew Tobacco: No; Tobacco Cessation Education Requested by Patient: No Hx Alcohol Use: No Hx Substance Use: No Preferred Language: Tajik Communication Ability: Effective Sorority Mother Required: No Beliefs That Will Affect Care: None marital status: Single Current Living Situation: Family Current Living Situation Comment: lives with sister Other Information That Helps Us Care for You: No Feels Safe at Home: Yes Safety Concerns: Feels Safe At This Time Assistive Devices: None Review of Systems Review of Systems: All systems reviewed & are unremarkable except as noted in HPI & below Physical Exam Physical Exam: General- Not in distress. Head- atraumatic Eyes- PERRL,Right eye blind ENT- oropharynx clear Neck- supple, no JVD. Lungs- clear to auscultation no wheezing or crackles Heart- regular rate and rhythm; no murmur, no gallop. Abdomen- normal bowel sounds, soft, nontender, no distension Extremities- mild pretibial edema present, no erythema seen. Chronic skin changes seen in lower extremities. Neuro- alert, oriented PERRL, no facial palsy; no dysarthria; moves extremities Results & Data Results & Data Vital Signs (Past 12 Hours) Vital Signs Temp Pulse Pulse Resp BP BP Pulse Ox 05/11/24 03:40 62 05/11/24 03:00 68 17 127/71 98 05/11/24 01:04 16 98 05/11/24 01:04 60 18 121/71 97 05/10/24 23:29 67 05/10/24 22:46 36.2 C L 86 18 113/76 94 O2 Del Method 05/11/24 03:40 05/11/24 03:00 Room Air 05/11/24 01:04 Room Air 05/11/24 01:04 Room Air 05/10/24 23:29 05/10/24 22:46 Room Air Diagnostic Findings Laboratory Results WBC 12.46 K/ul (4.8-10.8) H 05/10/24 22:56 RBC 5.50 M/uL (4.70-6.10) 05/10/24 22:56 Hgb 17.2 g/dl (14.0-18.0) 05/10/24 22:56 Hct 50.2 % (42.0-52.0) 05/10/24 22:56 MCV 91.3 fL (80.0-100.0) 05/10/24 22:56 MCH 31.3 pg (25.0-34.0) 05/10/24 22:56 MCHC 34.3 g/dL (32.0-36.0) 05/10/24: RDW Std Deviation 41.9 fL (36.4-46.3) 05/10/24: RDW Coeff of Mariam 12.6 % (11.5-14.5) 05/10/24: Plt Count 180 K/uL (130-400) 05/10/24 22: MPV 11.8 fL (9.4-12.4) 05/10/24 22:56 Immature Gran % (Auto) 0.2 % 05/10/24 22:56 Neut % (Auto) 76.6 % 05/10/24 22:56 Lymph % (Auto) 12.3 % 05/10/24:56 [place] % (Auto) 9.2 % 05/10/24:56 Eos % (Auto) 1.0 % 05/10/24:56 Baso % (Auto) 0.7 % 05/10/24:56 Neut # (Auto) 9.54 K/uL (1.40-6.50) H 05/10/24 22:56 Lymph # (Auto) 1.53 K/uL (1.20-3.40) 05/10/24 22:56 [place] # (Auto) 1.15 K/uL (0.11-0.59) H 05/10/24 22:56 Eos # (Auto) 0.12 K/uL (0.00-0.50) 05/10/24 22:56 Baso # (Auto) 0.09 K/uL (0.00-0.20) 05/10/24 22:56 Immature Gran # (Auto) 0.03 K/uL (0.01-0.20) 05/10/24 22:56 VBG pH 7.41 (7.36-7.41) 05/10/24 23:43 VBG pCO2 44 mmHg (38-50) 05/10/24 23:43 VBG pO2 35 mmHg 05/10/24 23:43 VBG HCO3 28 mmol/L 05/10/24 23:43 VBG O2 Saturation 61.9 % 05/10/24 23:43 VBG Base Excess 2.7 mEq/L 05/10/24 23:43 Sodium 139 mmol/L (136-145) 05/10/24 22:56 Potassium 3.5 mmol/L (3.5-5.1) 05/10/24 22:56 Chloride 98 mmol/L (98-107) 05/10/24 22:56 Carbon Dioxide 27 mmol/L (21-32) 05/10/24 22:56 Anion Gap 14 (3-11) H 05/10/24 22:56 BUN 22 mg/dl (6-23) 05/10/24 22:56 Creatinine 1.56 mg/dl (0.6-1.4) H 05/10/24 22:56 Est Cr Clr Drug Dosing Not Reportable 05/10/24 22:56 eGFR 48.68 05/10/24 22:56 BUN/Creatinine Ratio 14.1 (10-20) 05/10/24 22:56 Glucose 136 mg/dl (70-99(Fasting)) H 05/10/24 22:56 Calcium 10.3 mg/dl (8.6-10.3) 05/10/24 22:56 Magnesium 2.2 mg/dl (1.7-2.4) 05/10/24 23:43 Total Bilirubin 1.2 mg/dl (0.2-1.0) H 05/10/24 22:56 AST 18 U/L (13-39) 05/10/24 22:56 ALT 12 U/L (7-52) 05/10/24 22:56 Alkaline Phosphatase 54 U/L (34-104) 05/10/24 22:56 Troponin I High Sens 22.6 pg/ml (0-20) H 05/11/24 02:30 Total Protein 7.7 gm/dl (6.0-8.3) 05/10/24 22:56 Albumin 4.5 gm/dl (3.4-5.0) 05/10/24 22:56 Globulin 3.2 gm/dl (2.5-4.0) 05/10/24 22:56 Albumin/Globulin Ratio 1.4 (0.9-2) 05/10/24 22:56 Lipase 25 U/L (11-82) 05/10/24 22:56 Adenovirus (PCR) Not Detected (NotDetected) 05/10/24 23:33 B. pertussis DNA (PCR) Not Detected (NotDetected) 05/10/24 23:33 B.parapertussis DNA PCR Not Detected (NotDetected) 05/10/24 23:33 C. pneumoniae DNA (PCR) Not Detected (NotDetected) 05/10/24 23:33 Coronavirus OC43 (PCR) Not Detected (NotDetected) 05/10/24 23:33 Coronavirus HKU1 (PCR) Not Detected (NotDetected) 05/10/24 23:33 Coronavirus 229E (PCR) Not Detected (NotDetected) 05/10/24 23:33 SARS-CoV-2 (PCR) Not Detected (NotDetected) 05/10/24 23:33 Coronavirus NL63 (PCR) Not Detected (NotDetected) 05/10/24 23:33 Human Metapneumovir PCR Not Detected (NotDetected) 05/10/24 23:33 Influenza Type A (PCR) Not Detected (NotDetected) 05/10/24 23:33 Influenza Type B (PCR) Not Detected (NotDetected) 05/10/24 23:33 M. pneumoniae (PCR) Not Detected (NotDetected) 05/10/24 23:33 Parainfluenza 1 (PCR) Not Detected (NotDetected) 05/10/24 23:33 Parainfluenza 2 (PCR) Not Detected (NotDetected) 05/10/24 23:33 Parainfluenza 3 (PCR) Not Detected (NotDetected) 05/10/24 23:33 Parainfluenza 4 (PCR) Not Detected (NotDetected) 05/10/24 23:33 RSV (PCR) Not Detected (NotDetected) 05/10/24 23:33 Entero/Rhino (PCR) Not Detected (NotDetected) 05/10/24 23:33 Impressions Abdomen/Pelvis CT 05/10/24 23:31 EXAM: CT abd pelvis IV con only CLINICAL HISTORY: lower abd pain, V/D TECHNIQUE: Multiple contiguous axial images were obtained from the level of diaphragm to the pubis symphysis. This study was acquired after the IV administration of iodinated contrast material, given the patient's indications for the examination. If IV contrast material had not been administered, the likelihood of detecting abnormalities relevant to the patient's condition would have been substantially decreased. Coronal and sagittal reformatted images were generated and reviewed to improve anatomic localization and optimize lesion detection. CT scan was performed according to ALARA (as low as reasonably achievable). COMPARISON: none FINDINGS: The visualized lung bases are clear. ABDOMEN/PELVIS: The liver is normal in size and attenuation. No focal liver lesions are seen. . Hepatic vasculature is patent. Post cholecystectomy status. Dilated common bile duct (9.2mm) with mild bilobar intrahepatic biliary ductal dilatation. Subhepatic. perihepatic and right paracolic gutter fluid is seen. Fluid in pelvis. Duodenum stent in D1/D2 segment. Self expanding metallic stent across periampullary region in distal CBD and D3 segment of duodenum. The spleen, pancreas, and adrenal glands are unremarkable. The kidneys are normal in size and attenuation. There is no hydronephrosis or perinephric fat stranding. A 2mm calculus at lower pole of right kidney. Multiple simple cortical cysts in bilateral kidneys.. The ureters are normal in caliber and no ureteral calculi are seen. The bladder is normal in contour. No evidence of focal or diffuse bowel wall thickening or evidence of bowel obstruction is seen. Multiple small 2-3mm diverticuli in sigmoid colon. The appendix is visualized in the right lower quadrant and appears within normal limits. The aorta is normal in caliber. Prostate is enlarged in size, measures 36cc in volume. Degenerative changes in the visualized spine. Levoscoliosis of thoracolumbar spine. Left inguinal hernia with peritoneal fat and fluid as contents. 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 IMPRESSION: 1. Dilated common bile duct (9.2mm) with mild bilobar intrahepatic biliary ductal dilatation. Likely Post cholecystectomy changes. 2. Subhepatic, perihepatic ,right paracolic gutter and pelvic fluid is seen. 3. Duodenum stent in D1/D2 segment. 4. Self expanding metallic stent across periampullary region in distal common bile duct and D3 segment of duodenum. Possibility of inferior displacement of stent. 5. Non obstructing right nephrolithiasis. 6. Bilateral simple renal cortical cysts- BOSNIAK I. 7. Uncomplicated sigmoid colon diverticulosis. 8. Grade I prostatomegaly. 9. Levoscoliosis of thoracolumbar spine. 10. Left inguinal hernia with peritoneal fat and fluid as contents. 11. Mixed hiatus hernia Electronically signed by Soto Callahan 05-11-2024 01:59 AM ECG Additional Comments: ECG. AV dual paced rhythm with prolonged AV conduction rate of 60. Code Status & VTE Plan VTE Prophylaxis Plan VTE Prophylaxis will be ordered: Yes
[2024-05-11 05:33] LABS: Appearance Urine Clear (Clear); Bacteria Urine Automated None Seen (None Seen); Bilirubin Urine 2+ (Negative); Blood Urine Negative (Negative); Cast Urine Automated 0-2 /lpf (0-2); Color Urine Dark Yellow; Epithelial Cell Urine Auto 0-2 /hpf (0-2); Glucose Urine UA 3+ (Negative); Ketones Urine 2+ (Negative); Leukocyte Esterase Urine Negative (Negative); Nitrite Urine Negative (Negative); Protein Urine 1+ (Negative); RBC Urine Automated 0-2 /hpf (0-2); Specific Gravity Urine > 1.045 (1.000-1.030); Urobilinogen Urine Negative (Negative); WBC Urine Automated 0-5 /hpf (0-5); pH Urine 5.5 (4.5-7.5)
--- NOTE | 2024-05-11 05:46 | Emergency Department Note ---
ED Visit Note I was consulted by the Advanced Practice Provider. I personally made/approved the management plan and take responsibility for the patient management. I performed a substantive portion of the visit. This includes the aspects of: Personally seeing the patient -[facility] Patient has not had any food or water over the past 6 days. He has had significant vomiting. Patient had initial elevated troponin which was repeated and came down. Patient will be admitted to the hospital for further inpatient care. .
--- NOTE | 2024-05-11 07:16 | Electrocardiogram Report ---
Test Reason : Blood Pressure : */* mmHG Vent. Rate : 60 BPM Atrial Rate : 60 BPM P-R Int : 232 ms QRS Dur : 142 ms QT Int : 498 ms P-R-T Axes : * -67 66 degrees QTcB Int : 498 ms AV dual-paced rhythm with prolonged AV conduction Abnormal ECG When compared with ECG of 16-May-2022 03:34, Vent. rate has decreased by 28 bpm Confirmed by Issa Mullen ([id number]) on 05/11/2024 7:16:05 AM Referred By: REFERRED SELF Confirmed By: Issa Mullen
[2024-05-11] MEDS ORDERED: DEXTROSE 50% 50 ML SYRINGE IV PRN (07:18)
[2024-05-11] MEDS ORDERED: NITROGLYCERIN SL 0.4 MG/TAB TAB SL PRN (07:18)
[2024-05-11] MEDS ORDERED: GLUCAGON FOR INJ 1 MG VIAL SQ PRN (07:18)
[2024-05-11] MEDS ORDERED: CARBOHYDRATES FOR HYPOGLYCEMIA PO PRN (07:18)
[2024-05-11] MEDS ORDERED: GLUCOSE 40% GEL 15 GM TUBE PO PRN (07:18)
[2024-05-11] MEDS ORDERED: GLUCOSE 10 TAB/TUBE PO PRN (07:18)
--- NOTE | 2024-05-11 07:53 | Communication Note ---
Date of Service: May 11, 2024 patient appears to have both doudenal stent and expandable bilary stent ( ? migration as fair portion in D3). LFTS look good so no occlusion. This N&V may be both due to inadequancy of relieve of doudenal obstruction or stent migration impaction bilary stent... This is an advanced bilary/luminal case. Beyond scope of my abilities. No need for urgent bilary decompression..... Recommend transfer to performing endoscopist (was secheduled for follow-up 05/15/2024)
[2024-05-11] MEDS: SODIUM CHLORIDE 0.9% 1,000 ML IV SCH (07:54)
[2024-05-11] MEDS: LEVOTHYROXINE SODIUM 100 MCG TABLET PO SCH (07:57)
[2024-05-11] MEDS: METOPROLOL TARTRATE 25 MG TAB PO SCH (07:58)
[2024-05-11 08:16] LABS: Basophils # (auto) 0.06 K/uL (0.00-0.20); Basophils % (auto) 0.7 %; Eosinophils # (auto) 0.38 K/uL (0.00-0.50); Eosinophils % (auto) 4.5 %; Hematocrit (blood only) 44.4 % (42.0-52.0); Immature Granulocytes # (auto) 0.03 K/uL (0.01-0.20); Immature Granulocytes % (auto) 0.4 %; Lymphocytes # (auto) 1.71 K/uL (1.20-3.40); Lymphocytes % (auto) 20.4 %; Mean Corpuscular Hemoglobin 31.2 pg (25.0-34.0); Mean Corpuscular Hgb Conc 33.8 g/dL (32.0-36.0); Mean Corpuscular Volume 92.3 fL (80.0-100.0); Monocytes # (auto) 1.01 K/uL (0.11-0.59); Monocytes % (auto) 12.1 %; Neutrophils # (auto) 5.19 K/uL (1.40-6.50); Neutrophils % (auto) 61.9 %; Platelet Count 141 K/uL (130-400); RDW Coefficient of Variation 12.5 % (11.5-14.5); RDW Standard Deviation 42.5 fL (36.4-46.3); Red Blood Count 4.81 M/uL (4.70-6.10); White Blood Count 8.38 K/ul (4.8-10.8)
[2024-05-11] MEDS: PANTOprazole 40 MG/10 ML SYR IV SCH (08:17)
[2024-05-11 08:29] LABS: Albumin Level 3.6 gm/dl (3.4-5.0); BUN Creatinine Ratio 18.2 (10-20); Bilirubin Direct 0.2 mg/dl (0-0.2); Calcium 9.4 mg/dl (8.6-10.3); Creatinine Clr Calc Pharmacy 71.1 ml/min; Magnesium 2.1 mg/dl (1.7-2.4); Potassium 3.2 mmol/L (3.5-5.1); Total Protein 6.5 gm/dl (6.0-8.3)
[2024-05-11 09:48] LABS: Estimated Average Glucose 143 mg/dl; Hemoglobin A1C 6.6 % (4.5-5.6)
[2024-05-11] MEDS: INSULIN ASPART PER UNIT CHARGE SC SCH ×2 (10:09→22:32)
--- NOTE | 2024-05-11 11:22 | Communication Note ---
Date of Service: May 11, 2024 Patient seen feeling well. Tells me he is for discharge. No formal GI consultation performed. If no better the patient is not transferred, reconsult please
--- NOTE | 2024-05-11 11:57 | Hospitalist Progress Note ---
Date of Service May 11, 2024 Assessment & Plan (1) Nausea & vomiting: Plan: 68-year-old male with past med history significant for type 2 diabetes, hypothyroidism, dyslipidemia, history of idiopathic cardiomyopathy, intermittent complete atrioventricular block status post pacemaker, paroxysmal atrial fibrillation, hypertension, aortic valve stenosis, status post TAVR, history of choledocholithiasis, history of GI bleed, osteoarthritis, restless leg syndrome, ocular migraine, history of C. difficile, history of social anxiety disorder, history of abnormal LFTs comes because of ongoing nausea vomiting since last 6 days. Patient has a history of cholelithiasis, choledocholithiasis status post ERCP with biliary stent placement and Axios stent done in April 2022. Patient has been reporting persistent nausea and vomiting for several weeks. He is a scheduled for outpatient ERCP in May 15, 2024. Persistent nausea/vomiting History of biliary stent and Axios stent in April 2022 Possible inferior displacement of biliary stent Patient presents with persistent nausea and vomiting for several weeks CT scan on admission shows self-expanding metallic stent across periampullary region and distal common bile duct and D3 segment of duodenum and possibility of inferior displacement of the stent. LFTs wnl except total bili 1.[address] Barry from [facility] regarding CT scan finding and patient's persistent symptoms. He agreed that patient will benefit from inpatient transfer to [facility] for ERCP possibly early next week. Discussed with patient who is agreeable. Will continue full liquid diet. Eliquis is currently on hold; last dose was in May 09, 2024 Mild elevation of troponin Demand ischemia High-sensitivity troponin on admission is 24; with flat trend. EKG shows AV dual paced rhythm with prolonged AV conduction Patient echocardiogram done as outpatient showed EF of 40%. Patient denies any chest pain or discomfort Chronic systolic CHF Echo done on 04/26/2024 shows EF of 40% As patient has nausea and vomiting holding Lasix and eplerenone Type 2 Diabetes Holding Jardiance Sliding scale Will monitor History of heart block status post pacemaker Paroxysmal atrial fibrillation Continue metoprolol tartrate with holding parameters Currently Eliquis on hold for upcoming procedure on 05/15/2024 Hypertension Holding eplerenone and Lasix and lisinopril Metoprolol with holding parameters Will monitor Acute Kidney Injury- resolved Baseline creatinine 0.9-1 Presented the creatinine of 1.5 Back to baseline with IV hydration History of GI bleed GERD on protonix Hypothyroidism On Synthyroid, continue Nocturnal hypoxemia On 2 L oxygen while sleeping DVT prophylaxis SCDs for now Disposition Med/telemetry Full code Time spent evaluating patient, direct bedside care, chart review, placing orders, interpretation of diagnostic studies, discussion with consultants, patient, and family members, as well as other required patient management activities is 50 minutes Please note the above document was generated using voice recognition software. It may contain grammatical, syntax or spelling errors. Any formal questions or concerns about the content, text or information contained within the body of this dictation should be directly addressed to the provider for clarification Admission and Anticipated Discharge Date Admission Date: May 11, 2024 Subjective Patient seen and examined at bedside. He is comfortable; not in distress No significant events overnight Reports ongoing nausea and vomiting Review of Systems Review of Systems: All systems reviewed & are unremarkable except as noted in Subjective Physical Exam Physical Exam: General- Not in distress. Head- atraumatic Eyes- PERRL,Right eye blind ENT- oropharynx clear Neck- supple, no JVD. Lungs- clear to auscultation no wheezing or crackles Heart- regular rate and rhythm; no murmur, no gallop. Abdomen- normal bowel sounds, soft, nontender, no distension Extremities- mild pretibial edema present, no erythema seen. Chronic skin changes seen in lower extremities. Neuro- alert, oriented PERRL, no facial palsy; no dysarthria; moves extremities Results & Data Results & Data Vital Signs (Past 12 Hours) Vital Signs Temp Pulse Pulse Resp BP Pulse Ox O2 Del Method 05/11/24 11:22 36.4 C L 61 18 100/64 95 Room Air 05/11/24 07:49 36.3 C L 63 18 107/67 97 Room Air 05/11/24 07:19 68 05/11/24 06:05 36.3 C L 65 12 145/79 H 96 Room Air 05/11/24 03:40 62 05/11/24 03:00 68 17 127/71 98 Room Air 05/11/24 02:29 63 21 124/74 99 Room Air 05/11/24 01:04 16 98 Room Air 05/11/24 01:04 60 18 121/71 97 Room Air
[2024-05-11] MEDS: FAMOTIDINE 20MG IV PUSH 20 MG/5 ML SYR IV SCH (12:17)
[2024-05-11] MEDS: THIAMINE HCL 200 MG in SODIUM CHLORIDE 0.9% 50 ML IV SCH (12:18)
[2024-05-11] MEDS: POTASSIUM CHLORIDE / WTR 10 MEQ/100 ML PLCT IV SCH (13:53)
[2024-05-11] MEDS: POTASSIUM CHLORIDE 10 MEQ / 100ML WTR IV ONE (19:58)
[2024-05-11] MEDS ORDERED: Nursing to Pharmacy Communication SCH (21:15)
--- NOTE | 2024-05-12 07:20 | Electrocardiogram Report ---
Test Reason : Blood Pressure : */* mmHG Vent. Rate : 66 BPM Atrial Rate : 66 BPM P-R Int : 230 ms QRS Dur : 144 ms QT Int : 470 ms P-R-T Axes : 48 -87 -3 degrees QTcB Int : 492 ms Atrial-sensed ventricular-paced rhythm with prolonged AV conduction with occasional Premature ventric ular complexes Abnormal ECG When compared with ECG of 11-May-2024 01:01, Premature ventricular complexes are now Present Vent. rate has increased by 6 bpm Confirmed by Issa Mullen ([id number]) on 05/12/2024 7:20:00 AM Referred By: REFERRED SELF Confirmed By: Issa Mullen
[2024-05-12 08:01] LABS: Basophils # (auto) 0.05 K/uL (0.00-0.20); Basophils % (auto) 0.7 %; Eosinophils # (auto) 0.44 K/uL (0.00-0.50); Eosinophils % (auto) 5.8 %; Hematocrit (blood only) 42.6 % (42.0-52.0); Hemoglobin 14.4 g/dl (14.0-18.0); Immature Granulocytes # (auto) 0.03 K/uL (0.01-0.20); Immature Granulocytes % (auto) 0.4 %; Lymphocytes # (auto) 1.23 K/uL (1.20-3.40); Lymphocytes % (auto) 16.1 %; Mean Corpuscular Hemoglobin 31.5 pg (25.0-34.0); Mean Corpuscular Hgb Conc 33.8 g/dL (32.0-36.0); Mean Corpuscular Volume 93.2 fL (80.0-100.0); Mean Platelet Volume 12.1 fL (9.4-12.4); Monocytes # (auto) 0.95 K/uL (0.11-0.59); Monocytes % (auto) 12.5 %; Neutrophils # (auto) 4.93 K/uL (1.40-6.50); Neutrophils % (auto) 64.5 %; Platelet Count 141 K/uL (130-400); RDW Coefficient of Variation 12.6 % (11.5-14.5); Red Blood Count 4.57 M/uL (4.70-6.10); White Blood Count 7.63 K/ul (4.8-10.8)
[2024-05-12 08:35] LABS: Creatinine Clr Calc Pharmacy 96.1 ml/min
[2024-05-12 09:28] LABS: Albumin Globulin Ratio 1.3 (0.9-2); Albumin Level 3.4 gm/dl (3.4-5.0); BUN Creatinine Ratio 14.6 (10-20); Bilirubin,Total 1.2 mg/dl (0.2-1.0); Calcium 8.9 mg/dl (8.6-10.3); Globulin 2.7 gm/dl (2.5-4.0); Potassium 3.2 mmol/L (3.5-5.1); Total Protein 6.1 gm/dl (6.0-8.3)
--- NOTE | 2024-05-12 12:30 | Hospitalist Progress Note ---
Date of Service May 12, 2024 Assessment & Plan (1) Nausea & vomiting: Plan: 68-year-old male with past med history significant for type 2 diabetes, hypothyroidism, dyslipidemia, history of idiopathic cardiomyopathy, intermittent complete atrioventricular block status post pacemaker, paroxysmal atrial fibrillation, hypertension, aortic valve stenosis, status post TAVR, history of choledocholithiasis, history of GI bleed, osteoarthritis, restless leg syndrome, ocular migraine, history of C. difficile, history of social anxiety disorder, history of abnormal LFTs comes because of ongoing nausea vomiting since last 6 days. Patient has a history of cholelithiasis, choledocholithiasis status post ERCP with biliary stent placement and Axios stent done in April 2022. Patient has been reporting persistent nausea and vomiting for several weeks. He is a scheduled for outpatient ERCP in May 15, 2024. Persistent nausea/vomiting History of biliary stent and Axios stent in April 2022 Possible inferior displacement of biliary stent Patient presents with persistent nausea and vomiting for several weeks CT scan on admission shows self-expanding metallic stent across periampullary region and distal common bile duct and D3 segment of duodenum and possibility of inferior displacement of the stent. LFTs wnl except total bili 1.[address] Barry from [facility] regarding CT scan finding and patient's persistent symptoms on 05/11. He agreed that patient will benefit from inpatient transfer to [facility] for ERCP. Discussed with patient who is agreeable. Will continue full liquid diet. Eliquis is currently on hold; last dose was in May 09, 2024 Mild elevation of troponin Demand ischemia High-sensitivity troponin on admission is 24; with flat trend. EKG shows AV dual paced rhythm with prolonged AV conduction Patient echocardiogram done as outpatient showed EF of 40%. Patient denies any chest pain or discomfort Chronic systolic CHF Echo done on 04/26/2024 shows EF of 40% As patient has nausea and vomiting holding Lasix and eplerenone Type 2 Diabetes Holding Jardiance Sliding scale Will monitor History of heart block status post pacemaker Paroxysmal atrial fibrillation Continue metoprolol tartrate with holding parameters Currently Eliquis on hold for upcoming procedure on 05/15/2024 Hypertension Holding eplerenone and Lasix and lisinopril Metoprolol with holding parameters Will monitor Acute Kidney Injury- resolved Baseline creatinine 0.9-1 Presented the creatinine of 1.5 Back to baseline with IV hydration History of GI bleed GERD on protonix Hypothyroidism On Synthyroid, continue Nocturnal hypoxemia On 2 L oxygen while sleeping DVT prophylaxis SCDs for now Disposition Med/telemetry Full code Time spent evaluating patient, direct bedside care, chart review, placing orders, interpretation of diagnostic studies, discussion with consultants, patient, and family members, as well as other required patient management activities is 50 minutes Please note the above document was generated using voice recognition software. It may contain grammatical, syntax or spelling errors. Any formal questions or concerns about the content, text or information contained within the body of this dictation should be directly addressed to the provider for clarification Admission and Anticipated Discharge Date Admission Date: May 11, 2024 Subjective Patient continues reports multiple episodes of vomiting No abdominal pain. Vital signs are stable. Review of Systems Review of Systems: All systems reviewed & are unremarkable except as noted in Subjective Physical Exam Physical Exam: General- Not in distress. Head- atraumatic Eyes- PERRL,Right eye blind ENT- oropharynx clear Neck- supple, no JVD. Lungs- clear to auscultation no wheezing or crackles Heart- regular rate and rhythm; no murmur, no gallop. Abdomen- normal bowel sounds, soft, nontender, no distension Extremities- mild pretibial edema present, no erythema seen. Chronic skin changes seen in lower extremities. Neuro- alert, oriented PERRL, no facial palsy; no dysarthria; moves extremities Results & Data Results & Data Vital Signs (Past 12 Hours) Vital Signs Temp Pulse Pulse Resp BP Pulse Ox O2 Del Method 05/12/24 11:29 36.7 C 69 20 132/84 95 Room Air 05/12/24 11:10 67 05/12/24 08:38 36.9 C 64 18 122/76 94 Room Air 05/12/24 03:31 36.8 C 62 20 94/60 L 96 Room Air
[2024-05-12] MEDS: POTASSIUM CHLORIDE / WTR 10 MEQ/100 ML PLCT IV SCH (13:00)
[2024-05-12] MEDS: ONDANSETRON INJ 2 MG/ML 2 ML VIAL IV PRN (14:40)
[2024-05-13 06:15] LABS: Basophils # (auto) 0.08 K/uL (0.00-0.20); Basophils % (auto) 1.1 %; Eosinophils % (auto) 6.7 %; Hematocrit (blood only) 41.9 % (42.0-52.0); Hemoglobin 14.2 g/dl (14.0-18.0); Immature Granulocytes # (auto) 0.02 K/uL (0.01-0.20); Immature Granulocytes % (auto) 0.3 %; Lymphocytes # (auto) 1.41 K/uL (1.20-3.40); Mean Corpuscular Hemoglobin 31.3 pg (25.0-34.0); Mean Corpuscular Hgb Conc 33.9 g/dL (32.0-36.0); Mean Corpuscular Volume 92.5 fL (80.0-100.0); Monocytes # (auto) 0.97 K/uL (0.11-0.59); Monocytes % (auto) 13.1 %; Neutrophils # (auto) 4.43 K/uL (1.40-6.50); Neutrophils % (auto) 59.8 %; Platelet Count 140 K/uL (130-400); RDW Coefficient of Variation 12.4 % (11.5-14.5); RDW Standard Deviation 42.5 fL (36.4-46.3); Red Blood Count 4.53 M/uL (4.70-6.10); White Blood Count 7.41 K/ul (4.8-10.8)
[2024-05-13 06:39] LABS: BUN Creatinine Ratio 9.8 (10-20); Calcium 8.7 mg/dl (8.6-10.3); Creatinine Clr Calc Pharmacy 104.3 ml/min; Potassium 3.5 mmol/L (3.5-5.1)
[2024-05-13 07:44] VITALS: RESP 16
--- NOTE | 2024-05-13 09:13 | Hospitalist Progress Note ---
Date of Service May 13, 2024 Assessment & Plan (1) Nausea & vomiting: Plan: 68-year-old male with past med history significant for type 2 diabetes, hypothyroidism, dyslipidemia, history of idiopathic cardiomyopathy, intermittent complete atrioventricular block status post pacemaker, paroxysmal atrial fibrillation, hypertension, aortic valve stenosis, status post TAVR, history of choledocholithiasis, history of GI bleed, osteoarthritis, restless leg syndrome, ocular migraine, history of C. difficile, history of social anxiety disorder, history of abnormal LFTs comes because of ongoing nausea vomiting since last 6 days. Patient has a history of cholelithiasis, choledocholithiasis status post ERCP with biliary stent placement and Axios stent done in April 2022. Patient has been reporting persistent nausea and vomiting for several weeks. He is a scheduled for outpatient ERCP in May 15, 2024. Persistent nausea/vomiting History of biliary stent and Axios stent in April 2022 Possible inferior displacement of biliary stent Patient presents with persistent nausea and vomiting for several weeks CT scan on admission shows self-expanding metallic stent across periampullary region and distal common bile duct and D3 segment of duodenum and possibility of inferior displacement of the stent. LFTs wnl except total bili 1.[address] Barry from [facility] regarding CT scan finding and patient's persistent symptoms on 05/11. He agreed that patient will benefit from inpatient transfer to [facility] for ERCP. Discussed with patient who is agreeable. Will continue full liquid diet;Patient continues to have repeated episode of vomiting Eliquis is currently on hold; last dose was in May 09, 2024 Mild elevation of troponin Demand ischemia High-sensitivity troponin on admission is 24; with flat trend. EKG shows AV dual paced rhythm with prolonged AV conduction Patient echocardiogram done as outpatient showed EF of 40%. Patient denies any chest pain or discomfort Chronic systolic CHF Echo done on 04/26/2024 shows EF of 40% As patient has nausea and vomiting holding Lasix and eplerenone Type 2 Diabetes Holding Jardiance Sliding scale Will monitor History of heart block status post pacemaker Paroxysmal atrial fibrillation Continue metoprolol tartrate with holding parameters Currently Eliquis on hold for upcoming procedure on 05/15/2024 Hypertension Holding eplerenone and Lasix and lisinopril Metoprolol with holding parameters Will monitor Acute Kidney Injury- resolved Baseline creatinine 0.9-1 Presented the creatinine of 1.5 Back to baseline with IV hydration History of GI bleed GERD on protonix, continue Hypothyroidism On Synthyroid, continue Nocturnal hypoxemia On 2 L oxygen while sleeping DVT prophylaxis SCDs for now Disposition awaiting placement in [facility] Full code Time spent evaluating patient, direct bedside care, chart review, placing orders, interpretation of diagnostic studies, discussion with consultants, patient, and family members, as well as other required patient management activities is 50 minutes Please note the above document was generated using voice recognition software. It may contain grammatical, syntax or spelling errors. Any formal questions or concerns about the content, text or information contained within the body of this dictation should be directly addressed to the provider for clarification Admission and Anticipated Discharge Date Admission Date: May 11, 2024 Subjective Patient continues to have abdominal discomfort and repeated episode of vomiting Vital signs are stable and no significant events overnight Review of Systems Review of Systems: All systems reviewed & are unremarkable except as noted in Subjective Physical Exam Physical Exam: General- Not in distress. Head- atraumatic Eyes- PERRL,Right eye blind ENT- oropharynx clear Neck- supple, no JVD. Lungs- clear to auscultation no wheezing or crackles Heart- regular rate and rhythm; no murmur, no gallop. Abdomen- normal bowel sounds, soft, nontender, no distension Extremities- mild pretibial edema present, no erythema seen. Chronic skin changes seen in lower extremities. Neuro- alert, oriented PERRL, no facial palsy; no dysarthria; moves extremities Results & Data Results & Data Vital Signs (Past 12 Hours) Vital Signs Temp Pulse Pulse Resp BP Pulse Ox O2 Del Method 05/13/24 07:43 36.5 C 60 16 145/79 H 96 Room Air 05/13/24 03:04 36.6 C 61 18 118/76 98 Nasal Cannula 05/12/24 22:38 36.6 C 64 18 114/69 97 Nasal Cannula 05/12/24 21:50 61 O2 Flow Rate 05/13/24 07:43 05/13/24 03:04 2 05/12/24 22:38 2 05/12/24 21:50
--- NOTE | 2024-05-13 09:14 | Discharge Summary ---
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 difficile, history of social anxiety disorder, history of abnormal LFTs comes because of ongoing nausea vomiting since last 6 days. Because of persistent nausea/ vomiting is not able to eat anything and not unable to take his pills. As per recent PCP notes patient is having intermittent nausea/ vomiting going for last 3 weeks. Has history of common bile duct stent and was thought stent might be clogged or potential tumor vs inflammation and there is a plan for ERCP on 05/15/2024. But because of ongoing persistent symptoms he came to the ER today. Afebrile. Currently no chest pain. No shortness of breath. Mild abdominal discomfort. Did not moved his bowels in last 6 days because not eating much. He is not taking his Lasix because he is not eating or drinking. Currently no headache. He is blind in his right eye. No runny nose or sore throat. Resting comfortably and hemodynamics are okay. Past medical history. As mentioned above Past surgical history. Left heart catheterization. EGD with endoscopic ultrasound. ERCP with foreign body removal. Status post TAVR. Social history. Smoked 1 pack a day for 7 years. No alcohol use. Currently no drug use. Cocaine in high school. Family history. Father had bladder and pancreatic cancer. Hypertension. Mother had diabetes. Glaucoma. Thyroid disorder. Maternal grandmother had stroke. Admission Exam Per Admitting Provider General- Not in distress. Head- atraumatic Eyes- PERRL,Right eye blind ENT- oropharynx clear Neck- supple, no JVD. Lungs- clear to auscultation no wheezing or crackles Heart- regular rate and rhythm; no murmur, no gallop. Abdomen- normal bowel sounds, soft, nontender, no distension Extremities- mild pretibial edema present, no erythema seen. Chronic skin changes seen in lower extremities. Neuro- alert, oriented PERRL, no facial palsy; no dysarthria; moves extremities Principal Diagnosis Persistent nausea/vomiting History of biliary stent and Axios stent in April 2022 Possible inferior displacement of biliary stent Discharge Exam General- Not in distress. Head- atraumatic Eyes- PERRL,Right eye blind ENT- oropharynx clear Neck- supple, no JVD. Lungs- clear to auscultation no wheezing or crackles Heart- regular rate and rhythm; no murmur, no gallop. Abdomen- normal bowel sounds, soft, nontender, no distension Extremities- mild pretibial edema present, no erythema seen. Chronic skin changes seen in lower extremities. Neuro- alert, oriented PERRL, no facial palsy; no dysarthria; moves extremities Discharge Data Allergies Allergy/AdvReac Type Severity Reaction Status Date / Time cefuroxime Allergy Intermediate FEVER, Verified 01/30/21 14:19 DIARHEA cider vinegar Allergy Verified 02/02/21 16:27 ketchup Allergy Verified 02/02/21 16:27 mayonnaise Allergy Verified 02/02/21 16:27 mustard Allergy Verified 02/02/21 16:27 Consultations 05/11/24 02:30 ED Decision to Admit Stat 05/11/24 08:00 Consult Gastroenterology Routine Ordered Studies 05/10/24 23:31 CT abd pelvis IV con only Stat Hospital Course (1) Nausea & vomitin-year-old male with past med history significant for type 2 diabetes, hypothyroidism, dyslipidemia, history of idiopathic cardiomyopathy, intermittent complete atrioventricular block status post pacemaker, paroxysmal atrial fibrillation, hypertension, aortic valve stenosis, status post TAVR, history of choledocholithiasis, history of GI bleed, osteoarthritis, restless leg syndrome, ocular migraine, history of C. difficile, history of social anxiety disorder, history of abnormal LFTs comes because of ongoing nausea vomiting since last 6 days. Patient has a history of cholelithiasis, choledocholithiasis status post ERCP with biliary stent placement and Axios stent done in April 2022. Patient has been reporting persistent nausea and vomiting for several weeks. He is a scheduled for outpatient ERCP in May 15, 2024. Persistent nausea/vomiting History of biliary stent and Axios stent in April 2022 Possible inferior displacement of biliary stent Patient presents with persistent nausea and vomiting for several weeks CT scan on admission shows self-expanding metallic stent across periampullary region and distal common bile duct and D3 segment of duodenum and possibility of inferior displacement of the stent. LFTs wnl except total bili 1.2 Discussion was [address] with Dr[address] Barry from [facility] regarding CT scan finding and patient's persistent symptoms on 05/11. Patient was accepted for transfer to [facility] for possibility of inpatient ERCP. Patient was treated with IV hydration during the hospitalization; reported some improvement in nausea/vomiting. While awaiting bed placement at [facility]; patient reported that he wanted to go home to feed his "exotic turtles" and he did not want to get transferred. Reported that he will follow-up as scheduled on May 15 for ERCP as outpatient. I recommended patient to remain in the hospital and be transferred as inpatient. However, he absolutely cannot do that. I did discuss risks of persistent nausea/vomiting which can result in dehydration/DEE which can lead to multiorgan failure and . Patient verbalized understanding of the risks but he still wanted to get discharged. I updated Dr. Barry who agrees that patient can be seen as outpatient if he does not want to get transferred. Please note the above document was generated using voice recognition software. It may contain grammatical, syntax or spelling errors. Any formal questions or concerns about the content, text or information contained within the body of this dictation should be directly addressed to the provider for clarification Total Time Total Time Spent Total Time Spent (In Minutes): 45 Total Time Includes: Examination of the Patient, Discharge Planning, Medication Reconciliation, Communication With Other Providers and Other Discharge Plan Discharge Items Patient Disposition: Home - Self-Care Reason For Visit: NAUSEA / VOMITING, ELEVATED TROP Discharge Diagnosis: Persistent nausea/vomiting History of biliary stent and Axios stent in April 2022 Possible inferior displacement of biliary stent Condition on Discharge: Good Activity: Resume your previous activity Non-emergency contact: Primary Care Provider Call non-emergency contact if: you have any medication questions and your sy mptoms worsen Follow-up/Referrals: Real Mendoza MD [Primary Care Provider] - (Date & Time 05/20/2024 11:00 AM Provider: Real Mendoza MD [facility] ) Diet: Full liquid Addtl Attending Provider Instructions: You were admitted to the hospital due to nausea/vomiting that caused dehydration leading to acute kidney injury. You are hydrated during the hospitalization. The CT abdomen pelvis showed possible inferior displacement of the stent. You are scheduled for ERCP as outpatient on 05/15; please follow-up for the appointment. Resume Eliquis only after getting clearance from the GI doctor after the procedure. Please continue oral hydration. You are at risks of acute kidney failure, electrolyte abnormalities that could lead to multiorgan failure and . Please seek immediate medical attention if you continue to have nausea/vomiting. Pending Studies at Discharge: No Stand-Alone Forms: [facility], Smoking Cessation Medications and DC Order Prescriptions: Continued furosemide [Lasix] 80 mg tablet 40 mg PO UD Rx Instructions: 1/2 tablet dose in the morning CURRENLTY HOLDING DUE TO DEHYDRATION eplerenone [Inspra] 25 mg tablet 12.5 mg PO QAM Jardiance 10 mg Tablet 10 mg PO QAM metoprolol tartrate 50 mg Tablet 75 mg PO [facility] Flintstones Gummies Tablet,Chewable 1 tab PO QAM lisinopril 20 mg tablet 10 mg PO DAILY levothyroxine 100 mcg tablet 100 mcg PO DAILYBB famotidine 20 mg tablet 20 mg PO BID pantoprazole 40 mg tablet,delayed release (DR/EC) 40 mg PO DAILYBB Held Eliquis 5 mg tablet 5 mg PO UD Hold Instructions: Resume on 05/20/24. Rx Instructions: currently on hold for surgery Discharge Orders: Discharge Order (Routine); Ordered 05/13/24 Ordered By: William Valladares Admission Data Admit Date/Time: 05/11/24 03:42 Attending Provider: William Valladares Admit Provider: Hernando Tolentino Primary Care Provider: Real Mendoza Other Providers: Hernando Tolentino; Tomasz Guzman Other Interventions: Discharge Summary Assessment (RN) Last Done: 05/13/24 11:24
[2024-05-13 11:05] VITALS: BP 118/80; TEMP 97.9; O2SAT 97
[2024-05-13 11:26] VITALS: PULSE 67
--- NOTE | 2024-05-13 13:07 | Electrocardiogram Report ---
Test Reason : Blood Pressure : */* mmHG Vent. Rate : 62 BPM Atrial Rate : 300 BPM P-R Int : 238 ms QRS Dur : 138 ms QT Int : 470 ms P-R-T Axes : * 269 -4 degrees QTcB Int : 477 ms AV dual-paced rhythm with prolonged AV conduction with occasional Premature ventricular complexes Abnormal ECG When compared with ECG of 12-May-2024 05:55, Vent. rate has decreased by 4 bpm Confirmed by Issa Mullen ([id number]) on 05/13/2024 1:06:47 PM Referred By: REFERRED SELF Confirmed By: Issa Mullen
== END 2024-05-13 13:01 | disposition home or self-care (01) | DRG 920 ==
LOC: ED 22:42 → EDINP 05-11 03:42 → 2N 05-11 05:51

== ENCOUNTER 2024-06-18 03:18 | Inpatient (IN) ==
[2024-06-18] MEDS: SODIUM CHLORIDE 0.9% 1,000 ML IV SCH (03:30)
[2024-06-18 04:02] LABS: iSTAT Creatinine 3.5 mg/dl (0.6-1.3); iSTAT Ionized Calcium 0.98 mmol/l (1.12-1.32); iSTAT Potassium 5.1 mmol/L (3.3-5.0)
[2024-06-18] MEDS: NOREPINEPHRINE/D5W 4 MG/250 ML PLCT IV SCH (04:15)
--- NOTE | 2024-06-18 04:24 | XRay Report ---
EXAM: XR chest 1V portable CLINICAL HISTORY: Sepsis. TECHNIQUE: An X-ray image of the chest is obtained in AP projection. COMPARISON: A prior study dated 05/16/2022 wad reviewed. FINDINGS: Pulmonary Parenchyma: Lungs are clear bilaterally. No evidence of consolidation, collapse, or focal opacities. No pulmonary nodules are identified. No evidence of pleural effusion or pleural thickening. Heart and Mediastinum: Apparently mild cardiomegaly with evidence of an inserted pacemaker in place. No mediastinal widening or masses. No hilar or mediastinal lymphadenopathy. Bony Thorax: Bony thorax appears intact without fractures or deformities. Soft Tissues: Soft tissues overlying the chest wall are unremarkable. IMPRESSION: 1. Apparently mild cardiomegaly with evidence of an inserted pacemaker in place. 2. Otherwise, normal chest X-ray. 3. No acute cardiopulmonary abnormalities are identified. 4. No significant time interval changes. Electronically signed by Jhonny Xiao 06-18-2024 04:23 AM
[2024-06-18 04:35] LABS: Alanine Aminotransferase 34 U/L (7-52); BUN Creatinine Ratio 24.6 (10-20); Bilirubin,Total 0.8 mg/dl (0.2-1.0); Blood Urea Nitrogen 76 mg/dl (6-23); Calcium 8.2 mg/dl (8.6-10.3); Carbon Dioxide 20 mmol/L (21-32); Chloride 102 mmol/L (98-107); Creatinine Clr Calc Pharmacy 27.2 ml/min; Glucose 150 mg/dl (70-99(Fasting)); Total Protein 5.3 gm/dl (6.0-8.3); Troponin I High Sensitivity 51.4 pg/ml (0-20)
[2024-06-18] MEDS: STAT IV Infusion **Titration per Protocol STA (04:59)
[2024-06-18 05:00] LABS: iSTAT Arterial Blood Gas HCO3 17 meg/L (19-24); iSTAT Arterial Blood Gas pCO2 38 mmHg (35-46); iSTAT Arterial Blood Gas pH 7.25 (7.35-7.45); iSTAT Arterial Blood Gas pO2 301 mmHg (80-95); iSTAT Carbon Dioxide 18 mmol/L (24-31); iSTAT Hematocrit 38 % (42-52); iSTAT Hemoglobin 12.9 g/dl (14.0-18.0); iSTAT Potassium 4.5 mmol/L (3.3-5.0); iSTAT Sodium 136 mmol/L (135-144)
[2024-06-18 05:10] LABS: Albumin Level 2.2 gm/dl (3.4-5.0); Bilirubin Direct 0.3 mg/dl (0-0.2); Magnesium 2.6 mg/dl (1.7-2.4); Potassium 4.6 mmol/L (3.5-5.1)
[2024-06-18 05:20] LABS: Adenovirus PCR Not Detected (NotDetected); Bordetella parapertussis PCR Not Detected (NotDetected); Bordetella pertussis PCR Not Detected (NotDetected); Chlamydia pneumoniae PCR Not Detected (NotDetected); Coronavirus 229E PCR Not Detected (NotDetected); Coronavirus CoV-2 (COVID19)PCR Not Detected (NotDetected); Coronavirus HKU1 PCR Not Detected (NotDetected); Coronavirus NL63 PCR Not Detected (NotDetected); Coronavirus OC43PCR Not Detected (NotDetected); Human Metapneumovirus PCR Not Detected (NotDetected); Influenza A PCR Not Detected (NotDetected); Influenza B PCR Not Detected (NotDetected); Mycoplasma pneumoniae PCR Not Detected (NotDetected); Parainfluenza Virus 1 PCR Not Detected (NotDetected); Parainfluenza Virus 2 PCR Not Detected (NotDetected); Parainfluenza Virus 3 PCR Not Detected (NotDetected); Parainfluenza Virus 4 PCR Not Detected (NotDetected); Respiratory Syncytial VirusPCR Not Detected (NotDetected); Rhinovirus/Enterovirus PCR Not Detected (NotDetected)
--- NOTE | 2024-06-18 05:45 | History & Physical Report ---
Date of Service June 18, 2024 Assessment & Plan (1) Encephalopathy: Plan: Encephalopathy Patient mentating better after initial intervention as per family. 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 status post TAVR nocturnal hypoxemia on home O2 at night DM2 on oral medications, well-controlled as of recent hemoglobin A1c of 7 last April 2024 hypothyroidism, no recent TSH on file metastatic esophageal cancer status post radiation status post stent placement status post recent PEG tube placement hx choledocholithiasis past tobacco abuse Admit to ICU Continue Levophed Monitor creatinine and lactic acid response to IVF Sepsis workup and management as per ICU team CT head Re: Encephalopathy, history normal Rx CT abdomen pelvis re: abdominal pain Further management contingent on above workup results Hold BP meds for now given hypotension Hold Eliquis until CT resulted Check TSH ISS BG goal 1 40-1 80 DVT prophylaxis. SCDs while Eliquis on hold Full code Patient sister requesting updates providers. Sharon Tomlin, contact #[phone]. Total critical care time was 35 minutes. Text document was generated using [employer] voice recognition software. It may contain grammatical or spelling errors. Kindly contact undersigned for clarification of any documentation item in question. History of Present Illness Chief Complaint: Decreased responsiveness as per family Primary Care Provider: Real Mendoza MD History obtained from patient, family, and records. Patient is a fair historian. Medical history significant for chronic systolic heart failure (EF 40%, TTE 2024), SSS status post PPM on Eliquis, status post TAVR, nocturnal hypoxemia on home O2 at night, DM2 on oral medications, hypothyroidism, metastatic esophageal cancer status post radiation status post stent placement status post recent PEG tube placement, choledocholithiasis, past history C. difficile, anxiety disorder, past tobacco abuse. Recent [facility] confinement last month for nausea vomiting post ERCP. Patient subsequently transferred and confined to [facility] from from May 14 to for further evaluation. Found to have an esophageal obstruction status post stent placement. Biopsy consistent with esophageal adenocarcinoma. Subsequent [facility] confinement 05/23-06/07 for esophageal obstruction secondary to displaced esophageal stent. Subsequent IR guided PEG tube placement at [facility]. Palliative radiation initiated at [facility] due to esophageal obstruction causing dysphagia.. Patient not operative candidate as per surgical oncology. Strict n.p.o. instructions and PEG tube feeds prescribed on discharge. Further management of malignancy contingent on outpatient PET CT scheduled today as per outpatient [facility] oncology note from last week. Patient noted progressive achy lower abdominal discomfort and back pain over the last few days. Denies headache, chest pain, SOB, cough symptoms. Patient noted to be progressively weak by family. No overt bleeding noted at home. Slow to respond and increasingly responsive overnight. EMS called to patient's home. Patient noted to be hypoxic, O2 sat 70s and hypotensive, SBP 60s. Fluid boluses and Levophed administered prior to ED transport. Patient currently more awake at the ER as per family. Medical History as above Surgical History : TAVR, PPM Family History : Stroke, pancreatic cancer, bladder cancer, DM, heart disease Personal/Social history : Past tobacco abuse, no EtOH intake, retired from construction work Allergies Allergy/AdvReac Type Severity Reaction Status Date / Time cefuroxime Allergy Intermediate FEVER, Verified 01/30/21 14:19 DIARHEA cider vinegar Allergy Verified 02/02/21 16:27 ketchup Allergy Verified 02/02/21 16:27 mayonnaise Allergy Verified 02/02/21 16:27 mustard Allergy Verified 02/02/21 16:27 Home Medications Medication Instructions Recorded Confirmed Type eplerenone 25 mg tablet (Inspra) 12.5 mg PO QAM 01/29/21 06/18/24 History furosemide 80 mg tablet (Lasix) 40 mg PO UD 01/29/21 05/10/24 History metoprolol tartrate 50 mg tablet 75 mg PO AMHS 04/28/22 06/18/24 History pediatric multivitamin no.49 1 tab PO QAM 04/28/22 05/10/24 History (Flintstones Gummies chewable tablet) empagliflozin 10 mg tablet 10 mg PO QAM 05/16/22 06/18/24 History (Jardiance) apixaban 5 mg tablet (Eliquis) 5 mg PO UD 05/10/24 06/18/24 History famotidine 20 mg tablet 20 mg PO BID Indigestion 05/10/24 06/18/24 History levothyroxine 100 mcg tablet 100 mcg PO DAILYBB 05/10/24 06/18/24 History pantoprazole 40 mg tablet,delayed 40 mg PO DAILYBB 05/10/24 06/18/24 History release magnesium citrate 06/18/24 History omeprazole 2 mg-sodium bicarbonate 2 - 84 ml feeding tube DAILY 06/18/24 06/18/24 History 84 mg/mL oral suspension (Konvomep) ondansetron 4 mg disintegrating 4 mg PO Q8 PRN Nausea 06/18/24 06/18/24 History tablet oxycodone 5 mg tablet 5 mg PO Q4 PRN Pain (Scale Score 06/18/24 06/18/24 History 4-6) Past Med/Surg History Problem List (Updated 06/18/24 @ 08:14 by Abdiaziz Newberry MD) Encephalopathy Hypotension Hypothermia (Acute) Acute hypotension (Acute) Acute renal failure (Acute) Severe malnutrition Dehydration Lactic acidosis Shock DEE (acute kidney injury) Nausea & vomiting (Acute) Abdominal pain, acute (Acute) Nausea & vomiting (Acute) Abdominal pain, acute (Acute) Leukocytosis (Acute) Acute hypotension (Acute) Choledocholithiasis Abdominal wall pain in right upper quadrant (Acute) Gallstones (Acute) Pacemaker Eye disorder S/p posterior Sub-tenons Triesence, right Osteoarthritis CHF (congestive heart failure) (Chronic) Retinal tear (Chronic) Medical History Congestive heart failure COVID-19 Hypertension Ischemic cardiomyopathy Osteoarthritis Third degree heart block Type 2 diabetes mellitus Surgical History Eye disorder S/p posterior Sub-tenons Triesence, right Family History Father Prostate cancer Bladder cancer Mother Diabetes Heart disease Thyroid condition Sister Thyroid condition Social History Smoking Status: Former smoker Second Hand Exposure: No; Do You Dip or Chew Tobacco: No; Hx Alcohol Use: No Hx Substance Use: No Preferred Language: Cypriot Communication Ability: Effective Cannon Crewmember Required: No Beliefs That Will Affect Care: None marital status: Single Current Living Situation: Family Current Living Situation Comment: lives with sister Feels Safe at Home: Yes Assistive Devices: None Review of Systems Review of Systems: As per HPI, all other systems reviewed and negative Physical Exam Physical Exam: GENERAL: uncomfortable, ill-appearing, obese, no respiratory distress SKIN: Normal color, warm HEENT: Alopecia, pink palpebral conjunctivae, no ptosis, dry buccal mucosa, nasal cannula in place , NECK : Supple, no tenderness CHEST : Decreased breath sounds, no tenderness HEART : Tachycardic, systolic murmur ABDOMEN: Some distention, central abdominal tenderness EXTREMITIES : No LE swelling/tenderness, palpable pulses, no other conspicuous deformities noted NEUROLOGIC : Oriented to place, no facial asymmetry, no other gross focality Results & Data Results & Data Vital Signs (Past 12 Hours) Vital Signs Temp Pulse Pulse Resp BP BP Pulse Ox 06/18/24 05:36 105 H 34 H 91 06/18/24 05:30 73/56 L 06/18/24 05:30 73/56 L 06/18/24 05:30 73/56 L 06/18/24 05:30 73/56 L 06/18/24 05:30 06/18/24 05:30 97 06/18/24 05:27 90 39 H 99 06/18/24 05:26 68/49 L 06/18/24 05:26 68/49 L 06/18/24 05:11 74/48 L 06/18/24 05:11 74/48 L 06/18/24 05:11 74/48 L 06/18/24 05:00 77/53 L 06/18/24 05:00 77/53 L 06/18/24 05:00 77/53 L 06/18/24 04:58 82/35 L 06/18/24 04:57 113 H 26 H 91 06/18/24 04:48 99 H 24 90 06/18/24 04:45 35.9 C L 92 H 22 87/61 L 91 06/18/24 04:44 87/61 L 06/18/24 04:44 87/61 L 06/18/24 04:44 87/61 L 06/18/24 04:30 36.0 C L 99 H 26 H 81/63 L 91 06/18/24 04:25 92 H 28 H 91 06/18/24 04:23 72/51 L 06/18/24 04:15 36.0 C L 99 H 35 H 72/51 L 91 06/18/24 04:00 34.2 C L 06/18/24 03:56 104 H 06/18/24 03:48 90 06/18/24 03:20 107 H 22 76 L O2 Del Method O2 Flow Rate 06/18/24 05:36 Nasal Cannula 6 06/18/24 05:30 06/18/24 05:30 06/18/24 05:30 06/18/24 05:30 06/18/24 05:30 Nasal Cannula 06/18/24 05:30 Nasal Cannula 6 06/18/24 05:27 06/18/24 05:26 06/18/24 05:26 06/18/24 05:11 06/18/24 05:11 06/18/24 05:11 06/18/24 05:00 06/18/24 05:00 06/18/24 05:00 06/18/24 04:58 06/18/24 04:57 Non-rebreather 06/18/24 04:48 Non-rebreather 06/18/24 04:45 Non-rebreather 06/18/24 04:44 06/18/24 04:44 06/18/24 04:44 06/18/24 04:30 Non-rebreather 06/18/24 04:25 Non-rebreather 06/18/24 04:23 06/18/24 04:15 Non-rebreather 15 06/18/24 04:00 06/18/24 03:56 06/18/24 03:48 Non-rebreather 15 06/18/24 03:20 Laboratory Results Laboratory Results WBC Cancelled 06/18/24 03:48 RBC Cancelled 06/18/24 03:48 Hgb Cancelled 06/18/24 03:48 POC Hgb 12.9 g/dl (14.0-18.0) L 06/18/24 04:44 Hct Cancelled 06/18/24 03:48 POC Hct 38 % (42-52) L 06/18/24 04:44 MCV Cancelled 06/18/24 03:48 MCH Cancelled 06/18/24 03:48 MCHC Cancelled 06/18/24 03:48 RDW Std Deviation Cancelled 06/18/24 03:48 RDW Coeff of Mariam Cancelled 06/18/24 03:48 Plt Count Cancelled 06/18/24 03:48 MPV Cancelled 06/18/24 03:48 Immature Gran % (Auto) Cancelled 06/18/24 03:48 Neut % (Auto) Cancelled 06/18/24 03:48 Lymph % (Auto) Cancelled 06/18/24 03:48 [place] % (Auto) Cancelled 06/18/24 03:48 Eos % (Auto) Cancelled 06/18/24 03:48 Baso % (Auto) Cancelled 06/18/24 03:48 Neut # (Auto) Cancelled 06/18/24 03:48 Lymph # (Auto) Cancelled 06/18/24 03:48 [place] # (Auto) Cancelled 06/18/24 03:48 Eos # (Auto) Cancelled 06/18/24 03:48 Baso # (Auto) Cancelled 06/18/24 03:48 Immature Gran # (Auto) Cancelled 06/18/24 03:48 Absolute Nucleated RBC Cancelled 06/18/24 03:48 Nucleated RBC % (auto) Cancelled 06/18/24 03:48 Neutrophils % (Manual) Cancelled 06/18/24 03:48 Band Neutrophils % Cancelled 06/18/24 03:48 Lymphocytes % (Manual) Cancelled 06/18/24 03:48 Prolymphocyte % Cancelled 06/18/24 03:48 Reactive Lymphs % (Man) Cancelled 06/18/24 03:48 Monocytes % (Manual) Cancelled 06/18/24 03:48 Eosinophils % (Manual) Cancelled 06/18/24 03:48 Basophils % (Manual) Cancelled 06/18/24 03:48 Metamyelocytes % (Man) Cancelled 06/18/24 03:48 Myelocytes % (Man) Cancelled 06/18/24 03:48 Promyelocytes % (Man) Cancelled 06/18/24 03:48 Blast Cells % (Manual) Cancelled 06/18/24 03:48 Plasma Cell % (Manual) Cancelled 06/18/24 03:48 Other Cells % Cancelled 06/18/24 03:48 Nucleated RBC % Cancelled 06/18/24 03:48 Neutrophils # (Manual) Cancelled 06/18/24 03:48 Band Neutrophils # Cancelled 06/18/24 03:48 Total Absolute Neuts Cancelled 06/18/24 03:48 Lymphocytes # (Manual) Cancelled 06/18/24 03:48 Prolymphocyte # Cancelled 06/18/24 03:48 Reactive Lymphs # Cancelled 06/18/24 03:48 Total Abs Lymphocytes Cancelled 06/18/24 03:48 Monocytes # (Manual) Cancelled 06/18/24 03:48 Eosinophils # (Manual) Cancelled 06/18/24 03:48 Basophils # (Manual) Cancelled 06/18/24 03:48 Metamyelocytes # (Man) Cancelled 06/18/24 03:48 Myelocytes # (Manual) Cancelled 06/18/24 03:48 Promyelocytes # (Man) Cancelled 06/18/24 03:48 Blast Cells # (Man) Cancelled 06/18/24 03:48 Plasma Cell # (Manual) Cancelled 06/18/24 03:48 Other Cells # Cancelled 06/18/24 03:48 Nucleated RBCs # (Man) Cancelled 06/18/24 03:48 Hypersegmented Neuts Cancelled 06/18/24 03:48 Hyposegmented Neuts Cancelled 06/18/24 03:48 Hypogranular Neuts Cancelled 06/18/24 03:48 Large Granular Lymphs Cancelled 06/18/24 03:48 # Lrg Granular Lymphs Cancelled 06/18/24 03:48 Hairy Cells Cancelled 06/18/24 03:48 Smudge Cells Cancelled 06/18/24 03:48 Toxic Granulation Cancelled 06/18/24 03:48 Toxic Vacuolation Cancelled 06/18/24 03:48 Dohle Bodies Cancelled 06/18/24 03:48 Vanna Rods Cancelled 06/18/24 03:48 Platelet Estimate Cancelled 06/18/24 03:48 Hypogranular Platelets Cancelled 06/18/24 03:48 Giant Platelets Cancelled 06/18/24 03:48 Platelet Satelliting Cancelled 06/18/24 03:48 RBC Morphology Cancelled 06/18/24 03:48 Polychromasia Cancelled 06/18/24 03:48 Hypochromasia Cancelled 06/18/24 03:48 Poikilocytosis Cancelled 06/18/24 03:48 Basophilic Stippling Cancelled 06/18/24 03:48 Anisocytosis Cancelled 06/18/24 03:48 Microcytosis Cancelled 06/18/24 03:48 Macrocytosis Cancelled 06/18/24 03:48 Spherocytes Cancelled 06/18/24 03:48 Pappenheimer Bodies Cancelled 06/18/24 03:48 Sickle Cells Cancelled 06/18/24 03:48 Target Cells Cancelled 06/18/24 03:48 Tear Drop Cells Cancelled 06/18/24 03:48 Ovalocytes Cancelled 06/18/24 03:48 Stomatocytes Cancelled 06/18/24 03:48 [place] Bodies Cancelled 06/18/24 03:48 Echinocytes Cancelled 06/18/24 03:48 Acanthocytes (Spur) Cancelled 06/18/24 03:48 Rouleaux Cancelled 06/18/24 03:48 RBC Agglutinates Cancelled 06/18/24 03:48 Schistocytes Cancelled 06/18/24 03:48 Sezary Cell Cancelled 06/18/24 03:48 POC pH 7.25 (7.35-7.45) L 06/18/24 04:44 POC pCO2 38 mmHg (35-46) 06/18/24 04:44 POC pO2 301 mmHg (80-95) H 06/18/24 04:44 POC HCO3 17 jon/L (19-24) L 06/18/24 04:44 POC Total CO2 18 mmol/L (24-31) L 06/18/24 04:44 POC Base Excess -11.0 jon/L (-9-1.8) L 06/18/24 04:44 POC ABG O2 Sat 100.0 % (90-95) H 06/18/24 04:44 POC Sodium 136 mmol/L (135-144) 06/18/24 04:44 Sodium 139 mmol/L (136-145) 06/18/24 04:45 POC Potassium 4.5 mmol/L (3.3-5.0) 06/18/24 04:44 Potassium 4.6 mmol/L (3.5-5.1) 06/18/24 04:45 POC Chloride 104 mmol/L (101-112) 06/18/24 03:50 Chloride 102 mmol/L (98-107) 06/18/24 03:48 Carbon Dioxide 20 mmol/L (21-32) L 06/18/24 03:48 POC Total CO2 18 mmol/L (24-31) L 06/18/24 03:50 Anion Gap TNP 06/18/24 03:48 POC Anion Gap 18.0 mmol/L (16-25) 06/18/24 03:50 POC BUN 79 mg/dl (7-18) H 06/18/24 03:50 BUN 76 mg/dl (6-23) H 06/18/24 03:48 Creatinine 3.09 mg/dl (0.6-1.4) H 06/18/24 03:48 POC Creatinine 3.5 mg/dl (0.6-1.3) H 06/18/24 03:50 Est Cr Clr Drug Dosing 27.2 ml/min 06/18/24 03:48 eGFR 21.44 06/18/24 03:48 BUN/Creatinine Ratio 24.6 (10-20) H 06/18/24 03:48 Glucose 150 mg/dl (70-99(Fasting)) H 06/18/24 03:48 POC Glucose (other) 141 mg/dl (70-99) H 06/18/24 03:50 Calcium 8.2 mg/dl (8.6-10.3) L 06/18/24 03:48 POC Ioniz Calcium Kaitlyn 0.98 mmol/l (1.12-1.32) L 06/18/24 03:50 Magnesium 2.6 mg/dl (1.7-2.4) H 06/18/24 04:45 Total Bilirubin 0.8 mg/dl (0.2-1.0) 06/18/24 03:48 Direct Bilirubin 0.3 mg/dl (0-0.2) H 06/18/24 04:45 AST 68 U/L (13-39) H 06/18/24 04:45 ALT 34 U/L (7-52) 06/18/24 03:48 Alkaline Phosphatase 37 U/L (34-104) 06/18/24 04:45 Troponin I High Sens 51.4 pg/ml (0-20) H* 06/18/24 03:48 Total Protein 5.3 gm/dl (6.0-8.3) L 06/18/24 03:48 Albumin 2.2 gm/dl (3.4-5.0) L 06/18/24 04:45 Procalcitonin Cancelled 06/18/24 03:48 Adenovirus (PCR) Not Detected (NotDetected) 06/18/24 04:08 B. pertussis DNA (PCR) Not Detected (NotDetected) 06/18/24 04:08 B.parapertussis DNA PCR Not Detected (NotDetected) 06/18/24 04:08 C. pneumoniae DNA (PCR) Not Detected (NotDetected) 06/18/24 04:08 Coronavirus OC43 (PCR) Not Detected (NotDetected) 06/18/24 04:08 Coronavirus HKU1 (PCR) Not Detected (NotDetected) 06/18/24 04:08 Coronavirus 229E (PCR) Not Detected (NotDetected) 06/18/24 04:08 SARS-CoV-2 (PCR) Not Detected (NotDetected) 06/18/24 04:08 Coronavirus NL63 (PCR) Not Detected (NotDetected) 06/18/24 04:08 Human Metapneumovir PCR Not Detected (NotDetected) 06/18/24 04:08 Influenza Type A (PCR) Not Detected (NotDetected) 06/18/24 04:08 Influenza Type B (PCR) Not Detected (NotDetected) 06/18/24 04:08 M. pneumoniae (PCR) Not Detected (NotDetected) 06/18/24 04:08 Parainfluenza 1 (PCR) Not Detected (NotDetected) 06/18/24 04:08 Parainfluenza 2 (PCR) Not Detected (NotDetected) 06/18/24 04:08 Parainfluenza 3 (PCR) Not Detected (NotDetected) 06/18/24 04:08 Parainfluenza 4 (PCR) Not Detected (NotDetected) 06/18/24 04:08 RSV (PCR) Not Detected (NotDetected) 06/18/24 04:08 Entero/Rhino (PCR) Not Detected (NotDetected) 06/18/24 04:08 Blood Parasites ID Cancelled 06/18/24 03:48 Impressions Chest X-Ray 06/18/24 03:48 EXAM: XR chest 1V portable CLINICAL HISTORY: Sepsis. TECHNIQUE: An X-ray image of the chest is obtained in AP projection. COMPARISON: A prior study dated 05/16/2022 wad reviewed. FINDINGS: Pulmonary Parenchyma: Lungs are clear bilaterally. No evidence of consolidation, collapse, or focal opacities. No pulmonary nodules are identified. No evidence of pleural effusion or pleural thickening. Heart and Mediastinum: Apparently mild cardiomegaly with evidence of an inserted pacemaker in place. No mediastinal widening or masses. No hilar or mediastinal lymphadenopathy. Bony Thorax: Bony thorax appears intact without fractures or deformities. Soft Tissues: Soft tissues overlying the chest wall are unremarkable. IMPRESSION: 1. Apparently mild cardiomegaly with evidence of an inserted pacemaker in place. 2. Otherwise, normal chest X-ray. 3. No acute cardiopulmonary abnormalities are identified. 4. No significant time interval changes. Electronically signed by Jhonny Xiao 06-18-2024 04:23 AM Diagnostic Findings EKG as per my interpretation :Rate 100, paced rhythm
[2024-06-18 05:54] LABS: Appearance Urine Cloudy (Clear); Bacteria Urine Automated None Seen (None Seen); Bilirubin Urine Negative (Negative); Blood Urine Trace (Negative); Cast Urine Automated >20 /lpf (0-2); Color Urine Dark Yellow; Glucose Urine UA 1+ (Negative); Ketones Urine Trace (Negative); Leukocyte Esterase Urine Negative (Negative); Nitrite Urine Negative (Negative); Protein Urine 1+ (Negative); Specific Gravity Urine 1.023 (1.000-1.030); Urobilinogen Urine Negative (Negative)
[2024-06-18 06:00] LABS: Hematocrit (blood only) 49.8 % (42.0-52.0); Hemoglobin 15.5 g/dl (14.0-18.0); Mean Corpuscular Hemoglobin 31.4 pg (25.0-34.0); Mean Corpuscular Hgb Conc 31.1 g/dL (32.0-36.0); Mean Corpuscular Volume 100.8 fL (80.0-100.0); Mean Platelet Volume 12.5 fL (9.4-12.4); Platelet Count 93 K/uL (130-400); RDW Coefficient of Variation 14.1 % (11.5-14.5); RDW Standard Deviation 51.8 fL (36.4-46.3); Red Blood Count 4.94 M/uL (4.70-6.10)
[2024-06-18 06:01] LABS: Basophils # (auto) 0.01 K/uL (0.00-0.20); Basophils % (auto) 0.1 %; Echinocytes 1+; Eosinophils # (auto) 0.02 K/uL (0.00-0.50); Eosinophils % (auto) 0.2 %; Immature Granulocytes # (auto) 0.05 K/uL (0.01-0.20); Immature Granulocytes % (auto) 0.6 %; Lymphocytes # (auto) 0.24 K/uL (1.20-3.40); Lymphocytes % (auto) 2.7 %; Monocytes # (auto) 0.31 K/uL (0.11-0.59); Monocytes % (auto) 3.5 %; Neutrophils # (auto) 8.27 K/uL (1.40-6.50); Neutrophils % (auto) 92.9 %; Platelet Estimate Decreased (Normal)
--- NOTE | 2024-06-18 06:06 | Critical Care Consultation ---
Date of Consultation June 18, 2024 Assessment & Plan (1) DEE (acute kidney injury): (2) Shock: (3) Lactic acidosis: (4) Dehydration: (5) Severe malnutrition: Plan Reason Critically Ill: 1. Shock, hypovolemic +/- distributive 2. Esophageal adenocarcinoma with obstruction 3. DEE on CKD, prerenal 4. Severe protein calorie malnutrition 5. Failure to thrive 6. Rule out sepsis 7. HAGMA 2/2 lactic acidosis Neuro - [facility] ICU: negative RASS GOAL 0 Avoid sedating medications Not taking opiates at home due to constipation, will utilize multimodal pain management Depressed mentation was due to hemodynamic compromise, now improved Cardiac - POCUS on arrival to ICU, continue resuscitation Continue norepinephrine for MAP goal > 65mmHg, add Vasopressin History of idiopathic cardiomyopathy, now recovered EF, if concerning findings on POCUS will repeat TTE while inpatient Troponin leak likely demand Admit EKG without ischemic changes Respiratory - SpO2 goal > 92% IS/Flutter HOB 30, aspiration precautions CXR no acute process GI - Diet: NPO pending swallow exam SUP: PPI Bowel regimen: Hold with diarrhea Zofran PRN Private Security Guard consult, appreciate recommendations CT AP pending RENAL/LYTES - Trend metabolic panel, if no improvement with hydration will consider Nephrology consultation Replete electrolytes as indicated Asif for accurate I/Os Trend lactate to clearance ENDO - Home levothyroxine BG 140-180 per [facility]M guidelines ISS if needed while inpatient HEME/ONC - Would consider restarting his therapeutic anticoagulation given his chemoport will not be placed during admission BLE doppler pending, CT PE deferred given his renal function Oncology consult Consider Palliative consult ID - Given his significant hemodynamic instability and multiple pressors, will add empiric antibiotics and panculture BC pending, UA negative, MRSA pending LINES/TUBES/DRAINS - [] DVT PROPHYLAXIS - [] DISPOSITION - ICU CODE STATUS - Full per discussion with patient I have personally spent 47 minutes of critical care time in the direct management of this patient. This is a life/limb threatening event. This includes time spent evaluating patient, direct bedside care, chart review, placing orders, interpretation of diagnostic studies, discussion with consultants, patient, and family members, as well as other required patient management activities. This time is exclusive of all separately billable procedures, and teaching time and separate from and in addition to any other critical care service time. Thank you for allowing us to participate in the care of this patient. Please refer to my attending physician's documentation for any further recommendations. History of Present Illness Reason for Consultation: Shock Requesting Physician: Jaylene Attending Physician: Rohith History of Present Illness Mr. Yovani La is an unfortunate 68YOM with a past medical history of detailed below who presents to [facility] ED in the early childhood aide classroom of 06/18/2024 due to decreased responsiveness. EMS called to patient's residence as sister found him to be weak and unresponsive. Initial SBP for EMS was in the 40s. He received IVF as well as peripheral norepinephrine with improvement in mentation. Patient remained hypotensive, hypoxemic on arrival to ED. Initial core temperature of 34.2C. Per report, patient has had very minimal intake via PEG or PO. He has been noticeably weak for at least 2 days per family. Patient received 3L NSS in ED. Work-up thus far - labs reveal DEE with Cr 3.09, metabolic acidosis with pH 7.25, troponin 51. CBC, LA, and remainder of labs pending at time of admission. CXR no acute process. Yovani is admitted to ICU for continuation of care. Patient seen in ED A01. He awakens to voice. Sister is at bedside and provides much of history. Patient states he feels improved since arrival. Admits to limited intake since discharged from [facility] on 06/07/2024 due to "gas pain" with feedings through his PEG. Noticeable weight loss per family. Patient endorses diarrhea daily. He denies fevers/chills, continued abdominal pain, shortness of breath, or chest pain. He does have RUQ/LUQ and epigastric abdominal pain but this is transient in nature. No taking Eliquis since Monday due to plan for port placement. Patient's discharge summary from [facility] reviewed - recent admission for severe malnutrition, obstructing esophageal mass s/p failed esophageal stent, PEG tube placement by IR, peritoneal carcinomatosis, palliative radiation with mild improvement in swallowing, plan for bolus feeds via PEG. He was deemed to not be an operative candidate per Surgical Oncology. Plan for outpatient PET scan, port placement, and possible systemic chemotherapy pending his clinical condition. Past Medical History: 1. 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 Peritoneal carcinomatosis 3. HTN/HLD 4. NIDDMII 5. Idiopathic CM 6. Paroxysmal atrial fibrillation on Eliquis 7. Choledocholithiasis s/p biliary stent 8. Nocturnal oxygen requirement 9. AVB s/p PPM 10. Severe s/p TAVR 11. Hypothyroidism 12. C. diff colitis Allergies Allergy/AdvReac Type Severity Reaction Status Date / Time cefuroxime Allergy Intermediate FEVER, Verified 01/30/21 14:19 DIARHEA cider vinegar Allergy Verified 02/02/21 16:27 ketchup Allergy Verified 02/02/21 16:27 mayonnaise Allergy Verified 02/02/21 16:27 mustard Allergy Verified 02/02/21 16:27 Home Medications Medication Instructions Recorded Confirmed Type eplerenone 25 mg tablet (Inspra) 12.5 mg PO QAM 01/29/21 06/18/24 History furosemide 80 mg tablet (Lasix) 40 mg PO UD 01/29/21 05/10/24 History metoprolol tartrate 50 mg tablet 75 mg PO [facility] 04/28/22 06/18/24 History pediatric multivitamin no.49 1 tab PO QAM 04/28/22 05/10/24 History (Flintstones Gummies chewable tablet) empagliflozin 10 mg tablet 10 mg PO QAM 05/16/22 06/18/24 History (Jardiance) apixaban 5 mg tablet (Eliquis) 5 mg PO UD 05/10/24 06/18/24 History famotidine 20 mg tablet 20 mg PO BID Indigestion 05/10/24 06/18/24 History levothyroxine 100 mcg tablet 100 mcg PO DAILYBB 05/10/24 06/18/24 History pantoprazole 40 mg tablet,delayed 40 mg PO DAILYBB 05/10/24 06/18/24 History release magnesium citrate 06/18/24 History omeprazole 2 mg-sodium bicarbonate 2 - 84 ml feeding tube DAILY 06/18/24 06/18/24 History 84 mg/mL oral suspension (Konvomep) ondansetron 4 mg disintegrating 4 mg PO Q8 PRN Nausea 06/18/24 06/18/24 History tablet oxycodone 5 mg tablet 5 mg PO Q4 PRN Pain (Scale Score 06/18/24 06/18/24 History 4-6) Patient History Medical History Congestive heart failure COVID-19 Hypertension Ischemic cardiomyopathy Osteoarthritis Third degree heart block Type 2 diabetes mellitus Surgical History Eye disorder S/p posterior Sub-tenons Triesence, right Family History Father Prostate cancer Bladder cancer Mother Diabetes Heart disease Thyroid condition Sister Thyroid condition Social History Smoking Status: Former smoker Second Hand Exposure: No; Do You Dip or Chew Tobacco: No; Hx Alcohol Use: No Hx Substance Use: No Preferred Language: Indonesian Communication Ability: Effective Airport Location Manager Required: No Beliefs That Will Affect Care: None marital status: Single Current Living Situation: Family Current Living Situation Comment: lives with sister Feels Safe at Home: Yes Assistive Devices: None Review of Systems Review of Systems: All systems reviewed & are unremarkable except as noted in Subjective Physical Exam Constitutional: + thin, + frail appearing, comfortable a nd + malnourished; no acute distress Eyes: R eye blindness. Otherwise normal examination. L pupil reactive ENMT: Dry MM Neck: trachea midline, no thyromegaly Respiratory: normal respiratory effort and able to speak in complete sentences Auscultation: lungs clear to auscultation bilaterally Cardiovascular: Rate/Rhythm: regular rate and regular rhythm Heart Sounds: + murmur Vessels: no JVD Extremities: normal capillary refill and + edema Paced Gastrointestinal (Abdomen): Inspection/Auscultation: abdomen normal to inspection and + hypoactive bowel sounds Percussion/Palpation: + abdomen tender and abdomen soft tender LUQ and epigastrium. PEG site C/D/I without signs of infection Musculoskeletal: Gross muscle wasting Skin: + turgor decreased and + pallor; no rash es, no lesions and no wound Neurologic: PERRL, EOMI, accommodation nl, no face palsy, no dysarthria Psychiatric: Orientation: alert and oriented x 3 Affect: + flat affect and + irritable affect Genitourinary: Asif in place Results & Data Results & Data Vital Signs (Past 12 Hours) Vital Signs Temp Pulse Pulse Resp BP BP Pulse Ox 06/18/24 05:30 97 06/18/24 04:58 82/35 L 06/18/24 04:57 113 H 26 H 91 06/18/24 04:48 99 H 24 90 06/18/24 04:45 35.9 C L 92 H 22 87/61 L 91 06/18/24 04:44 87/61 L 06/18/24 04:44 87/61 L 06/18/24 04:44 87/61 L 06/18/24 04:30 36.0 C L 99 H 26 H 81/63 L 91 06/18/24 04:25 92 H 28 H 91 06/18/24 04:23 72/51 L 06/18/24 04:15 36.0 C L 99 H 35 H 72/51 L 91 06/18/24 04:00 34.2 C L 06/18/24 03:56 104 H 06/18/24 03:48 90 06/18/24 03:20 107 H 22 76 L O2 Del Method O2 Flow Rate 06/18/24 05:30 Nasal Cannula 6 06/18/24 04:58 06/18/24 04:57 Non-rebreather 06/18/24 04:48 Non-rebreather 06/18/24 04:45 Non-rebreather 06/18/24 04:44 06/18/24 04:44 06/18/24 04:44 06/18/24 04:30 Non-rebreather 06/18/24 04:25 Non-rebreather 06/18/24 04:23 06/18/24 04:15 Non-rebreather 15 06/18/24 04:00 06/18/24 03:56 06/18/24 03:48 Non-rebreather 15 06/18/24 03:20 Laboratory Results Reviewed Diagnostic Findings Reviewed Medications Administered See MAR Coding Level of Care Code 91023 CRITICAL CARE 1ST 30-74M Diagnoses DEE (acute kidney injury) N17.9 Shock R57.9 Lactic acidosis E87.20 Dehydration E86.0 Severe malnutrition E43 Time Spent (min) 47
[2024-06-18] MEDS ORDERED: STAT IV Infusion **Titration per Protocol STA ×3 (06:07→07:15)
[2024-06-18] MEDS ORDERED: VANCOMYCIN CONSULT ACTIVE PRN (06:09)
[2024-06-18] MEDS ORDERED: ACETAMINOPHEN SUSP 325 MG/10.15 ML UDC PEG PRN (06:14)
[2024-06-18] MEDS ORDERED: CEFEPIME 500MG 500 MG/5 ML SYR IV SCH (06:15)
[2024-06-18] MEDS: LACTATED RINGER'S 1,000 ML IV ONE (06:30)
[2024-06-18 06:33] LABS: RBC Urine Automated 0-2 /hpf (0-2); Sperm Urine Present (None Prsent)
[2024-06-18 06:34] LABS: Mucus Urine Present (None Prsent)
[2024-06-18] MEDS: VASOPRESSIN 20 UNITS in SODIUM CHLORIDE 0.9% 100 ML IV SCH (06:35)
[2024-06-18] MEDS: LACTATED RINGER'S 1,000 ML IV SCH (06:40)
[2024-06-18] MEDS ORDERED: CARBOHYDRATES FOR HYPOGLYCEMIA PO PRN (06:49)
[2024-06-18] MEDS ORDERED: GLUCOSE 40% GEL 15 GM TUBE PO PRN (06:49)
[2024-06-18] MEDS ORDERED: DEXTROSE 50% 50 ML SYRINGE IV PRN (06:49)
[2024-06-18] MEDS ORDERED: GLUCAGON FOR INJ 1 MG VIAL SQ PRN (06:49)
[2024-06-18] MEDS ORDERED: GLUCOSE 10 TAB/TUBE PO PRN (06:49)
[2024-06-18] MEDS: VANCOMYCIN HCL 2,000 MG in SODIUM CHLORIDE 0.9% 500 ML IV ONE (06:51)
[2024-06-18] MEDS: CEFEPIME 2000MG 2,000 MG/20 ML SYR IV ONE (06:51)
--- NOTE | 2024-06-18 07:03 | CT Scan Report ---
EXAM: CT head/brain wo con CLINICAL HISTORY: antoine caceres TECHNIQUE: Multiple axial images are obtained from the skull base to the vertex without contrast. CT scan was performed according to ALARA (as low as reasonable achievable). COMPARISON: None. FINDINGS: There is cerebral atrophy. No evidence of space occupying lesion, hemorrhage, edema, mass effect, midline shift, extra axial collection, or hydrocephalus is noted. Basal cisterns are symmetric and normal in size and configuration. There are scattered periventricular hypodensities as can be seen with chronic microvascular ischemic changes. The moraes-white matter differentiation is preserved. Visualized paranasal sinuses and mastoid air cells are well aerated. Orbital contents are within normal limits. Bony structures are intact. IMPRESSION: 1. No evidence of acute intracranial abnormality is demonstrated. 2. Chronic microvascular ischemic changes. 3. Cerebral atrophy. Electronically signed by Soto Callahan 06-18-2024 07:02 AM
--- NOTE | 2024-06-18 07:09 | Critical Care Progress Note ---
Date of Service June 18, 2024 Assessment & Plan (1) DEE (acute kidney injury): (2) Shock: (3) Lactic acidosis: (4) Dehydration: (5) Severe malnutrition: Plan Reason Critically Ill: 1. Shock, hypovolemic +/- distributive 2. Esophageal adenocarcinoma with obstruction 3. DEE on CKD, prerenal 4. Severe protein calorie malnutrition 5. Failure to thrive 6. Rule out sepsis 7. HAGMA 2/2 lactic acidosis Neuro - [facility] ICU: negative --History of anxiety Cardiac - -- Shock Likely septic Source could be intra-abdominal CT abdomen pelvis shows large volume ascites, pneumoperitoneum which could be from recent PEG tube placement which was a week ago, no signs of perforation or dislodgment of the PEG tube Continue with vasopressor support to keep MAP greater than 65 Follow-up 2D echo -- History of sick sinus syndrome Post PPM on Eliquis --History of AAS post TAVR -- Elevated troponin Likely type II NV Respiratory - -- Saturating well on room air GI - -- Transaminitis Likely related to shock Continue to monitor -- Ascites Status post paracentesis 06/18/2024, 7.3 L of cloudy serous fluid removed RENAL/LYTES - -- Acute renal failure Likely related to shock Follow-up urine lites Strict in and out Avoid nephrotoxic medication ENDO - -- Hypothyroidism Continue with levothyroxine TSH mildly elevated with free T4 --ICU hypoglycemia protocol HEME/ONC - --Thrombocytopenia Could be related to sepsis Continue to monitor --Macrocytic anemia Monitor H&H -- History of esophageal adenocarcinoma With peritoneal mets S/p esophageal stent Oncology consult ID - --Source of infection is not clear Intra-abdominal most likely Procalcitonin 13.8, nasal MRSA negative Respiratory BioFire negative for everything UA negative for bacteria and leukocyte esterase Follow-up blood culture --Prophylaxis VTE: On Eliquis at home, IPC's GI: Pantoprazole Lines: Right IJ, right radial Diet: N.p.o. Plan: Strict ins and outs Will start the patient on stress dose steroids given that he is already on 3 vasopressors. Might need to add another 1 Amazingly patient is still mentating well, he is answering all the questions appropriately and he states that he is feeling better after coming to the hospital 2 A of bicarb was given to the patient CT abdomen pelvis did not show any signs of perforation, there was pneumoperitoneum which is likely from the PEG tube placement last week. No signs of perforation as per radiology He did have significant ascites and paracentesis was performed taking out 7.3 L of fluid Follow-up culture and cytology I will change the antibiotic from cefepime to Zosyn to cover for anaerobes Overall prognosis is guarded Will get palliative care consult Patient's sister as well as [id number] who are at bedside were updated regarding patient's condition I have personally spent 66 minutes of critical care time in the direct management of this patient. This is a life/limb threatening event. This includes time spent evaluating patient, direct bedside care, chart review, placing orders, interpretation of diagnostic studies, discussion with consultants, patient, and family members, as well as other required patient management activities. This time is exclusive of all separately billable procedures, and teaching time and separate from and in addition to any other critical care service time. Thank you for allowing us to participate in the care of this patient. Please refer to my attending physician's documentation for any further recommendations. Admission and Anticipated Discharge Date Admission Date: June 18, 2024 Subjective Patient seen bedside. He was on 0.5 phenylephrine, 0.29 of Levophed and 0.04 of suppressing His MAP was still low 60s. He was awake alert oriented to self and time. Denied any nausea or vomiting Did complain of abdominal discomfort No diarrhea No chest pain, no shortness of breath He was saturating 94-95% on 4 L nasal cannula Review of Systems 2 Review of Systems: All systems reviewed & are unremarkable except as noted in Subjective Physical Exam 2 Physical Exam: Constitutional: No acute distress HEENT: EOMI, PERRLA, right corneal opacification Respiratory system: Good air entry bilaterally, no wheeze, no rhonchi, no crackles CVS: S1-S2 positive, no murmurs or gallops, tachycardia Abdomen: Soft, nontender, decreased bowel sounds x4, distended, positive PEG tube Extremities: +2 pulses bilaterally radialis/ dorsalis pedis, no cyanosis, minimal pitting edema bilateral lower extremity Neuro: Awake alert oriented to self and time Psych: Normal mood and affect G/U: Positive Asif Skin: no rashes, warm and dry Lymphatic: no cervical or axillary lymphadenopathy Results & Data Results & Data Vital Signs (Past 12 Hours) Vital Signs Temp Pulse Pulse Resp BP BP Pulse Ox 03/25/25 06:41 06/18/24 06:36 36.7 C 113 H 43 H 06/18/24 06:33 68/47 L 06/18/24 06:33 68/47 L 06/18/24 06:33 68/47 L 06/18/24 06:06 109 H 37 H 06/18/24 06:00 100 H 36 H 06/18/24 05:57 81/52 L 06/18/24 05:57 81/52 L 06/18/24 05:47 36.2 C L 108 H 22 77/52 L 98 06/18/24 05:36 105 H 34 H 91 06/18/24 05:30 73/56 L 06/18/24 05:30 73/56 L 06/18/24 05:30 73/56 L 06/18/24 05:30 73/56 L 06/18/24 05:30 06/18/24 05:30 97 06/18/24 05:27 90 39 H 99 06/18/24 05:26 68/49 L 06/18/24 05:26 68/49 L 06/18/24 05:11 74/48 L 06/18/24 05:11 74/48 L 06/18/24 05:11 74/48 L 06/18/24 05:00 77/53 L 06/18/24 05:00 77/53 L 06/18/24 05:00 77/53 L 06/18/24 04:58 82/35 L 06/18/24 04:57 113 H 26 H 91 06/18/24 04:48 99 H 24 90 06/18/24 04:45 35.9 C L 92 H 22 87/61 L 91 06/18/24 04:44 87/61 L 06/18/24 04:44 87/61 L 06/18/24 04:44 87/61 L 06/18/24 04:30 36.0 C L 99 H 26 H 81/63 L 91 06/18/24 04:25 92 H 28 H 91 06/18/24 04:23 72/51 L 06/18/24 04:15 36.0 C L 99 H 35 H 72/51 L 91 06/18/24 04:00 34.2 C L 06/18/24 03:56 104 H 06/18/24 03:48 90 06/18/24 03:20 107 H 22 76 L O2 Del Method O2 Flow Rate 06/18/24 06:41 Nasal Cannula 4 06/18/24 06:36 06/18/24 06:33 06/18/24 06:33 06/18/24 06:33 06/18/24 06:06 06/18/24 06:00 06/18/24 05:57 06/18/24 05:57 06/18/24 05:47 Nasal Cannula 4 06/18/24 05:36 Nasal Cannula 6 06/18/24 05:30 06/18/24 05:30 06/18/24 05:30 06/18/24 05:30 06/18/24 05:30 Nasal Cannula 06/18/24 05:30 Nasal Cannula 6 06/18/24 05:27 06/18/24 05:26 06/18/24 05:26 06/18/24 05:11 06/18/24 05:11 06/18/24 05:11 06/18/24 05:00 06/18/24 05:00 06/18/24 05:00 06/18/24 04:58 06/18/24 04:57 Non-rebreather 06/18/24 04:48 Non-rebreather 06/18/24 04:45 Non-rebreather 06/18/24 04:44 06/18/24 04:44 06/18/24 04:44 06/18/24 04:30 Non-rebreather 06/18/24 04:25 Non-rebreather 06/18/24 04:23 06/18/24 04:15 Non-rebreather 15 06/18/24 04:00 06/18/24 03:56 06/18/24 03:48 Non-rebreather 15 06/18/24 03:20 Laboratory Results 06/18/24 05:21 06/18/24 04:45 Coding Level of Care Code 47355 CRITICAL CARE 1ST 30-74M Diagnoses DEE (acute kidney injury) N17.9 Shock R57.9 Lactic acidosis E87.20 Dehydration E86.0 Severe malnutrition E43
[2024-06-18] MEDS: PHENYLEPHRINE/NSS 25 MG/250 ML BAG IV SCH (07:10)
--- NOTE | 2024-06-18 07:13 | Procedure Note ---
Procedure Note Date of Service June 18, 2024 INTERNAL JUGULAR CENTRAL LINE PROCEDURE NOTE: Procedure: Internal Jugular Central Line Placement Attending: Dr. Grissom APC: Cindy Hinojosa PA-C Indication: Central Drug Administration, Poor Venous Access, Multiple Lab Draws Necessary, etc. Anesthesia: Lidocaine 1% Verbal consent from patient. Indication, risks, and benefits were explained at length. A time-out was completed verifying correct patient, procedure, site, positioning, and implants(s) or special equipment if applicable. Patients R Neck was cleansed and draped in the typical sterile fashion using Chloraprep. The Internal Jugular Vein and Carotid Artery were identified using ultrasound. The superficial tissue was anesthetized using 8 mL of 1% lidocaine without epinephrine under direct visualization with the ultrasound. After adequate anesthetization was achieved, the Internal Jugular vein was cannulated under direct ultrasound guidance using an introducer needle on a syringe. Good venous blood return was maintained prior to removal of syringe from introducer needle. Using Seldinger Technique, a guide wire was advanced through the introducer needle without resistance. The introducer needle was removed. The position of the guidewire was confirmed on two views via US in real time.A small incision was made in penetrating fashion at the guide wire insertion site utilizing an 11 blade scalpel. The dilator was advanced to the vessel without resistance. The dilator was exchanged for the triple lumen catheter which was advanced into the vessel without resistance. The guide wire was removed intact from the catheter without issue. Claves were placed on each catheter tip with confirmation of good blood flow from each lumen. Each port was easily flushed with sterile saline. The catheter was placed at 19 cm and sutured in place. Sterile CHG embedded Tegaderm dressing was applied over the catheter with careful attention to sterility. Patient tolerated procedure well. No immediate complications were met. Post procedure x-ray was completed, placement was appropriate and no pneumothorax was noted. Procedural Ultrasound Guidance: Procedure Date: 06/18/2024 Indication: Central access for vasopressors Attending: Dr. Grissom APC: Cindy Hinojosa PA-C Artery AND Vein visualized: Y Compressible Vein: Y Guidewire or Short Catheter seen in vein prior to dilation: Y Coding Additional Codes Date of Service ([email or web address])
--- NOTE | 2024-06-18 07:28 | Emergency Department Note ---
Impression & Plan Acute renal failure, Acute hypotension, Hypothermia admit to the ICU ED Provider Note NAME: SANTOS ZAMUDIO AGE: 68 SEX: Male INFORMANT: Patient and EMS ED PROVIDER(S): Yenni Mariee DO CHIEF COMPLAINT: unresponsiveness PLAN: Disposition: admit to the ICU MEDICAL DECISION MAKING: this is a 68-year-old male patient with history of esophageal malignancy who presents to the emergency department by way of EMS with altered mental status, hypotension and hypoxia. According to the family, the patient was discharged from [facility] on June 07 after having a PEG tube placed as he is not able to take anything by mouth because of the malignancy. He is to be administering feeds through the PEG tube along with IV hydration through the PEG tube. Family explains that the feeds had been making him sick so he stopped and was using [place] instant breakfast and may not have been giving himself very much hydration. They noted the patient became increasingly weak throughout the day today and they thought the patient was sleeping this afternoon/this evening but noted that he had become unresponsive. EMS was called. Upon their arrival, the patient was completely unresponsive with no palpable distal pulses and only a weak carotid pulse and a systolic blood pressure of 40. The patient was hypoxic and was assisted with bag valve ventilations. They initiated intraosseous lines and started the patient on IV crystalloids and IV Levophed. On presentation to the emergency department, the patient became more interactive and lucid. He was oriented to person and place. He denied any complaints except for minimal low back pain over the past couple of days. The patient remained significantly hypotensive and hypothermic. His O2 saturations had improved into the 90s on a nonrebreather with nasal airway in place once they could be registered on the pulse ox. multiple attempts were made at peripheral IV placement and lab draws. Nursing staff was able to obtain 3 peripheral IV sites and the patient was receiving aggressive IV fluid hydration as his [id number] testing revealed a BUN of 79 and a creatinine greater than 3. Patient was also maintain on IV Levophed drip which was titrated up to maintain blood pressures greater than 90 systolically. On physical exam, the patient appeared significantly dehydrated with dry mucous membranes and poor skin turgor. A Asif catheter was placed and the patient had very little urinary output. Patient's blood pressure did begin to respond to the IV normal saline bolus. She did regain peripheral pulses. He was placed under a Rudy hugger as he was hypothermic. ABG was obtained. ABG reveals a pH of 7.27.24 with a pCO2 of 38.4 and a pO2 of 301. Bicarb was 16.7. This is consistent with metabolic acidosis. orders were initially placed for a septic workup due to the patient's hypothermia but nursing staff had difficulty obtaining the blood cultures, lactate and procalcitonin. Portable chest x-ray was performed, upper respiratory bio fire testing was performed. These were both negative. I kept the patient's family abreast of the situation. I confirmed CODE STATUS with them that the patient would require full resuscitation. I discussed the case with the [facility] Hospitalist as well as the critical care team and the patient will be admitted to the ICU. Care/management discussed with: Patient's sister and her ; the manager operational; [facility] Hospitalist; critical care team Triage Nursing notes: reviewed and agree with them. Vital Signs: reviewed and remarkable for hypotension, hypoxia, hypothermia Additional History obtained from: EMS and the patient's sister who presented to the bedside Chronic Medical/Social Conditions affecting care: recent diagnosis of esophageal cancer status post radiation and PEG tube placement Prior/ Outside/ External records reviewed: I did review the discharge summary from [facility] from 06/07/2024 Differential Diagnosis: acute renal failure, severe dehydration, sepsis, encephalopathy, hypoglycemia, hyperglycemia, hypercarbic respiratory failure Diagnostics, independently interpreted by me: ECG: Atrial sensed/ventricular paced rhythm at a rate of 100 with no obvious signs of ischemia. There was a poor baseline. Cardiac Monitoring: Paced rhythm at a rate of 96 Imaging studies: portable chest x-ray: Mild cardiomegaly with no obvious signs of pulmonary infiltrate or opacity as per my independent interpretation HPI:According to the family, the patient was discharged from [facility] on June 07 after having a PEG tube placed as he is not able to take anything by mouth because of the malignancy. He is to be administering feeds through the PEG tube along with IV hydration through the PEG tube. Family explains that the feeds had been making him sick so he stopped and was using [place] instant breakfast and may not have been giving himself very much hydration. They noted the patient became increasingly weak throughout the day today and they thought the patient was sleeping this afternoon/this evening but noted that he had become unresponsive. PAST MEDICAL HISTORY: See Below, PAST SURGICAL HISTORY: See Below, SOCIAL HISTORY: See Below, HOME MEDICATIONS: See list ALLERGIES: see list VITALS: See Below PHYSICAL EXAMINATION: HEENT: Head - normocephalic and atraumatic. Pupils are equal, round, and reactive to light. Extraocular eye muscles are intact, and sclera are anicteric. Nose - Dry nasal mucosa without discharge. Mouth - extremely dry buccal mucosa. Oropharynx is nonerythematous and there is no tonsillar exudate or edema noted. Neck: Supple; no JVD, nuchal rigidity, cervical lymphadenopathy Heart: Regular rate and rhythm. There is a normal S1 and S2 with no murmurs, clicks, or gallops appreciated. Lungs: Clear to auscultation bilaterally with no wheezes, rales, or rhonchi. Abdomen: Soft, PEG tube in place. Abdomen was slightly distended but nontender with palpation all 4 quadrants. There are no palpable pulsatile masses or hepatosplenomegaly. There is no guarding, rigidity, or rebound noted. Extremities: No evidence of cyanosis Or significant edema but the patient did have some mottling in his legs. There Were no radial or pedal pulses present Skin: warm and dry with extremely poor turgor and no rashes. neuro: The patient seems lethargic but wakes to his name and is able to answer orientation questions. He is able to follow commands emergency department course: The patient was evaluated emergently in room A-1. A complete history and physical was performed. Order was placed for continuous cardiac monitoring. The patient was in a paced rhythm at a rate of 96. Twelve- lead EKG was obtained. Portable chest x-ray was performed. Multiple attempts were made by nursing staff for IV line placement. I did obtain blood work out of the patient's right groin. Patient was bolused with a total of 3 L of normal saline. the Levophed drip started in the prehospital setting was continued and titrated upward to maintain systolic blood pressures greater than 90. There was difficulty obtaining the patient's oxygen saturation due to his body temperature. Finally we were able to get readings of 92% on a nonrebreather with a nasal airway in place. Upper respiratory bio fire testing was obtained. Asif catheter was placed. The patient was noted to be hypothermic and was placed under a Rudy hugger. ABG was obtained. I discussed the case with the patient's family who arrived to the emergency department. Patient continued to mentate more clearly. Patient was switched from nonrebreather mask to nasal cannula and was maintaining O2 saturations normally. Blood pressure continued to rise. Lab was able to obtain additional blood work. [facility] as the [facility] care team and the patient will be admitted to the ICU. I have personally spent greater than 120 minutes of critical care time in the direct management of this patient. This includes bedside care, interpretation of diagnostic studies, and testing, discussion with consultants, patient, and family members, and other required patient management activities. This 120 minutes is in excess of all separately billable procedures. Past Med/Surg History Problem List (Updated 06/18/24 @ 08:14 by Abdiaziz Newberry MD) Encephalopathy Hypotension Hypothermia (Acute) Acute hypotension (Acute) Acute renal failure (Acute) Severe malnutrition Dehydration Lactic acidosis Shock DEE (acute kidney injury) Nausea & vomiting (Acute) Abdominal pain, acute (Acute) Nausea & vomiting (Acute) Abdominal pain, acute (Acute) Leukocytosis (Acute) Acute hypotension (Acute) Choledocholithiasis Abdominal wall pain in right upper quadrant (Acute) Gallstones (Acute) Pacemaker Eye disorder S/p posterior Sub-tenons Triesence, right Osteoarthritis CHF (congestive heart failure) (Chronic) Retinal tear (Chronic) Medical History Congestive heart failure COVID-19 Hypertension Ischemic cardiomyopathy Osteoarthritis Third degree heart block Type 2 diabetes mellitus Surgical History Eye disorder S/p posterior Sub-tenons Triesence, right Family History Father Prostate cancer Bladder cancer Mother Diabetes Heart disease Thyroid condition Sister Thyroid condition Social History Smoking Status: Former smoker Second Hand Exposure: No; Do You Dip or Chew Tobacco: No; Hx Alcohol Use: No Hx Substance Use: No Preferred Language: Omani Communication Ability: Effective Mailing Clerk Required: No Beliefs That Will Affect Care: None marital status: Single Current Living Situation: Family Current Living Situation Comment: lives with sister Feels Safe at Home: Yes Safety Concerns: Feels Safe At This Time Assistive Devices: Glasses, Oxygen - at Night and Walker Assistive Devices Comment: 2L at nite Allergies Allergies Allergy/AdvReac Type Severity Reaction Status Date / Time cefuroxime Allergy Intermediate FEVER, Verified 01/30/21 14:19 DIARHEA cider vinegar Allergy Verified 02/02/21 16:27 ketchup Allergy Verified 02/02/21 16:27 mayonnaise Allergy Verified 02/02/21 16:27 mustard Allergy Verified 02/02/21 16:27 Home Meds Home Medications Medication Instructions Recorded Confirmed eplerenone 25 mg tablet (Inspra) 12.5 mg PO QAM 01/29/21 06/18/24 furosemide 80 mg tablet (Lasix) 40 mg PO UD 01/29/21 05/10/24 metoprolol tartrate 50 mg tablet 75 mg PO AMHS 04/28/22 06/18/24 pediatric multivitamin no.49 1 tab PO QAM 04/28/22 05/10/24 (Flintstones Gummies chewable tablet) empagliflozin 10 mg tablet 10 mg PO QAM 05/16/22 06/18/24 (Jardiance) apixaban 5 mg tablet (Eliquis) 5 mg PO UD 05/10/24 06/18/24 famotidine 20 mg tablet 20 mg PO BID Indigestion 05/10/24 06/18/24 levothyroxine 100 mcg tablet 100 mcg PO DAILYBB 05/10/24 06/18/24 pantoprazole 40 mg tablet,delayed 40 mg PO DAILYBB 05/10/24 06/18/24 release magnesium citrate 06/18/24 omeprazole 2 mg-sodium bicarbonate 2 - 84 ml feeding tube DAILY 06/18/24 06/18/24 84 mg/mL oral suspension (Konvomep) ondansetron 4 mg disintegrating 4 mg PO Q8 PRN Nausea 06/18/24 06/18/24 tablet oxycodone 5 mg tablet 5 mg PO Q4 PRN Pain (Scale Score 06/18/24 06/18/24 4-6) Results & Data (ED) Vital Signs Vital Signs - 24 hr 06/18/24 03:20 06/18/24 03:48 06/18/24 03:56 Temperature Temperature Source Pulse Rate 107 H 104 H Pulse Rate [Apical] Pulse Rate from SpO2 Sensor Pulse Rhythm [Apical] Pulse Strength [Apical] Respiratory Rate 22 Respiratory Effort / Characteristics Respiratory Depth Normal Blood Pressure Blood Pressure [Right Arm] Blood Pressure Mean Blood Pressure Mean [Right Arm] Pulse Oximetry 76 L 90 Oxygen Delivery Method Non-rebreather Oxygen Flow Rate 15 Sepsis Recent Fever Within 48 Hours No Sepsis New/Unexplained Change in Mental Status N/A Sepsis Action Taken by Nursing Physician Notified 06/18/24 04:00 06/18/24 04:15 06/18/24 04:23 Temperature 34.2 C L 36.0 C L Temperature Source Asif Cath ( Temp Sensing) Asif Cath ( Temp Sensing) Pulse Rate Pulse Rate [Apical] 99 H Pulse Rate from SpO2 Sensor Pulse Rhythm [Apical] Regular Pulse Strength [Apical] Respiratory Rate 35 H Respiratory Effort / Characteristics Respiratory Depth Blood Pressure 72/51 L Blood Pressure [Right Arm] 72/51 L Blood Pressure Mean 61 Blood Pressure Mean [Right Arm] 58 Pulse Oximetry 91 Oxygen Delivery Method Non-rebreather Oxygen Flow Rate 15 Sepsis Recent Fever Within 48 Hours Sepsis New/Unexplained Change in Mental Status Sepsis Action Taken by Nursing 06/18/24 04:25 06/18/24 04:30 06/18/24 04:44 Temperature 36.0 C L Temperature Source Asif Cath ( Temp Sensing) Pulse Rate 92 H Pulse Rate [Apical] 99 H Pulse Rate from SpO2 Sensor Pulse Rhythm [Apical] Regular Pulse Strength [Apical] Respiratory Rate 28 H 26 H Respiratory Effort / Characteristics Non-Labored Respiratory Depth Normal Blood Pressure 87/61 L Blood Pressure [Right Arm] 81/63 L Blood Pressure Mean 76 Blood Pressure Mean [Right Arm] 69 Pulse Oximetry 91 91 Oxygen Delivery Method Non-rebreather Non-rebreather Oxygen Flow Rate Sepsis Recent Fever Within 48 Hours Sepsis New/Unexplained Change in Mental Status Sepsis Action Taken by Nursing 06/18/24 04:44 06/18/24 04:44 06/18/24 04:45 Temperature 35.9 C L Temperature Source Asif Cath ( Temp Sensing) Pulse Rate Pulse Rate [Apical] 92 H Pulse Rate from SpO2 Sensor Pulse Rhythm [Apical] Regular Pulse Strength [Apical] Normal Respiratory Rate 22 Respiratory Effort / Characteristics Respiratory Depth Normal Blood Pressure 87/61 L 87/61 L Blood Pressure [Right Arm] 87/61 L Blood Pressure Mean 76 76 Blood Pressure Mean [Right Arm] 69 Pulse Oximetry 91 Oxygen Delivery Method Non-rebreather Oxygen Flow Rate Sepsis Recent Fever Within 48 Hours Sepsis New/Unexplained Change in Mental Status Sepsis Action Taken by Nursing 06/18/24 04:48 06/18/24 04:57 06/18/24 04:58 Temperature Temperature Source Pulse Rate 99 H 113 H Pulse Rate [Apical] Pulse Rate from SpO2 Sensor 101 H Pulse Rhythm [Apical] Pulse Strength [Apical] Respiratory Rate 24 26 H Respiratory Effort / Characteristics Respiratory Depth Blood Pressure 82/35 L Blood Pressure [Right Arm] Blood Pressure Mean 67 Blood Pressure Mean [Right Arm] Pulse Oximetry 90 91 Oxygen Delivery Method Non-rebreather Non-rebreather Oxygen Flow Rate Sepsis Recent Fever Within 48 Hours Sepsis New/Unexplained Change in Mental Status Sepsis Action Taken by Nursing 06/18/24 05:00 06/18/24 05:00 06/18/24 05:00 Temperature Temperature Source Pulse Rate Pulse Rate [Apical] Pulse Rate from SpO2 Sensor Pulse Rhythm [Apical] Pulse Strength [Apical] Respiratory Rate Respiratory Effort / Characteristics Respiratory Depth Blood Pressure 77/53 L 77/53 L 77/53 L Blood Pressure [Right Arm] Blood Pressure Mean 64 64 64 Blood Pressure Mean [Right Arm] Pulse Oximetry Oxygen Delivery Method Oxygen Flow Rate Sepsis Recent Fever Within 48 Hours Sepsis New/Unexplained Change in Mental Status Sepsis Action Taken by Nursing 06/18/24 05:11 06/18/24 05:11 06/18/24 05:11 Temperature Temperature Source Pulse Rate Pulse Rate [Apical] Pulse Rate from SpO2 Sensor Pulse Rhythm [Apical] Pulse Strength [Apical] Respiratory Rate Respiratory Effort / Characteristics Respiratory Depth Blood Pressure 74/48 L 74/48 L 74/48 L Blood Pressure [Right Arm] Blood Pressure Mean 54 54 54 Blood Pressure Mean [Right Arm] Pulse Oximetry Oxygen Delivery Method Oxygen Flow Rate Sepsis Recent Fever Within 48 Hours Sepsis New/Unexplained Change in Mental Status Sepsis Action Taken by Nursing 06/18/24 05:15 06/18/24 05:26 06/18/24 05:26 Temperature Temperature Source Pulse Rate Pulse Rate [Apical] Pulse Rate from SpO2 Sensor Pulse Rhythm [Apical] Pulse Strength [Apical] Respiratory Rate Respiratory Effort / Characteristics Non-Labored Respiratory Depth Normal Blood Pressure 68/49 L 68/49 L Blood Pressure [Right Arm] Blood Pressure Mean 56 56 Blood Pressure Mean [Right Arm] Pulse Oximetry Oxygen Delivery Method Oxygen Flow Rate Sepsis Recent Fever Within 48 Hours Sepsis New/Unexplained Change in Mental Status Sepsis Action Taken by Nursing 06/18/24 05:27 06/18/24 05:30 06/18/24 05:30 Temperature Temperature Source Pulse Rate 90 Pulse Rate [Apical] Pulse Rate from SpO2 Sensor 105 H Pulse Rhythm [Apical] Pulse Strength [Apical] Respiratory Rate 39 H Respiratory Effort / Characteristics Non-Labored Respiratory Depth Normal Blood Pressure Blood Pressure [Right Arm] Blood Pressure Mean Blood Pressure Mean [Right Arm] Pulse Oximetry 99 97 Oxygen Delivery Method Nasal Cannula Oxygen Flow Rate 6 Sepsis Recent Fever Within 48 Hours Sepsis New/Unexplained Change in Mental Status Sepsis Action Taken by Nursing 06/18/24 05:30 06/18/24 05:30 06/18/24 05:30 Temperature Temperature Source Pulse Rate Pulse Rate [Apical] Pulse Rate from SpO2 Sensor Pulse Rhythm [Apical] Pulse Strength [Apical] Respiratory Rate Respiratory Effort / Characteristics Non-Labored Respiratory Depth Normal Blood Pressure 73/56 L Blood Pressure [Right Arm] Blood Pressure Mean 59 Blood Pressure Mean [Right Arm] Pulse Oximetry Oxygen Delivery Method Nasal Cannula Oxygen Flow Rate Sepsis Recent Fever Within 48 Hours Sepsis New/Unexplained Change in Mental Status Sepsis Action Taken by Nursing 06/18/24 05:30 06/18/24 05:30 06/18/24 05:30 Temperature Temperature Source Pulse Rate Pulse Rate [Apical] Pulse Rate from SpO2 Sensor Pulse Rhythm [Apical] Pulse Strength [Apical] Respiratory Rate Respiratory Effort / Characteristics Respiratory Depth Blood Pressure 73/56 L 73/56 L 73/56 L Blood Pressure [Right Arm] Blood Pressure Mean 59 59 59 Blood Pressure Mean [Right Arm] Pulse Oximetry Oxygen Delivery Method Oxygen Flow Rate Sepsis Recent Fever Within 48 Hours Sepsis New/Unexplained Change in Mental Status Sepsis Action Taken by Nursing 06/18/24 05:36 Temperature Temperature Source Pulse Rate 105 H Pulse Rate [Apical] Pulse Rate from SpO2 Sensor 105 H Pulse Rhythm [Apical] Pulse Strength [Apical] Respiratory Rate 34 H Respiratory Effort / Characteristics Respiratory Depth Blood Pressure Blood Pressure [Right Arm] Blood Pressure Mean Blood Pressure Mean [Right Arm] Pulse Oximetry 91 Oxygen Delivery Method Nasal Cannula Oxygen Flow Rate 6 Sepsis Recent Fever Within 48 Hours Sepsis New/Unexplained Change in Mental Status Sepsis Action Taken by Nursing Laboratory Data 06/18/24 05:21 06/18/24 11:52 Lab Results 06/18/24 06/18/24 06/18/24 Range/Units 03:48 03:50 04:08 WBC Cancelled RBC Cancelled Hgb Cancelled POC Hgb 15.0 (14.0-18.0) g/dl Hct Cancelled POC Hct 44 (42-52) % MCV Cancelled MCH Cancelled MCHC Cancelled RDW Std Deviation Cancelled RDW Coeff of Mariam Cancelled Plt Count Cancelled MPV Cancelled Immature Gran % (Auto) Cancelled Neut % (Auto) Cancelled Lymph % (Auto) Cancelled [place] % (Auto) Cancelled Eos % (Auto) Cancelled Baso % (Auto) Cancelled Neut # (Auto) Cancelled Lymph # (Auto) Cancelled [place] # (Auto) Cancelled Eos # (Auto) Cancelled Baso # (Auto) Cancelled Immature Gran # (Auto) Cancelled Absolute Nucleated RBC Cancelled Nucleated RBC % (auto) Cancelled Neutrophils % (Manual) Cancelled Band Neutrophils % Cancelled Lymphocytes % (Manual) Cancelled Prolymphocyte % Cancelled Reactive Lymphs % (Man) Cancelled Monocytes % (Manual) Cancelled Eosinophils % (Manual) Cancelled Basophils % (Manual) Cancelled Metamyelocytes % (Man) Cancelled Myelocytes % (Man) Cancelled Promyelocytes % (Man) Cancelled Blast Cells % (Manual) Cancelled Plasma Cell % (Manual) Cancelled Other Cells % Cancelled Nucleated RBC % Cancelled Neutrophils # (Manual) Cancelled Band Neutrophils # Cancelled Total Absolute Neuts Cancelled Lymphocytes # (Manual) Cancelled Prolymphocyte # Cancelled Reactive Lymphs # Cancelled Total Abs Lymphocytes Cancelled Monocytes # (Manual) Cancelled Eosinophils # (Manual) Cancelled Basophils # (Manual) Cancelled Metamyelocytes # (Man) Cancelled Myelocytes # (Manual) Cancelled Promyelocytes # (Man) Cancelled Blast Cells # (Man) Cancelled Plasma Cell # (Manual) Cancelled Other Cells # Cancelled Nucleated RBCs # (Man) Cancelled Hypersegmented Neuts Cancelled Hyposegmented Neuts Cancelled Hypogranular Neuts Cancelled Large Granular Lymphs Cancelled # Lrg Granular Lymphs Cancelled Hairy Cells Cancelled Smudge Cells Cancelled Toxic Granulation Cancelled Toxic Vacuolation Cancelled Dohle Bodies Cancelled Vanna Rods Cancelled Platelet Estimate Cancelled Hypogranular Platelets Cancelled Giant Platelets Cancelled Platelet Satelliting Cancelled RBC Morphology Cancelled Polychromasia Cancelled Hypochromasia Cancelled Poikilocytosis Cancelled Basophilic Stippling Cancelled Anisocytosis Cancelled Microcytosis Cancelled Macrocytosis Cancelled Spherocytes Cancelled Pappenheimer Bodies Cancelled Sickle Cells Cancelled Target Cells Cancelled Tear Drop Cells Cancelled Ovalocytes Cancelled Stomatocytes Cancelled [place] Bodies Cancelled Echinocytes Cancelled Acanthocytes (Spur) Cancelled Rouleaux Cancelled RBC Agglutinates Cancelled Schistocytes Cancelled Sezary Cell Cancelled POC pH (7.35-7.45) POC pCO2 (35-46) mmHg POC pO2 (80-95) mmHg POC HCO3 (19-24) jon/L POC Base Excess (-9-1.8) jon/L POC ABG O2 Sat (90-95) % POC Sodium 134 L (135-144) mmol/L Sodium TNP POC Potassium 5.1 H (3.3-5.0) mmol/L Potassium TNP POC Chloride 104 (101-112) mmol/L Chloride 102 (98-107) mmol/L Carbon Dioxide 20 L (21-32) mmol/L POC Total CO2 18 L (24-31) mmol/L Anion Gap TNP POC Anion Gap 18.0 (16-25) mmol/L POC BUN 79 H (7-18) mg/dl BUN 76 H (6-23) mg/dl Creatinine 3.09 H (0.6-1.4) mg/dl POC Creatinine 3.5 H (0.6-1.3) mg/dl Est Cr Clr Drug Dosing 27.2 ml/min eGFR 21.44 BUN/Creatinine Ratio 24.6 H (10-20) Glucose 150 H (70-99(Fasting)) mg/dl POC Glucose (other) 141 H (70-99) mg/dl Lactate (0.4-2.0) mmol/L Calcium 8.2 L (8.6-10.3) mg/dl POC Ioniz Calcium Kaitlyn 0.98 L (1.12-1.32) mmol/l Magnesium TNP Total Bilirubin 0.8 (0.2-1.0) mg/dl Direct Bilirubin TNP AST TNP ALT 34 (7-52) U/L Alkaline Phosphatase TNP Troponin I High Sens 51.4 H* (0-20) pg/ml Total Protein 5.3 L (6.0-8.3) gm/dl Albumin TNP Procalcitonin Cancelled Urine Color Urine Appearance (Clear) Urine pH (4.5-7.5) Ur Specific [place] (1.000-1.030) Urine Protein (Negative) Urine Glucose (UA) (Negative) Urine Ketones (Negative) Urine Blood (Negative) Urine Nitrite (Negative) Urine Bilirubin (Negative) Urine Urobilinogen (Negative) Ur Leukocyte Esterase (Negative) Urine WBC (Auto) (0-5) /hpf Urine RBC (Auto) (0-2) /hpf U Hyaline Cast (Auto) (0-2) /lpf U Epithel Cells (Auto) (0-2) /hpf Urine Bacteria (Auto) (None Seen) Urine Mucus (None Prsent) Urine Sperm (None Prsent) Adenovirus (PCR) Not Detected (NotDetected) B. pertussis DNA (PCR) Not Detected (NotDetected) B.parapertussis DNA PCR Not Detected (NotDetected) C. pneumoniae DNA (PCR) Not Detected (NotDetected) Coronavirus OC43 (PCR) Not Detected (NotDetected) Coronavirus HKU1 (PCR) Not Detected (NotDetected) Coronavirus 229E (PCR) Not Detected (NotDetected) SARS-CoV-2 (PCR) Not Detected (NotDetected) Coronavirus NL63 (PCR) Not Detected (NotDetected) Human Metapneumovir PCR Not Detected (NotDetected) Influenza Type A (PCR) Not Detected (NotDetected) Influenza Type B (PCR) Not Detected (NotDetected) M. pneumoniae (PCR) Not Detected (NotDetected) Parainfluenza 1 (PCR) Not Detected (NotDetected) Parainfluenza 2 (PCR) Not Detected (NotDetected) Parainfluenza 3 (PCR) Not Detected (NotDetected) Parainfluenza 4 (PCR) Not Detected (NotDetected) RSV (PCR) Not Detected (NotDetected) Entero/Rhino (PCR) Not Detected (NotDetected) Blood Parasites ID Cancelled [id number] 06/18/24 Range/Units 04:09 04:44 04:45 WBC RBC Hgb POC Hgb 12.9 L (14.0-18.0) g/dl Hct POC Hct 38 L (42-52) % MCV MCH MCHC RDW Std Deviation RDW Coeff of Mariam Plt Count MPV Immature Gran % (Auto) Neut % (Auto) Lymph % (Auto) [place] % (Auto) Eos % (Auto) Baso % (Auto) Neut # (Auto) Lymph # (Auto) [place] # (Auto) Eos # (Auto) Baso # (Auto) Immature Gran # (Auto) Absolute Nucleated RBC Nucleated RBC % (auto) Neutrophils % (Manual) Band Neutrophils % Lymphocytes % (Manual) Prolymphocyte % Reactive Lymphs % (Man) Monocytes % (Manual) Eosinophils % (Manual) Basophils % (Manual) Metamyelocytes % (Man) Myelocytes % (Man) Promyelocytes % (Man) Blast Cells % (Manual) Plasma Cell % (Manual) Other Cells % Nucleated RBC % Neutrophils # (Manual) Band Neutrophils # Total Absolute Neuts Lymphocytes # (Manual) Prolymphocyte # Reactive Lymphs # Total Abs Lymphocytes Monocytes # (Manual) Eosinophils # (Manual) Basophils # (Manual) Metamyelocytes # (Man) Myelocytes # (Manual) Promyelocytes # (Man) Blast Cells # (Man) Plasma Cell # (Manual) Other Cells # Nucleated RBCs # (Man) Hypersegmented Neuts Hyposegmented Neuts Hypogranular Neuts Large Granular Lymphs # Lrg Granular Lymphs Hairy Cells Smudge Cells Toxic Granulation Toxic Vacuolation Dohle Bodies Vanna Rods Platelet Estimate Hypogranular Platelets Giant Platelets Platelet Satelliting RBC Morphology Polychromasia Hypochromasia Poikilocytosis Basophilic Stippling Anisocytosis Microcytosis Macrocytosis Spherocytes Pappenheimer Bodies Sickle Cells Target Cells Tear Drop Cells Ovalocytes Stomatocytes [place] Bodies Echinocytes Acanthocytes (Spur) Rouleaux RBC Agglutinates Schistocytes Sezary Cell POC pH 7.25 L (7.35-7.45) POC pCO2 38 (35-46) mmHg POC pO2 301 H (80-95) mmHg POC HCO3 17 L (19-24) jon/L POC Base Excess -11.0 L (-9-1.8) jon/L POC ABG O2 Sat 100.0 H (90-95) % POC Sodium 136 (135-144) mmol/L Sodium 139 POC Potassium 4.5 (3.3-5.0) mmol/L Potassium 4.6 POC Chloride (101-112) mmol/L Chloride (98-107) mmol/L Carbon Dioxide (21-32) mmol/L POC Total CO2 18 L (24-31) mmol/L Anion Gap POC Anion Gap (16-25) mmol/L POC BUN (7-18) mg/dl BUN (6-23) mg/dl Creatinine (0.6-1.4) mg/dl POC Creatinine (0.6-1.3) mg/dl Est Cr Clr Drug Dosing ml/min eGFR BUN/Creatinine Ratio (10-20) Glucose (70-99(Fasting)) mg/dl POC Glucose (other) (70-99) mg/dl Lactate (0.4-2.0) mmol/L Calcium (8.6-10.3) mg/dl POC Ioniz Calcium Kaitlyn (1.12-1.32) mmol/l Magnesium 2.6 H Total Bilirubin (0.2-1.0) mg/dl Direct Bilirubin 0.3 H AST 68 H ALT (7-52) U/L Alkaline Phosphatase 37 Troponin I High Sens (0-20) pg/ml Total Protein (6.0-8.3) gm/dl Albumin 2.2 L Procalcitonin Urine Color Dark Yellow Urine Appearance Cloudy A (Clear) Urine pH 5.0 (4.5-7.5) Ur Specific [place] 1.023 (1.000-1.030) Urine Protein 1+ H (Negative) Urine Glucose (UA) 1+ H (Negative) Urine Ketones Trace H (Negative) Urine Blood Trace H (Negative) Urine Nitrite Negative (Negative) Urine Bilirubin Negative (Negative) Urine Urobilinogen Negative (Negative) Ur Leukocyte Esterase Negative (Negative) Urine WBC (Auto) 6-10 H (0-5) /hpf Urine RBC (Auto) 0-2 (0-2) /hpf U Hyaline Cast (Auto) >20 H (0-2) /lpf U Epithel Cells (Auto) 6-10 H (0-2) /hpf Urine Bacteria (Auto) None Seen (None Seen) Urine Mucus Present A (None Prsent) Urine Sperm Present A (None Prsent) Adenovirus (PCR) (NotDetected) B. pertussis DNA (PCR) (NotDetected) B.parapertussis DNA PCR (NotDetected) C. pneumoniae DNA (PCR) (NotDetected) Coronavirus OC43 (PCR) (NotDetected) Coronavirus HKU1 (PCR) (NotDetected) Coronavirus 229E (PCR) (NotDetected) SARS-CoV-2 (PCR) (NotDetected) Coronavirus NL63 (PCR) (NotDetected) Human Metapneumovir PCR (NotDetected) Influenza Type A (PCR) (NotDetected) Influenza Type B (PCR) (NotDetected) M. pneumoniae (PCR) (NotDetected) Parainfluenza 1 (PCR) (NotDetected) Parainfluenza 2 (PCR) (NotDetected) Parainfluenza 3 (PCR) (NotDetected) Parainfluenza 4 (PCR) (NotDetected) RSV (PCR) (NotDetected) Entero/Rhino (PCR) (NotDetected) Blood Parasites ID 06/18/24 06/18/24 Range/Units 05:21 05:24 WBC 8.90 RBC 4.94 Hgb 15.5 POC Hgb (14.0-18.0) g/dl Hct 49.8 POC Hct (42-52) % MCV 100.8 H MCH 31.4 MCHC 31.1 L RDW Std Deviation 51.8 H RDW Coeff of Mariam 14.1 Plt Count 93 L MPV 12.5 H Immature Gran % (Auto) 0.6 Neut % (Auto) 92.9 Lymph % (Auto) 2.7 [place] % (Auto) 3.5 Eos % (Auto) 0.2 Baso % (Auto) 0.1 Neut # (Auto) 8.27 H Lymph # (Auto) 0.24 L [place] # (Auto) 0.31 Eos # (Auto) 0.02 Baso # (Auto) 0.01 Immature Gran # (Auto) 0.05 Absolute Nucleated RBC Nucleated RBC % (auto) Neutrophils % (Manual) Band Neutrophils % Lymphocytes % (Manual) Prolymphocyte % Reactive Lymphs % (Man) Monocytes % (Manual) Eosinophils % (Manual) Basophils % (Manual) Metamyelocytes % (Man) Myelocytes % (Man) Promyelocytes % (Man) Blast Cells % (Manual) Plasma Cell % (Manual) Other Cells % Nucleated RBC % Neutrophils # (Manual) Band Neutrophils # Total Absolute Neuts Lymphocytes # (Manual) Prolymphocyte # Reactive Lymphs # Total Abs Lymphocytes Monocytes # (Manual) Eosinophils # (Manual) Basophils # (Manual) Metamyelocytes # (Man) Myelocytes # (Manual) Promyelocytes # (Man) Blast Cells # (Man) Plasma Cell # (Manual) Other Cells # Nucleated RBCs # (Man) Hypersegmented Neuts Hyposegmented Neuts Hypogranular Neuts Large Granular Lymphs # Lrg Granular Lymphs Hairy Cells Smudge Cells Toxic Granulation Toxic Vacuolation Dohle Bodies Vanna Rods Platelet Estimate Decreased L Hypogranular Platelets Giant Platelets Platelet Satelliting RBC Morphology Polychromasia Hypochromasia Poikilocytosis Basophilic Stippling Anisocytosis Microcytosis Macrocytosis Spherocytes Pappenheimer Bodies Sickle Cells Target Cells Tear Drop Cells Ovalocytes Stomatocytes [place] Bodies Echinocytes 1+ Acanthocytes (Spur) Rouleaux RBC Agglutinates Schistocytes Sezary Cell POC pH (7.35-7.45) POC pCO2 (35-46) mmHg POC pO2 (80-95) mmHg POC HCO3 (19-24) jon/L POC Base Excess (-9-1.8) jon/L POC ABG O2 Sat (90-95) % POC Sodium (135-144) mmol/L Sodium POC Potassium (3.3-5.0) mmol/L Potassium POC Chloride (101-112) mmol/L Chloride (98-107) mmol/L Carbon Dioxide (21-32) mmol/L POC Total CO2 (24-31) mmol/L Anion Gap POC Anion Gap (16-25) mmol/L POC BUN (7-18) mg/dl BUN (6-23) mg/dl Creatinine (0.6-1.4) mg/dl POC Creatinine (0.6-1.3) mg/dl Est Cr Clr Drug Dosing ml/min eGFR BUN/Creatinine Ratio (10-20) Glucose (70-99(Fasting)) mg/dl POC Glucose (other) (70-99) mg/dl Lactate 10.1 H* (0.4-2.0) mmol/L Calcium (8.6-10.3) mg/dl POC Ioniz Calcium Kaitlyn (1.12-1.32) mmol/l Magnesium Total Bilirubin (0.2-1.0) mg/dl Direct Bilirubin AST ALT (7-52) U/L Alkaline Phosphatase Troponin I High Sens (0-20) pg/ml Total Protein (6.0-8.3) gm/dl Albumin Procalcitonin Urine Color Urine Appearance (Clear) Urine pH (4.5-7.5) Ur Specific [place] (1.000-1.030) Urine Protein (Negative) Urine Glucose (UA) (Negative) Urine Ketones (Negative) Urine Blood (Negative) Urine Nitrite (Negative) Urine Bilirubin (Negative) Urine Urobilinogen (Negative) Ur Leukocyte Esterase (Negative) Urine WBC (Auto) (0-5) /hpf Urine RBC (Auto) (0-2) /hpf U Hyaline Cast (Auto) (0-2) /lpf U Epithel Cells (Auto) (0-2) /hpf Urine Bacteria (Auto) (None Seen) Urine Mucus (None Prsent) Urine Sperm (None Prsent) Adenovirus (PCR) (NotDetected) B. pertussis DNA (PCR) (NotDetected) B.parapertussis DNA PCR (NotDetected) C. pneumoniae DNA (PCR) (NotDetected) Coronavirus OC43 (PCR) (NotDetected) Coronavirus HKU1 (PCR) (NotDetected) Coronavirus 229E (PCR) (NotDetected) SARS-CoV-2 (PCR) (NotDetected) Coronavirus NL63 (PCR) (NotDetected) Human Metapneumovir PCR (NotDetected) Influenza Type A (PCR) (NotDetected) Influenza Type B (PCR) (NotDetected) M. pneumoniae (PCR) (NotDetected) Parainfluenza 1 (PCR) (NotDetected) Parainfluenza 2 (PCR) (NotDetected) Parainfluenza 3 (PCR) (NotDetected) Parainfluenza 4 (PCR) (NotDetected) RSV (PCR) (NotDetected) Entero/Rhino (PCR) (NotDetected) Blood Parasites ID Administered Medications Pantoprazole Sodium (Protonix) 40 mg in 10 mls @ 5 mls/min IV DAILY CHANG Stop: 07/18/24 08:59 Last Admin: 06/18/24 07:59 Dose: 5 mls/min Documented By: LASHA Lactated Ringer's (Lr) 1,000 mls @ 150 mls/hr IV .Q6H40M CHANG Stop: 06/19/24 06:29 Last Admin: 06/18/24 13:43 Dose: 150 mls/hr Documented By: Infusion: 06/18/24 13:37 Dose: Infused Documented By: Infusion: 06/18/24 07:31 Dose: 150 mls/hr Documented By: Admin: 06/18/24 06:40 Dose: 100 mls/hr Documented By: ADY Vasopressin 20 units/ Sodium (Chloride) 101 mls @ 12.12 mls/hr IV .Q8H20M CHANG Stop: 07/18/24 06:14 Last Admin: 06/18/24 13:51 Dose: 0.04 unit/min, 12.1 mls/hr Documented By: LASHA Co-signed By: LAF Infusion: 06/18/24 13:51 Dose: Infused Documented By: AMS Co-signed By: LAF Infusion: 06/18/24 07:07 Dose: 0.04 unit/min, 12.1 mls/hr Documented By: AMS Co-signed By: VK Admin: 06/18/24 06:35 Dose: 0.04 unit/min, 12.1 mls/hr Documented By: VK Co-signed By: LAF Phenylephrine HCl (Phenylephrine/Nss) 25 mg in 250 mls @ 28.41 mls/hr IV .Q8H48M CHANG; Protocol Stop: 07/18/24 06:07 Last Titration: 06/18/24 14:27 Dose: 0 mcg/kg/min, 0 mls/hr Documented By: LASHA Co-signed By: ES Admin: 06/18/24 13:50 Dose: 0.7 mcg/kg/min, 39.8 mls/hr Documented By: LASHA Co-signed By: LAF Titration: 06/18/24 13:50 Dose: Infused Documented By: LASHA Co-signed By: LAF Titration: 06/18/24 13:30 Dose: 0.7 mcg/kg/min, 39.8 mls/hr Documented By: AMS Co-signed By: LAF Titration: 06/18/24 12:17 Dose: 0.5 mcg/kg/min, 28.4 mls/hr Documented By: AMS Co-signed By: AMS(2) Titration: 06/18/24 07:57 Dose: 0.7 mcg/kg/min, 39.8 mls/hr Documented By: AMS Co-signed By: LAF Admin: 06/18/24 07:10 Dose: 0.5 mcg/kg/min, 28.4 mls/hr Documented By: AMS Co-signed By: LAF Epinephrine HCl () 4 mg in 254 mls @ 7.216 mls/hr IV .Q24H CHANG; Protocol Stop: 07/18/24 07:14 Last Admin: 06/18/24 07:29 Dose: 0.02 mcg/kg/min, 7.2 mls/hr Documented By: AMANDA Co-signed By: LYDIA Hydrocortisone Sodium (Succinate 100 mg/ Syringe) 2 mls @ 4 mls/min IV Q8H CHANG Stop: 07/18/24 15:29 Last Admin: 06/18/24 17:13 Dose: 4 mls/min Documented By: AMS Piperacillin Sod/Tazobactam Sod (Zosyn) 4.5 gm in 100 mls @ 25 mls/hr IV Q12H CHANG; Protocol Stop: 06/28/24 15:59 Last Admin: 06/18/24 16:28 Dose: 25 mls/hr Documented By: AMS Norepinephrine Bitartrate (Levophed/Nss) 16 mg in 250 mls @ 25.747 mls/hr IV .Q9H43M CHANG; Protocol Stop: 07/18/24 10:14 Last Titration: 06/18/24 14:49 Dose: 0.19 mcg/kg/min, 16.9 mls/hr Documented By: AMS Co-signed By: ES Titration: 06/18/24 14:27 Dose: 0.21 mcg/kg/min, 18.6 mls/hr Documented By: AMS Co-signed By: ES Titration: 06/18/24 13:50 Dose: 0.23 mcg/kg/min, 20.4 mls/hr Documented By: AMS Co-signed By: LAF Titration: 06/18/24 13:15 Dose: 0.21 mcg/kg/min, 18.6 mls/hr Documented By: LASHA Co-signed By: AMANDA Admin: 06/18/24 12:44 Dose: 0.19 mcg/kg/min, 16.9 mls/hr Documented By: AMS Co-signed By: LASHA(2) Acetaminophen (Ofirmev) 1,000 mg in 100 mls @ 400 mls/hr IV Q8H PRN PRN Reason: Fever or headache Stop: 06/21/24 11:42 Last Infusion: 06/18/24 12:48 Dose: Infused Documented By: Admin: 06/18/24 12:15 Dose: 400 mls/hr Documented By: LASHA Insulin Aspart (Insulin Aspart Per Unit Charge) 0 units SC Q6 CHANG Stop: 07/18/24 06:48 Last Admin: 06/18/24 12:48 Dose: 4 units Documented By: LASHA Co-signed By: LASHA(2) Discontinued Medications Sodium Chloride (Nss) 1,000 mls @ 999 mls/hr IV .Q1H1M CHANG Stop: 06/18/24 06:15 Last Infusion: 06/18/24 08:27 Dose: Infused Documented By: Admin: 06/18/24 04:22 Dose: 999 mls/hr Documented By: Infusion: 06/18/24 04:22 Dose: Infused Documented By: [facility] Admin: 06/18/24 03:30 Dose: 999 mls/hr Documented By: MEGHAN Norepinephrine Bitartrate (Levophed/D5w) 4 mg in 250 mls @ 102.986 mls/hr IV .Q2H26M CHANG; Protocol Stop: 07/18/24 04:14 Last Titration: 06/18/24 12:43 Dose: Infused Documented By: LASHA Co-signed By: LASHA(2) Titration: 06/18/24 12:17 Dose: 0.21 mcg/kg/min, 74.6 mls/hr Documented By: LASHA Co-signed By: LASHA(2) Titration: 06/18/24 11:30 Dose: 0.23 mcg/kg/min, 81.7 mls/hr Documented By: LASHA Co-signed By: LASHA(2) Admin: 06/18/24 09:45 Dose: 0.25 mcg/kg/min, 88.8 mls/hr Documented By: AMS Co-signed By: GPF Titration: 06/18/24 09:45 Dose: Infused Documented By: AMS Co-signed By: GPF Titration: 06/18/24 09:40 Dose: 0.25 mcg/kg/min, 88.8 mls/hr Documented By: AMS Co-signed By: GPF Titration: 06/18/24 09:25 Dose: 0.27 mcg/kg/min, 95.9 mls/hr Documented By: AMS Co-signed By: GPF Titration: 06/18/24 08:25 Dose: 0.29 mcg/kg/min, 103 mls/hr Documented By: AMS Co-signed By: KJM Titration: 06/18/24 08:15 Dose: 0.27 mcg/kg/min, 95.9 mls/hr Documented By: AMS Co-signed By: KJM Titration: 06/18/24 08:02 Dose: 0.25 mcg/kg/min, 88.8 mls/hr Documented By: AMS Co-signed By: KJM Admin: 06/18/24 07:58 Dose: 0.23 mcg/kg/min, 81.7 mls/hr Documented By: AMS Co-signed By: LAF Titration: 06/18/24 07:58 Dose: Infused Documented By: AMS Co-signed By: LAF Titration: 06/18/24 07:07 Dose: 0.23 mcg/kg/min, 81.7 mls/hr Documented By: AMS Co-signed By: VK Titration: 06/18/24 05:50 Dose: 0.21 mcg/kg/min, 74.6 mls/hr Documented By: MLH Co-signed By: MJJ Titration: 06/18/24 05:40 Dose: 0.19 mcg/kg/min, 67.5 mls/hr Documented By: MLH Co-signed By: MJJ Titration: 06/18/24 05:30 Dose: 0.17 mcg/kg/min, 60.4 mls/hr Documented By: MLH Co-signed By: DLH Titration: 06/18/24 05:07 Dose: 0.15 mcg/kg/min, 53.3 mls/hr Documented By: MLH Co-signed By: MJJ Titration: 06/18/24 04:55 Dose: 0.13 mcg/kg/min, 46.2 mls/hr Documented By: MEGHAN Co-signed By: ENEIDA Titration: 06/18/24 04:40 Dose: 0.11 mcg/kg/min, 39.1 mls/hr Documented By: MEGHAN Co-signed By: ENEIDA Titration: 06/18/24 04:28 Dose: 0.09 mcg/kg/min, 32 mls/hr Documented By: MEGHAN Co-signed By: ENEIDA Titration: 06/18/24 04:21 Dose: 0.07 mcg/kg/min, 24.9 mls/hr Documented By: MEGHAN Co-signed By: OTTO Admin: 06/18/24 04:15 Dose: 0.05 mcg/kg/min, 17.8 mls/hr Documented By: MEGHAN Co-signed By: OTTO Lactated Ringer's (Lr) 1,000 mls @ 999 mls/hr IV .Q1H1M ONE Stop: 06/18/24 07:04 Last Infusion: 06/18/24 07:29 Dose: Infused Documented By: Admin: 06/18/24 06:30 Dose: 999 mls/hr Documented By: ADY Vancomycin HCl 2,000 mg/ (Sodium Chloride) 540 mls @ 200 mls/hr IV NOW ONE Stop: 06/18/24 09:11 Last Infusion: 06/18/24 10:39 Dose: Infused Documented By: [facility] Admin: 06/18/24 06:51 Dose: 200 mls/hr Documented By: VK Cefepime HCl (Maxipime 2000mg) 2,000 mg in 20 mls @ 5 mls/min IV ONE ONE Stop: 06/18/24 06:33 Last Admin: 06/18/24 06:51 Dose: 5 mls/min Documented By: ADY Hydrocortisone Sodium (Succinate 100 mg/ Syringe) 2 mls @ 4 mls/min IV NOW STA Stop: 06/18/24 07:17 Last Admin: 06/18/24 09:34 Dose: 4 mls/min Documented By: LASHA Piperacillin Sod/Tazobactam Sod (Zosyn) 4.5 gm in 100 mls @ 200 mls/hr IV ONE ONE; Protocol Stop: 06/18/24 08:29 Last Infusion: 06/18/24 08:29 Dose: Infused Documented By: Admin: 06/18/24 07:57 Dose: 200 mls/hr Documented By: LASHA Albumin Human (Albumin 25%) 12.5 gm in 50 mls @ 50 mls/hr IV Q1H CHANG Stop: 06/18/24 13:59 Last Infusion: 06/18/24 14:31 Dose: Infused Documented By: Admin: 06/18/24 13:30 Dose: 50 mls/hr Documented By: Infusion: 06/18/24 13:23 Dose: Infused Documented By: Admin: 06/18/24 12:23 Dose: 50 mls/hr Documented By: Infusion: 06/18/24 12:21 Dose: Infused Documented By: Admin: 06/18/24 11:21 Dose: 50 mls/hr Documented By: LASHA Caspofungin 70 mg/ Sodium (Chloride) 260 mls @ 260 mls/hr IV NOW ONE Stop: 06/18/24 15:59 Last Infusion: 06/18/24 17:08 Dose: Infused Documented By: Admin: 06/18/24 16:06 Dose: 260 mls/hr Documented By: LASHA Insulin Aspart (Insulin Aspart Per Unit Charge) 0 units SC ACHS CHANG Stop: 07/18/24 06:48 Last Admin: 06/18/24 08:26 Dose: 2 units Documented By: AMANDA Co-signed By: LASHA Lopez (Stat Iv Infusion Titration Per Protocol) 1 each N/A NOW STA Stop: 06/18/24 04:09 Last Admin: 06/18/24 04:59 Dose: Not Given Documented By: MEGHAN Lopez (Icu Protocol For Hyperglycemia) 1 each N/A Q6 CHANG Stop: 06/20/24 05:59 Last Admin: 06/18/24 07:29 Dose: Not Given Documented By: LASHA Sodium Bicarbonate (Sodium Bicarb 8.4% Inj 50 Meq/50 Ml Syr) 100 meq IV NOW STA Stop: 06/18/24 07:08 Last Admin: 06/18/24 07:34 Dose: 100 meq Documented By: LASHA Imaging Data Radiologist's Impression: Abdomen/Pelvis CT 06/18/24 05:16 EXAM: CT abd pelvis wo con CLINICAL HISTORY: New PEG, recent choledocholithias ?stent displaced TECHNIQUE: Contiguous axial images were obtained from the level of the diaphragm to the pubic symphysis without intravenous or oral contrast. Coronal and sagittal reconstructions were likewise performed and indicated to increase the sensitivity for detecting clinically relevant pathology. CT scan was performed according to ALARA (as low as reasonable achievable). COMPARISON: 05/10/2024 23:25:11 SMALL OFFSET PRINTER FINDINGS: The visualized lung bases show left basal segmental atelectasis. Ascending aortic graft noted. Evaluation of the abdominal and pelvic visceral organs is limited without intravenous contrast. The unenhanced liver, spleen, pancreas, and adrenal glands are grossly unremarkable. Gall bladder is not visualized. Moderate pneumoperitoneum. Self expanding metallic stent across periampullary region in distal CBD and D3 segment of duodenum. The kidneys are normal in size and attenuation. A 2mm calculus at lower pole of right kidney. Multiple simple cortical cysts in bilateral kidneys.. There is no hydronephrosis or perinephric stranding. The ureters are normal in caliber. No adenopathy seen. Gross ascites. No evidence of focal or diffuse bowel wall thickening or evidence of bowel obstruction is seen. The appendix is visualized in the right lower quadrant and appears within normal limits. PEG tube in situ. Diffuse mesenteric nodularity and fat stranding The aorta is normal in caliber. The urinary bladder is normal in contour. Pelvic viscera are grossly unremarkable. No aggressive appearing osseous lesions are identified. IMPRESSION: 1. Gross ascites with mesenetric nodularity and fat stranding. (New finding) 2. Moderate pneumoperitoneum, likely iatrogenic secondary to PEG tube insertion. (New finding) 3. Self expanding metallic stent across periampullary region in distal common bile duct and D3 segment of duodenum. Possibility of inferior displacement of stent. (Stable) 4. Non obstructing right renal calculus. (Stable) 5. Bilateral simple renal cortical cysts- BOSNIAK I. (Stable)Levoscoliosis of thoracolumbar spine. Electronically signed by Soto Callahan 06-18-2024 07:37 AM Discharge Plan Visit Data Chief Complaint: Unresponsive ED Provider: Yenni Mariee Discharge Problem: Acute renal failure, Acute hypotension, Hypothermia Patient Disposition: Admitted As Inpatient Discharge Instructions Interventions: ED Discharge Assessment Last Done: 06/18/24 06:41 Discharge Problem: Hypothermia Qualifiers: Encounter type: initial encounter Qualified Code(s): T68.XXXA - Hypothermia, initial encounter
[2024-06-18] MEDS: EPINEPHrine/NSS 4 MG/254 ML BAG IV SCH (07:29)
[2024-06-18] MEDS: ICU Protocol for HYPERglycemia SCH (07:29)
[2024-06-18] MEDS: SODIUM BICARB 8.4% INJ 50 MEQ/50 ML SYR IV STA (07:34)
--- NOTE | 2024-06-18 07:37 | CT Scan Report ---
EXAM: CT abd pelvis wo con CLINICAL HISTORY: New PEG, recent choledocholithias ?stent displaced TECHNIQUE: Contiguous axial images were obtained from the level of the diaphragm to the pubic symphysis without intravenous or oral contrast. Coronal and sagittal reconstructions were likewise performed and indicated to increase the sensitivity for detecting clinically relevant pathology. CT scan was performed according to ALARA (as low as reasonable achievable). COMPARISON: 05/10/2024 23:25:11 SENIOR FUNCTIONAL ANALYST FINDINGS: The visualized lung bases show left basal segmental atelectasis. Ascending aortic graft noted. Evaluation of the abdominal and pelvic visceral organs is limited without intravenous contrast. The unenhanced liver, spleen, pancreas, and adrenal glands are grossly unremarkable. Gall bladder is not visualized. Moderate pneumoperitoneum. Self expanding metallic stent across periampullary region in distal CBD and D3 segment of duodenum. The kidneys are normal in size and attenuation. A 2mm calculus at lower pole of right kidney. Multiple simple cortical cysts in bilateral kidneys.. There is no hydronephrosis or perinephric stranding. The ureters are normal in caliber. No adenopathy seen. Gross ascites. No evidence of focal or diffuse bowel wall thickening or evidence of bowel obstruction is seen. The appendix is visualized in the right lower quadrant and appears within normal limits. PEG tube in situ. Diffuse mesenteric nodularity and fat stranding The aorta is normal in caliber. The urinary bladder is normal in contour. Pelvic viscera are grossly unremarkable. No aggressive appearing osseous lesions are identified. IMPRESSION: 1. Gross ascites with mesenetric nodularity and fat stranding. (New finding) 2. Moderate pneumoperitoneum, likely iatrogenic secondary to PEG tube insertion. (New finding) 3. Self expanding metallic stent across periampullary region in distal common bile duct and D3 segment of duodenum. Possibility of inferior displacement of stent. (Stable) 4. Non obstructing right renal calculus. (Stable) 5. Bilateral simple renal cortical cysts- BOSNIAK I. (Stable)Levoscoliosis of thoracolumbar spine. Electronically signed by Soto Callahan 06-18-2024 07:37 AM
--- NOTE | 2024-06-18 07:38 | XRay Report ---
EXAM: XR chest 1V portable CLINICAL HISTORY: central line TECHNIQUE: An X-ray image of the chest is obtained in AP projection. COMPARISON: 06/18/2024 02:51:00 DOUGHNUT ICER. FINDINGS: The right-sided central venous line's tip is at the superior cavoatrial junction. Pulmonary Parenchyma: Lungs are clear bilaterally. No evidence of consolidation, collapse, or focal opacities. No pulmonary nodules are identified. No evidence of pleural effusion or pleural thickening. Heart and Mediastinum: Stable cardiac size. No mediastinal widening or masses. No hilar or mediastinal lymphadenopathy. Cardiac pacemaker lead seen in situ. Bony Thorax: Bony thorax appears intact without fractures or deformities. Soft Tissues: Soft tissues overlying the chest wall are unremarkable. IMPRESSION: 1. No acute cardiopulmonary abnormalities are identified. 2. The right-sided central venous line's tip is at the superior cavoatrial junction. 3. Compared to the previous study, the central venous line is a new finding; otherwise, no interval changes. Electronically signed by Jhonny Xiao 06-18-2024 07:38 AM
[2024-06-18] MEDS: PIPERACILLIN/TAZOBACTAM 4.5 GM/100 ML BAG IV ONE (07:57)
[2024-06-18] MEDS: PANTOprazole 40 MG/10 ML SYR IV SCH (07:59)
[2024-06-18 08:11] LABS: Troponin I High Sensitivity 78.1 pg/ml (0-20)
[2024-06-18] MEDS: INSULIN ASPART PER UNIT CHARGE SC SCH ×2 (08:26→12:48)
[2024-06-18 08:30] LABS: Thyroid Stimulating Hormone 7.851 uIu/ml (0.300-4.500)
--- NOTE | 2024-06-18 09:10 | Procedure Note ---
Procedure Note Date of Service June 18, 2024 Procedure: Arterial Line Placement Attending: Dr. Grissom APC: Lan Garcia PA-C Indication: Hemodynamic monitoring Anesthesia: Lidocaine 1% Emergent Consent implied in the setting of clinical deterioration and need for close hemodynamic monitoring, ABG monitoring, frequent lab draws, etc. A time-out was completed verifying correct patient, procedure, site, positioning, and implant(s) or special equipment if applicable. Talha's test was performed to ensure adequate perfusion. Patient's RIGHT wrist was prepped and draped in the usual sterile fashion. Ultrasound guidance was used to aid needle placement. A 20g Arrow arterial line was introduced into the RIGHT Radial artery. Catheter was threaded, and the needle was removed with appropriate blood return. Good waveform was observed. The patient tolerated the procedure well. Confirmation of placement with ultrasound. Blood Loss: Minimal Complications: None Procedural Ultrasound Guidance: Procedure Date: 06/18/2024 Indication: Hemodynamic Monitoring, Frequent ABGs/Lab draws. Attending: Dr. Grissom APC: Lan Garcia PA-C Artery Identified: YES Line confirmed in Artery with ultrasound: YES Complications: NONE Patient tolerated procedure: [place] [facility] [place] Codes (Charges) Tubes, Drains, and Vasc Access Procedure 1: Tubes, Drains, and Vasc Access: [id number] Arterial Cath/Cannulation Sampling/Monitoring/Transfusion Coding CPT Codes Tubes, Drains, and Vasc Access - Tubes, Drains, and Vasc Access: [id number] Arterial Cath/Cannulation Sampling/Monitoring/Transfusion ([id number]) Additional Codes Date of Service (PG.SURGERY)
[2024-06-18 09:18] LABS: T4 Free Thyroxine 0.75 ng/dl (0.61-1.60)
[2024-06-18] MEDS: HYDROCORTISONE SOD 100 MG in SYRINGE 0 ML IV STA (09:34)
[2024-06-18] MEDS ORDERED: Concentrate Norepinephrine IV Infusion ONE (10:00)
--- NOTE | 2024-06-18 10:29 | Pharmacy Report ---
Pharmacy PK ABX Note - Date of Service June 18, 2024 - Assessment and Plan Assessment 68 year old M receiving vancomycin (+ zosyn: intra-abdominal coverage) empirically in setting of septic shock. Blood cultures pending. Procal-13.8, lactate 10.1 --> 4.7. (+) DEE (SCr 3.09mg/dL), no urine output. Currently requiring 4 vasopressor support. Day # 1 of antimicrobial therapy. Plan Vancomycin * Loading dose: 2gm IV X 1 * Given DEE and severity of critical illness will dose by levels for now. * Random level in AM to guide further dosing. Pharmacy will continue to follow and will adjust dose/frequency as necessary. Thank you. Pharmacy has transitioned to AUC monitoring for vancomycin. AUC/MONICA is the preferred PK/PD target and is associated with decreased risk of nephrotoxicity compared to traditional trough targets.
--- NOTE | 2024-06-18 10:53 | Procedure Note ---
Procedure Note Date of Service June 18, 2024 Procedure: Diagnostic therapeutic ultrasound-guided catheter paracentesis Secondary School Teacher Librarian: Dr. Mitchel Grissom Indication: Ascites to rule out SBP Consent: Signed by patient and verified with timeout prior to procedure Anesthesia: 1% lidocaine without epinephrine local. Procedure: Consent was verified and timeout performed. Appropriate imaging studies were reviewed prior to the procedure. Patient was placed in a supine position and limited abdominal ultrasound was performed. See separate imaging. Appropriate site for paracentesis was selected in the right lower quadrant. The skin was prepped and draped in normal sterile fashion. Lidocaine was used for local analgesia. Fluid was aspirated via the finder needle. A small skin jasmina was made with the scalpel and the catheter over the needle apparatus was advanced via Z technique. Using the syringe one-way valve system, a total of 7300 mL's of cloudy serous fluid was removed. The catheter was removed and observed to be intact. A sterile dressing was applied. Fluid was sent for labs, culture and cytology. The patient tolerated the procedure without obvious complication Blood loss: Less than none [facility] Procedure Codes (Charges) Abdomen Abdominal: 11401 Abdominal Paracentesis (diagnostic or therapeutic); W/O imaging Tubes, Drains, and Vasc Access Procedure 1: Tubes, Drains, and Vasc Access: [id number] Ultrasound Guidance For Vascular Coding CPT Codes Abdomen - Abdominal: 03358 Abdominal Paracentesis (diagnostic or therapeutic); W/O imaging ([id number]) Tubes, Drains, and Vasc Access - Tubes, Drains, and Vasc Access: [id number] Ultrasound Guidance For Vascular ([id number]) Additional Codes Date of Service ([email or web address])
[2024-06-18] MEDS: ALBUMIN 25% 12.5 GM/50 ML VIAL IV SCH (11:21)
[2024-06-18 11:47] LABS: Anion Gap 11 (3-11); BUN Creatinine Ratio 22.4 (10-20); Blood Urea Nitrogen 74 mg/dl (6-23); Calcium 7.4 mg/dl (8.6-10.3); Carbon Dioxide 20 mmol/L (21-32); Chloride 103 mmol/L (98-107); Creatinine Clr Calc Pharmacy 25.4 ml/min; Glucose 224 mg/dl (70-99(Fasting)); Sodium 134 mmol/L (136-145)
[2024-06-18 11:50] LABS: Albumin Peritoneal Fluid 2.1 gm/dl; Total Protein Peritoneal Fluid 3.6 gm/dl
[2024-06-18] MEDS: ACETAMINOPHEN 1,000 MG/100 ML VIAL IV PRN (12:15)
[2024-06-18] MEDS: NOREPINEPHRINE/NSS 16 MG/250 ML BAG IV SCH (12:44)
--- NOTE | 2024-06-18 14:15 | Communication Note ---
Date of Service: June 18, 2024 68-year-old male with PMH of HFrEF [EF 40%, TTE 2024], SSS sp PPM on Eliquis, sp TAVR, nocturnal hypoxemia on home O2 at night, T2DM on oral meds, hypo thyroidism, metastatic esophageal cancer status post radiation status post stent placement status post recent PEG tube placement, choledocholithiasis, past history of C. difficile, anxiety disorder, past tobacco abuse brought in with complaint of slow to respond and increasingly unresponsive at home overnight. 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 He received fluid boluses and Levophed in route and was more awake after this. He is currently being managed in ICU for encephalopathy, hypotension, septic shock 2/2 likely abdominal infection. Patient wants full code and believes that he will make through it. For detailed information on the patient, reported today's H&P note and critical care consultation note. Full progress note to follow tomorrow.
--- NOTE | 2024-06-18 14:16 | Ultrasound Report ---
BILATERAL LOWER EXTREMITY VENOUS DOPPLER HISTORY: Acute pain and swelling of the lower legs LE edema, off Eliquis COMPARISON STUDY: None. FINDINGS: Subcutaneous edema noted. There is normal compressibility, flow, and augmentation within th e bilateral lower extremity deep venous systems. IMPRESSION: No DVT within the right or left lower extremity. ACT 112: Negative or not required by law. Electronically signed by: Jaxon Bill M.D. 06/18/2024 2:14 PM
--- NOTE | 2024-06-18 14:19 | Electrocardiogram Report ---
Test Reason : Blood Pressure : */* mmHG Vent. Rate : 100 BPM Atrial Rate : 108 BPM P-R Int : * ms QRS Dur : 112 ms QT Int : 342 ms P-R-T Axes : * 250 86 degrees QTcB Int : 441 ms Ventricular-paced rhythm Abnormal ECG When compared with ECG of 13-May-2024 05:32, Premature ventricular complexes are no longer Present Vent. rate has increased by 38 bpm Confirmed by Tyrel Griffiths ([id number]) on 06/18/2024 2:19:36 PM Referred By: REFERRED SELF Confirmed By: Tyrel Griffiths
[2024-06-18] MEDS ORDERED: ONDANSETRON INJ 2 MG/ML 2 ML VIAL IV PRN (14:28)
[2024-06-18 14:59] LABS: Appearance Peritoneal Fluid Hazy; Color Peritoneal Fluid Yellow; Lymphocytes, Fluid 2 %; Mono,Macrophage,Mesothelial 2 %; Neutrophils, Fluid 96 %; RBC Peritoneal Fluid Auto 3000 /uL; WBC Peritoneal Fluid Auto 6706 /ul (0-300)
[2024-06-18] MEDS: CASPOFUNGIN 70 MG in SODIUM CHLORIDE 0.9% 250 ML IV ONE (16:06)
[2024-06-18] MEDS: PIPERACILLIN/TAZOBACTAM 4.5 GM/100 ML BAG IV SCH (16:28)
[2024-06-18] MEDS: HYDROCORTISONE SOD 100 MG in SYRINGE 0 ML IV SCH (17:13)
[2024-06-18] MEDS ORDERED: CEFEPIME 1000MG 1,000 MG/10 ML SYR IV SCH (18:30)
[2024-06-18 19:41] LABS: BUN Creatinine Ratio 22.6 (10-20); Calcium 7.4 mg/dl (8.6-10.3); Creatinine Clr Calc Pharmacy 25.7 ml/min; Potassium 5.1 mmol/L (3.5-5.1)
[2024-06-19] MEDS: LACTATED RINGER'S 500 ML IV ONE (02:36)
[2024-06-19 03:29] VITALS: BP 127/75
[2024-06-19 04:44] LABS: Hematocrit (blood only) 44.1 % (42.0-52.0); Hemoglobin 14.4 g/dl (14.0-18.0); Mean Corpuscular Hemoglobin 31.4 pg (25.0-34.0); Mean Corpuscular Hgb Conc 32.7 g/dL (32.0-36.0); Mean Corpuscular Volume 96.1 fL (80.0-100.0); Mean Platelet Volume 12.8 fL (9.4-12.4); Platelet Count 63 K/uL (130-400); RDW Coefficient of Variation 14.4 % (11.5-14.5); RDW Standard Deviation 50.2 fL (36.4-46.3); Red Blood Count 4.59 M/uL (4.70-6.10); White Blood Count 14.37 K/ul (4.8-10.8)
--- NOTE | 2024-06-19 04:49 | Communication Note ---
Date of Service: June 19, 2024 Patient seen on evening rounds. Events of today noted. Improvement in vasopressor requirement throughout the day. Remains on norepinephrine and vasopressin. He has been experiencing post-ATN diuresis which is reassuring. I did provide additional 500cc LR to compensate for output given lack of PO intake. Throughout the course of the shift his pressor requirement has again been increasing, now requiring neosynephrine. Febrile. Tachycardic. Around 0430, patient attempting to have BM, unsuccessful. Now complaining of severe sharp abdominal pain to LLQ. States he did strain significantly to attempt a BM. He is tender to light touch. + Perionteal signs. Difficulty taking a deep breath due to pain. POCUS performed - LVEF appears grossly intact, RV n ormal size without septal bowing. RV lead in place. Unable to visualize IVC secondary to bowel gas and PEG positioning as well as patient's significant pain to light palpation. He has some reaccumulation of ascites on brief abdominal ultrasound. My concern is for perforated viscus vs. ischemic bowel in the setting of prolonged malperfusion vs. peritoneal irritation from reaccumulation of ascites. Will perform STAT CT AP. AM labs pending, added LA on. Patient is refusing pain Rx beyond APAP - states it "blocks him up". Further plans to follow imaging. Coding Level of Care Code None
[2024-06-19 04:55] LABS: BUN Creatinine Ratio 23.5 (10-20); Calcium 7.3 mg/dl (8.6-10.3); Creatinine Clr Calc Pharmacy 28.6 ml/min; Potassium 5.5 mmol/L (3.5-5.1)
[2024-06-19 04:57] LABS: Albumin Globulin Ratio 1.3 (0.9-2); Albumin Level 2.6 gm/dl (3.4-5.0); Bilirubin,Total 0.9 mg/dl (0.2-1.0); Magnesium 2.3 mg/dl (1.7-2.4); Phosphorus 5.7 mg/dl (2.5-4.9); Total Protein 4.6 gm/dl (6.0-8.3)
[2024-06-19 05:30] LABS: Basophils # (auto) 0.04 K/uL (0.00-0.20); Basophils % (auto) 0.3 %; Echinocytes 1+; Eosinophils # (auto) 0.08 K/uL (0.00-0.50); Eosinophils % (auto) 0.6 %; Immature Granulocytes # (auto) 0.27 K/uL (0.01-0.20); Immature Granulocytes % (auto) 1.9 %; Lymphocytes # (auto) 0.24 K/uL (1.20-3.40); Lymphocytes % (auto) 1.7 %; Monocytes # (auto) 0.49 K/uL (0.11-0.59); Monocytes % (auto) 3.4 %; Neutrophils # (auto) 13.25 K/uL (1.40-6.50); Neutrophils % (auto) 92.1 %; Platelet Estimate Decreased (Normal); Polychromasia 1+
--- NOTE | 2024-06-19 06:05 | CT Scan Report ---
EXAM: CT abd pelvis wo con CLINICAL HISTORY: Sharp LLQ abd pain, shock, r/o ischemia or perf TECHNIQUE: Contiguous axial images were obtained from the level of the diaphragm to the pubic symphysis without intravenous or oral contrast. Coronal and sagittal reconstructions were likewise performed and indicated to increase the sensitivity for detecting clinically relevant pathology. CT scan was performed according to ALARA (as low as reasonably achievable). COMPARISON: CT, 06/18/2024 05:26:00 IMPLEMENTATION SPECIALIST FINDINGS: The visualized lung bases shows bilateral pleural effusion with adjacent basal atelectasis. Evaluation of the abdominal and pelvic visceral organs is limited without intravenous contrast. The unenhanced liver, spleen, pancreas, and adrenal glands are grossly unremarkable. Post cholecystectomy status. Dilated common bile duct (9.2mm) with mild bilobar intrahepatic biliary ductal dilatation. Gross ascites seen with omental and mesenteric thickening and nodularity. Pneumoperitoneum is seen. PEG tube seen in place. Duodenum stent in D1/D2 segment. Self expanding metallic stent across periampullary region in distal CBD and D3 segment of duodenum. The spleen, pancreas, and adrenal glands are unremarkable. The kidneys are normal in size and attenuation. There is no hydronephrosis or perinephric fat stranding. A 2mm calculus at lower pole of right kidney. Multiple cortical cysts in bilateral kidneys.. The ureters are normal in caliber and no ureteral calculi are seen. The bladder is normal in with Asif's catheter insitu. No evidence of focal or diffuse bowel wall thickening or evidence of bowel obstruction is seen. Multiple small 2-3mm diverticuli in sigmoid colon. No evidence of inflamed appendix. The aorta is normal in caliber. Prostate is enlarged in size, measures 35cc in volume. Degenerative changes in the visualized spine. Levoscoliosis of thoracolumbar spine. Left inguinal hernia with peritoneal fat and fluid as contents. IMPRESSION: 1. Mild decrease in ascitic fluid volume. 2. Interval increase in bilateral pleural effusion. 3. Stable mesenteric and omental thickening and nodularity. 4. Moderate pneumoperitoneum- likely secondary to PEG tube insertion. Reduced as compared to prior study. 5. Stable inferiorly displaced CBD stent. 6. Stable bilateral renal cortical cysts and right non-obstructing nephrolithiasis. 7. Stable left inguinal hernia. 8. Stable Grade I prostatomegaly. Electronically signed by Soto Callahan 06-19-2024 06:05 AM
[2024-06-19] MEDS: ALBUMIN 5% 250 ML IV ONE (07:30)
[2024-06-19] MEDS: THIAMINE HCL 100 MG in SYRINGE 9 ML IV SCH (07:44)
--- NOTE | 2024-06-19 07:47 | Critical Care Progress Note ---
Date of Service June 19, 2024 Assessment & Plan (1) DEE (acute kidney injury): (2) Shock: (3) Lactic acidosis: (4) Dehydration: (5) Severe malnutrition: (6) Pleural effusion: (7) Acute respiratory failure with hypoxia: Plan Reason Critically Ill: 1. Shock, hypovolemic +/- distributive 2. Esophageal adenocarcinoma with obstruction 3. DEE on CKD, prerenal 4. Severe protein calorie malnutrition 5. Failure to thrive 6. Rule out sepsis 7. HAGMA 2/2 lactic acidosis Neuro - [facility] ICU: negative --History of anxiety Cardiac - -- Shock Likely septic Source could be intra-abdominal CT abdomen pelvis shows large volume ascites, pneumoperitoneum which could be from recent PEG tube placement which was a week ago, no signs of perforation or dislodgment of the PEG tube Continue with vasopressor support to keep MAP greater than 65 2D echo 06/19/2024: EF 30-35%, moderate global hypokinesis, RV normal in size and function -- History of sick sinus syndrome Post PPM on Eliquis --History of AAS post TAVR -- Elevated troponin Likely type II UT Respiratory - -- Acute hypoxic respiratory failure Small bilateral pleural effusion Likely from fluid overload with DEE Continue with oxygen supplementation to keep oxygen saturation between 90-92% GI - -- Transaminitis Likely related to shock liver Continue to monitor -- Ascites Status post paracentesis 06/18/2024, 7.3 L of cloudy serous fluid removed RENAL/LYTES - -- Acute renal failure Likely related to shock Strict in and out Avoid nephrotoxic medication ENDO - -- Hypothyroidism Continue with levothyroxine TSH mildly elevated with free T4 --ICU hypoglycemia protocol HEME/ONC - --Thrombocytopenia Could be related to sepsis Continue to monitor --Macrocytic anemia Monitor H&H -- History of esophageal adenocarcinoma With peritoneal mets S/p esophageal stent Oncology consult ID - --Source of infection is not clear Intra-abdominal most likely Procalcitonin 13.8, nasal MRSA negative Respiratory BioFire negative for everything UA negative for bacteria and leukocyte esterase Blood culture negative to date --DNR/DNI --Prophylaxis VTE: On Eliquis at home, IPC's GI: Pantoprazole Lines: Right IJ, right radial Diet: N.p.o. Plan: In/out: +5.5 L, urine output 1580 Unfortunately patient's vasopressor requirement have been going up since night He did complain of left lower quadrant pain, CT abdomen pelvis without contrast was done which did not show any perforations Bowel ischemia still a possibility given that it was done without contrast will not be able to see His lactate is also going up. I had a discussion with the patient as he seemed to be in respiratory distress along with on 3 vasopressors, I was planning to intubate him He stated that he would not want intubation and/or CPR. He was also talking about hospice. I called the patient's sister on [phone] and informed regarding the patient's declining condition as well as his wish of not to intubate or CPR. I will continue with the current course of care, 2 A of bicarb were given to the patient If there is any significant demise in his vitals then we will keep the patient comfortable Lokelma for hyperkalemia Patient might be going into DIC, PT/INR/PTT to be done now Continue with Zosyn as well as caspofungin Continue with vasopressor support. Will consider inotrope given the decreased EF Decrease hydrocortisone to 50 Mg every 6 I have personally spent 55 minutes of critical care time in the direct management of this patient. This is a life/limb threatening event. This includes time spent evaluating patient, direct bedside care, chart review, placing orders, interpretation of diagnostic studies, discussion with consultants, patient, and family members, as well as other required patient management activities. This time is exclusive of all separately billable procedures, and teaching time and separate from and in addition to any other critical care service time. Thank you for allowing us to participate in the care of this patient. Please refer to my attending physician's documentation for any further recommendations. Admission and Anticipated Discharge Date Admission Date: June 18, 2024 Subjective Patient seen and examined at bedside. Was in respiratory distress Overnight patient complained of left lower quadrant pain. His vasopressor support started to increase as well Stat CT abdomen pelvis without contrast was done which did not show any signs of perforation He was on 0.35 of Levophed, 0.7 of phenylephrine and 0.0 follow-up vasopressin at the time of examination MAP was in the low to mid 60s Complained of mild left lower quadrant pain He was still awake and alert oriented to self and place Review of Systems 2 Review of Systems: All systems reviewed & are unremarkable except as noted in Subjective Physical Exam 2 Physical Exam: Constitutional: In respiratory distress HEENT: EOMI, PERRLA, right corneal opacification Respiratory system: Good air entry bilaterally, no wheeze, no rhonchi, positive crackles bilateral lower lobes CVS: S1-S2 positive, no murmurs or gallops, tachycardia Abdomen: Soft, decreased bowel sounds x4, nondistended, positive PEG tube, p ositive left lower quadrant tenderness, no rebound Extremities: Decreased pulses bilaterally radialis/ dorsalis pedis, no cyanosis, minimal pitting edema bilateral lower extremity, mottling of the skin appreciated especially of the lower extremities and the back Neuro: Awake alert oriented to self and place Psych: Normal mood and affect G/U: Positive Asif Skin: no rashes, warm and dry Lymphatic: no cervical or axillary lymphadenopathy Results & Data Results & Data Vital Signs (Past 12 Hours) Vital Signs Temp Pulse Resp BP BP Pulse Ox 06/19/24 06:30 129 H 36 H 76 L 06/19/24 06:06 128 H 44 H 86 L 06/19/24 05:30 127 H 33 H 87 L 06/19/24 04:30 38.4 C H 124 H 38 H 87 L 06/19/24 04:00 38.2 C H 123 H 32 H 94 06/19/24 03:09 38.0 C H 112 H 36 H 06/19/24 03:02 127/75 06/19/24 02:51 38.1 C H 113 H 35 H 06/19/24 02:39 100/66 06/19/24 02:30 37.1 C 117 H 31 H 06/19/24 02:00 37.1 C 117 H 35 H 06/19/24 01:30 114 H 33 H 06/19/24 01:03 37.9 C H 115 H 31 H 06/19/24 01:00 36.4 C L 06/19/24 00:54 38.1 C H 115 H 38 H 06/18/24 23:36 38.1 C H 110 H 36 H 95 06/18/24 23:21 38.1 C H 110 H 33 H 95 06/18/24 22:30 38.1 C H 110 H 34 H 91 06/18/24 22:00 38.2 C H 107 H 31 H 96 06/18/24 21:42 38.1 C H 100 H 35 H 96 06/18/24 21:03 38.2 C H 106 H 31 H 95 06/18/24 20:39 38.2 C H 108 H 35 H 94 06/18/24 20:03 38.2 C H 105 H 36 H 96 06/18/24 20:00 107 H 06/18/24 20:00 108 H 103/65 06/18/24 19:51 38.2 C H 107 H 32 H 95 06/18/24 19:48 38.2 C H 107 H 30 H 95 Laboratory Results 06/19/24 04:26 06/19/24 04:26 Coding Level of Care Code 99678 CRITICAL CARE 1ST 30-74M Diagnoses DEE (acute kidney injury) N17.9 Shock R57.9 Lactic acidosis E87.20 Dehydration E86.0 Severe malnutrition E43 Pleural effusion J90 Acute respiratory failure with hypoxia J96.01
[2024-06-19] MEDS: SODIUM BICARB 8.4% INJ 50 MEQ/50 ML SYR IV STA (07:53)
[2024-06-19 08:09] LABS: iSTAT Art Bld Gas pCO2 Correct 34 mmHg (35-46); iSTAT Arterial Blood Gas HCO3 17 meg/L (19-24); iSTAT Arterial Blood Gas pCO2 34 mmHg (35-46); iSTAT Arterial Blood Gas pO2 76 mmHg (80-95); iSTAT Arterial Blood Gas pO2 C 76; iSTAT Carbon Dioxide 18 mmol/L (24-31); iSTAT Hematocrit 43 % (42-52); iSTAT Hemoglobin 14.6 g/dl (14.0-18.0); iSTAT Potassium 5.5 mmol/L (3.3-5.0); iSTAT Sample Type Arterial; iSTAT Site Art Line; iSTAT Sodium 135 mmol/L (135-144)
[2024-06-19 08:09] LABS: iSTAT Art Bld Gas pCO2 Correct 43 mmHg (35-46); iSTAT Art Bld Gas pH Corrected 7.158 (7.35-7.45); iSTAT Arterial Blood Gas HCO3 15 meg/L (19-24); iSTAT Arterial Blood Gas pCO2 39 mmHg (35-46); iSTAT Arterial Blood Gas pH 7.19 (7.35-7.45); iSTAT Arterial Blood Gas pO2 78 mmHg (80-95); iSTAT Arterial Blood Gas pO2 C 92; iSTAT Carbon Dioxide 16 mmol/L (24-31); iSTAT Hematocrit 41 % (42-52); iSTAT Hemoglobin 13.9 g/dl (14.0-18.0); iSTAT Potassium 6.2 mmol/L (3.3-5.0); iSTAT Sample Type Arterial; iSTAT Site Art Line; iSTAT Sodium 133 mmol/L (135-144)
[2024-06-19] MEDS: PLASMA-LYTE A 500 ML IV ONE (09:01)
[2024-06-19] MEDS: PLASMA-LYTE A 1,000 ML IV SCH (09:01)
[2024-06-19 09:40] LABS: Fibrinogen 393 mg/dl (184-400); INR 1.9 (0.9-1.1); Partial Thromboplastin Ratio 1.8; Partial Thromboplastin Time 49 Seconds (21-31); Prothrombin Time 19.8 Seconds (9.0-12.0)
[2024-06-19] MEDS: SODIUM ZIRCONIUM CYCLOSILICATE 10 GM PACKET NG SCH (09:54)
[2024-06-19] MEDS ORDERED: DAPTOmycin 725 MG in SYRINGE 0 ML IV ONE (10:15)
[2024-06-19] MEDS: PHYTONADIONE 5 MG in DEXTROSE 5% 50 ML IV ONE (10:21)
--- NOTE | 2024-06-19 10:43 | Palliative Care Consultation ---
Date of Consultation June 19, 2024 Assessment & Plan (1) Dyspnea and respiratory abnormalities: (2) Abdominal pain, generalized: (3) Advanced care planning/counseling discussion: A 60min face to face ACP with pt, his sisters x2 and reviewed clinical events to date Pt aware he is in a state of decline. we discussed recent acute changes, rising lactate, declining renal fxn and what this means/concern for ischemic bowel and how with this severity of illness he is not a candidate for more cancer directed care. This was also updated to primary oncologist, Dr Mcclelland for confirmation. He is AAOx3, CAMICU neg at time of this visit He states he does not want to be on life support. We discussed the high risk of his mortality. I expressed my worries that his declining condition aligns with a very high mortlaioty and he may not survive this admission. He verbalized understanding and told me this has been occurring to him as well and he is ready to if it happens, he is not scared to . We reviewed labs, the meaning of rising lactate and suspicion for ischemic bowel given his presentation and decline. Advised he is heading towards [facility]. Surgery is not an option nor would further cancer directed care be possible given the declining PS/poor ECOG. he verbalized understanding and told me that if he gets worse, he wants [facility]AMPUS SUPERVISOR and no aggressive interventions. He does not want any further escalation of care. If possible, when he is dying he would like the chance to at home and we discussed that this would depend on how acutely ill he was at that time and how much care he required/can it be done at home with family support. His sisters were extremely supportive and expressed relief that this discussion and decisions were able to be held with and made by patient himself, because they did not want to be the ones making the decision and feeling like they were guessing at what he wanted for himself. (4) Palliative care by specialist: Introduced Palliative Medicine and explained our role in patient's care. Patient and/or family were receptive to palliative services for goals of care discussions. Reviewed we are different from hospice, a home health nurse visiting service. Plan [facility] if worsening Home with hospice if feasible though overall very poor prognosis with short anticipated survival, he is not likely to survive this admission. Family at bedside/present for entirety of visit and ACP discussion, in agreement with pt wishes [facility]PER[facility] orders written for pain and sx mgt if needed Updated medical, nursing and ICU teams Thank you for allowing us to participate in the ongoing care of this patient. Please page with any additional concerns. Bartolo Landeros DNP Director, Palliative Medicine History of Present Illness Reason for Consultation: Critical ill patient Attending Physician: Parul Yun MD History of Present Illness Mr La is 68yo male with metastatic esophageal cancer s/p RT, stent placement, recent PEG tube placement,chronic systolic heart failure (EF 25%), SSS status post PPM on Eliquis, status post TAVR, nocturnal hypoxemia on home O2 at night, DM2 on oral medications, hypothyroidism, choledocholithiasis, past history C. difficile, anxiety disorder; former +tobacco abuse. He was @[facility] Apr 2024 with persistent n/v post ERC and required transfer [facility] where he was found to have +esophageal obstruction treated with a stent placement. Biopsies +esophageal adenocarcinoma. Readmitted [facility] [place] [place] 05/23-06/07 for esophageal obstruction secondary to displaced esophageal stent requiring an IR guided PEG. Palliative RT @ [facility] [place] [place] due to esophageal obstruction causing dysphagia. He was not an operative candidate by surgical oncology. Yovani is seen bedside with sisters x2 He is critically ill, rising lactate, decreasing EF, pressor support, rising O2 needs and increasing abd pain with high suspicion for ischemic bowel. Currently abd pain is about 4/10, inc anxiety and mild nausea He elected DNR/DNI Per [facility] EMR Link: Lower esophageal adenocarcinoma high-grade, MSI stable -HER2 Dione equivocal on IHC, FISH indeterminate -no actionable mutation. -upper abdominal lymphadenopathy. Peritoneal carcinomatosis. CURRENT TREATMENT: He is having PET-CT scan next week. Overall his condition is not great, ECOG PS 3, has several comorbid conditions, may not be a good candidate for chemotherapy if his clinical condition does not improve. He has PEG feeding tube for nutrition. He received palliative radiation treatment to the esophageal mass which was causing complete obstruction when he was admitted at [facility]. DIAGNOSTIC WORKUP: Upper GI endoscopy and EUS on 05/15/24: -completely obstructing esophageal tumor found in the lower 1/3 of the esophagus. Stent was placed. -EUS revealed T3 N2 Mx. Lower esophageal mass biopsy on 05/15/24: Moderate to poorly differentiated invasive adenocarcinoma. -no loss of nuclear expression of MMR proteins. -PD-L1 3% ( TPS), less than 10 CPS -HER2 Dione equivocal 2+. FISH indeterminate. NGS checkup: TMB 2.84, MSI 1.0, no actionable mutation noted. Stent was migrated into the stomach in the endoscopic evaluation done on 05/24/2024. Previously placed cholecysto-duodenostomy Lumen- opposing Metal stent (AXIOS) was found in the duodenum. CT scan of the abdomen and pelvis on 05/24/2024: -CBD stent in the distal common bile duct extending related duodenum -no liver lesion -upper abdominal lymphadenopathy noted -thickening of the distal esophagus. -migration of the stent into the gastric antrum -peritoneal carcinomatosis. Infiltrative appearance of the omentum. Small abdominal ascites noted. CT chest on 04/1924: 1. Metallic stent extends for midesophagus across GE junction into gastric cardia, satisfactory position. 2. Distal esophageal malignancy with probably metastatic adjacent lymph nodes and trace posterior mediastinal fluid. No evidence of distant metastatic disease in the thorax. 3. New mild dilation of the upper esophagus. 4. New trace bilateral pleural fluid. 5. New small abdominal ascites, new infiltrated appearance of omentum which could be metastatic. 6. New mild biliary ductal dilation; possible distal displacement of a partially imaged CBD stent; workup is recommended with CT or MRI of the abdomen when clinically possible. Allergies Allergy/AdvReac Type Severity Reaction Status Date / Time cefuroxime Allergy Intermediate FEVER, Verified 01/30/21 14:19 DIARHEA cider vinegar Allergy Verified 02/02/21 16:27 ketchup Allergy Verified 02/02/21 16:27 mayonnaise Allergy Verified 02/02/21 16:27 mustard Allergy Verified 02/02/21 16:27 Home Medications Medication Instructions Recorded Confirmed Type eplerenone 25 mg tablet (Inspra) 12.5 mg PO QAM 01/29/21 06/18/24 History furosemide 80 mg tablet (Lasix) 40 mg PO UD 01/29/21 05/10/24 History metoprolol tartrate 50 mg tablet 75 mg PO AMHS 04/28/22 06/18/24 History pediatric multivitamin no.49 1 tab PO QAM 04/28/22 05/10/24 History (Flintstones Gummies chewable tablet) empagliflozin 10 mg tablet 10 mg PO QAM 05/16/22 06/18/24 History (Jardiance) apixaban 5 mg tablet (Eliquis) 5 mg PO UD 05/10/24 06/18/24 History famotidine 20 mg tablet 20 mg PO BID Indigestion 05/10/24 06/18/24 History levothyroxine 100 mcg tablet 100 mcg PO DAILYBB 05/10/24 06/18/24 History pantoprazole 40 mg tablet,delayed 40 mg PO DAILYBB 05/10/24 06/18/24 History release magnesium citrate 06/18/24 History omeprazole 2 mg-sodium bicarbonate 2 - 84 ml feeding tube DAILY 06/18/24 06/18/24 History 84 mg/mL oral suspension (Konvomep) ondansetron 4 mg disintegrating 4 mg PO Q8 PRN Nausea 06/18/24 06/18/24 History tablet oxycodone 5 mg tablet 5 mg PO Q4 PRN Pain (Scale Score 06/18/24 06/18/24 History 4-6) Patient History Medical History Elevated troponin DVT prophylaxis Mobitz type 2 second degree atrioventricular block Aortic stenosis Mobitz type 1 second degree AV block Paroxysmal atrial fibrillation Non-ischemic myocardial injury (non-traumatic) COVID-19 Third degree heart block HLD (hyperlipidemia) Third degree heart block DM II (diabetes mellitus, type II), controlled Ischemic cardiomyopathy Hypertension Type 2 diabetes mellitus Congestive heart failure Family History Father Prostate cancer Bladder cancer Mother Diabetes Heart disease Thyroid condition Sister Thyroid condition Social History Smoking Status: Former smoker Second Hand Exposure: No; Do You Dip or Chew Tobacco: No; Hx Alcohol Use: No Hx Substance Use: No Communication Ability: Effective System Operator Required: No Beliefs That Will Affect Care: None marital status: Single Current Living Situation: Family Current Living Situation Comment: lives with sister Feels Safe at Home: Yes Assistive Devices: Cane, Oxygen - at Night and Walker Review of Systems Review of Systems: All systems reviewed & are unremarkable except as noted in Subjective Physical Exam Physical Exam: Frail, critically ill male semi reclined in bed bitemp wasting PERRLA left, cloudy Right eye neck supple, +RIJ cath; no stridor inc WOB, +conversational dyspnea, diminished breath sounds, few crackles, no overt wheeze S1S2 Abd TTP generalized, BS decreased, +guarding Gen weakness AAOx3 CAMICU Neg at time of this exam Results & Data Vital Signs (Past 12 Hours) Vital Signs Temp Pulse Resp BP BP Pulse Ox O2 Del Method 06/19/24 10:18 37.4 C 121 H 33 H 06/19/24 10:00 37.7 C H 124 H 25 H 06/19/24 09:30 38.2 C H 128 H 43 H 92 Oxymask 06/19/24 09:21 38.4 C H 110 H 39 H 06/19/24 08:45 39.0 C H 102 H 42 H 06/19/24 08:30 39.1 C H 110 H 40 H 06/19/24 08:24 39.3 C H 103 H 32 H 06/19/24 08:12 39.3 C H 112 H 32 H 06/19/24 07:51 39.5 C H 131 H 39 H 06/19/24 07:42 39.5 C H 123 H 40 H 06/19/24 07:30 115 H 33 H 92 06/19/24 07:27 112 H 40 H 06/19/24 07:00 180 H 42 H 06/19/24 06:30 129 H 36 H 76 L 06/19/24 06:06 128 H 44 H 86 L 06/19/24 05:30 127 H 33 H 87 L 06/19/24 04:30 38.4 C H 124 H 38 H 87 L 06/19/24 04:00 38.2 C H 123 H 32 H 94 06/19/24 03:09 38.0 C H 112 H 36 H 06/19/24 03:02 127/75 06/19/24 02:51 38.1 C H 113 H 35 H 06/19/24 02:39 100/66 06/19/24 02:30 37.1 C 117 H 31 H 06/19/24 02:00 37.1 C 117 H 35 H 06/19/24 01:30 114 H 33 H 06/19/24 01:03 37.9 C H 115 H 31 H 06/19/24 01:00 36.4 C L 06/19/24 00:54 38.1 C H 115 H 38 H 06/18/24 23:36 38.1 C H 110 H 36 H 95 06/18/24 23:21 38.1 C H 110 H 33 H 95 O2 Flow Rate 06/19/24 10:18 06/19/24 10:00 06/19/24 09:30 5 06/19/24 09:21 06/19/24 08:45 06/19/24 08:30 06/19/24 08:24 06/19/24 08:12 06/19/24 07:51 06/19/24 07:42 06/19/24 07:30 06/19/24 07:27 06/19/24 07:00 06/19/24 06:30 06/19/24 06:06 06/19/24 05:30 06/19/24 04:30 06/19/24 04:00 06/19/24 03:09 06/19/24 03:02 06/19/24 02:51 06/19/24 02:39 06/19/24 02:30 06/19/24 02:00 06/19/24 01:30 06/19/24 01:03 06/19/24 01:00 06/19/24 00:54 06/18/24 23:36 06/18/24 23:21 Laboratory Results 06/19/24 06/19/24 06/19/24 Range/Units 11:58 11:52 10:12 WBC RBC Hgb POC Hgb (14.0-18.0) g/dl Hct POC Hct (42-52) % MCV MCH MCHC RDW Std Deviation RDW Coeff of Mariam Plt Count MPV Immature Gran % (Auto) Neut % (Auto) Lymph % (Auto) [place] % (Auto) Eos % (Auto) Baso % (Auto) Neut # (Auto) Lymph # (Auto) [place] # (Auto) Eos # (Auto) Baso # (Auto) Immature Gran # (Auto) Absolute Nucleated RBC Nucleated RBC % (auto) Neutrophils % (Manual) Band Neutrophils % Lymphocytes % (Manual) Prolymphocyte % Reactive Lymphs % (Man) Monocytes % (Manual) Eosinophils % (Manual) Basophils % (Manual) Metamyelocytes % (Man) Myelocytes % (Man) Promyelocytes % (Man) Blast Cells % (Manual) Plasma Cell % (Manual) Other Cells % Nucleated RBC % Neutrophils # (Manual) Band Neutrophils # Total Absolute Neuts Lymphocytes # (Manual) Prolymphocyte # Reactive Lymphs # Total Abs Lymphocytes Monocytes # (Manual) Eosinophils # (Manual) Basophils # (Manual) Metamyelocytes # (Man) Myelocytes # (Manual) Promyelocytes # (Man) Blast Cells # (Man) Plasma Cell # (Manual) Other Cells # Nucleated RBCs # (Man) Hypersegmented Neuts Hyposegmented Neuts Hypogranular Neuts Large Granular Lymphs # Lrg Granular Lymphs Hairy Cells Smudge Cells Toxic Granulation Toxic Vacuolation Dohle Bodies Vanna Rods Platelet Estimate Hypogranular Platelets Giant Platelets Platelet Satelliting RBC Morphology Polychromasia Hypochromasia Poikilocytosis Basophilic Stippling Anisocytosis Microcytosis Macrocytosis Spherocytes Pappenheimer Bodies Sickle Cells Target Cells Tear Drop Cells Ovalocytes Stomatocytes [place] Bodies Echinocytes Acanthocytes (Spur) Rouleaux RBC Agglutinates Schistocytes Sezary Cell PT (9.0-12.0) Seconds INR (0.9-1.1) APTT (21-31) Seconds PTT Ratio Fibrinogen (184-400) mg/dl Factor VIII Activity Specimen Type Sample Site POC pH (7.35-7.45) POC pCO2 (35-46) mmHg POC pO2 (80-95) mmHg POC HCO3 (19-24) jon/L POC Base Excess (-9-1.8) jon/L ABG pH (Temp Correct) (7.35-7.45) ABG pCO2 (Temp Corrct (35-46) mmHg POC ABG pO2 at Pt Temp POC ABG O2 Sat (90-95) % Talha Test O2 Delivery Device POC Sodium (135-144) mmol/L Sodium POC Potassium (3.3-5.0) mmol/L Potassium POC Chloride (101-112) mmol/L Chloride (98-107) mmol/L Carbon Dioxide (21-32) mmol/L POC Total CO2 (24-31) mmol/L Anion Gap POC Anion Gap (16-25) mmol/L POC BUN (7-18) mg/dl BUN (6-23) mg/dl Creatinine (0.6-1.4) mg/dl POC Creatinine (0.6-1.3) mg/dl Est Cr Clr Drug Dosing ml/min eGFR BUN/Creatinine Ratio (10-20) Glucose (70-99(Fasting)) mg/dl POC Glucose (other) 74 (70-99) mg/dl Lactate 9.0 H* 8.9 H* (0.4-2.0) mmol/L Calcium (8.6-10.3) mg/dl POC Ioniz Calcium Kaitlyn (1.12-1.32) mmol/l Phosphorus (2.5-4.9) mg/dl Magnesium Total Bilirubin (0.2-1.0) mg/dl Direct Bilirubin AST ALT (7-52) U/L Alkaline Phosphatase Lactate Dehydrogenase (86-244) U/L Troponin I High Sens (0-20) pg/ml Total Protein (6.0-8.3) gm/dl Albumin Globulin (2.5-4.0) gm/dl Albumin/Globulin Ratio (0.9-2) Procalcitonin TSH (0.300-4.500) uIu/ml Free T4 (0.61-1.60) ng/dl Urine Color Urine Appearance (Clear) Urine pH (4.5-7.5) Ur Specific [place] (1.000-1.030) Urine Protein (Negative) Urine Glucose (UA) (Negative) Urine Ketones (Negative) Urine Blood (Negative) Urine Nitrite (Negative) Urine Bilirubin (Negative) Urine Urobilinogen (Negative) Ur Leukocyte Esterase (Negative) Urine WBC (Auto) (0-5) /hpf Urine RBC (Auto) (0-2) /hpf U Hyaline Cast (Auto) (0-2) /lpf U Epithel Cells (Auto) (0-2) /hpf Urine Bacteria (Auto) (None Seen) Urine Mucus (None Prsent) Urine Sperm (None Prsent) Fluid Neutrophils % % Fluid Lymphocytes % % Fluid Meso/Macro/[place] % % Fluid Comment Peritoneal Color Peritoneal Appearance Peritoneal WBC (Auto) (0-300) /ul Peritoneal RBC (Auto) /uL Peritoneal Tot Protein gm/dl Peritoneal Albumin gm/dl Nasal Screen MRSA (PCR) (Negative) Random Vancomycin (10-20) mcg/ml Adenovirus (PCR) (NotDetected) B. pertussis DNA (PCR) (NotDetected) B.parapertussis DNA PCR (NotDetected) C. pneumoniae DNA (PCR) (NotDetected) Coronavirus OC43 (PCR) (NotDetected) Coronavirus HKU1 (PCR) (NotDetected) Coronavirus 229E (PCR) (NotDetected) SARS-CoV-2 (PCR) (NotDetected) Coronavirus NL63 (PCR) (NotDetected) Human Metapneumovir PCR (NotDetected) Influenza Type A (PCR) (NotDetected) Influenza Type B (PCR) (NotDetected) M. pneumoniae (PCR) (NotDetected) Parainfluenza 1 (PCR) (NotDetected) Parainfluenza 2 (PCR) (NotDetected) Parainfluenza 3 (PCR) (NotDetected) Parainfluenza 4 (PCR) (NotDetected) RSV (PCR) (NotDetected) Entero/Rhino (PCR) (NotDetected) Blood Parasites ID 06/19/24 06/19/24 06/19/24 Range/Units 08:03 07:54 06:21 WBC RBC Hgb POC Hgb 13.9 L (14.0-18.0) g/dl Hct POC Hct 41 L (42-52) % MCV MCH MCHC RDW Std Deviation RDW Coeff of Mariam Plt Count MPV Immature Gran % (Auto) Neut % (Auto) Lymph % (Auto) [place] % (Auto) Eos % (Auto) Baso % (Auto) Neut # (Auto) Lymph # (Auto) [place] # (Auto) Eos # (Auto) Baso # (Auto) Immature Gran # (Auto) Absolute Nucleated RBC Nucleated RBC % (auto) Neutrophils % (Manual) Band Neutrophils % Lymphocytes % (Manual) Prolymphocyte % Reactive Lymphs % (Man) Monocytes % (Manual) Eosinophils % (Manual) Basophils % (Manual) Metamyelocytes % (Man) Myelocytes % (Man) Promyelocytes % (Man) Blast Cells % (Manual) Plasma Cell % (Manual) Other Cells % Nucleated RBC % Neutrophils # (Manual) Band Neutrophils # Total Absolute Neuts Lymphocytes # (Manual) Prolymphocyte # Reactive Lymphs # Total Abs Lymphocytes Monocytes # (Manual) Eosinophils # (Manual) Basophils # (Manual) Metamyelocytes # (Man) Myelocytes # (Manual) Promyelocytes # (Man) Blast Cells # (Man) Plasma Cell # (Manual) Other Cells # Nucleated RBCs # (Man) Hypersegmented Neuts Hyposegmented Neuts Hypogranular Neuts Large Granular Lymphs # Lrg Granular Lymphs Hairy Cells Smudge Cells Toxic Granulation Toxic Vacuolation Dohle Bodies Vanna Rods Platelet Estimate Hypogranular Platelets Giant Platelets Platelet Satelliting RBC Morphology Polychromasia Hypochromasia Poikilocytosis Basophilic Stippling Anisocytosis Microcytosis Macrocytosis Spherocytes Pappenheimer Bodies Sickle Cells Target Cells Tear Drop Cells Ovalocytes Stomatocytes [place] Bodies Echinocytes Acanthocytes (Spur) Rouleaux RBC Agglutinates Schistocytes Sezary Cell PT 19.8 H (9.0-12.0) Seconds INR 1.9 H (0.9-1.1) APTT 49 H (21-31) Seconds PTT Ratio 1.8 Fibrinogen 393 (184-400) mg/dl Factor VIII Activity Pending Specimen Type Arterial Sample Site Art Line POC pH 7.19 L* (7.35-7.45) POC pCO2 39 (35-46) mmHg POC pO2 78 L (80-95) mmHg POC HCO3 15 L (19-24) jon/L POC Base Excess -13.0 L (-9-1.8) jon/L ABG pH (Temp Correct) 7.158 L* (7.35-7.45) ABG pCO2 (Temp Corrct 43 (35-46) mmHg POC ABG pO2 at Pt Temp 92 POC ABG O2 Sat 92.0 (90-95) % Talha Test NA O2 Delivery Device POC Sodium 133 L (135-144) mmol/L Sodium POC Potassium 6.2 H* (3.3-5.0) mmol/L Potassium POC Chloride (101-112) mmol/L Chloride (98-107) mmol/L Carbon Dioxide (21-32) mmol/L POC Total CO2 16 L (24-31) mmol/L Anion Gap POC Anion Gap (16-25) mmol/L POC BUN (7-18) mg/dl BUN (6-23) mg/dl Creatinine (0.6-1.4) mg/dl POC Creatinine (0.6-1.3) mg/dl Est Cr Clr Drug Dosing ml/min eGFR BUN/Creatinine Ratio (10-20) Glucose (70-99(Fasting)) mg/dl POC Glucose (other) (70-99) mg/dl Lactate 7.3 H* (0.4-2.0) mmol/L Calcium (8.6-10.3) mg/dl POC Ioniz Calcium Kaitlyn (1.12-1.32) mmol/l Phosphorus (2.5-4.9) mg/dl Magnesium Total Bilirubin (0.2-1.0) mg/dl Direct Bilirubin AST ALT (7-52) U/L Alkaline Phosphatase Lactate Dehydrogenase 931 H (86-244) U/L Troponin I High Sens (0-20) pg/ml Total Protein (6.0-8.3) gm/dl Albumin Globulin (2.5-4.0) gm/dl Albumin/Globulin Ratio (0.9-2) Procalcitonin TSH (0.300-4.500) uIu/ml Free T4 (0.61-1.60) ng/dl Urine Color Urine Appearance (Clear) Urine pH (4.5-7.5) Ur Specific [place] (1.000-1.030) Urine Protein (Negative) Urine Glucose (UA) (Negative) Urine Ketones (Negative) Urine Blood (Negative) Urine Nitrite (Negative) Urine Bilirubin (Negative) Urine Urobilinogen (Negative) Ur Leukocyte Esterase (Negative) Urine WBC (Auto) (0-5) /hpf Urine RBC (Auto) (0-2) /hpf U Hyaline Cast (Auto) (0-2) /lpf U Epithel Cells (Auto) (0-2) /hpf Urine Bacteria (Auto) (None Seen) Urine Mucus (None Prsent) Urine Sperm (None Prsent) Fluid Neutrophils % % Fluid Lymphocytes % % Fluid [place]/Macro/[place] % % Fluid Comment Peritoneal Color Peritoneal Appearance Peritoneal WBC (Auto) (0-300) /ul Peritoneal RBC (Auto) /uL Peritoneal Tot Protein gm/dl Peritoneal Albumin gm/dl Nasal Screen MRSA (PCR) (Negative) Random Vancomycin (10-20) mcg/ml Adenovirus (PCR) (NotDetected) B. pertussis DNA (PCR) (NotDetected) B.parapertussis DNA PCR (NotDetected) C. pneumoniae DNA (PCR) (NotDetected) Coronavirus OC43 (PCR) (NotDetected) Coronavirus HKU1 (PCR) (NotDetected) Coronavirus 229E (PCR) (NotDetected) SARS-CoV-2 (PCR) (NotDetected) Coronavirus NL63 (PCR) (NotDetected) Human Metapneumovir PCR (NotDetected) Influenza Type A (PCR) (NotDetected) Influenza Type B (PCR) (NotDetected) M. pneumoniae (PCR) (NotDetected) Parainfluenza 1 (PCR) (NotDetected) Parainfluenza 2 (PCR) (NotDetected) Parainfluenza 3 (PCR) (NotDetected) Parainfluenza 4 (PCR) (NotDetected) RSV (PCR) (NotDetected) Entero/Rhino (PCR) (NotDetected) Blood Parasites ID 06/19/24 06/19/24 06/18/24 Range/Units 06:02 04:26 23:55 WBC 14.37 H RBC 4.59 L Hgb 14.4 POC Hgb 14.6 (14.0-18.0) g/dl Hct 44.1 POC Hct 43 (42-52) % MCV 96.1 MCH 31.4 MCHC 32.7 RDW Std Deviation 50.2 H RDW Coeff of Mariam 14.4 Plt Count 63 L MPV 12.8 H Immature Gran % (Auto) 1.9 Neut % (Auto) 92.1 Lymph % (Auto) 1.7 [place] % (Auto) 3.4 Eos % (Auto) 0.6 Baso % (Auto) 0.3 Neut # (Auto) 13.25 H Lymph # (Auto) 0.[address] [place] # (Auto) 0.49 Eos # (Auto) 0.08 Baso # (Auto) 0.04 Immature Gran # (Auto) 0.27 H Absolute Nucleated RBC Nucleated RBC % (auto) Neutrophils % (Manual) Band Neutrophils % Lymphocytes % (Manual) Prolymphocyte % Reactive Lymphs % (Man) Monocytes % (Manual) Eosinophils % (Manual) Basophils % (Manual) Metamyelocytes % (Man) Myelocytes % (Man) Promyelocytes % (Man) Blast Cells % (Manual) Plasma Cell % (Manual) Other Cells % Nucleated RBC % Neutrophils # (Manual) Band Neutrophils # Total Absolute Neuts Lymphocytes # (Manual) Prolymphocyte # Reactive Lymphs # Total Abs Lymphocytes Monocytes # (Manual) Eosinophils # (Manual) Basophils # (Manual) Metamyelocytes # (Man) Myelocytes # (Manual) Promyelocytes # (Man) Blast Cells # (Man) Plasma Cell # (Manual) Other Cells # Nucleated RBCs # (Man) Hypersegmented Neuts Hyposegmented Neuts Hypogranular Neuts Large Granular Lymphs # Lrg Granular Lymphs Hairy Cells Smudge Cells Toxic Granulation Toxic Vacuolation Dohle Bodies Vanna Rods Platelet Estimate Decreased L Hypogranular Platelets Giant Platelets Platelet Satelliting RBC Morphology Polychromasia 1+ Hypochromasia Poikilocytosis Basophilic Stippling Anisocytosis Microcytosis Macrocytosis Spherocytes Pappenheimer Bodies Sickle Cells Target Cells Tear Drop Cells Ovalocytes Stomatocytes [place] Bodies Echinocytes 1+ Acanthocytes (Spur) Rouleaux RBC Agglutinates Schistocytes Sezary Cell PT (9.0-12.0) Seconds INR (0.9-1.1) APTT (21-31) Seconds PTT Ratio Fibrinogen (184-400) mg/dl Factor VIII Activity Specimen Type Arterial Sample Site Art Line POC pH 7.30 L (7.35-7.45) POC pCO2 34 L (35-46) mmHg POC pO2 76 L (80-95) mmHg POC HCO3 17 L (19-24) jon/L POC Base Excess -10.0 L (-9-1.8) jon/L ABG pH (Temp Correct) 7.300 L (7.35-7.45) ABG pCO2 (Temp Corrct 34 L (35-46) mmHg POC ABG pO2 at Pt Temp 76 POC ABG O2 Sat 94.0 (90-95) % Talha Test NA O2 Delivery Device Cannula POC Sodium 135 (135-144) mmol/L Sodium 136 POC Potassium 5.5 H (3.3-5.0) mmol/L Potassium 5.5 H POC Chloride (101-112) mmol/L Chloride 104 (98-107) mmol/L Carbon Dioxide 21 (21-32) mmol/L POC Total CO2 18 L (24-31) mmol/L Anion Gap 11 POC Anion Gap (16-25) mmol/L POC BUN (7-18) mg/dl BUN 69 H (6-23) mg/dl Creatinine 2.94 H D (0.6-1.4) mg/dl POC Creatinine (0.6-1.3) mg/dl Est Cr Clr Drug Dosing 28.6 ml/min eGFR 22.76 BUN/Creatinine Ratio 23.5 H (10-20) Glucose 96 (70-99(Fasting)) mg/dl POC Glucose (other) 103 H (70-99) mg/dl Lactate 6.5 H* (0.4-2.0) mmol/L Calcium 7.3 L (8.6-10.3) mg/dl POC Ioniz Calcium Kaitlyn (1.12-1.32) mmol/l Phosphorus 5.7 H (2.5-4.9) mg/dl Magnesium 2.3 Total Bilirubin 0.9 (0.2-1.0) mg/dl Direct Bilirubin AST 1390 H ALT 1004 H (7-52) U/L Alkaline Phosphatase 77 D Lactate Dehydrogenase (86-244) U/L Troponin I High Sens (0-20) pg/ml Total Protein 4.6 L (6.0-8.3) gm/dl Albumin 2.6 L Globulin 2.0 L (2.5-4.0) gm/dl Albumin/Globulin Ratio 1.3 (0.9-2) Procalcitonin TSH (0.300-4.500) uIu/ml Free T4 (0.61-1.60) ng/dl Urine Color Urine Appearance (Clear) Urine pH (4.5-7.5) Ur Specific [place] (1.000-1.030) Urine Protein (Negative) Urine Glucose (UA) (Negative) Urine Ketones (Negative) Urine Blood (Negative) Urine Nitrite (Negative) Urine Bilirubin (Negative) Urine Urobilinogen (Negative) Ur Leukocyte Esterase (Negative) Urine WBC (Auto) (0-5) /hpf Urine RBC (Auto) (0-2) /hpf U Hyaline Cast (Auto) (0-2) /lpf U Epithel Cells (Auto) (0-2) /hpf Urine Bacteria (Auto) (None Seen) Urine Mucus (None Prsent) Urine Sperm (None Prsent) Fluid Neutrophils % % Fluid Lymphocytes % % Fluid Meso/Macro/[place] % % Fluid Comment Peritoneal Color Peritoneal Appearance Peritoneal WBC (Auto) (0-300) /ul Peritoneal RBC (Auto) /uL Peritoneal Tot Protein gm/dl Peritoneal Albumin gm/dl Nasal Screen MRSA (PCR) (Negative) Random Vancomycin 14.3 (10-20) mcg/ml Adenovirus (PCR) (NotDetected) B. pertussis DNA (PCR) (NotDetected) B.parapertussis DNA PCR (NotDetected) C. pneumoniae DNA (PCR) (NotDetected) Coronavirus OC43 (PCR) (NotDetected) Coronavirus HKU1 (PCR) (NotDetected) Coronavirus 229E (PCR) (NotDetected) SARS-CoV-2 (PCR) (NotDetected) Coronavirus NL63 (PCR) (NotDetected) Human Metapneumovir PCR (NotDetected) Influenza Type A (PCR) (NotDetected) Influenza Type B (PCR) (NotDetected) M. pneumoniae (PCR) (NotDetected) Parainfluenza 1 (PCR) (NotDetected) Parainfluenza 2 (PCR) (NotDetected) Parainfluenza 3 (PCR) (NotDetected) Parainfluenza 4 (PCR) (NotDetected) RSV (PCR) (NotDetected) Entero/Rhino (PCR) (NotDetected) Blood Parasites ID 06/18/24 06/18/24 06/18/24 Range/Units 19:06 17:47 12:23 WBC RBC Hgb POC Hgb (14.0-18.0) g/dl Hct POC Hct (42-52) % MCV MCH MCHC RDW Std Deviation RDW Coeff of Mariam Plt Count MPV Immature Gran % (Auto) Neut % (Auto) Lymph % (Auto) [place] % (Auto) Eos % (Auto) Baso % (Auto) Neut # (Auto) Lymph # (Auto) [place] # (Auto) Eos # (Auto) Baso # (Auto) Immature Gran # (Auto) Absolute Nucleated RBC Nucleated RBC % (auto) Neutrophils % (Manual) Band Neutrophils % Lymphocytes % (Manual) Prolymphocyte % Reactive Lymphs % (Man) Monocytes % (Manual) Eosinophils % (Manual) Basophils % (Manual) Metamyelocytes % (Man) Myelocytes % (Man) Promyelocytes % (Man) Blast Cells % (Manual) Plasma Cell % (Manual) Other Cells % Nucleated RBC % Neutrophils # (Manual) Band Neutrophils # Total Absolute Neuts Lymphocytes # (Manual) Prolymphocyte # Reactive Lymphs # Total Abs Lymphocytes Monocytes # (Manual) Eosinophils # (Manual) Basophils # (Manual) Metamyelocytes # (Man) Myelocytes # (Manual) Promyelocytes # (Man) Blast Cells # (Man) Plasma Cell # (Manual) Other Cells # Nucleated RBCs # (Man) Hypersegmented Neuts Hyposegmented Neuts Hypogranular Neuts Large Granular Lymphs # Lrg Granular Lymphs Hairy Cells Smudge Cells Toxic Granulation Toxic Vacuolation Dohle Bodies Vanna Rods Platelet Estimate Hypogranular Platelets Giant Platelets Platelet Satelliting RBC Morphology Polychromasia Hypochromasia Poikilocytosis Basophilic Stippling Anisocytosis Microcytosis Macrocytosis Spherocytes Pappenheimer Bodies Sickle Cells Target Cells Tear Drop Cells Ovalocytes Stomatocytes [place] Bodies Echinocytes Acanthocytes (Spur) Rouleaux RBC Agglutinates Schistocytes Sezary Cell PT (9.0-12.0) Seconds INR (0.9-1.1) APTT (21-31) Seconds PTT Ratio Fibrinogen (184-400) mg/dl Factor VIII Activity Specimen Type Sample Site POC pH (7.35-7.45) POC pCO2 (35-46) mmHg POC pO2 (80-95) mmHg POC HCO3 (19-24) jon/L POC Base Excess (-9-1.8) jon/L ABG pH (Temp Correct) (7.35-7.45) ABG pCO2 (Temp Corrct (35-46) mmHg POC ABG pO2 at Pt Temp POC ABG O2 Sat (90-95) % Talha Test O2 Delivery Device POC Sodium (135-144) mmol/L Sodium 136 POC Potassium (3.3-5.0) mmol/L Potassium 5.1 POC Chloride (101-112) mmol/L Chloride 104 (98-107) mmol/L Carbon Dioxide 23 (21-32) mmol/L POC Total CO2 (24-31) mmol/L Anion Gap 9 POC Anion Gap (16-25) mmol/L POC BUN (7-18) mg/dl BUN 74 H (6-23) mg/dl Creatinine 3.27 H (0.6-1.4) mg/dl POC Creatinine (0.6-1.3) mg/dl Est Cr Clr Drug Dosing 25.7 ml/min eGFR 20.03 BUN/Creatinine Ratio 22.6 H (10-20) Glucose 128 H (70-99(Fasting)) mg/dl POC Glucose (other) 130 H 216 H (70-99) mg/dl Lactate (0.4-2.0) mmol/L Calcium 7.4 L (8.6-10.3) mg/dl POC Ioniz Calcium Kaitlyn (1.12-1.32) mmol/l Phosphorus (2.5-4.9) mg/dl Magnesium Total Bilirubin (0.2-1.0) mg/dl Direct Bilirubin AST ALT (7-52) U/L Alkaline Phosphatase Lactate Dehydrogenase (86-244) U/L Troponin I High Sens (0-20) pg/ml Total Protein (6.0-8.3) gm/dl Albumin Globulin (2.5-4.0) gm/dl Albumin/Globulin Ratio (0.9-2) Procalcitonin TSH (0.300-4.500) uIu/ml Free T4 (0.61-1.60) ng/dl Urine Color Urine Appearance (Clear) Urine pH (4.5-7.5) Ur Specific [place] (1.000-1.030) Urine Protein (Negative) Urine Glucose (UA) (Negative) Urine Ketones (Negative) Urine Blood (Negative) Urine Nitrite (Negative) Urine Bilirubin (Negative) Urine Urobilinogen (Negative) Ur Leukocyte Esterase (Negative) Urine WBC (Auto) (0-5) /hpf Urine RBC (Auto) (0-2) /hpf U Hyaline Cast (Auto) (0-2) /lpf U Epithel Cells (Auto) (0-2) /hpf Urine Bacteria (Auto) (None Seen) Urine Mucus (None Prsent) Urine Sperm (None Prsent) Fluid Neutrophils % % Fluid Lymphocytes % % Fluid [place]/Macro/[place] % % Fluid Comment Peritoneal Color Peritoneal Appearance Peritoneal WBC (Auto) (0-300) /ul Peritoneal RBC (Auto) /uL Peritoneal Tot Protein gm/dl Peritoneal Albumin gm/dl Nasal Screen MRSA (PCR) (Negative) Random Vancomycin (10-20) mcg/ml Adenovirus (PCR) (NotDetected) B. pertussis DNA (PCR) (NotDetected) B.parapertussis DNA PCR (NotDetected) C. pneumoniae DNA (PCR) (NotDetected) Coronavirus OC43 (PCR) (NotDetected) Coronavirus HKU1 (PCR) (NotDetected) Coronavirus 229E (PCR) (NotDetected) SARS-CoV-2 (PCR) (NotDetected) Coronavirus NL63 (PCR) (NotDetected) Human Metapneumovir PCR (NotDetected) Influenza Type A (PCR) (NotDetected) Influenza Type B (PCR) (NotDetected) M. pneumoniae (PCR) (NotDetected) Parainfluenza 1 (PCR) (NotDetected) Parainfluenza 2 (PCR) (NotDetected) Parainfluenza 3 (PCR) (NotDetected) Parainfluenza 4 (PCR) (NotDetected) RSV (PCR) (NotDetected) Entero/Rhino (PCR) (NotDetected) Blood Parasites ID 06/18/24 06/18/24 06/18/24 Range/Units 11:52 10:32 10:30 WBC RBC Hgb POC Hgb (14.0-18.0) g/dl Hct POC Hct (42-52) % MCV MCH MCHC RDW Std Deviation RDW Coeff of Mariam Plt Count MPV Immature Gran % (Auto) Neut % (Auto) Lymph % (Auto) [place] % (Auto) Eos % (Auto) Baso % (Auto) Neut # (Auto) Lymph # (Auto) [place] # (Auto) Eos # (Auto) Baso # (Auto) Immature Gran # (Auto) Absolute Nucleated RBC Nucleated RBC % (auto) Neutrophils % (Manual) Band Neutrophils % Lymphocytes % (Manual) Prolymphocyte % Reactive Lymphs % (Man) Monocytes % (Manual) Eosinophils % (Manual) Basophils % (Manual) Metamyelocytes % (Man) Myelocytes % (Man) Promyelocytes % (Man) Blast Cells % (Manual) Plasma Cell % (Manual) Other Cells % Nucleated RBC % Neutrophils # (Manual) Band Neutrophils # Total Absolute Neuts Lymphocytes # (Manual) Prolymphocyte # Reactive Lymphs # Total Abs Lymphocytes Monocytes # (Manual) Eosinophils # (Manual) Basophils # (Manual) Metamyelocytes # (Man) Myelocytes # (Manual) Promyelocytes # (Man) Blast Cells # (Man) Plasma Cell # (Manual) Other Cells # Nucleated RBCs # (Man) Hypersegmented Neuts Hyposegmented Neuts Hypogranular Neuts Large Granular Lymphs # Lrg Granular Lymphs Hairy Cells Smudge Cells Toxic Granulation Toxic Vacuolation Dohle Bodies Vanna Rods Platelet Estimate Hypogranular Platelets Giant Platelets Platelet Satelliting RBC Morphology Polychromasia Hypochromasia Poikilocytosis Basophilic Stippling Anisocytosis Microcytosis Macrocytosis Spherocytes Pappenheimer Bodies Sickle Cells Target Cells Tear Drop Cells Ovalocytes Stomatocytes [place] Bodies Echinocytes Acanthocytes (Spur) Rouleaux RBC Agglutinates Schistocytes Sezary Cell PT (9.0-12.0) Seconds INR (0.9-1.1) APTT (21-31) Seconds PTT Ratio Fibrinogen (184-400) mg/dl Factor VIII Activity Specimen Type Sample Site POC pH (7.35-7.45) POC pCO2 (35-46) mmHg POC pO2 (80-95) mmHg POC HCO3 (19-24) jon/L POC Base Excess (-9-1.8) jon/L ABG pH (Temp Correct) (7.35-7.45) ABG pCO2 (Temp Corrct (35-46) mmHg POC ABG pO2 at Pt Temp POC ABG O2 Sat (90-95) % Talha Test O2 Delivery Device POC Sodium (135-144) mmol/L Sodium 134 L POC Potassium (3.3-5.0) mmol/L Potassium 5.1 TNP POC Chloride (101-112) mmol/L Chloride 103 (98-107) mmol/L Carbon Dioxide 20 L (21-32) mmol/L POC Total CO2 (24-31) mmol/L Anion Gap 11 POC Anion Gap (16-25) mmol/L POC BUN (7-18) mg/dl BUN 74 H (6-23) mg/dl Creatinine 3.31 H (0.6-1.4) mg/dl POC Creatinine (0.6-1.3) mg/dl Est Cr Clr Drug Dosing 25.4 ml/min eGFR 19.74 BUN/Creatinine Ratio 22.4 H (10-20) Glucose 224 H (70-99(Fasting)) mg/dl POC Glucose (other) (70-99) mg/dl Lactate (0.4-2.0) mmol/L Calcium 7.4 L (8.6-10.3) mg/dl POC Ioniz Calcium Kaitlyn (1.12-1.32) mmol/l Phosphorus (2.5-4.9) mg/dl Magnesium Total Bilirubin (0.2-1.0) mg/dl Direct Bilirubin AST ALT (7-52) U/L Alkaline Phosphatase Lactate Dehydrogenase (86-244) U/L Troponin I High Sens (0-20) pg/ml Total Protein (6.0-8.3) gm/dl Albumin Globulin (2.5-4.0) gm/dl Albumin/Globulin Ratio (0.9-2) Procalcitonin TSH (0.300-4.500) uIu/ml Free T4 (0.61-1.60) ng/dl Urine Color Urine Appearance (Clear) Urine pH (4.5-7.5) Ur Specific [place] (1.000-1.030) Urine Protein (Negative) Urine Glucose (UA) (Negative) Urine Ketones (Negative) Urine Blood (Negative) Urine Nitrite (Negative) Urine Bilirubin (Negative) Urine Urobilinogen (Negative) Ur Leukocyte Esterase (Negative) Urine WBC (Auto) (0-5) /hpf Urine RBC (Auto) (0-2) /hpf U Hyaline Cast (Auto) (0-2) /lpf U Epithel Cells (Auto) (0-2) /hpf Urine Bacteria (Auto) (None Seen) Urine Mucus (None Prsent) Urine Sperm (None Prsent) Fluid Neutrophils % 96 % Fluid Lymphocytes % 2 % Fluid [place]/Macro/[place] % 2 % Fluid Comment Peritoneal Color Yellow Peritoneal Appearance Hazy Peritoneal WBC (Auto) 6706 H (0-300) /ul Peritoneal RBC (Auto) 3000 /uL Peritoneal Tot Protein 3.6 gm/dl Peritoneal Albumin 2.1 gm/dl Nasal Screen MRSA (PCR) (Negative) Random Vancomycin (10-20) mcg/ml Adenovirus (PCR) (NotDetected) B. pertussis DNA (PCR) (NotDetected) B.parapertussis DNA PCR (NotDetected) C. pneumoniae DNA (PCR) (NotDetected) Coronavirus OC43 (PCR) (NotDetected) Coronavirus HKU1 (PCR) (NotDetected) Coronavirus 229E (PCR) (NotDetected) SARS-CoV-2 (PCR) (NotDetected) Coronavirus NL63 (PCR) (NotDetected) Human Metapneumovir PCR (NotDetected) Influenza Type A (PCR) (NotDetected) Influenza Type B (PCR) (NotDetected) M. pneumoniae (PCR) (NotDetected) Parainfluenza 1 (PCR) (NotDetected) Parainfluenza 2 (PCR) (NotDetected) Parainfluenza 3 (PCR) (NotDetected) Parainfluenza 4 (PCR) (NotDetected) RSV (PCR) (NotDetected) Entero/Rhino (PCR) (NotDetected) Blood Parasites ID 06/18/24 06/18/24 06/18/24 Range/Units 09:08 08:20 07:17 WBC RBC Hgb POC Hgb (14.0-18.0) g/dl Hct POC Hct (42-52) % MCV MCH MCHC RDW Std Deviation RDW Coeff of Mariam Plt Count MPV Immature Gran % (Auto) Neut % (Auto) Lymph % (Auto) [place] % (Auto) Eos % (Auto) Baso % (Auto) Neut # (Auto) Lymph # (Auto) [place] # (Auto) Eos # (Auto) Baso # (Auto) Immature Gran # (Auto) Absolute Nucleated RBC Nucleated RBC % (auto) Neutrophils % (Manual) Band Neutrophils % Lymphocytes % (Manual) Prolymphocyte % Reactive Lymphs % (Man) Monocytes % (Manual) Eosinophils % (Manual) Basophils % (Manual) Metamyelocytes % (Man) Myelocytes % (Man) Promyelocytes % (Man) Blast Cells % (Manual) Plasma Cell % (Manual) Other Cells % Nucleated RBC % Neutrophils # (Manual) Band Neutrophils # Total Absolute Neuts Lymphocytes # (Manual) Prolymphocyte # Reactive Lymphs # Total Abs Lymphocytes Monocytes # (Manual) Eosinophils # (Manual) Basophils # (Manual) Metamyelocytes # (Man) Myelocytes # (Manual) Promyelocytes # (Man) Blast Cells # (Man) Plasma Cell # (Manual) Other Cells # Nucleated RBCs # (Man) Hypersegmented Neuts Hyposegmented Neuts Hypogranular Neuts Large Granular Lymphs # Lrg Granular Lymphs Hairy Cells Smudge Cells Toxic Granulation Toxic Vacuolation Dohle Bodies Vanna Rods Platelet Estimate Hypogranular Platelets Giant Platelets Platelet Satelliting RBC Morphology Polychromasia Hypochromasia Poikilocytosis Basophilic Stippling Anisocytosis Microcytosis Macrocytosis Spherocytes Pappenheimer Bodies Sickle Cells Target Cells Tear Drop Cells Ovalocytes Stomatocytes [place] Bodies Echinocytes Acanthocytes (Spur) Rouleaux RBC Agglutinates Schistocytes Sezary Cell PT (9.0-12.0) Seconds INR (0.9-1.1) APTT (21-31) Seconds PTT Ratio Fibrinogen (184-400) mg/dl Factor VIII Activity Specimen Type Sample Site POC pH (7.35-7.45) POC pCO2 (35-46) mmHg POC pO2 (80-95) mmHg POC HCO3 (19-24) jon/L POC Base Excess (-9-1.8) jon/L ABG pH (Temp Correct) (7.35-7.45) ABG pCO2 (Temp Corrct (35-46) mmHg POC ABG pO2 at Pt Temp POC ABG O2 Sat (90-95) % Talha Test O2 Delivery Device POC Sodium (135-144) mmol/L Sodium Cancelled POC Potassium (3.3-5.0) mmol/L Potassium Cancelled POC Chloride (101-112) mmol/L Chloride Cancelled (98-107) mmol/L Carbon Dioxide Cancelled (21-32) mmol/L POC Total CO2 (24-31) mmol/L Anion Gap Cancelled POC Anion Gap (16-25) mmol/L POC BUN (7-18) mg/dl BUN Cancelled (6-23) mg/dl Creatinine Cancelled (0.6-1.4) mg/dl POC Creatinine (0.6-1.3) mg/dl Est Cr Clr Drug Dosing Cancelled ml/min eGFR Cancelled BUN/Creatinine Ratio Cancelled (10-20) Glucose Cancelled (70-99(Fasting)) mg/dl POC Glucose (other) 213 H (70-99) mg/dl Lactate 4.7 H* (0.4-2.0) mmol/L Calcium Cancelled (8.6-10.3) mg/dl POC Ioniz Calcium Kaitlyn (1.12-1.32) mmol/l Phosphorus 5.2 H (2.5-4.9) mg/dl Magnesium Total Bilirubin (0.2-1.0) mg/dl Direct Bilirubin AST ALT (7-52) U/L Alkaline Phosphatase Lactate Dehydrogenase (86-244) U/L Troponin I High Sens 78.1 H* D (0-20) pg/ml Total Protein (6.0-8.3) gm/dl Albumin Globulin (2.5-4.0) gm/dl Albumin/Globulin Ratio (0.9-2) Procalcitonin 13.80 H TSH 7.851 H (0.300-4.500) uIu/ml Free T4 0.75 (0.61-1.60) ng/dl Urine Color Urine Appearance (Clear) Urine pH (4.5-7.5) Ur Specific [place] (1.000-1.030) Urine Protein (Negative) Urine Glucose (UA) (Negative) Urine Ketones (Negative) Urine Blood (Negative) Urine Nitrite (Negative) Urine Bilirubin (Negative) Urine Urobilinogen (Negative) Ur Leukocyte Esterase (Negative) Urine WBC (Auto) (0-5) /hpf Urine RBC (Auto) (0-2) /hpf U Hyaline Cast (Auto) (0-2) /lpf U Epithel Cells (Auto) (0-2) /hpf Urine Bacteria (Auto) (None Seen) Urine Mucus (None Prsent) Urine Sperm (None Prsent) Fluid Neutrophils % % Fluid Lymphocytes % % Fluid [place] % % Fluid Comment Peritoneal Color Peritoneal Appearance Peritoneal WBC (Auto) (0-300) /ul Peritoneal RBC (Auto) /uL Peritoneal Tot Protein gm/dl Peritoneal Albumin gm/dl Nasal Screen MRSA (PCR) (Negative) Random Vancomycin (10-20) mcg/ml Adenovirus (PCR) (NotDetected) B. pertussis DNA (PCR) (NotDetected) B.parapertussis DNA PCR (NotDetected) C. pneumoniae DNA (PCR) (NotDetected) Coronavirus OC43 (PCR) (NotDetected) Coronavirus HKU1 (PCR) (NotDetected) Coronavirus 229E (PCR) (NotDetected) SARS-CoV-2 (PCR) (NotDetected) Coronavirus NL63 (PCR) (NotDetected) Human Metapneumovir PCR (NotDetected) Influenza Type A (PCR) (NotDetected) Influenza Type B (PCR) (NotDetected) M. pneumoniae (PCR) (NotDetected) Parainfluenza 1 (PCR) (NotDetected) Parainfluenza 2 (PCR) (NotDetected) Parainfluenza 3 (PCR) (NotDetected) Parainfluenza 4 (PCR) (NotDetected) RSV (PCR) (NotDetected) Entero/Rhino (PCR) (NotDetected) Blood Parasites ID 06/18/24 06/18/24 06/18/24 Range/Units 07:00 05:24 05:21 WBC 8.90 RBC 4.94 Hgb 15.5 POC Hgb (14.0-18.0) g/dl Hct 49.8 POC Hct (42-52) % MCV 100.8 H MCH 31.4 MCHC 31.1 L RDW Std Deviation 51.8 H RDW Coeff of Mariam 14.1 Plt Count 93 L MPV 12.5 H Immature Gran % (Auto) 0.6 Neut % (Auto) 92.9 Lymph % (Auto) 2.7 [place] % (Auto) 3.5 Eos % (Auto) 0.2 Baso % (Auto) 0.1 Neut # (Auto) 8.27 H Lymph # (Auto) 0.[address] [place] # (Auto) 0.31 Eos # (Auto) 0.02 Baso # (Auto) 0.01 Immature Gran # (Auto) 0.05 Absolute Nucleated RBC Nucleated RBC % (auto) Neutrophils % (Manual) Band Neutrophils % Lymphocytes % (Manual) Prolymphocyte % Reactive Lymphs % (Man) Monocytes % (Manual) Eosinophils % (Manual) Basophils % (Manual) Metamyelocytes % (Man) Myelocytes % (Man) Promyelocytes % (Man) Blast Cells % (Manual) Plasma Cell % (Manual) Other Cells % Nucleated RBC % Neutrophils # (Manual) Band Neutrophils # Total Absolute Neuts Lymphocytes # (Manual) Prolymphocyte # Reactive Lymphs # Total Abs Lymphocytes Monocytes # (Manual) Eosinophils # (Manual) Basophils # (Manual) Metamyelocytes # (Man) Myelocytes # (Manual) Promyelocytes # (Man) Blast Cells # (Man) Plasma Cell # (Manual) Other Cells # Nucleated RBCs # (Man) Hypersegmented Neuts Hyposegmented Neuts Hypogranular Neuts Large Granular Lymphs # Lrg Granular Lymphs Hairy Cells Smudge Cells Toxic Granulation Toxic Vacuolation Dohle Bodies Vanna Rods Platelet Estimate Decreased L Hypogranular Platelets Giant Platelets Platelet Satelliting RBC Morphology Polychromasia Hypochromasia Poikilocytosis Basophilic Stippling Anisocytosis Microcytosis Macrocytosis Spherocytes Pappenheimer Bodies Sickle Cells Target Cells Tear Drop Cells Ovalocytes Stomatocytes [place] Bodies Echinocytes 1+ Acanthocytes (Spur) Rouleaux RBC Agglutinates Schistocytes Sezary Cell PT (9.0-12.0) Seconds INR (0.9-1.1) APTT (21-31) Seconds PTT Ratio Fibrinogen (184-400) mg/dl Factor VIII Activity Specimen Type Sample Site POC pH (7.35-7.45) POC pCO2 (35-46) mmHg POC pO2 (80-95) mmHg POC HCO3 (19-24) jon/L POC Base Excess (-9-1.8) jon/L ABG pH (Temp Correct) (7.35-7.45) ABG pCO2 (Temp Corrct (35-46) mmHg POC ABG pO2 at Pt Temp POC ABG O2 Sat (90-95) % Talha Test O2 Delivery Device POC Sodium (135-144) mmol/L Sodium POC Potassium (3.3-5.0) mmol/L Potassium POC Chloride (101-112) mmol/L Chloride (98-107) mmol/L Carbon Dioxide (21-32) mmol/L POC Total CO2 (24-31) mmol/L Anion Gap POC Anion Gap (16-25) mmol/L POC BUN (7-18) mg/dl BUN (6-23) mg/dl Creatinine (0.6-1.4) mg/dl POC Creatinine (0.6-1.3) mg/dl Est Cr Clr Drug Dosing ml/min eGFR BUN/Creatinine Ratio (10-20) Glucose (70-99(Fasting)) mg/dl POC Glucose (other) (70-99) mg/dl Lactate 10.1 H* (0.4-2.0) mmol/L Calcium (8.6-10.3) mg/dl POC Ioniz Calcium A[place]lyn (1.12-1.32) mmol/l Phosphorus (2.5-4.9) mg/dl Magnesium Total Bilirubin (0.2-1.0) mg/dl Direct Bilirubin AST ALT (7-52) U/L Alkaline Phosphatase Lactate Dehydrogenase (86-244) U/L Troponin I High Sens (0-20) pg/ml Total Protein (6.0-8.3) gm/dl Albumin Globulin (2.5-4.0) gm/dl Albumin/Globulin Ratio (0.9-2) Procalcitonin TSH (0.300-4.500) uIu/ml Free T4 (0.61-1.60) ng/dl Urine Color Urine Appearance (Clear) Urine pH (4.5-7.5) Ur Specific [place] (1.000-1.030) Urine Protein (Negative) Urine Glucose (UA) (Negative) Urine Ketones (Negative) Urine Blood (Negative) Urine Nitrite (Negative) Urine Bilirubin (Negative) Urine Urobilinogen (Negative) Ur Leukocyte Esterase (Negative) Urine WBC (Auto) (0-5) /hpf Urine RBC (Auto) (0-2) /hpf U Hyaline Cast (Auto) (0-2) /lpf U Epithel Cells (Auto) (0-2) /hpf Urine Bacteria (Auto) (None Seen) Urine Mucus (None Prsent) Urine Sperm (None Prsent) Fluid Neutrophils % % Fluid Lymphocytes % % Fluid [place]/Macro/[place] % % Fluid Comment Peritoneal Color Peritoneal Appearance Peritoneal WBC (Auto) (0-300) /ul Peritoneal RBC (Auto) /uL Peritoneal Tot Protein gm/dl Peritoneal Albumin gm/dl Nasal Screen MRSA (PCR) Negative (Negative) Random Vancomycin (10-20) mcg/ml Adenovirus (PCR) (NotDetected) B. pertussis DNA (PCR) (NotDetected) B.parapertussis DNA PCR (NotDetected) C. pneumoniae DNA (PCR) (NotDetected) Coronavirus OC43 (PCR) (NotDetected) Coronavirus HKU1 (PCR) (NotDetected) Coronavirus 229E (PCR) (NotDetected) SARS-CoV-2 (PCR) (NotDetected) Coronavirus NL63 (PCR) (NotDetected) Human Metapneumovir PCR (NotDetected) Influenza Type A (PCR) (NotDetected) Influenza Type B (PCR) (NotDetected) M. pneumoniae (PCR) (NotDetected) Parainfluenza 1 (PCR) (NotDetected) Parainfluenza 2 (PCR) (NotDetected) Parainfluenza 3 (PCR) (NotDetected) Parainfluenza 4 (PCR) (NotDetected) RSV (PCR) (NotDetected) Entero/Rhino (PCR) (NotDetected) Blood Parasites ID 06/18/24 06/18/24 06/18/24 Range/Units 04:45 04:44 04:09 WBC RBC Hgb POC Hgb 12.9 L (14.0-18.0) g/dl Hct POC Hct 38 L (42-52) % MCV MCH MCHC RDW Std Deviation RDW Coeff of Mariam Plt Count MPV Immature Gran % (Auto) Neut % (Auto) Lymph % (Auto) [place] % (Auto) Eos % (Auto) Baso % (Auto) Neut # (Auto) Lymph # (Auto) [place] # (Auto) Eos # (Auto) Baso # (Auto) Immature Gran # (Auto) Absolute Nucleated RBC Nucleated RBC % (auto) Neutrophils % (Manual) Band Neutrophils % Lymphocytes % (Manual) Prolymphocyte % Reactive Lymphs % (Man) Monocytes % (Manual) Eosinophils % (Manual) Basophils % (Manual) Metamyelocytes % (Man) Myelocytes % (Man) Promyelocytes % (Man) Blast Cells % (Manual) Plasma Cell % (Manual) Other Cells % Nucleated RBC % Neutrophils # (Manual) Band Neutrophils # Total Absolute Neuts Lymphocytes # (Manual) Prolymphocyte # Reactive Lymphs # Total Abs Lymphocytes Monocytes # (Manual) Eosinophils # (Manual) Basophils # (Manual) Metamyelocytes # (Man) Myelocytes # (Manual) Promyelocytes # (Man) Blast Cells # (Man) Plasma Cell # (Manual) Other Cells # Nucleated RBCs # (Man) Hypersegmented Neuts Hyposegmented Neuts Hypogranular Neuts Large Granular Lymphs # Lrg Granular Lymphs Hairy Cells Smudge Cells Toxic Granulation Toxic Vacuolation Dohle Bodies Vanna Rods Platelet Estimate Hypogranular Platelets Giant Platelets Platelet Satelliting RBC Morphology Polychromasia Hypochromasia Poikilocytosis Basophilic Stippling Anisocytosis Microcytosis Macrocytosis Spherocytes Pappenheimer Bodies Sickle Cells Target Cells Tear Drop Cells Ovalocytes Stomatocytes [place] Bodies Echinocytes Acanthocytes (Spur) Rouleaux RBC Agglutinates Schistocytes Sezary Cell PT (9.0-12.0) Seconds INR (0.9-1.1) APTT (21-31) Seconds PTT Ratio Fibrinogen (184-400) mg/dl Factor VIII Activity Specimen Type Sample Site POC pH 7.25 L (7.35-7.45) POC pCO2 38 (35-46) mmHg POC pO2 301 H (80-95) mmHg POC HCO3 17 L (19-24) jon/L POC Base Excess -11.0 L (-9-1.8) jon/L ABG pH (Temp Correct) (7.35-7.45) ABG pCO2 (Temp Corrct (35-46) mmHg POC ABG pO2 at Pt Temp POC ABG O2 Sat 100.0 H (90-95) % Talha Test O2 Delivery Device POC Sodium 136 (135-144) mmol/L Sodium 139 POC Potassium 4.5 (3.3-5.0) mmol/L Potassium 4.6 POC Chloride (101-112) mmol/L Chloride (98-107) mmol/L Carbon Dioxide (21-32) mmol/L POC Total CO2 18 L (24-31) mmol/L Anion Gap POC Anion Gap (16-25) mmol/L POC BUN (7-18) mg/dl BUN (6-23) mg/dl Creatinine (0.6-1.4) mg/dl POC Creatinine (0.6-1.3) mg/dl Est Cr Clr Drug Dosing ml/min eGFR BUN/Creatinine Ratio (10-20) Glucose (70-99(Fasting)) mg/dl POC Glucose (other) (70-99) mg/dl Lactate (0.4-2.0) mmol/L Calcium (8.6-10.3) mg/dl POC Ioniz Calcium Kaitlyn (1.12-1.32) mmol/l Phosphorus (2.5-4.9) mg/dl Magnesium 2.6 H Total Bilirubin (0.2-1.0) mg/dl Direct Bilirubin 0.3 H AST 68 H ALT (7-52) U/L Alkaline Phosphatase 37 Lactate Dehydrogenase (86-244) U/L Troponin I High Sens (0-20) pg/ml Total Protein (6.0-8.3) gm/dl Albumin 2.2 L Globulin (2.5-4.0) gm/dl Albumin/Globulin Ratio (0.9-2) Procalcitonin TSH (0.300-4.500) uIu/ml Free T4 (0.61-1.60) ng/dl Urine Color Dark Yellow Urine Appearance Cloudy A (Clear) Urine pH 5.0 (4.5-7.5) Ur Specific [place] 1.023 (1.000-1.030) Urine Protein 1+ H (Negative) Urine Glucose (UA) 1+ H (Negative) Urine Ketones Trace H (Negative) Urine Blood Trace H (Negative) Urine Nitrite Negative (Negative) Urine Bilirubin Negative (Negative) Urine Urobilinogen Negative (Negative) Ur Leukocyte Esterase Negative (Negative) Urine WBC (Auto) 6-10 H (0-5) /hpf Urine RBC (Auto) 0-2 (0-2) /hpf U Hyaline Cast (Auto) >20 H (0-2) /lpf U Epithel Cells (Auto) 6-10 H (0-2) /hpf Urine Bacteria (Auto) None Seen (None Seen) Urine Mucus Present A (None Prsent) Urine Sperm Present A (None Prsent) Fluid Neutrophils % % Fluid Lymphocytes % % Fluid [place]/Macro/[place] % % Fluid Comment Peritoneal Color Peritoneal Appearance Peritoneal WBC (Auto) (0-300) /ul Peritoneal RBC (Auto) /uL Peritoneal Tot Protein gm/dl Peritoneal Albumin gm/dl Nasal Screen MRSA (PCR) (Negative) Random Vancomycin (10-20) mcg/ml Adenovirus (PCR) (NotDetected) B. pertussis DNA (PCR) (NotDetected) B.parapertussis DNA PCR (NotDetected) C. pneumoniae DNA (PCR) (NotDetected) Coronavirus OC43 (PCR) (NotDetected) Coronavirus HKU1 (PCR) (NotDetected) Coronavirus 229E (PCR) (NotDetected) SARS-CoV-2 (PCR) (NotDetected) Coronavirus NL63 (PCR) (NotDetected) Human Metapneumovir PCR (NotDetected) Influenza Type A (PCR) (NotDetected) Influenza Type B (PCR) (NotDetected) M. pneumoniae (PCR) (NotDetected) Parainfluenza 1 (PCR) (NotDetected) Parainfluenza 2 (PCR) (NotDetected) Parainfluenza 3 (PCR) (NotDetected) Parainfluenza 4 (PCR) (NotDetected) RSV (PCR) (NotDetected) Entero/Rhino (PCR) (NotDetected) Blood Parasites ID 06/18/24 06/18/24 06/18/24 Range/Units 04:08 03:50 03:48 WBC Cancelled RBC Cancelled Hgb Cancelled POC Hgb 15.0 (14.0-18.0) g/dl Hct Cancelled POC Hct 44 (42-52) % MCV Cancelled MCH Cancelled MCHC Cancelled RDW Std Deviation Cancelled RDW Coeff of Mariam Cancelled Plt Count Cancelled MPV Cancelled Immature Gran % (Auto) Cancelled Neut % (Auto) Cancelled Lymph % (Auto) Cancelled [place] % (Auto) Cancelled Eos % (Auto) Cancelled Baso % (Auto) Cancelled Neut # (Auto) Cancelled Lymph # (Auto) Cancelled [place] # (Auto) Cancelled Eos # (Auto) Cancelled Baso # (Auto) Cancelled Immature Gran # (Auto) Cancelled Absolute Nucleated RBC Cancelled Nucleated RBC % (auto) Cancelled Neutrophils % (Manual) Cancelled Band Neutrophils % Cancelled Lymphocytes % (Manual) Cancelled Prolymphocyte % Cancelled Reactive Lymphs % (Man) Cancelled Monocytes % (Manual) Cancelled Eosinophils % (Manual) Cancelled Basophils % (Manual) Cancelled Metamyelocytes % (Man) Cancelled Myelocytes % (Man) Cancelled Promyelocytes % (Man) Cancelled Blast Cells % (Manual) Cancelled Plasma Cell % (Manual) Cancelled Other Cells % Cancelled Nucleated RBC % Cancelled Neutrophils # (Manual) Cancelled Band Neutrophils # Cancelled Total Absolute Neuts Cancelled Lymphocytes # (Manual) Cancelled Prolymphocyte # Cancelled Reactive Lymphs # Cancelled Total Abs Lymphocytes Cancelled Monocytes # (Manual) Cancelled Eosinophils # (Manual) Cancelled Basophils # (Manual) Cancelled Metamyelocytes # (Man) Cancelled Myelocytes # (Manual) Cancelled Promyelocytes # (Man) Cancelled Blast Cells # (Man) Cancelled Plasma Cell # (Manual) Cancelled Other Cells # Cancelled Nucleated RBCs # (Man) Cancelled Hypersegmented Neuts Cancelled Hyposegmented Neuts Cancelled Hypogranular Neuts Cancelled Large Granular Lymphs Cancelled # Lrg Granular Lymphs Cancelled Hairy Cells Cancelled Smudge Cells Cancelled Toxic Granulation Cancelled Toxic Vacuolation Cancelled Dohle Bodies Cancelled Vanna Rods Cancelled Platelet Estimate Cancelled Hypogranular Platelets Cancelled Giant Platelets Cancelled Platelet Satelliting Cancelled RBC Morphology Cancelled Polychromasia Cancelled Hypochromasia Cancelled Poikilocytosis Cancelled Basophilic Stippling Cancelled Anisocytosis Cancelled Microcytosis Cancelled Macrocytosis Cancelled Spherocytes Cancelled Pappenheimer Bodies Cancelled Sickle Cells Cancelled Target Cells Cancelled Tear Drop Cells Cancelled Ovalocytes Cancelled Stomatocytes Cancelled [place] Bodies Cancelled Echinocytes Cancelled Acanthocytes (Spur) Cancelled Rouleaux Cancelled RBC Agglutinates Cancelled Schistocytes Cancelled Sezary Cell Cancelled PT (9.0-12.0) Seconds INR (0.9-1.1) APTT (21-31) Seconds PTT Ratio Fibrinogen (184-400) mg/dl Factor VIII Activity Specimen Type Sample Site POC pH (7.35-7.45) POC pCO2 (35-46) mmHg POC pO2 (80-95) mmHg POC HCO3 (19-24) jon/L POC Base Excess (-9-1.8) jon/L ABG pH (Temp Correct) (7.35-7.45) ABG pCO2 (Temp Corrct (35-46) mmHg POC ABG pO2 at Pt Temp POC ABG O2 Sat (90-95) % Talha Test O2 Delivery Device POC Sodium 134 L (135-144) mmol/L Sodium TNP POC Potassium 5.1 H (3.3-5.0) mmol/L Potassium TNP POC Chloride 104 (101-112) mmol/L Chloride 102 (98-107) mmol/L Carbon Dioxide 20 L (21-32) mmol/L POC Total CO2 18 L (24-31) mmol/L Anion Gap TNP POC Anion Gap 18.0 (16-25) mmol/L POC BUN 79 H (7-18) mg/dl BUN 76 H (6-23) mg/dl Creatinine 3.09 H (0.6-1.4) mg/dl POC Creatinine 3.5 H (0.6-1.3) mg/dl Est Cr Clr Drug Dosing 27.2 ml/min eGFR 21.44 BUN/Creatinine Ratio 24.6 H (10-20) Glucose 150 H (70-99(Fasting)) mg/dl POC Glucose (other) 141 H (70-99) mg/dl Lactate (0.4-2.0) mmol/L Calcium 8.2 L (8.6-10.3) mg/dl POC Ioniz Calcium Kaitlyn 0.98 L (1.12-1.32) mmol/l Phosphorus (2.5-4.9) mg/dl Magnesium TNP Total Bilirubin 0.8 (0.2-1.0) mg/dl Direct Bilirubin TNP AST TNP ALT 34 (7-52) U/L Alkaline Phosphatase TNP Lactate Dehydrogenase (86-244) U/L Troponin I High Sens 51.4 H* (0-20) pg/ml Total Protein 5.3 L (6.0-8.3) gm/dl Albumin TNP Globulin (2.5-4.0) gm/dl Albumin/Globulin Ratio (0.9-2) Procalcitonin Cancelled TSH (0.300-4.500) uIu/ml Free T4 (0.61-1.60) ng/dl Urine Color Urine Appearance (Clear) Urine pH (4.5-7.5) Ur Specific [place] (1.000-1.030) Urine Protein (Negative) Urine Glucose (UA) (Negative) Urine Ketones (Negative) Urine Blood (Negative) Urine Nitrite (Negative) Urine Bilirubin (Negative) Urine Urobilinogen (Negative) Ur Leukocyte Esterase (Negative) Urine WBC (Auto) (0-5) /hpf Urine RBC (Auto) (0-2) /hpf U Hyaline Cast (Auto) (0-2) /lpf U Epithel Cells (Auto) (0-2) /hpf Urine Bacteria (Auto) (None Seen) Urine Mucus (None Prsent) Urine Sperm (None Prsent) Fluid Neutrophils % % Fluid Lymphocytes % % Fluid [place]/Macro/[place] % % Fluid Comment Peritoneal Color Peritoneal Appearance Peritoneal WBC (Auto) (0-300) /ul Peritoneal RBC (Auto) /uL Peritoneal Tot Protein gm/dl Peritoneal Albumin gm/dl Nasal Screen MRSA (PCR) (Negative) Random Vancomycin (10-20) mcg/ml Adenovirus (PCR) Not Detected (NotDetected) B. pertussis DNA (PCR) Not Detected (NotDetected) B.parapertussis DNA PCR Not Detected (NotDetected) C. pneumoniae DNA (PCR) Not Detected (NotDetected) Coronavirus OC43 (PCR) Not Detected (NotDetected) Coronavirus HKU1 (PCR) Not Detected (NotDetected) Coronavirus 229E (PCR) Not Detected (NotDetected) SARS-CoV-2 (PCR) Not Detected (NotDetected) Coronavirus NL63 (PCR) Not Detected (NotDetected) Human Metapneumovir PCR Not Detected (NotDetected) Influenza Type A (PCR) Not Detected (NotDetected) Influenza Type B (PCR) Not Detected (NotDetected) M. pneumoniae (PCR) Not Detected (NotDetected) Parainfluenza 1 (PCR) Not Detected (NotDetected) Parainfluenza 2 (PCR) Not Detected (NotDetected) Parainfluenza 3 (PCR) Not Detected (NotDetected) Parainfluenza 4 (PCR) Not Detected (NotDetected) RSV (PCR) Not Detected (NotDetected) Entero/Rhino (PCR) Not Detected (NotDetected) Blood Parasites ID Cancelled Diagnostic Findings Chest X-Ray 06/18/24 03:48 EXAM: XR chest 1V portable CLINICAL HISTORY: Sepsis. TECHNIQUE: An X-ray image of the chest is obtained in AP projection. COMPARISON: A prior study dated 05/16/2022 wad reviewed. FINDINGS: Pulmonary Parenchyma: Lungs are clear bilaterally. No evidence of consolidation, collapse, or focal opacities. No pulmonary nodules are identified. No evidence of pleural effusion or pleural thickening. Heart and Mediastinum: Apparently mild cardiomegaly with evidence of an inserted pacemaker in place. No mediastinal widening or masses. No hilar or mediastinal lymphadenopathy. Bony Thorax: Bony thorax appears intact without fractures or deformities. Soft Tissues: Soft tissues overlying the chest wall are unremarkable. IMPRESSION: 1. Apparently mild cardiomegaly with evidence of an inserted pacemaker in place. 2. Otherwise, normal chest X-ray. 3. No acute cardiopulmonary abnormalities are identified. 4. No significant time interval changes. Electronically signed by Jhonny Xiao 06-18-2024 04:23 AM Abdomen/Pelvis CT 06/18/24 05:16 EXAM: CT abd pelvis wo con CLINICAL HISTORY: New PEG, recent choledocholithias ?stent displaced TECHNIQUE: Contiguous axial images were obtained from the level of the diaphragm to the pubic symphysis without intravenous or oral contrast. Coronal and sagittal reconstructions were likewise performed and indicated to increase the sensitivity for detecting clinically relevant pathology. CT scan was performed according to ALARA (as low as reasonable achievable). COMPARISON: 05/10/2024 23:25:11 RN SURGICAL FINDINGS: The visualized lung bases show left basal segmental atelectasis. Ascending aortic graft noted. Evaluation of the abdominal and pelvic visceral organs is limited without intravenous contrast. The unenhanced liver, spleen, pancreas, and adrenal glands are grossly unremarkable. Gall bladder is not visualized. Moderate pneumoperitoneum. Self expanding metallic stent across periampullary region in distal CBD and D3 segment of duodenum. The kidneys are normal in size and attenuation. A 2mm calculus at lower pole of right kidney. Multiple simple cortical cysts in bilateral kidneys.. There is no hydronephrosis or perinephric stranding. The ureters are normal in caliber. No adenopathy seen. Gross ascites. No evidence of focal or diffuse bowel wall thickening or evidence of bowel obstruction is seen. The appendix is visualized in the right lower quadrant and appears within normal limits. PEG tube in situ. Diffuse mesenteric nodularity and fat stranding The aorta is normal in caliber. The urinary bladder is normal in contour. Pelvic viscera are grossly unremarkable. No aggressive appearing osseous lesions are identified. IMPRESSION: 1. Gross ascites with mesenetric nodularity and fat stranding. (New finding) 2. Moderate pneumoperitoneum, likely iatrogenic secondary to PEG tube insertion. (New finding) 3. Self expanding metallic stent across periampullary region in distal common bile duct and D3 segment of duodenum. Possibility of inferior displacement of stent. (Stable) 4. Non obstructing right renal calculus. (Stable) 5. Bilateral simple renal cortical cysts- BOSNIAK I. (Stable)Levoscoliosis of thoracolumbar spine. Electronically signed by Soto Callahan 06-18-2024 07:37 AM Venous Doppler Study 06/18/24 05:52 BILATERAL LOWER EXTREMITY VENOUS DOPPLER HISTORY: Acute pain and swelling of the lower legs LE edema, off Eliquis COMPARISON STUDY: None. FINDINGS: Subcutaneous edema noted. There is normal compressibility, flow, and augmentation within the bilateral lower extremity deep venous systems. IMPRESSION: No DVT within the right or left lower extremity. ACT 112: Negative or not required by law. Electronically signed by: Jaxon Bill M.D. 06/18/2024 2:[address] 06/18/24 05:53 EXAM: CT head/brain wo con CLINICAL HISTORY: ams, eliquis TECHNIQUE: Multiple axial images are obtained from the skull base to the vertex without contrast. CT scan was performed according to ALARA (as low as reasonable achievable). COMPARISON: None. FINDINGS: There is cerebral atrophy. No evidence of space occupying lesion, hemorrhage, edema, mass effect, midline shift, extra axial collection, or hydrocephalus is noted. Basal cisterns are symmetric and normal in size and configuration. There are scattered periventricular hypodensities as can be seen with chronic microvascular ischemic changes. The moraes-white matter differentiation is preserved. Visualized paranasal sinuses and mastoid air cells are well aerated. Orbital contents are within normal limits. Bony structures are intact. IMPRESSION: 1. No evidence of acute intracranial abnormality is demonstrated. 2. Chronic microvascular ischemic changes. 3. Cerebral atrophy. Electronically signed by Soto Callahan 06-18-2024 07:02 AM Chest X-Ray 06/18/24 06:57 EXAM: XR chest 1V portable CLINICAL HISTORY: central line TECHNIQUE: An X-ray image of the chest is obtained in AP projection. COMPARISON: 06/18/2024 02:51:00 RN SURGICAL. FINDINGS: The right-sided central venous line's tip is at the superior cavoatrial junction. Pulmonary Parenchyma: Lungs are clear bilaterally. No evidence of consolidation, collapse, or focal opacities. No pulmonary nodules are identified. No evidence of pleural effusion or pleural thickening. Heart and Mediastinum: Stable cardiac size. No mediastinal widening or masses. No hilar or mediastinal lymphadenopathy. Cardiac pacemaker lead seen in situ. Bony Thorax: Bony thorax appears intact without fractures or deformities. Soft Tissues: Soft tissues overlying the chest wall are unremarkable. IMPRESSION: 1. No acute cardiopulmonary abnormalities are identified. 2. The right-sided central venous line's tip is at the superior cavoatrial junction. 3. Compared to the previous study, the central venous line is a new finding; otherwise, no interval changes. Electronically signed by Jhonny Xiao 06-18-2024 07:38 AM Abdomen/Pelvis CT 06/19/24 04:42 EXAM: CT abd pelvis wo con CLINICAL HISTORY: Sharp LLQ abd pain, shock, r/o ischemia or perf TECHNIQUE: Contiguous axial images were obtained from the level of the diaphragm to the pubic symphysis without intravenous or oral contrast. Coronal and sagittal reconstructions were likewise performed and indicated to increase the sensitivity for detecting clinically relevant pathology. CT scan was performed according to ALARA (as low as reasonably achievable). COMPARISON: CT, 06/18/2024 05:26:00 RN SURGICAL FINDINGS: The visualized lung bases shows bilateral pleural effusion with adjacent basal atelectasis. Evaluation of the abdominal and pelvic visceral organs is limited without intravenous contrast. The unenhanced liver, spleen, pancreas, and adrenal glands are grossly unremarkable. Post cholecystectomy status. Dilated common bile duct (9.2mm) with mild bilobar intrahepatic biliary ductal dilatation. Gross ascites seen with omental and mesenteric thickening and nodularity. Pneumoperitoneum is seen. PEG tube seen in place. Duodenum stent in D1/D2 segment. Self expanding metallic stent across periampullary region in distal CBD and D3 segment of duodenum. The spleen, pancreas, and adrenal glands are unremarkable. The kidneys are normal in size and attenuation. There is no hydronephrosis or perinephric fat stranding. A 2mm calculus at lower pole of right kidney. Multiple cortical cysts in bilateral kidneys.. The ureters are normal in caliber and no ureteral calculi are seen. The bladder is normal in with Asif's catheter insitu. No evidence of focal or diffuse bowel wall thickening or evidence of bowel obstruction is seen. Multiple small 2-3mm diverticuli in sigmoid colon. No evidence of inflamed appendix. The aorta is normal in caliber. Prostate is enlarged in size, measures 35cc in volume. Degenerative changes in the visualized spine. Levoscoliosis of thoracolumbar spine. Left inguinal hernia with peritoneal fat and fluid as contents. IMPRESSION: 1. Mild decrease in ascitic fluid volume. 2. Interval increase in bilateral pleural effusion. 3. Stable mesenteric and omental thickening and nodularity. 4. Moderate pneumoperitoneum- likely secondary to PEG tube insertion. Reduced as compared to prior study. 5. Stable inferiorly displaced CBD stent. 6. Stable bilateral renal cortical cysts and right non-obstructing nephrolithiasis. 7. Stable left inguinal hernia. 8. Stable Grade I prostatomegaly. Electronically signed by Soto Callahan 06-19-2024 06:05 AM PG Care Time/CCT Total # of Minutes Spent Total Time Spent with Patient: Total time spent is greater than 50% in coordination of care (as documented) at patient's floor/unit and/or counseling patient: I spent 140 minutes overall addressing this case: 20 min in medical data review/discussion with referring prov ider(s) and/or preparation for the visit 25 min in direct interaction with the patient/exam 60 min in Advance Care Planning/Goals of Care discussions as detailed above in note (must be >16min) 15 min in subsequent review and synthesis of assessment and plan 20 min communicating with other providers regarding the patient's case: ICU teams, nursing, care mgt, primary team, [facility] Advanced Care Planning [id number] Advanced Care Planning 30 Min 53419 Advanced Care Planning Additional 30 [place] [address] IN/OBS CONSULT LVL 5,80M (25 - SIGNIFICANT, SEPARATELY IDENTIFIABLE ) Patient Type New History Comprehensive Exam Comprehensive Medical Decision Making High Complexity Diagnoses Dyspnea and respiratory abnormalities R06.00; R06.89 Abdominal pain, generalized R10.84 Advanced care planning/counseling discussion Z71.89 Palliative care by specialist Z51.5 Additional Codes Advanced Care Planning - 88744 Advanced Care Planning 30 Min: 08132 Advanced Care Planning 30 Min ([id number]) Advanced Care Planning - 17124 Advanced Care Planning Additional 30 Min: 59098 Advanced Care Planning Additional 30 Min ([id number]) Time Spent (min) 140 Comment [id number], [id number]
[2024-06-19] MEDS: SODIUM BICARBONATE 8.4% 150 MEQ in WATER, STERILE 1,000 ML IV SCH (10:44)
[2024-06-19] MEDS: MEROPENEM 500 MG in SYRINGE 0 ML IV SCH (10:44)
[2024-06-19] MEDS: HYDROmorphone INJ 0.5 MG/0.5 ML SYR IV PRN (10:44)
--- NOTE | 2024-06-19 10:59 | Nephrology Consultation ---
Date of Consultation June 19, 2024 Assessment & Plan (1) DEE (acute kidney injury): Non Oliguric DEE from [facility] in the setting of Sepsis/Possible bowel perf and multiorgan failure in aptient with Advanced metastatic Cancer. There is no plan for escalation of care. Already seen by palliative med. patient and his 2 sisters are all in agreement and is aware of terminal Situation. No plan for Dialysis. (2) Shock: even now needing 3 Pressors. (3) Lactic acidosis: still very high. Bicarb drip for met acidosis with high K (4) Hyperkalemia: Will add Bicarb drip 150 meq in sterile water at 50 ml/hr. will help to lower k some extent. Can continue Lokelma if allowed PO Plan Discussed with primary team, ICU, 2 sisters and patient. total time spent 62 mins History of Present Illness Reason for Consultation: DEE Attending Physician: Parul Yun MD History of Present Illness 68/M with metastatic esophageal cancer status post radiation status post stent placement status post recent PEG tube placement,chronic systolic heart failure (EF 25%), SSS status post PPM on Eliquis, status post TAVR, nocturnal hypoxemia on home O2 at night, DM2 on oral medications, hypothyroidism, choledocholithiasis, past history C. difficile, anxiety disorder, past tobacco abuse. Was admitted at [facility] last month for nausea vomiting post ERCP. Patient subsequently transferred and confined to [facility] from from May 14 to for further evaluation. Found to have an esophageal obstruction status post stent placement. Biopsy consistent with esophageal adenocarcinoma. Subsequent [facility] confinement 05/23-06/07 for esophageal obstruction secondary to displaced esophageal stent. Subsequent IR guided PEG tube placement at [facility]. Palliative radiation initiated at [facility] due to esophageal obstruction causing dysphagia.. Patient not operative candidate as per surgical oncology. Strict n.p.o. instructions and PEG tube feeds prescribed on discharge. However, Patient noted progressive lower abdominal discomfort and back pain over the last few days. EMS called to patient's home. Patient noted to be hypoxic, O2 sat 70s and hypotensive, SBP 60s. Fluid boluses and Levophed administered prior to ED transport. Currently in ICU with Severe Hypotension needing 3 pressors. Shock liver with high LFT and rising creatinine and rising lactate now. But still making urine--somewhat slower last few hours though. Palliative already involved and there is no plan for escalation of care and no plan for CPR/Intubation/Dialysis patient is awake and talking. 2 sisters at bedside. ROS--12 Systems reviewed and negative otherwise. Physical Exam Physical Exam: GENERAL: ill-appearing, obese, no respiratory distress. awake and alert. normal speech HEENT: Alopecia, pink palpebral conjunctivae, no ptosis, dry buccal mucosa, nasal cannula in place NECK : Supple, no tenderness CHEST : Decreased breath sounds HEART : Tachycardic, systolic murmur ABDOMEN: Diffuse tenderness EXTREMITIES : No LE edema. Allergies Allergy/AdvReac Type Severity Reaction Status Date / Time cefuroxime Allergy Intermediate FEVER, Verified 01/30/21 14:19 DIARHEA cider vinegar Allergy Verified 02/02/21 16:27 ketchup Allergy Verified 02/02/21 16:27 mayonnaise Allergy Verified 02/02/21 16:27 mustard Allergy Verified 02/02/21 16:27 Home Medications Medication Instructions Recorded Confirmed Type eplerenone 25 mg tablet (Inspra) 12.5 mg PO QAM 01/29/21 06/18/24 History furosemide 80 mg tablet (Lasix) 40 mg PO UD 01/29/21 05/10/24 History metoprolol tartrate 50 mg tablet 75 mg PO AMHS 04/28/22 06/18/24 History pediatric multivitamin no.49 1 tab PO QAM 04/28/22 05/10/24 History (Flintstones Gummies chewable tablet) empagliflozin 10 mg tablet 10 mg PO QAM 05/16/22 06/18/24 History (Jardiance) apixaban 5 mg tablet (Eliquis) 5 mg PO UD 05/10/24 06/18/24 History famotidine 20 mg tablet 20 mg PO BID Indigestion 05/10/24 06/18/24 History levothyroxine 100 mcg tablet 100 mcg PO DAILYBB 05/10/24 06/18/24 History pantoprazole 40 mg tablet,delayed 40 mg PO DAILYBB 05/10/24 06/18/24 History release magnesium citrate 06/18/24 History omeprazole 2 mg-sodium bicarbonate 2 - 84 ml feeding tube DAILY 06/18/24 06/18/24 History 84 mg/mL oral suspension (Konvomep) ondansetron 4 mg disintegrating 4 mg PO Q8 PRN Nausea 06/18/24 06/18/24 History tablet oxycodone 5 mg tablet 5 mg PO Q4 PRN Pain (Scale Score 06/18/24 06/18/24 History 4-6) Patient History Medical History Elevated troponin DVT prophylaxis Mobitz type 2 second degree atrioventricular block Aortic stenosis Mobitz type 1 second degree AV block Paroxysmal atrial fibrillation Non-ischemic myocardial injury (non-traumatic) COVID-19 Third degree heart block HLD (hyperlipidemia) Third degree heart block DM II (diabetes mellitus, type II), controlled Ischemic cardiomyopathy Hypertension Type 2 diabetes mellitus Congestive heart failure Family History Father Prostate cancer Bladder cancer Mother Diabetes Heart disease Thyroid condition Sister Thyroid condition Social History Smoking Status: Former smoker Second Hand Exposure: No; Do You Dip or Chew Tobacco: No; Hx Alcohol Use: No Hx Substance Use: No Preferred Language: [place] Communication Ability: Effective Amphibious Operations Officer Required: No Beliefs That Will Affect Care: None marital status: Single Current Living Situation: Family Current Living Situation Comment: lives with sister Feels Safe at Home: Yes Safety Concerns: Feels Safe At This Time Assistive Devices: Glasses, Oxygen - at Night and Walker Assistive Devices Comment: 2L at nite Results & Data Vital Signs (Past 12 Hours) Vital Signs Temp Pulse Resp BP BP Pulse Ox O2 Del Method 06/19/24 10:18 37.4 C 121 H 33 H 06/19/24 10:00 37.7 C H 124 H 25 H 06/19/24 09:30 38.2 C H 128 H 43 H 92 Oxymask 06/19/24 09:21 38.4 C H 110 H 39 H 06/19/24 08:45 39.0 C H 102 H 42 H 06/19/24 08:30 39.1 C H 110 H 40 H 06/19/24 08:24 39.3 C H 103 H 32 H 06/19/24 08:12 39.3 C H 112 H 32 H 06/19/24 07:51 39.5 C H 131 H 39 H 06/19/24 07:42 39.5 C H 123 H 40 H 06/19/24 07:30 115 H 33 H 92 06/19/24 07:27 112 H 40 H 06/19/24 07:00 180 H 42 H 06/19/24 06:30 129 H 36 H 76 L 06/19/24 06:06 128 H 44 H 86 L 06/19/24 05:30 127 H 33 H 87 L 06/19/24 04:30 38.4 C H 124 H 38 H 87 L 06/19/24 04:00 38.2 C H 123 H 32 H 94 06/19/24 03:09 38.0 C H 112 H 36 H 06/19/24 03:02 127/75 06/19/24 02:51 38.1 C H 113 H 35 H 06/19/24 02:39 100/66 06/19/24 02:30 37.1 C 117 H 31 H 06/19/24 02:00 37.1 C 117 H 35 H 06/19/24 01:30 114 H 33 H 06/19/24 01:03 37.9 C H 115 H 31 H 06/19/24 01:00 36.4 C L 06/19/24 00:54 38.1 C H 115 H 38 H 06/18/24 23:36 38.1 C H 110 H 36 H 95 06/18/24 23:21 38.1 C H 110 H 33 H 95 O2 Flow Rate 06/19/24 10:18 06/19/24 10:00 06/19/24 09:30 5 06/19/24 09:21 06/19/24 08:45 06/19/24 08:30 06/19/24 08:24 06/19/24 08:12 06/19/24 07:51 06/19/24 07:42 06/19/24 07:30 06/19/24 07:27 06/19/24 07:00 06/19/24 06:30 06/19/24 06:06 06/19/24 05:30 06/19/24 04:30 06/19/24 04:00 06/19/24 03:09 06/19/24 03:02 06/19/24 02:51 06/19/24 02:39 06/19/24 02:30 06/19/24 02:00 06/19/24 01:30 06/19/24 01:03 06/19/24 01:00 06/19/24 00:54 06/18/24 23:36 06/18/24 23:21 Laboratory Results CBC, renal Panel and LFT + Imaging
[2024-06-19] MEDS ORDERED: PIPERACILLIN/TAZOBACTAM 4.5 GM/100 ML BAG IV SCH (11:00)
[2024-06-19] MEDS: DAPTOmycin 725 MG in SYRINGE 0 ML IV ONE (11:12)
[2024-06-19] MEDS: HYDROCORTISONE SOD 50 MG in SYRINGE 0 ML IV SCH (12:24)
--- NOTE | 2024-06-19 14:15 | Hospitalist Progress Note ---
Date of Service June 19, 2024 Assessment & Plan (1) Encephalopathy: Plan: Encephalopathy Multifactorial-Sepsis,Septic shock,DEE Patient mentating better after initial intervention as per family. Remains mentally clear but extremely weak and lethargic. Overall condition has not been improving Discussed with the harbor police launch commander, warehouse delivery driver, pharmacy specialist and the sisters Will continue aggressive treatment now and if there is no improvement likely to go on comfort care Patient sister requesting updates providers. Ms. Sharon Tomlin, contact #[phone]. Total critical care time was 35 minutes. (2) Hyperkalemia: Plan: Remains hyperkalemic likely secondary to acute kidney injury Appreciate nephrology input and recommendations Getting intravenous bicarb infusion and monitoring PRP Likely going towards multiorgan failure Will monitor renal function and if there is no improvement likely to go for comfort care (3) DEE (acute kidney injury): Plan: as above (4) Hypotension: Plan: Presented with hypotension and shock likely secondary to sepsis due to intra- abdominal infection Has been requiring 3 pressor agents to maintain blood pressure Appreciate [employer] police launch commander input and recommendation Blood pressure remains the lower side on current medications Will monitor (5) Lactic acidosis: Plan: Likely secondary to sepsis and ischemic bowel with continued abdominal pain Will continue intravenous fluid and current pain medications and monitor (6) Shock: Plan: Sepsis secondary to intra-abdominal infection Has been getting intravenous Zosyn, caspofungin and intravenous fluid has been getting intravenous hydrocortisone Will monitor Very high LFTs Likely secondary to shock liver Will continue current medications and monitor (7) Abdominal pain, acute: Plan: Continue to have abdominal pain mostly left lower quadrant Likely secondary to ischemic bowel Not a candidate for CT with contrast Will continue current antibiotics for possible sepsis and also IV fluid (8) Palliative care by specialist: Plan: Has esophageal adenocarcinoma with obstruction Condition has been deteriorating with multiorgan failure Appreciate palliative care input and recommendation Palliative did get input from oncologist If his conditions remain reasonably stable will be discharged home with hospice in the next day or 2 (9) Esophageal adenocarcinoma: Plan: Metastatic esophageal cancer status post radiation status post stent placement status post recent PEG tube placement As above Other significant medical conditions remained stable as below hx chronic systolic heart failure (EF 40%, TTE 2024), patient with dry side SSS status post PPM on Eliquis status post TAVR nocturnal hypoxemia on home O2 at night DM2 on oral medications, well-controlled as of recent hemoglobin A1c of 7 last April 2024 hypothyroidism, no recent TSH on file hx choledocholithiasis past tobacco abuse Admission and Anticipated Discharge Date Admission Date: June 18, 2024 Subjective 06/19/2024 The patient was seen and examined in ICU in presence of the family members He remains very weak and lethargic and also having occasional abdominal pain and left lower quadrant mainly Still requiring 3 pressor support to maintain blood pressure Clinically not any better Review of Systems Review of Systems: all systems reviewed and unremarkable except as mentioned before Physical Exam Physical Exam: Lying in bed with acute distress due to weakness and pain Constitutional: + acute distress ( mild respiratory dist ress) and + ill appearing Eyes: PERRL, conjunctivae normal, anicteric sclerae ENMT: external ear and nose normal, oropharynx normal Neck: trachea midline, no thyromegaly Respiratory: + respiratory distress ( mild respirator y distress) Auscultation: + diminished lung sounds and + crackles ( minimal crackles at the bases) Cardiovascular: Rate/Rhythm: regular rate, regular rhythm and + tachycardic Heart Sounds: normal S1 and normal S2; no murmur Extremities: + edema ( trace edema bilaterally) Gastrointestinal (Abdomen): Inspection/Auscultation: + abdomen distended ( mildly distended) and normal bowel sounds Percussion/Palpation: + abdomen tender ( tender in the left lower quadrant) Musculoskeletal: no acute arthritis involving any of the joint Neurologic: moves all extremities ( extremely weak and lethargic) Lymphatic: no cervical or axillary lymphadenopathy Results & Data Results & Data Vital Signs (Past 12 Hours) Vital Signs Temp Pulse Resp BP BP Pulse Ox O2 Del Method 06/19/24 12:27 35.7 C L 102 H 27 H 97 06/19/24 12:03 35.9 C L 105 H 22 96 06/19/24 11:54 35.9 C L 107 H 32 H 96 06/19/24 11:48 Nasal Cannula 06/19/24 11:39 36.1 C L 108 H 26 H 94 06/19/24 11:27 36.3 C L 109 H 29 H 95 06/19/24 11:06 36.3 C L 112 H 20 06/19/24 10:48 36.7 C 116 H 30 H 06/19/24 10:42 36.8 C 116 H 33 H 06/19/24 10:18 37.4 C 121 H 33 H 06/19/24 10:00 37.7 C H 124 H 25 H 06/19/24 09:30 38.2 C H 128 H 43 H 92 Oxymask 06/19/24 09:21 38.4 C H 110 H 39 H 06/19/24 08:45 39.0 C H 102 H 42 H 06/19/24 08:40 116 H 06/19/24 08:30 39.1 C H 110 H 40 H 06/19/24 08:24 39.3 C H 103 H 32 H 06/19/24 08:12 39.3 C H 112 H 32 H 06/19/24 07:51 39.5 C H 131 H 39 H 06/19/24 07:42 39.5 C H 123 H 40 H 06/19/24 07:30 115 H 33 H 92 06/19/24 07:27 112 H 40 H 06/19/24 07:00 180 H 42 H 06/19/24 06:30 129 H 36 H 76 L 06/19/24 06:06 128 H 44 H 86 L 06/19/24 05:30 127 H 33 H 87 L 06/19/24 04:30 38.4 C H 124 H 38 H 87 L 06/19/24 04:00 38.2 C H 123 H 32 H 94 06/19/24 03:09 38.0 C H 112 H 36 H 06/19/24 03:02 127/75 06/19/24 02:51 38.1 C H 113 H 35 H 06/19/24 02:39 100/66 06/19/24 02:30 37.1 C 117 H 31 H 06/19/24 02:00 37.1 C 117 H 35 H O2 Flow Rate 06/19/24 12:27 06/19/24 12:03 06/19/24 11:54 06/19/24 11:48 4 06/19/24 11:39 06/19/24 11:27 06/19/24 11:06 06/19/24 10:48 06/19/24 10:42 06/19/24 10:18 06/19/24 10:00 06/19/24 09:30 5 06/19/24 09:21 06/19/24 08:45 06/19/24 08:40 06/19/24 08:30 06/19/24 08:24 06/19/24 08:12 06/19/24 07:51 06/19/24 07:42 06/19/24 07:30 06/19/24 07:27 06/19/24 07:00 06/19/24 06:30 06/19/24 06:06 06/19/24 05:30 06/19/24 04:30 06/19/24 04:00 06/19/24 03:09 06/19/24 03:02 06/19/24 02:51 06/19/24 02:39 06/19/24 02:30 06/19/24 02:00 Laboratory Results Short CBC 06/19/24 Range/Units 04:26 WBC 14.37 H (4.8-10.8) K/ul Hgb 14.4 (14.0-18.0) g/dl Hct 44.1 (42.0-52.0) % Plt Count 63 L (130-400) K/uL BMP 06/18/24 06/19/24 19:06 04:26 Sodium 136 136 Potassium 5.1 5.5 H Chloride 104 104 Carbon Dioxide 23 21 BUN 74 H 69 H Creatinine 3.27 H 2.94 H D Glucose 128 H 96 Calcium 7.4 L 7.3 L Liver Function 06/19/24 Range/Units 04:26 Total Bilirubin 0.9 (0.2-1.0) mg/dl AST 1390 H (13-39) U/L ALT 1004 H (7-52) U/L Alkaline Phosphatase 77 D (34-104) U/L Albumin 2.6 L (3.4-5.0) gm/dl Medications Administered Current Inpatient Medications Acetaminophen (Acetaminophen Susp 325 Mg/10.15 Ml Udc) 650 mg PEG Q6H PRN PRN Reason: Pain or Fever Stop: 07/18/24 06:13 Dextrose (Dextrose 50% 50 Ml Syringe) 25 - 50 ml IV UD PRN; Protocol PRN Reason: Hypoglycemia Protocol Stop: 07/18/24 06:48 Glucagon (Glucagon For Inj 1 Mg Vial) 1 mg SQ UD PRN; Protocol PRN Reason: Hypoglycemia Protocol Stop: 07/18/24 06:48 Glucose (Glucose 40% Gel 15 Gm Tube) 15 - 30 gm PO UD PRN; Protocol PRN Reason: Hypoglycemia Protocol Stop: 07/18/24 06:48 Glucose (Glucose 10 Tab/Tube) 4 - 8 tab PO UD PRN; Protocol PRN Reason: Hypoglycemia Protocol Stop: 07/18/24 06:48 Haloperidol Lactate (Haloperidol Lactate 5 Mg/Ml 1 Ml Vial) 1 mg IV Q6H PRN PRN Reason: agitation, nausea, delirium Stop: 07/19/24 10:29 Hydromorphone HCl (Hydromorphone Inj 0.5 Mg/0.5 Ml Syr) 0.25 mg IV Q1H PRN PRN Reason: Pain Stop: 07/03/24 10:29 Last Admin: 06/19/24 10:44 Dose: 0.25 mg Pantoprazole Sodium (Protonix) 40 mg in 10 mls @ 5 mls/min IV DAILY [facility] Stop: 07/18/24 08:59 Last Admin: 06/19/24 07:43 Dose: 5 mls/min Vasopressin 20 units/ Sodium (Chloride) 101 mls @ 12.12 mls/hr IV .Q8H20M [facility] Stop: 07/18/24 06:14 Last Infusion: 06/19/24 07:09 Dose: 0.04 unit/min, 12.1 mls/hr Phenylephrine HCl (Phenylephrine/Nss) 25 mg in 250 mls @ 28.41 mls/hr IV .Q8H48M [facility]; Protocol Stop: 07/18/24 06:07 Last Admin: 06/19/24 11:12 Dose: Not Given Norepinephrine Bitartrate (Levophed/Nss) 16 mg in 250 mls @ 25.747 mls/hr IV .Q9H43M [facility]; Protocol Stop: 07/18/24 10:14 Last Titration: 06/19/24 12:03 Dose: 0.21 mcg/kg/min, 18.6 mls/hr Acetaminophen (Ofirmev) 1,000 mg in 100 mls @ 400 mls/hr IV Q8H PRN PRN Reason: Fever or headache Stop: 06/21/24 11:42 Last Infusion: 06/19/24 08:19 Dose: Infused Caspofungin 50 mg/ Sodium (Chloride) 260 mls @ 260 mls/hr IV Q24H [facility] Stop: 06/29/24 14:59 Thiamine HCl 100 mg/ Syringe 10 mls @ 2 mls/min IV QAM [facility] Stop: 07/19/24 08:59 Last Admin: 06/19/24 07:44 Dose: 2 mls/min Parenteral Electrolytes (Plasma-Lyte A Ph 7.4) 1,000 mls @ 100 mls/hr IV .Q10H [facility] Stop: 06/20/24 08:59 Last Infusion: 06/19/24 12:32 Dose: 100 mls/hr Hydrocortisone Sodium (Succinate 50 mg/ Syringe) 1 mls @ 4 mls/min IV Q6 [facility] Stop: 07/19/24 11:59 Last Admin: 06/19/24 12:24 Dose: 4 mls/min Meropenem 500 mg/ Syringe 10 mls @ 2 mls/min IV Q8H [facility]; Protocol Stop: 06/29/24 10:29 Last Admin: 06/19/24 10:44 Dose: 2 mls/min Sodium Bicarbonate 150 meq/ (Sterile Water) 1,150 mls @ 100 mls/hr IV .[id number] [facility] Stop: 07/19/24 10:44 Last Admin: 06/19/24 10:44 Dose: 100 mls/hr Insulin Aspart (Insulin Aspart Per Unit Charge) 0 units SC Q6 [facility] Stop: 07/18/24 06:48 Last Admin: 06/19/24 12:20 Dose: Not Given Miscellaneous (Carbohydrates For Hypoglycemia ) 15 - 30 gm PO UD PRN PRN Reason: Hypoglycemia Protocol Stop: 07/18/24 06:48 Ondansetron HCl (Ondansetron Inj 2 Mg/Ml 2 Ml Vial) 4 mg IV Q4H PRN PRN Reason: Nausea &/or Vomiting Stop: 07/18/24 14:27 Sodium Zirconium Cyclosilicate (Sodium Zirconium Cyclosilicate 10 Gm Packet) 10 gm NG TID@1000,1400,2100 [facility] Stop: 06/20/24 21:01 Last Admin: 06/19/24 09:54 Dose: 10 gm
[2024-06-19] MEDS: HALOPERIDOL LACTATE 5 MG/ML 1 ML VIAL IV PRN (14:33)
[2024-06-19] MEDS: CASPOFUNGIN 50 MG in SODIUM CHLORIDE 0.9% 250 ML IV SCH (14:59)
[2024-06-19 16:28] VITALS: PULSE 77; RESP 30; TEMP 97.3; O2SAT 96
[2024-06-19] MEDS ORDERED: ONDANSETRON INJ 2 MG/ML 2 ML VIAL IV PRN (17:18)
[2024-06-19] MEDS ORDERED: STAT IV Infusion **Titration per Protocol STA (17:18)
--- NOTE | 2024-06-19 17:18 | Communication Note ---
Date of Service: June 19, 2024 Attending addendum: The condition of the patient has been deteriorating with increasing pain and and without any improvement of the potassium level and he has been requiring more oxygen to maintain saturation. Discussed with the dice manager ,with the sisters and with the patient in ICU The patient wanted to have comfort care as was discussed by the palliative care team and the sisters are in agreement with it. He will be started with intravenous morphine and also supportive medications as for comfort measures. This was also discussed with nurse. Dr Sofy Yun
[2024-06-19] MEDS ORDERED: ATROPINE SULFATE 1% OP SOLN 5 ML BTL OP PRN (17:23)
[2024-06-19] MEDS: LORazepam 2 MG/1 ML VIAL IV PRN (17:34)
[2024-06-19] MEDS: MoRPHine SULF 100 MG/100 ML BAG IV SCH (18:07)
[2024-06-19] MEDS: MoRPHine BOLUS from BAG IV PRN (18:08)
--- NOTE | 2024-06-19 21:43 | Discharge Summary ---
Discharge Summary Date of Service June 19, 2024 Principal Dx & Hospital Course #1 = Principal Diagnosis (1) Encephalopathy: (2) Hyperkalemia: Remains hyperkalemic likely secondary to acute kidney injury (3) DEE (acute kidney injury): (4) Hypotension: Presented with hypotension and shock likely secondary to sepsis due to intra- abdominal infection Has been requiring 3 pressor agents to maintain blood pressure (5) Lactic acidosis: Likely secondary to sepsis and ischemic bowel with continued abdominal pain Will continue intravenous fluid and current pain medications and monitor (6) Shock: Sepsis secondary to intra-abdominal infection (7) Abdominal pain, acute: (8) Palliative care by specialist: Has esophageal adenocarcinoma with obstruction (9) Esophageal adenocarcinoma: Metastatic esophageal cancer status post radiation status post stent placement status post recent PEG tube placement As above Plan Patient transitioned to [employer] on 06/19 and ultimately succumb to above comobidities. Patient pronouced at 1909 Notes For Next Care Provider Medication Changes From Visit Admission HPI Per Admitting Provider History obtained from patient, family, and records. Patient is a fair historian. Medical history significant for chronic systolic heart failure (EF 40%, TTE 2024), SSS status post PPM on Eliquis, status post TAVR, nocturnal hypoxemia on home O2 at night, DM2 on oral medications, hypothyroidism, metastatic esophageal cancer status post radiation status post stent placement status post recent PEG tube placement, choledocholithiasis, past history C. difficile, anxiety disorder, past tobacco abuse. Recent [facility] confinement last month for nausea vomiting post ERCP. Patient subsequently transferred and confined to [facility] from from May 14 to for further evaluation. Found to have an esophageal obstruction status post stent placement. Biopsy consistent with esophageal adenocarcinoma. Subsequent [facility] confinement 05/23-06/07 for esophageal obstruction secondary to displaced esophageal stent. Subsequent IR guided PEG tube placement at [facility]. Palliative radiation initiated at [facility] due to esophageal obstruction causing dysphagia.. Patient not operative candidate as per surgical oncology. Strict n.p.o. instructions and PEG tube feeds prescribed on discharge. Further management of malignancy contingent on outpatient PET CT scheduled today as per outpatient [facility] [place] from last week. Patient noted progressive achy lower abdominal discomfort and back pain over the last few days. Denies headache, chest pain, SOB, cough symptoms. Patient noted to be progressively weak by family. No overt bleeding noted at home. Slow to respond and increasingly responsive overnight. EMS called to patient's home. Patient noted to be hypoxic, O2 sat 70s and hypotensive, SBP 60s. Fluid boluses and Levophed administered prior to ED transport. Patient currently more awake at the ER as per family. Medical History as above Surgical History : TAVR, PPM Family History : Stroke, pancreatic cancer, bladder cancer, DM, heart disease Personal/Social history : Past tobacco abuse, no EtOH intake, retired from construction work Admission Exam Per Admitting Provider GENERAL: uncomfortable, ill-appearing, obese, no respiratory distress SKIN: Normal color, warm HEENT: Alopecia, pink palpebral conjunctivae, no ptosis, dry buccal mucosa, nasal cannula in place , NECK : Supple, no tenderness CHEST : Decreased breath sounds, no tenderness HEART : Tachycardic, systolic murmur ABDOMEN: Some distention, central abdominal tenderness EXTREMITIES : No LE swelling/tenderness, palpable pulses, no other conspicuous deformities noted NEUROLOGIC : Oriented to place, no facial asymmetry, no other gross focality Discharge Exam see note Updated Medication List Medication Instructions Recorded Confirmed Type eplerenone 25 mg tablet (Inspra) 12.5 mg PO QAM 01/29/21 06/18/24 History furosemide 80 mg tablet (Lasix) 40 mg PO UD 01/29/21 05/10/24 History metoprolol tartrate 50 mg tablet 75 mg PO AMHS 04/28/22 06/18/24 History pediatric multivitamin no.49 1 tab PO QAM 04/28/22 05/10/24 History (Flintstones Gummies chewable tablet) empagliflozin 10 mg tablet 10 mg PO QAM 05/16/22 06/18/24 History (Jardiance) apixaban 5 mg tablet (Eliquis) 5 mg PO UD 05/10/24 06/18/24 History famotidine 20 mg tablet 20 mg PO BID Indigestion 05/10/24 06/18/24 History levothyroxine 100 mcg tablet 100 mcg PO DAILYBB 05/10/24 06/18/24 History pantoprazole 40 mg tablet,delayed 40 mg PO DAILYBB 05/10/24 06/18/24 History release magnesium citrate 06/18/24 History omeprazole 2 mg-sodium bicarbonate 2 - 84 ml feeding tube DAILY 06/18/24 06/18/24 History 84 mg/mL oral suspension (Konvomep) ondansetron 4 mg disintegrating 4 mg PO Q8 PRN Nausea 06/18/24 06/18/24 History tablet oxycodone 5 mg tablet 5 mg PO Q4 PRN Pain (Scale Score 06/18/24 06/18/24 History 4-6) Hospital Stay Data Consultations 06/18/24 05:22 ED Decision to Admit Stat 06/18/24 06:49 Consult Estimator Routine 06/18/24 14:26 Consult Nephrology Routine 06/19/24 09:36 Consult Palliative Care Routine Diagnostic Imagining Performed 06/18/24 05:16 CT Abd and Pelvis [CT abd pelvis wo con] Stat 06/18/24 05:52 US venous doppler LE BI Urgent 06/18/24 05:53 CT head/brain wo con Stat 06/18/24 09:38 US point of care ultrasound Urgent 06/19/24 04:42 CT abd pelvis wo con Stat Total Time Total Time Spent Total Time Spent (In Minutes): 35
--- NOTE | 2024-06-19 21:50 | Death Pronouncement Note ---
Date of Service June 19, 2024 Pronouncement Note Admission Date Admission Date: June 18, 2024 Contributing Factors (1) Encephalopathy: (2) Hyperkalemia: (3) DEE (acute kidney injury): (4) Hypotension: (5) Lactic acidosis: (6) Shock: (7) Abdominal pain, acute: (8) Palliative care by specialist: (9) Esophageal adenocarcinoma: Summary Additional details: I was called to patients bedside to pronounce patient as . No spontaneous movements were present. There was no response to verbal or tactile stimuli. Pupils were mid-dilated and fixed. No carotid pulses were palpable. No heart sounds were auscultated over entire precordium. Family was notified and attending physician was notified. The family has not made a decision of autopsy at the time of this note. Wellness Nurse and postmortem services were offered. Patient was DNR at time of . Time of was 1909 on 06/19/2024 General: unresponsive, no spontaneous movements, no response to verbal or tactile stimuli. Eyes: pupils fixed and dilated, corneal reflexes absent. CV: no heart sounds, no carotid pulses. Lungs: no breath sounds, no chest wall motion. Extremities: absent distal pulses Additional Data Attending physician: Parul Yun MD
[2024-06-20 08:04] LABS: Toxic Vacuolation 2+
== END 2024-06-19 20:00 | disposition expired | DRG 871 ==
LOC: ED 03:18 → SUATTDRO 05:47 → 1E 05:47
DX: C15.5 Malignant neoplasm of lower third of esophagus; C78.6 Secondary malignant neoplasm of retroperitoneum and peritoneum; D53.9 Nutritional anemia, unspecified; E87.20 Acidosis, unspecified; A41.9 Sepsis, unspecified organism; R10.32 Left lower quadrant pain; K72.00 Acute and subacute hepatic failure without coma; E11.9 Type 2 diabetes mellitus without complications; E43 Unspecified severe protein-calorie malnutrition; Z66 Do not resuscitate; Z99.81 Dependence on supplemental oxygen; Z51.5 Encounter for palliative care; Z95.0 Presence of cardiac pacemaker; Z79.899 Other long term (current) drug therapy; K55.9 Vascular disorder of intestine, unspecified; I50.22 Chronic systolic (congestive) heart failure; Z91.018 Allergy to other foods; G93.40 Encephalopathy, unspecified; E03.9 Hypothyroidism, unspecified; Z79.890 Hormone replacement therapy; I21.A1 Myocardial infarction type 2; R57.1 Hypovolemic shock; R65.21 Severe sepsis with septic shock; Z92.3 Personal history of irradiation; N18.9 Chronic kidney disease, unspecified; Z79.84 Long term (current) use of oral hypoglycemic drugs; I13.0 Hypertensive heart and chronic kidney disease with heart failure and stage 1 through stage 4 chronic kidney disease, or unspecified chronic kidney disease; I49.5 Sick sinus syndrome; Z79.01 Long term (current) use of anticoagulants; E87.5 Hyperkalemia; Z87.891 Personal history of nicotine dependence; G47.34 Idiopathic sleep related nonobstructive alveolar hypoventilation; Z93.1 Gastrostomy status; Z88.1 Allergy status to other antibiotic agents; R18.8 Other ascites; N17.0 Acute kidney failure with tubular necrosis; J96.01 Acute respiratory failure with hypoxia; E86.0 Dehydration; D69.6 Thrombocytopenia, unspecified